=== PATIENT | male | born 1950 | race Caucasian/White ===

== ENCOUNTER 2018-02-28 12:57 | Inpatient (IN) | payer MEDICARE ==
[2018-02-28 14:44] LABS: Basophils % (A) 0 %; Eosinophils # (A) 0.2 k/uL (0-0.7); Eosinophils % (A) 1 %; HCT 27.4 % (39.0-53.0); Hypochromasia Slight; Lymphocytes # (A) 1.4 k/uL (1.0-4.8); Lymphocytes % (A) 7 %; MCHC 32.9 g/dL (31.0-37.0); MCV 88.3 fL (80.0-100.0); Mean Platelet Volume 6.2; Monocytes # (A) 0.9 k/uL (0-1.0); Monocytes % (A) 5 %; Neutrophils # (A) 16.7 k/uL (1.3-7.7); Neutrophils % (A) 86 %; Platelet Count 585 k/uL (150-450); RBC 3.11 m/uL (4.30-5.90); RDW 13.9 % (11.5-15.5); WBC 19.3 k/uL (3.8-10.6)
[2018-02-28 14:57] LABS: ALT 17 U/L (21-72); AST 16 U/L (17-59); Albumin 3.7 g/dL (3.5-5.0); Alkaline Phosphatase 101 U/L (38-126); Anion Gap 8 mmol/L; Blood Urea Nitrogen 17 mg/dL (9-20); Calcium 12.7 mg/dL (8.4-10.2); Carbon Dioxide 28 mmol/L (22-30); Chloride 101 mmol/L (98-107); Glucose 113 mg/dL (74-99); Potassium 3.3 mmol/L (3.5-5.1); Sodium 137 mmol/L (137-145); Total Bilirubin 0.3 mg/dL (0.2-1.3); Total Protein 7.1 g/dL (6.3-8.2)
[2018-02-28] MEDS ORDERED: SODIUM CHLORIDE 0.9% 1,000 ML IV STA (15:42)
[2018-02-28] MEDS ORDERED: AMPICILLIN-SULBACTAM 3 GM in SODIUM CHLORIDE 0.9% 100 ML IVPB STA (15:57)
--- NOTE | 2018-02-28 16:29 | CT ---
EXAMINATION TYPE: CT facial bones w con DATE OF EXAM: 02/28/2018 COMPARISON: HISTORY: left side facial swelling and pain CT DLP: 585.5 mGycm Automated exposure control for dose reduction was used. CONTRAST: CT scan of the facial bones is performed with IV Contrast, patient injected with 100 mL of Isovue 300 . TECHNIQUE: CT scan of the sinuses is performed without contrast, axial images are obtained, coronal r eformatted images are also reviewed. FINDINGS: Multilobulated soft tissue mass encases the left hemimandible with bony destruction noted. There are areas of fluid attenuation which may reflect a tumor necrosis or abscess formation. Mass is difficult to measure however is estimated at 10 9.2 x 5.7 x 8 cm. There appears to be skin ulceratio n mandibular distractions from the mentum through the angle of the mandible. Soft tissue also surroun ds the ramus. There is a deviation of the tongue from left to right. There is extensive adenopathy no anthony within the internal jugular chains bilaterally measuring 2.8 cm on the left and the largest lymph node on the right measures 1.8 cm. Multiple smaller lymph nodes are also identified. Soft tissue mas slike density is also noted within the left parapharyngeal region with the deviation of the airway fr om left to right. Airway remains patent. Vascular structures are patent. 50% stenosis bilateral internal carotid arteries. Bilateral maxillary cysts chronic sinusitis. Left bulbous phthisis. IMPRESSION: 1. Destructive soft tissue mass encases the left hemimandible with bone destruction. Soft tissue necr osis noted with underlying infection difficult to exclude. There is deviation of the tongue and mass effect upon the oropharynx from left to right. There is associated adenopathy.
[2018-02-28] MEDS ORDERED: LORazepam 2 MG/ML INJ IV STA ×2 (16:41→16:51)
--- NOTE | 2018-02-28 16:43 | ED ---
General Adult HPI - General Chief complaint: Skin/Abscess/Foreign Body Stated complaint: facial abscess Time Seen by Provider: 02/28/18 15:34 Source: patient, RN notes reviewed Mode of arrival: ambulatory Limitations: no limitations - History of Present Illness Initial comments: Patient 67-year-old male presents emergency room today with chief complaint of possible dental abscess. He has not that is had facial swelling on the left side that started approximately a month ago. Patient does admit that there is minimal pain. Does admit to some drainage that can days. Patient states that he's had some drainage past few days. Patient denies any other complaints or symptoms. Patient denies any recent fever, chills, shortness of breath, chest pain, back pain, abdominal pain, nausea or vomiting, numbness or tingling, headaches or visual changes, or any other complaints. - Related Data Home Medications Medication Instructions Recorded Confirmed No Known Home Medications 02/28/18 02/28/18 Allergies Allergy/AdvReac Type Severity Reaction Status Date / Time No Known Allergies Allergy Verified 02/28/18 16:06 Review of Systems ROS Statement: Those systems with pertinent positive or pertinent negative responses have been documented in the HPI. ROS Other: All systems not noted in ROS Statement are negative. Past Medical History Past Medical History: No Reported History History of Any Multi-Drug Resistant Organisms: None Reported Additional Past Surgical History / Comment(s): LEFT EYE REMOVED WHEN 6 YRS OLD Past Psychological History: No Psychological Hx Reported Smoking Status: Current every day smoker Past Alcohol Use History: Daily, Heavy Past Drug Use History: None Reported General Exam - General Exam Comments Initial Comments: General: The patient is awake and alert, in no distress, and does not appear acutely ill. Eye: Pupils are equal, round and reactive to light. Extra-ocular movements are intact. No nystagmus. There is normal conjunctiva bilaterally. No signs of icterus. Ears, nose, mouth and throat: There are moist mucous membranes. Black drainage to the lower gumline on the left. Neck: The neck is supple Cardiovascular: There is a regular rate and rhythm. No murmur, rub or gallop is appreciated. Respiratory: Lungs are clear to auscultation, respirations are non-labored, breath sounds are equal. No wheezes, stridor, rales, or rhonchi. Musculoskeletal: Normal ROM, no tenderness. Sensation intact. Strength 5/5. Pulses equal bilaterally 2+. Neurological: A&O x 3. CN II-XII intact, There are no obvious motor or sensory deficits. Coordination appears grossly intact. Speech is normal. Skin: Moderate soft tissue swelling to the left side of the jaw. There is a firm on palpation. No fluctuant area. There is scabbed over just to the left side of the midline. Psychiatric: Cooperative, appropriate mood & affect, normal judgment. Limitations: no limitations Course Vital Signs 02/28/18 13:40 Temperature 98.3 F Pulse Rate 95 Respiratory 16 Rate Blood Pressure 149/64 O2 Sat by Pulse 100 Oximetry Medical Decision Making - Medical Decision Making Patient's CT of the facial bones shows dysfunction soft tissue mass encasing the left hemimandible with bowel obstruction. Soft tissue necrosis noted with underlying infection difficult to exclude. There is deviation of tongue or mass effect upon the oropharynx left right. Associated Adenopathy. As read by radiology. Patient does have a 19,000 white count. Lactate 2.2. Given the posterior the emergency room. Patient's vital stable. No hypotension. Patient started on antibiotics of Unasyn and vancomycin here in emergency room. Patient will be admitted to the hospital tonsils oncology and oral surgery. - Lab Data Result diagrams: 02/28/18 14:27 02/28/18 14:27 Lab Results 02/28/18 02/28/18 02/28/18 Range/Units 14:27 14:27 15:56 WBC 19.3 H (3.8-10.6) k/uL RBC 3.11 L (4.30-5.90) m/uL Hgb 9.0 L (13.0-17.5) gm/dL Hct 27.4 L (39.0-53.0) % MCV 88.3 (80.0-100.0) fL MCH 29.0 (25.0-35.0) pg MCHC 32.9 (31.0-37.0) g/dL RDW 13.9 (11.5-15.5) % Plt Count 585 H (150-450) k/uL Neutrophils % 86 % Lymphocytes % 7 % Monocytes % 5 % Eosinophils % 1 % Basophils % 0 % Neutrophils # 16.7 H (1.3-7.7) k/uL Lymphocytes # 1.4 (1.0-4.8) k/uL Monocytes # 0.9 (0-1.0) k/uL Eosinophils # 0.2 (0-0.7) k/uL Basophils # 0.0 (0-0.2) k/uL Hypochromasia Slight Sodium 137 (137-145) mmol/L Potassium 3.3 L (3.5-5.1) mmol/L Chloride 101 (98-107) mmol/L Carbon Dioxide 28 (22-30) mmol/L Anion Gap 8 mmol/L BUN 17 (9-20) mg/dL Creatinine 0.73 (0.66-1.25) mg/dL Est GFR (CKD-EPI)AfAm >90 (>60 ml/min/1.73 sqM) Est GFR (CKD-EPI)NonAf >90 (>60 ml/min/1.73 sqM) Glucose 113 H (74-99) mg/dL Plasma Lactic Acid Mejia 2.2 H* (0.7-2.0) mmol/L Calcium 12.7 H (8.4-10.2) mg/dL Total Bilirubin 0.3 (0.2-1.3) mg/dL AST 16 L (17-59) U/L ALT 17 L (21-72) U/L Alkaline Phosphatase 101 (38-126) U/L Total Protein 7.1 (6.3-8.2) g/dL Albumin 3.7 (3.5-5.0) g/dL Disposition Clinical Impression: Mass of mandible, Bone destruction Narrative: Rule out abscess Disposition: ADMITTED IP TO THIS [facility] Condition: Stable Is patient prescribed a controlled substance at d/c from ED?: No Referrals: Gordy Cadet MD [Primary Care Provider] - 1-2 days Time of Disposition: 16:55
[2018-02-28] MEDS ORDERED: VANCOMYCIN IV PER PHARMACY 1 EACH MISC MISCELLANE PRN (16:48)
[2018-02-28] MEDS ORDERED: IBUPROFEN 600 MG TAB PO PRN (16:59)
[2018-02-28] MEDS ORDERED: ACETAMINOPHEN TAB 325 MG TAB PO PRN (16:59)
[2018-02-28] MEDS ORDERED: MORPHINE SULFATE 4 MG/ML SYRINGE IV PRN (16:59)
[2018-02-28] MEDS ORDERED: NALOXONE 0.4 MG/ML 1 ML VIAL IV PRN (16:59)
[2018-02-28] MEDS ORDERED: ONDANSETRON 4 MG/2 ML VIAL IVP PRN (16:59)
[2018-02-28] MEDS ORDERED: SODIUM CHLORIDE 0.9% 1,000 ML IV ONE (16:59)
[2018-02-28] MEDS ORDERED: NICOTINE 7MG/24HR PATCH TRANSDERM STA (17:39)
[2018-02-28] MEDS: AMPICILLIN-SULBACTAM 3 GM in SODIUM CHLORIDE 0.9% 100 ML IVPB SCH (19:08)
[2018-02-28] MEDS: VANCOMYCIN 1,250 MG in SODIUM CHLORIDE 0.9% 250 ML IVPB SCH (22:07)
[2018-03-01] MEDS: AMPICILLIN-SULBACTAM 3 GM in SODIUM CHLORIDE 0.9% 100 ML IVPB SCH ×5 (00:46→23:15)
[2018-03-01] MEDS ORDERED: Potassium Replacement Protocol 1 EACH MISC MISCELLANE PRN (01:09)
[2018-03-01] MEDS: POTASSIUM CHLORIDE 10 MEQ in WATER FOR INJECTION 1 100ML.BAG IVPB SCH ×4 (01:35→05:12)
[2018-03-01 01:47] VITALS: BMI 16.9
[2018-03-01] MEDS: LORazepam 2 MG/ML INJ IV PRN (03:09)
[2018-03-01] MEDS: VANCOMYCIN 1,250 MG in SODIUM CHLORIDE 0.9% 250 ML IVPB SCH ×2 (06:49→18:48)
--- NOTE | 2018-03-01 10:26 | P.GSCN ---
History of Present Illness Consult date: 03/01/18 Reason for Consult: Tissue necrosis History of present illness: This is a 67-year-old male came into the emergency room yesterday with complaints of facial swelling. The patient does feel that it's somewhat sore and the history from the chart is that the swelling was present approximately 1 month ago. 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 Removed one 6 years old. report slight tenderness left neck No difficulty swallowing or breathing Past Medical History Past Medical History: No Reported History Additional Past Medical History / Comment(s): Denies any medical history. History of Any Multi-Drug Resistant Organisms: None Reported Additional Past Surgical History / Comment(s): Left eye removed at age 6. Denies other surgical history. Past Anesthesia/Blood Transfusion Reactions: No Reported Reaction Past Psychological History: No Psychological Hx Reported Additional Psychological History / Comment(s): Pt. lives alone but brayan states she has been making him stay with her lately due to his health. ( Looking to get but patient's brayan's son has cancer and has been dealing with that). Somewhat a poor historian - mildly forgetful. Smoking Status: Current every day smoker Past Alcohol Use History: Daily, Heavy Additional Past Alcohol Use History / Comment(s): Pt. has history of heavy etoh use - reports drinking 1-2 beers most days of the week, but no more than 14 drinks/week. Pt. is a smoker - 1.5 PPD. Past Drug Use History: None Reported - Past Family History Father Family Medical History: Cancer Additional Family Medical History / Comment(s): Lung cancer - . Mother Family Medical History: No Reported History Additional Family Medical History / Comment(s): Mother is still living and doesn 't have many issues. Medications and Allergies Home Medications Medication Instructions Recorded Confirmed Type No Known Home Medications 02/28/18 02/28/18 History Allergies Allergy/AdvReac Type Severity Reaction Status Date / Time No Known Allergies Allergy Verified 02/28/18 16:06 Surgical - Exam Vital Signs Temp Pulse Resp BP Pulse Ox 98.3 F 95 16 149/64 100 02/28/18 13:40 02/28/18 13:40 02/28/18 13:40 02/28/18 13:40 02/28/18 13:40 Patient was asleep in the room easily arousable. Patient is alert and oriented 3 but responds slowly to questions. Large neck mass in the left submandibular area. Crusty with spontaneous drainage. Intraorally mucous membranes are moist opening is within normal limits a large necrotic area of the left jaw is noted with rolled erythematous border. Goes under the tongue extends out into the buccal mucosa. Appears to come anteriorly to the canine area and unable to assess the extent that it goes posteriorly. Black necrotic tissue is noted at the center of the ulcerative lesion. Results - Labs 02/28/18 14:27 02/28/18 14:27 Abnormal Lab Results - Last 24 Hours (Table) 02/28/18 02/28/18 02/28/18 Range/Units 14:27 14:27 15:56 WBC 19.3 H (3.8-10.6) k/uL RBC 3.11 L (4.30-5.90) m/uL Hgb 9.0 L (13.0-17.5) gm/dL Hct 27.4 L (39.0-53.0) % Plt Count 585 H (150-450) k/uL Neutrophils # 16.7 H (1.3-7.7) k/uL Potassium 3.3 L (3.5-5.1) mmol/L Glucose 113 H (74-99) mg/dL Plasma Lactic Acid Mejia 2.2 H* (0.7-2.0) mmol/L Calcium 12.7 H (8.4-10.2) mg/dL AST 16 L (17-59) U/L ALT 17 L (21-72) U/L Diabetes panel 02/28/18 Range/Units 14:27 Sodium 137 (137-145) mmol/L Potassium 3.3 L (3.5-5.1) mmol/L Chloride 101 (98-107) mmol/L Carbon Dioxide 28 (22-30) mmol/L BUN 17 (9-20) mg/dL Creatinine 0.73 (0.66-1.25) mg/dL Glucose 113 H (74-99) mg/dL Calcium 12.7 H (8.4-10.2) mg/dL AST 16 L (17-59) U/L ALT 17 L (21-72) U/L Alkaline Phosphatase 101 (38-126) U/L Total Protein 7.1 (6.3-8.2) g/dL Albumin 3.7 (3.5-5.0) g/dL Calcium panel 02/28/18 Range/Units 14:27 Calcium 12.7 H (8.4-10.2) mg/dL Albumin 3.7 (3.5-5.0) g/dL Pituitary panel 02/28/18 Range/Units 14:27 Sodium 137 (137-145) mmol/L Potassium 3.3 L (3.5-5.1) mmol/L Chloride 101 (98-107) mmol/L Carbon Dioxide 28 (22-30) mmol/L BUN 17 (9-20) mg/dL Creatinine 0.73 (0.66-1.25) mg/dL Glucose 113 H (74-99) mg/dL Calcium 12.7 H (8.4-10.2) mg/dL Adrenal panel 02/28/18 Range/Units 14:27 Sodium 137 (137-145) mmol/L Potassium 3.3 L (3.5-5.1) mmol/L Chloride 101 (98-107) mmol/L Carbon Dioxide 28 (22-30) mmol/L BUN 17 (9-20) mg/dL Creatinine 0.73 (0.66-1.25) mg/dL Glucose 113 H (74-99) mg/dL Calcium 12.7 H (8.4-10.2) mg/dL Total Bilirubin 0.3 (0.2-1.3) mg/dL AST 16 L (17-59) U/L ALT 17 L (21-72) U/L Alkaline Phosphatase 101 (38-126) U/L Total Protein 7.1 (6.3-8.2) g/dL Albumin 3.7 (3.5-5.0) g/dL Assessment and Plan Assessment: Stroke suspicion of malignancy due to the destruction of the jaw bone. Appears to have infection as well. Plan: Patient needs biopsy and cultures to confirm diagnosis and direct treatment. Spoke with anesthesia and plan to perform this afternoon. Patient has been nothing by mouth since midnight. Time with Patient: Less than 30
[2018-03-01 10:45] LABS: Basophils % (A) 0 %; Eosinophils # (A) 0.1 k/uL (0-0.7); Eosinophils % (A) 1 %; HCT 22.8 % (39.0-53.0); Hypochromasia Slight; Lymphocytes # (A) 1.6 k/uL (1.0-4.8); Lymphocytes % (A) 13 %; MCH 29.5 pg (25.0-35.0); MCHC 33.1 g/dL (31.0-37.0); MCV 89.3 fL (80.0-100.0); Mean Platelet Volume 6.2; Monocytes # (A) 0.7 k/uL (0-1.0); Monocytes % (A) 5 %; Neutrophils % (A) 80 %; Platelet Count 419 k/uL (150-450); RBC 2.55 m/uL (4.30-5.90); RDW 13.7 % (11.5-15.5); WBC 12.6 k/uL (3.8-10.6)
[2018-03-01 10:47] LABS: ALT 22 U/L (21-72); AST 14 U/L (17-59); Albumin 2.9 g/dL (3.5-5.0); Alkaline Phosphatase 83 U/L (38-126); Anion Gap 4 mmol/L; Blood Urea Nitrogen 12 mg/dL (9-20); Calcium 11.5 mg/dL (8.4-10.2); Carbon Dioxide 26 mmol/L (22-30); Chloride 107 mmol/L (98-107); Glucose 114 mg/dL (74-99); HGB 7.5 gm/dL (13.0-17.5); Potassium 3.5 mmol/L (3.5-5.1); Sodium 137 mmol/L (137-145); Total Bilirubin 0.2 mg/dL (0.2-1.3); Total Protein 5.7 g/dL (6.3-8.2)
[2018-03-01] MEDS ORDERED: IV FLUID CONTINUATION 1,000 ML IV ONE (13:29)
[2018-03-01] MEDS ORDERED: SODIUM CHLORIDE 0.9% 250 ML with PAMIDRONATE 90 MG IV ONE ×2 (13:30)
[2018-03-01 13:39] LABS: LDH 246 U/L (313-618); Uric Acid 5.2 mg/dL (3.5-8.5)
[2018-03-01 13:57] LABS: Reticulocyte % 4.3 % (0.5-2.0)
[2018-03-01] MEDS ORDERED: LIDOCAINE 1% INJ 10MG/ML (20 ML MDV) ONE (14:27)
[2018-03-01] MEDS ORDERED: fentaNYL (PF) 50 MCG/ML 2 ML AMP ONE (14:27)
[2018-03-01] MEDS ORDERED: PROPOFOL 10 MG/ML 20 ML VIAL IV ONE (14:27)
[2018-03-01] MEDS ORDERED: ONDANSETRON 4 MG/2 ML VIAL ONE (14:27)
[2018-03-01] MEDS ORDERED: SUCCINYLCHOLINE CHLORIDE 100 MG/5 ML SYR IV ONE (14:27)
[2018-03-01] MEDS ORDERED: MIDAZOLAM 2 MG/2 ML VIAL ONE (14:27)
[2018-03-01] MEDS ORDERED: DEXAMETHASONE SOD PHOS (MDV) 100 MG/10 ML VIAL ONE (14:27)
[2018-03-01] MEDS ORDERED: KETOROLAC 30 MG/ML 1 ML VIAL ONE (14:27)
[2018-03-01] MEDS ORDERED: LACTATED RINGERS 1,000 ML IV ONE (14:30)
[2018-03-01] MEDS ORDERED: BUPIVACAINE-EPI 0.5%-1:200,000 10 ML VIAL SQ ONE ×2 (14:41)
--- NOTE | 2018-03-01 16:18 | P.OP ---
Date of Procedure: 03/01/18 Preoperative Diagnosis: Left neck mass Intraoral necrotic ulcer with exposed mandible Gross decay of all teeth Postoperative Diagnosis: Same Procedure(s) Performed: Fine-needle aspiration of neck mass Culture and sensitivity of neck mass Biopsy of intraoral necrotic lesion soft tissue and hard tissue Culture and sensitivity of necrotic lesion Surgical extraction of teeth numbers 22 through 31 Implants: None Anesthesia: GLENYS Surgeon: Estuardo Stevenson Estimated Blood Loss (ml): 50 IV fluids (ml): 900 Urine output (ml): 0 Pathology: other (anterior Mandible biopsy bone and soft tissue: culture and biopsy neck mass) Condition: stable Disposition: PACU Indications for Procedure: Oral surgery was consulted on this patient was consulted regarding intraoral ulcerative lesion with a neck mass. Upon examining the patient a large ulcerative lesion with necrotic bone of the left mandible was noted. Also the neck mass in the neck associated with this left mandible was expanding. Patient came into the emergency room concerned about the ulcerative lesion in the neck mass. His pain was disproportionate to the size of the lesion and suspect neuropathy involved. The patient was seen this morning decision made to take the patient to the operating room to ascertain nature of the ulcerative lesion in the neck mass with biopsy cultures and extraction of indicated teeth. The patient understood the risks of the procedure including but not limited to bleeding pain infection swelling need for additional procedures. Patient consented to have the procedures done. Operative Findings: During the operation a 2 x 2 gauze was found in the necrotic ulcerative area in his mouth. It appeared to then place there by the patient and was removed. Description of Procedure: Patient was taken to the operating room intubated orally per the anesthesia record. He was then cleaned extraorally to remove crusted exudate from his mcmullen and then prepped and draped in the usual fashion for clean contaminated case. The patient's extraoral wound consisted of a necrotizing ulcer left of the midline approximately 2 cm x 2 cm had slight oozing of blood no pus noted. Also had a firm fluctuant 4 cm x 4 cm mass of the left submandibular area noted. Aspiration of approximately 20 mL of watery bloody discharge. This was submitted for pathologic examination as well as culture and sensitivity. Intraorally the necrotic ulcer of the left mandible extending from tooth #[address] to the anterior tonsillar pillar I extended into the buccal mucosa as well as the sublingual area. The ulcer was approaching the midline but did not appear to cross the midline yet. Of note a 2 x 2 black gauze was removed from the lesion. It been in place for some time. On the anterior area a incisional biopsy including part of the normal-appearing mucosa approximately 2 cm x 2 cm deep by half a centimeter in width. Closure of this biopsy was obtained. Due to the strong suspicion for malignancy, with possibility of future radiation in mind and the extremely poor repair of his remaining teeth, the decision was made to remove what remained of the necrotic roots of his lower teeth. Tooth numbers 22 through 31 were gently luxated and a full-thickness mucoperiosteal flap was laid to the buccal. In the posterior right mandible the all hand piece was used to remove some bone. The tooth #32 was completely impacted and well a benign-appearing cyst was noted around the crown of the decision was made not to remove this tooth at this time due its complete impaction and its distance from the suspected tumor site. Closure was achieved with 3-0 chromic suture and hemostasis was observed with pressure and gauze. Patient was then extubated and awakened and wears a postoperative care unit awaiting transfer back to his room.
[2018-03-01] MEDS ORDERED: NICOTINE POLACRILEX 2 MG GUM BUCCAL PRN (17:59)
--- NOTE | 2018-03-01 19:52 | P.CONS ---
History of Present Illness - Reason for Consult Consult date: 03/01/18 Mandibular Mass Requesting physician: Fab Seymour - Chief Complaint Mass on Mandible - History of Present Illness Mr. Avila is a 67-year-old male who originally presented to emergency with a complaint of what he felt was a dental abscess. He was apparently seen at an outpatient facility and by an outpatient physician , whom he does not recall where or who. He stated he was treated with antibiotics and told it was an infection, although when it did not get better and continued to grow over the past month he decided he should present to emergency for further evaluation. He states he is able to eat and drink, he has noted approx 10lb weight loss. He is a poor historian. He continues to smoke cigarettes daily. Review of Systems A 14 point review of systems assessed and completed and all negative except HPI. Past Medical History Past Medical History: No Reported History Additional Past Medical History / Comment(s): Denies any medical history. History of Any Multi-Drug Resistant Organisms: None Reported Additional Past Surgical History / Comment(s): Left eye removed at age 6. Denies other surgical history. Past Anesthesia/Blood Transfusion Reactions: No Reported Reaction Past Psychological History: No Psychological Hx Reported Additional Psychological History / Comment(s): Pt. lives alone but brayan states she has been making him stay with her lately due to his health. ( Looking to get but patient's brayan's son has cancer and has been dealing with that). Somewhat a poor historian - mildly forgetful. Smoking Status: Current every day smoker Past Alcohol Use History: Daily, Heavy Additional Past Alcohol Use History / Comment(s): Pt. has history of heavy etoh use - reports drinking 1-2 beers most days of the week, but no more than 14 drinks/week. Pt. is a smoker - 1.5 PPD. Past Drug Use History: None Reported - Past Family History Father Family Medical History: Cancer Additional Family Medical History / Comment(s): Lung cancer - . Mother Family Medical History: No Reported History Additional Family Medical History / Comment(s): Mother is still living and doesn 't have many issues. Medications and Allergies Home Medications Medication Instructions Recorded Confirmed Type No Known Home Medications 02/28/18 02/28/18 History Allergies Allergy/AdvReac Type Severity Reaction Status Date / Time No Known Allergies Allergy Verified 11/16/18 16:06 Physical Exam Vitals: Vital Signs Temp Pulse Resp BP BP Pulse Ox 03/01/18 17:45 52 L 115/68 03/01/18 17:30 69 120/70 03/01/18 17:15 98.3 F 56 L 16 176/86 99 03/01/18 16:45 75 16 160/76 98 03/01/18 16:30 72 16 159/72 98 03/01/18 16:15 74 16 160/72 98 03/01/18 16:00 73 16 162/79 98 03/01/18 15:51 97 F L 71 16 145/72 98 03/01/18 11:02 98.6 F 73 16 144/69 03/01/18 07:00 98.6 F 73 16 144/69 100 02/28/18 23:00 96.1 F L 99 20 161/71 99 Intake and Output 03/01/18 03/01/18 03/01/18 06:59 14:59 22:59 Intake Total 0 1800 0 Output Total 50 Balance 0 1750 0 Intake: IV 900 0 Intake, IV Titration 900 Amount Sodium Chloride 0.9% 1, 900 000 ml @ 100 mls/hr IV . Q10H ONE Rx#:[id number] Oral 0 Output: Estimated Blood Loss 50 Other: Voiding Method Toilet Urinal Urinal Incontinent Diaper Incontinent # Voids 3 Weight 55 kg 55 kg GEN: alert and oriented, poor historian, NAD HEAD/mouth- Massive large left submandibular mass, there is crusting, drainage, erythema surrounding with black necrotic inner area left Jaw. Mass extends into buccal mucosa. 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 Results CBC & Chem 7: 03/01/18 10:12 03/01/18 10:12 Labs: Abnormal Lab Results - Last 24 Hours (Table) 03/01/18 03/01/18 03/01/18 Range/Units 10:12 10:12 10:12 WBC 12.6 H (3.8-10.6) k/uL RBC 2.55 L (4.30-5.90) m/uL Hgb 7.5 L D (13.0-17.5) gm/dL Hct 22.8 L (39.0-53.0) % Neutrophils # 10.0 H (1.3-7.7) k/uL Retic Count 4.3 H (0.5-2.0) % Glucose 114 H (74-99) mg/dL Calcium 11.5 H (8.4-10.2) mg/dL AST 14 L (17-59) U/L Lactate Dehydrogenase 246 L (313-618) U/L Total Protein 5.7 L (6.3-8.2) g/dL Albumin 2.9 L (3.5-5.0) g/dL Microbiology - Last 24 Hours (Table) 02/28/18 14:27 Blood Culture - Preliminary Blood No Growth after 24 hours Assessment and Plan Plan: Assessment and Recommendations: 1. Massive Left Submandibular Deformity (mass) - Await Pathology for potential neoplastic etiology - Planning Surgical Intervention Culture, FNA, and possible tooth extractions - Will obtain CT scans Neck, Chest, Abdomen and Pelvis to assess for potential malignancy 2. Normocytic Anemia - Hgb 7.3 - Probable Multifactoral - Unclear Etiology: Possible Chronic Liver Disease from ETOH Abuse (Daily) versus other - No overt bleeding noted - Possible inflammation - WOrk-up ordered and in progress including: Retic, SPEP, Immunofixation, Hugo Lamda FLC, LDH, Iron studies, Ferritin, B12, FOlate - Daily 3. Hypercalcemia: - In the presence of ANemia will order further work-up - Aredia 90mg IV x1 per Dr. Gomes - IV Hydration to continue, re-assess and monitor closely - Ionized Calcium - Monitor Calcium and Albumin Daily 4. TObacco Abuse and ETOH - Cessation Encouraged Thank you for allowing us to participate in the care of this patient, we will follow along with you Physician Attestation: I have completed the full history and physical of this patient and agree with above dictation by Thais Hudson NP
--- NOTE | 2018-03-01 20:10 | HP ---
HISTORY AND PHYSICAL DATE OF ADMISSION: 02/28/2018. DATE OF SERVICE: 03/01/2018. PRESENTING COMPLAINT: Left jaw mass. HISTORY OF PRESENTING COMPLAINT: This is a 67-year-old patient of Dr. Cadet, who does not really follow up. The patient developed the left jaw lesion/mass that has been going for at least 4 months, progressively getting bigger, causing discomfort. Then it broke down more anteriorly, started draining. The patient was brought into the ER. Per Dr. Martines, patient was reluctant to come in, but finally proceeded to come in. The patient was started on IV Zosyn and vancomycin in the ER. I spoke to Anesthesia, Dr. Varela, this morning, that patient was cleared to go into surgery. Also spoke to Dr. Stevenson this morning prior to surgery. I discussed the care with the patient prior to going in for surgery. The patient denies any other cardiac history. Denies any fevers or chills. REVIEW OF SYSTEMS: CONSTITUTIONAL: None. HEENT: The patient has a damaged left eye from a childhood accident. Otherwise as above. CARDIOVASCULAR: None. GASTROINTESTINAL: None. GENITOURINARY: None. MUSCULOSKELETAL: None. DERMATOLOGICAL: As above. HEMATOLOGIC: None. LYMPHATICS: None. PSYCHIATRY: None. NEUROLOGIC: Absent left eye. PAST MEDICAL HISTORY: Damaged left eye from an accident. PAST SURGICAL HISTORY: As above. SOCIAL HISTORY: The patient lives with a fiancee. The patient is drinking 1 to 2 beers most of the week, less than 14 drinks a week. Smoking a pack and a half a day for many years. FAMILY HISTORY: Lung cancer. HOME MEDICATIONS: None. ALLERGIES: None. PHYSICAL EXAMINATION: VITAL SIGNS: Vital signs on presentation, temperature 98.3, pulse 95, respirations 16, blood pressure 149/64, pulse 100 percent room air. GENERAL APPEARANCE: Thin built. BMI 16.9. Lying in bed. Diffuse wasting of muscle, loss of subcutaneous fat tissue. EYES: Absent left eye. Right eye is normal. HEENT: External appearance of ears normal, nose normal. The patient has got a large mass on the left jaw inside the mouth. It looks to be very necrotic. There is a breakdown of the skin with drainage anteriorly with mild tenderness. Some of it is variable consistency, some of it is bony, some is firm. NECK: JVD unable to assess. Mass not palpable. Respiratory effort normal. LUNGS: Decreased breath sounds. CARDIOVASCULAR: 1st and 2nd sounds normal. No edema. ABDOMEN: Soft, nontender. Liver and spleen not palpable. LYMPHATIC: No lymph nodes palpable in the neck or axillae. PSYCHIATRY: Alert and oriented x3. Mood and affect normal. NEUROLOGICAL: Absent left eye. Facial asymmetry because of tumor mass. Otherwise power and sensation grossly intact. INVESTIGATIONS: White count 19.3, hemoglobin 9, platelets 585,000, potassium 3.3, BUN and creatinine normal. Repeat albumin is 2.9. Face CT shows destructive soft tissue mass encases the left hemimandible with bony destruction. Soft tissue necrosis is noted with underlying infection difficult to exclude. There is deviation of the tongue and mass effect upon the oropharynx with associated adenopathy. ASSESSMENT: 1. Locally aggressive what appears to be tumor or soft tissue including that of the mandible and viral with secondary infection. At this point, the tissue type of course is unknown. 2. Moderate protein-calorie malnutrition with low BMI, loss of muscle mass in subcutaneous fat. 3. Normocytic anemia, likely including underlying malignancy. 4. Reactive thrombocytosis. 5. Secondary infection of the tumor mass. PLAN: The patient is on broad-spectrum antibiotics including vancomycin and Unasyn. He will be given Lovenox for DVT prophylaxis. Getting IV fluids. The patient will be going in for surgery. Also oncology was consulted. We will start the patient on dietary supple supplements. Depending on the tissue mass, we will go from there. Care was discussed with the patient and Dr. Stevenson and Dr. Varela from Anesthesia. MMODL / IJN: [id number] /
[2018-03-01] MEDS: NICOTINE 21MG/24HR PATCH TRANSDERM SCH (20:46)
[2018-03-01 22:37] LABS: Protein, Total 5.2 g/dL (6.2-8.2)
[2018-03-01 22:51] LABS: Iron Saturation 8.21 (15.00-50.00)
[2018-03-01 23:02] LABS: Beta 2 Microglobulin 1.78 mg/L (0.61-2.37)
[2018-03-02] MEDS: AMPICILLIN-SULBACTAM 3 GM in SODIUM CHLORIDE 0.9% 100 ML IVPB SCH ×3 (05:59→17:06)
[2018-03-02] MEDS: VANCOMYCIN 1,250 MG in SODIUM CHLORIDE 0.9% 250 ML IVPB SCH ×2 (06:31→18:25)
[2018-03-02] MEDS: NICOTINE 21MG/24HR PATCH TRANSDERM SCH (07:28)
[2018-03-02] MEDS: IOPAMIDOL-300 CONTRAST 30 ML VIAL (ORAL USE) PO PRN ×2 (07:52→08:59)
[2018-03-02 08:24] LABS: Anion Gap 4 mmol/L; Blood Urea Nitrogen 12 mg/dL (9-20); Calcium 11.3 mg/dL (8.4-10.2); Carbon Dioxide 28 mmol/L (22-30); Chloride 107 mmol/L (98-107); Glucose 98 mg/dL (74-99); Potassium 3.4 mmol/L (3.5-5.1); Sodium 139 mmol/L (137-145)
[2018-03-02 09:08] LABS: Basophils % (A) 0 %; Eosinophils % (A) 0 %; HCT 24.7 % (39.0-53.0); HGB 7.8 gm/dL (13.0-17.5); Hypochromasia Moderate; Lymphocytes # (A) 2.1 k/uL (1.0-4.8); Lymphocytes % (A) 15 %; MCH 28.5 pg (25.0-35.0); MCHC 31.7 g/dL (31.0-37.0); MCV 90.2 fL (80.0-100.0); Mean Platelet Volume 6.5; Monocytes # (A) 0.7 k/uL (0-1.0); Monocytes % (A) 5 %; Neutrophils # (A) 11.6 k/uL (1.3-7.7); Neutrophils % (A) 79 %; Platelet Count 476 k/uL (150-450); RBC 2.74 m/uL (4.30-5.90); RDW 13.7 % (11.5-15.5); WBC 14.7 k/uL (3.8-10.6)
--- NOTE | 2018-03-02 09:57 | CT ---
EXAMINATION TYPE: CT ChestAbdPelvis w con DATE OF EXAM: 03/02/2018 COMPARISON: NONE HISTORY: CA stage madibular mass CT DLP: 764.8 mGycm Automated exposure control for dose reduction was used. TECHNIQUE: Helical acquisition through the abdomen and pelvis was obtained without oral contrast but following the intravenous administration of 50 mL of Isovue 300. The data was formatted in the axial , coronal and sagittal projections. FINDINGS: There are mild atelectatic changes present in the lung bases. The lungs are otherwise clear . There is no significant axillary, mediastinal or hilar adenopathy. The root of the aorta is dilated measuring 4 cm. The proximal arch is aneurysmal measuring 3.7 cm. Th e proximal descending thoracic aorta is aneurysmal measuring 3.1 cm. The remainder the visualized aor ta is normal in caliber. There is no pleural or pericardial fluid. The heart is not enlarged. Within the abdomen there are gallstones within the gallbladder. There is evidence of old granulomatou s disease of the spleen. The liver is unremarkable. Both adrenal glands are normal. Both kidneys demonstrate function and appear morphologically normal. The pancreas is unremarkable. There is mild/moderate atheromatous change involving the visualized arterial tree. There is no signif icant retrocrural, iliac or inguinal adenopathy. The bladder is unremarkable. There is no significant diverticular change and there is no radiographic evidence of diverticulitis. The appendix is not visualized with certainty. There is a moderate stool load within the colon. Small bowel loops are of normal caliber. There is no free fluid and no free air identified. There is degenerative disc disease, facet arthropathy and hypertrophic spondylosis within the spine. No definite bony destructive lesion is seen. IMPRESSION: 1. ASCENDING THORACIC AORTIC ANEURYSM WITH MAXIMAL TRANSVERSE DIAMETER OF 4 CM. 2. CHOLELITHIASIS. 3. 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 4. MODERATE STOOL LOAD. 5. DEGENERATIVE CHANGES WITHIN THE SPINE.
--- NOTE | 2018-03-02 10:10 | CT ---
EXAMINATION TYPE: CT soft tissue neck w con DATE OF EXAM: 03/02/2018 9:49 AM COMPARISON: None. HISTORY: CA stage mandibular mass CT DLP: 286.1 mGycm Automated exposure control for dose reduction was used. CONTRAST: CT scan of the neck is performed following with IV Contrast, patient injected with 50 mL of Isovue 30 0. Axial images are obtained, coronal and sagittal reformatted images are reviewed. FINDINGS: Visualized portions of the lungs are clear. There is a mild loss of normal cervical lordosis. Alignment remains normal. Atlantoaxial relationship s are normal. There is degenerative disc disease and hypertrophic spondylosis present at C4-5, C5-6 and C6-7. There is mild uncovertebral joint disease present at these levels. There is mild facet arthropathy present at C3-4 and C2-3 on the left. There is chronic mucoperiosteal thickening involving both of the maxillary sinuses. Visualized portio ns of the paranasal sinuses and mastoids are otherwise unremarkable. Visualized intracranial structures appear normal. There is a 5.1 x 3.9 x 4.2 cm mass in the region of the angle of the mandible on the left. This appea rs to have a relatively thick rind and a more lucent center. This extends into the submandibular reid a. This appears to arise from the parotid gland and also involves the deep portion of the gland. Ther e are adjacent 1.3 cm deep cervical nodes. There are also contralateral nodes in the submental region measuring 1.3 cm. There is asymmetry of the parapharyngeal soft tissues with effacement on the left. There is also effacement of the oropharyngeal soft tissues. There is destruction of the body of the mandible on the left. There is adjacent air. There is also so me destruction adjacent to the third mandible on the right and this may represent a periapical absces s. IMPRESSION: 1. LARGE MASS IN THE REGION OF THE LEFT PAROTID GLAND EXTENDING INTO THE SUBMANDIBULAR FOSSA. I CANNO T DISTINGUISH THE PAROTID GLAND FROM THIS LESION. THIS APPEARS TO HAVE A THICK RIND AND A LOW ATTENUA TING CENTER. AN ABSCESS IS A POSSIBILITY. THERE IS ADJACENT EFFACEMENT OF THE PARAPHARYNGEAL AND OROP HARYNGEAL SOFT TISSUES ON THE LEFT. 2. BILATERAL DEEP CERVICAL ADENOPATHY. 3. BONE DESTRUCTION OF THE BODY OF THE LEFT SIDE OF THE MANDIBLE. 4. PROBABLE APICAL ROOT ABSCESS INVOLVING THE THIRD MOLAR MOLAR ON THE RIGHT. 5. DEGENERATIVE CHANGES WITHIN THE SPINE. 6. CHRONIC SINUS MUCOSAL DISEASE.
--- NOTE | 2018-03-02 10:19 | P.PN ---
Objective - Vital Signs Vital signs: Vital Signs Temp 98.3 F 03/02/18 07:00 Pulse 72 03/02/18 07:00 Resp 16 03/02/18 07:00 BP 146/66 03/02/18 07:00 Pulse Ox 100 03/02/18 07:00 Intake & Output 03/01/18 03/02/18 03/02/18 18:59 06:59 18:59 Intake Total 1800 700 Output Total 50 Balance 1750 700 Weight 55 kg Intake: IV 900 Intake, IV Titration 900 Amount Sodium Chloride 0.9% 1, 900 000 ml @ 100 mls/hr IV . Q10H ONE Rx#:[id number] Oral 700 Output: Estimated Blood Loss 50 Other: Voiding Method Urinal Toilet Incontinent # Voids 2 - Exam GEN: alert and oriented, poor historian, NAD HEAD/mouth- Massive large left submandibular mass, there is crusting, drainage, erythema surrounding with black necrotic inner area left Jaw. Mass extends into buccal mucosa. 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 - Labs CBC & Chem 7: 03/02/18 07:40 03/02/18 07:40 Labs: Abnormal Lab Results - Last 24 Hours (Table) 03/01/18 03/01/18 03/01/18 Range/Units 10:12 10:12 10:12 WBC 12.6 H (3.8-10.6) k/uL RBC 2.55 L (4.30-5.90) m/uL Hgb 7.5 L D (13.0-17.5) gm/dL Hct 22.8 L (39.0-53.0) % Plt Count (150-450) k/uL Neutrophils # 10.0 H (1.3-7.7) k/uL Retic Count 4.3 H (0.5-2.0) % Potassium (3.5-5.1) mmol/L Glucose 114 H (74-99) mg/dL Calcium 11.5 H (8.4-10.2) mg/dL Ionized Calcium Alley (4.5-5.3) mg/dL Iron (65-175) ug/dL TIBC (228-460) ug/dL Iron Saturation (15.00-50.00) AST 14 L (17-59) U/L Lactate Dehydrogenase 246 L (313-618) U/L Total Protein 5.7 L (6.3-8.2) g/dL Total Protein (PEP) (6.2-8.2) g/dL Albumin 2.9 L (3.5-5.0) g/dL 03/01/18 03/02/18 03/02/18 Range/Units 10:12 07:40 07:40 WBC (3.8-10.6) k/uL RBC (4.30-5.90) m/uL Hgb (13.0-17.5) gm/dL Hct (39.0-53.0) % Plt Count (150-450) k/uL Neutrophils # (1.3-7.7) k/uL Retic Count (0.5-2.0) % Potassium 3.4 L (3.5-5.1) mmol/L Glucose (74-99) mg/dL Calcium 11.3 H (8.4-10.2) mg/dL Ionized Calcium Alley 6.5 H* (4.5-5.3) mg/dL Iron 16 L (65-175) ug/dL TIBC 195 L (228-460) ug/dL Iron Saturation 8.21 L (15.00-50.00) AST (17-59) U/L Lactate Dehydrogenase (313-618) U/L Total Protein (6.3-8.2) g/dL Total Protein (PEP) 5.2 L (6.2-8.2) g/dL Albumin 3.0 L (3.5-5.0) g/dL 03/02/18 Range/Units 07:40 WBC 14.7 H (3.8-10.6) k/uL RBC 2.74 L (4.30-5.90) m/uL Hgb 7.8 L (13.0-17.5) gm/dL Hct 24.7 L (39.0-53.0) % Plt Count 476 H (150-450) k/uL Neutrophils # 11.6 H (1.3-7.7) k/uL Retic Count (0.5-2.0) % Potassium (3.5-5.1) mmol/L Glucose (74-99) mg/dL Calcium (8.4-10.2) mg/dL Ionized Calcium Alley (4.5-5.3) mg/dL Iron (65-175) ug/dL TIBC (228-460) ug/dL Iron Saturation (15.00-50.00) AST (17-59) U/L Lactate Dehydrogenase (313-618) U/L Total Protein (6.3-8.2) g/dL Total Protein (PEP) (6.2-8.2) g/dL Albumin (3.5-5.0) g/dL Microbiology - Last 24 Hours (Table) 03/01/18 15:34 Gram Stain - Preliminary Mandible - Right Wound Culture - Preliminary 03/01/18 15:34 Gram Stain - Preliminary Neck Wound Culture - Preliminary 03/01/18 15:34 Anaerobic Culture - Preliminary Neck 03/01/18 15:34 Anaerobic Culture - Preliminary Mandible - Right 02/28/18 14:27 Blood Culture - Preliminary Blood No Growth after 24 hours Assessment and Plan Plan: Assessment and Recommendations: 1. Massive Left Submandibular Deformity (mass) - Await Pathology for potential neoplastic etiology - Planning Surgical Intervention Culture, FNA, and possible tooth extractions - Will obtain CT scans Neck, Chest, Abdomen and Pelvis to assess for potential malignancy 2. Normocytic Anemia - - Probable Multifactoral - Unclear Etiology: Possible Chronic Liver Disease from ETOH Abuse (Daily) versus other - Component Dilution - No overt bleeding noted - Possible inflammation - WOrk-up ordered and in progress including: Retic, SPEP, Immunofixation, [place] Lamda FLC, LDH, Iron studies, Ferritin, B12, FOlate 3. Hypercalcemia: - In the presence of ANemia will order further work-up - Aredia 90mg IV x1 per Dr. Gomes - on 03/01/18 - IV Hydration to continue, re-assess and monitor closely - Ionized Calcium elevated recheck in am - Monitor Calcium and Albumin Daily 4. TObacco Abuse and ETOH - Cessation Encouraged Thank you for allowing us to participate in the care of this patient, we will follow along with you Physician Attestation: I have completed the full history and physical of this patient and agree with above dictation by Thais Hudson NP
--- NOTE | 2018-03-02 13:13 | P.PN ---
Subjective Progress Note Date: 03/02/18 Principal diagnosis: Left mandibular ulcerative lesion with associated neck mass. Patient is one day postop incisional biopsy of ulcerative lesion of the left mandible as well as cultures and sensitivity of the left mandible and left neck mass as well as fine-needle aspiration of the left neck mass. Patient also had his remaining mandibular teeth extracted except for impacted mandibular molar # 32. Patient is tolerating soft diet without trouble and has no complaints. Objective - Vital Signs Vital signs: Vital Signs Temp 98.3 F 03/02/18 07:00 Pulse 72 03/02/18 07:00 Resp 16 03/02/18 07:00 BP 146/66 03/02/18 07:00 Pulse Ox 100 03/02/18 07:00 Intake & Output 03/01/18 03/02/18 03/02/18 18:59 06:59 18:59 Intake Total 1800 700 Output Total 50 Balance 1750 700 Weight 55 kg Intake: IV 900 Intake, IV Titration 900 Amount Sodium Chloride 0.9% 1, 900 000 ml @ 100 mls/hr IV . Q10H ONE Rx#:[id number] Oral 700 Output: Estimated Blood Loss 50 Other: Voiding Method Urinal Toilet Incontinent # Voids 2 - Exam Patient is awake in bed with girlfriend at the bedside. Alert and oriented 3. reported no tenderness intraorally on his face. Intraorally the wound appears clean with good healing of the incisional biopsy site and the extraction sites. His opening is within normal limits and swelling has begun to resolve. - Labs CBC & Chem 7: 03/02/18 07:40 03/02/18 07:40 Labs: Abnormal Lab Results - Last 24 Hours (Table) 03/01/18 03/01/18 03/01/18 Range/Units 10:12 10:12 10:12 WBC (3.8-10.6) k/uL RBC (4.30-5.90) m/uL Hgb (13.0-17.5) gm/dL Hct (39.0-53.0) % Plt Count (150-450) k/uL Neutrophils # (1.3-7.7) k/uL Retic Count 4.3 H (0.5-2.0) % Potassium (3.5-5.1) mmol/L Glucose 114 H (74-99) mg/dL Calcium 11.5 H (8.4-10.2) mg/dL Ionized Calcium Alley (4.5-5.3) mg/dL Iron 16 L (65-175) ug/dL TIBC 195 L (228-460) ug/dL Iron Saturation 8.21 L (15.00-50.00) AST 14 L (17-59) U/L Lactate Dehydrogenase 246 L (313-618) U/L Total Protein 5.7 L (6.3-8.2) g/dL Total Protein (PEP) 5.2 L (6.2-8.2) g/dL Albumin 2.9 L (3.5-5.0) g/dL 03/02/18 03/02/18 03/02/18 Range/Units 07:40 07:40 07:40 WBC 14.7 H (3.8-10.6) k/uL RBC 2.74 L (4.30-5.90) m/uL Hgb 7.8 L (13.0-17.5) gm/dL Hct 24.7 L (39.0-53.0) % Plt Count 476 H (150-450) k/uL Neutrophils # 11.6 H (1.3-7.7) k/uL Retic Count (0.5-2.0) % Potassium 3.4 L (3.5-5.1) mmol/L Glucose (74-99) mg/dL Calcium 11.3 H (8.4-10.2) mg/dL Ionized Calcium Alley 6.5 H* (4.5-5.3) mg/dL Iron (65-175) ug/dL TIBC (228-460) ug/dL Iron Saturation (15.00-50.00) AST (17-59) U/L Lactate Dehydrogenase (313-618) U/L Total Protein (6.3-8.2) g/dL Total Protein (PEP) (6.2-8.2) g/dL Albumin 3.0 L (3.5-5.0) g/dL Microbiology - Last 24 Hours (Table) 03/01/18 15:34 Gram Stain - Preliminary Mandible - Right Wound Culture - Preliminary 03/01/18 15:34 Gram Stain - Preliminary Neck Wound Culture - Preliminary 03/01/18 15:34 Anaerobic Culture - Preliminary Neck 03/01/18 15:34 Anaerobic Culture - Preliminary Mandible - Right 02/28/18 14:27 Blood Culture - Preliminary Blood No Growth after 24 hours Assessment and Plan Assessment: Left mandibular ulcerative lesion with associated neck mass. Plan: Continue current management and await pathology. Due to lesion size and destruct this strongly suspect malignancy and I feel it is appropriate to to move forward with planning to expedite eventual treatment and hopefully improve outcome. Time with Patient: Less than 30
[2018-03-02] MEDS ORDERED: VANCOMYCIN TROUGH DUE 1 EACH MISC MISCELLANE ONE (17:00)
[2018-03-02] MEDS: LACTATED RINGERS 1,000 ML IV SCH (22:04)
--- NOTE | 2018-03-02 22:44 | PN ---
PROGRESS NOTE DATE OF SERVICE: 03/02/2018. PRESENTING COMPLAINT: Left jaw mass. INTERVAL HISTORY: This patient presented with left jaw lesion with secondary infection, probably from growth necrosis status post biopsy and removal of some teeth by Dr. Stevenson. On IV antibiotics. Dr. Stevenson earlier called me today that the patient asked him to spell suicide. The patient does feel a bit low. More withdrawn today. REVIEW OF SYSTEMS: Attempted for constitutional, vascular, GI, pulmonary, derm, psych; relevant findings as above. CURRENT MEDICATIONS: Reviewed that include IV Unasyn and vancomycin. EXAMINATION: Afebrile, pulse 94, respiratory 18, blood pressure 143/72, pulse ox 97% on room air. GENERAL APPEARANCE: Lying in bed, tired appearing. EYES: Absent left eye. Right eye is normal. HEENT: External nose and ears normal. Large mass on the left jaw with anterior portion necrotic and draining. NECK: JVD unable to assess. Mass not palpable. Respiratory effort normal. LUNGS: Decreased breath sounds. CARDIOVASCULAR: 1st and 2nd sounds normal. No edema. ABDOMEN: Soft, nontender. Liver and spleen not palpable. PSYCHIATRY: More withdrawn appearing, not answering questions. INVESTIGATIONS: White count 14.7, hemoglobin 7.8, potassium 3.4. BUN and creatinine normal. Ionized calcium was 6.5. TSH 0.9. ASSESSMENT: 1. 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 2. Moderate protein-calorie malnutrition with low BMI, decreased oral intake. 3. Normocytic anemia, likely underlying malignancy. 4. Reactive thrombocytosis. 5. Secondary infection of the tumor mass. 6. Hypercalcemia, could be malignancy. 7. Iron deficiency anemia. PLAN: Continue the current IV antibiotics antibiotics. Will aggressively hydrate the patient in view of hypercalcemia. If this is a calcium malignancy, the patient will need some pamidronate. The patient is also rather depressed appearing. Will get a psychiatry opinion. Await results of the biopsy and go from there. Also Infectious Disease is being consulted. MMODL / IJN: [id number] /
[2018-03-03] MEDS: AMPICILLIN-SULBACTAM 3 GM in SODIUM CHLORIDE 0.9% 100 ML IVPB SCH ×5 (00:48→23:44)
[2018-03-03] MEDS: LORazepam 2 MG/ML INJ IV PRN (01:48)
[2018-03-03] MEDS: LACTATED RINGERS 1,000 ML IV SCH ×4 (06:00→23:44)
[2018-03-03] MEDS: VANCOMYCIN 1,250 MG in SODIUM CHLORIDE 0.9% 250 ML IVPB SCH ×2 (06:27→18:31)
[2018-03-03] MEDS: NICOTINE 21MG/24HR PATCH TRANSDERM SCH (08:41)
[2018-03-03 09:04] LABS: Basophils % (A) 0 %; Eosinophils # (A) 0.1 k/uL (0-0.7); Eosinophils % (A) 1 %; HCT 24.2 % (39.0-53.0); HGB 7.8 gm/dL (13.0-17.5); Hypochromasia Moderate; Lymphocytes # (A) 1.2 k/uL (1.0-4.8); Lymphocytes % (A) 12 %; MCHC 32.2 g/dL (31.0-37.0); Mean Platelet Volume 6.5; Monocytes # (A) 0.4 k/uL (0-1.0); Monocytes % (A) 4 %; Neutrophils # (A) 8.4 k/uL (1.3-7.7); Neutrophils % (A) 83 %; Platelet Count 462 k/uL (150-450); RBC 2.69 m/uL (4.30-5.90); WBC 10.1 k/uL (3.8-10.6)
[2018-03-03 09:18] LABS: ALT 21 U/L (21-72); AST 17 U/L (17-59); Albumin 2.9 g/dL (3.5-5.0); Alkaline Phosphatase 79 U/L (38-126); Anion Gap 5 mmol/L; Blood Urea Nitrogen 9 mg/dL (9-20); Calcium 10.3 mg/dL (8.4-10.2); Carbon Dioxide 28 mmol/L (22-30); Chloride 103 mmol/L (98-107); Glucose 152 mg/dL (74-99); Potassium 3.3 mmol/L (3.5-5.1); Sodium 136 mmol/L (137-145); Total Bilirubin 0.2 mg/dL (0.2-1.3); Total Protein 5.8 g/dL (6.3-8.2)
[2018-03-03] MEDS: POTASSIUM CHLORIDE ER 20 MEQ TAB.ER PO SCH ×2 (10:15→11:13)
[2018-03-03 12:36] LABS: Albumin 2.66 g/dL (3.80-4.90)
--- NOTE | 2018-03-03 13:01 | P.CN ---
Psychiatric Consult - . Consult date: 03/03/18 Consult:: 03/03/18 09:51 Depression?? 03/03/18 12:54 Assessment and Plan Assessment: Patient 67-year-old male presents emergency room today with chief complaint of possible dental abscess. He has not that is had facial swelling on the left side that started approximately a month ago. Patient does admit that there is minimal pain. Does admit to some drainage that can days. Patient states that he's had some drainage past few days. Patient denies any other complaints or symptoms. Patient denies any recent fever, chills, shortness of breath, chest pain, back pain, abdominal pain, nausea or vomiting, numbness or tingling, headaches or visual changes, or any other complaints. We are asked to see the patient due to depression. He was seen at bedside with his girlfriend was watching TV and interviewed at bedside. He is very pleasant individual who uses sarcasm as a defense. He is aware of the severity of illness that he is facing. He obviously has deformity and orbital involvement this history of his eye on his left eye being removed as a child. Past Medical History Past Medical History: No Reported History History of Any Multi-Drug Resistant Organisms: None Reported Additional Past Surgical History / Comment(s): LEFT EYE REMOVED WHEN 6 YRS OLD Past Psychological History: No Psychological Hx Reported Smoking Status: Current every day smoker Past Alcohol Use History: Daily, Heavy Past Drug Use History: None Reported Mental Status Examination - General Appearance: [ casual, appears older than stated age Speech/Language: [spontaneous expressive, soft] Attitude/Behavior: [cooperative Mood: [euthymic, anxious, elated, irritable] Affect: [flat, Orientation: [not time, person, place situation] Thought Content: [wnl Risk Factors: [He is not suicidal (ideations, plan), nor Homicidal (ideations, plan) Perception: [wnl Thought Processes: [goal-oriented Concentration/Attention Span: [wnl [Per observation and interview with the patient] Recent Memory: [wnl] 2 or 3 out of 3 in 3 minutes] Remote Memory: [wnl] [past events, as related history] Intelligence: [ average] [based on history, based on vocabulary, syntax, grammar , and content] Judgement: [good] [per patient's behavior/history of present illness] Insight: [good] [understanding severity of illness/history of present illness] Psychiatric impression: Adjustment disorder with mixed most things Psychiatric recommendations: No medications from psychiatric standpoint and needed at this time since he is not suicidal homicidal and just adjusting to the reality of is clinical severity. Thank you for the consult Scooter Adamson D.O. PhD (1) Depression Current Visit: Yes Status: Acute Code(s): F32.9 - MAJOR DEPRESSIVE DISORDER , SINGLE EPISODE, UNSPECIFIED SNOMED Code(s): 82898042 Time with Patient: Less than 30
--- NOTE | 2018-03-03 14:20 | NM ---
EXAMINATION TYPE: NM bone scan whole body DATE OF EXAM: 03/03/2018 COMPARISON: CT neck, chest, abdomen and pelvis March 02, 2018 HISTORY: Hypercalcemia Delayed whole-body scanning was performed following the injection of 22.0 mCi Tc 99m MDP. Images acq uired 3.75 hours post injection. FINDINGS: There is abnormal uptake involving the mandible which corresponds with the CT findings, some abnormal uptake also present within the maxilla could be due to periodontal disease, patient shows tooth deca y. Soft tissue uptake is normal. There is no abnormal increased or decreased radio from a suitable up take within the remainder of the skeleton to suggest metastatic disease. IMPRESSION: Abnormal uptake in the maxilla and mandible. Additional abnormal uptake is not evident.
[2018-03-03 14:32] LABS: Folate, Serum 11.7 ng/mL
--- NOTE | 2018-03-03 17:48 | P.PN ---
Subjective Progress Note Date: 03/03/18 Principal diagnosis: New facial mass Patient seen and examined in follow-up today. Objective - Vital Signs Vital signs: Vital Signs Temp 97.5 F L 03/03/18 15:00 Pulse 63 03/03/18 15:00 Resp 18 03/03/18 15:00 BP 150/74 03/03/18 15:00 Pulse Ox 99 03/03/18 15:00 Intake & Output 03/02/18 03/03/18 03/03/18 18:59 06:59 18:59 Intake Total 750 Balance 750 Weight 55 kg Intake: Oral 750 Other: Voiding Method Toilet Urinal # Voids 4 3 3 - Exam GEN: alert and oriented, poor historian, NAD HEAD/mouth- Massive large left submandibular mass, there is crusting, drainage, erythema surrounding with black necrotic inner area left Jaw. Mass extends into buccal mucosa. 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 - Labs CBC & Chem 7: 03/03/18 08:29 03/03/18 15:33 Labs: Abnormal Lab Results - Last 24 Hours (Table) 03/01/18 03/02/18 03/02/18 Range/Units 10:12 07:40 16:55 RBC (4.30-5.90) m/uL Hgb (13.0-17.5) gm/dL Hct (39.0-53.0) % Plt Count (150-450) k/uL Neutrophils # (1.3-7.7) k/uL ESR 48 H (0-15) mm/hr Haptoglobin 325.0 H (31.2-198.0) mg/dL Sodium (137-145) mmol/L Potassium (3.5-5.1) mmol/L Glucose (74-99) mg/dL Calcium (8.4-10.2) mg/dL Total Protein (6.3-8.2) g/dL Albumin (3.5-5.0) g/dL Albumin (PEP) 2.66 L (3.80-4.90) g/dL Kmths-5-Tnmoextvd 0.41 H (0.10-0.40) g/dL Beta Globulins 0.58 L (0.60-1.30) g/dL PTH Intact 5.0 L (14.0-72.0) pg/mL Free Tab LC, Quant 1.98 H (0.33-1.94) mg/dL 03/03/18 03/03/18 Range/Units 08:29 08:29 RBC 2.69 L (4.30-5.90) m/uL Hgb 7.8 L (13.0-17.5) gm/dL Hct 24.2 L (39.0-53.0) % Plt Count 462 H (150-450) k/uL Neutrophils # 8.4 H (1.3-7.7) k/uL ESR (0-15) mm/hr Haptoglobin (31.2-198.0) mg/dL Sodium 136 L (137-145) mmol/L Potassium 3.3 L (3.5-5.1) mmol/L Glucose 152 H (74-99) mg/dL Calcium 10.3 H (8.4-10.2) mg/dL Total Protein 5.8 L (6.3-8.2) g/dL Albumin 2.9 L (3.5-5.0) g/dL Albumin (PEP) (3.80-4.90) g/dL Onctn-9-Dkbcjqqpi (0.10-0.40) g/dL Beta Globulins (0.60-1.30) g/dL PTH Intact (14.0-72.0) pg/mL Free Tab LC, Quant (0.33-1.94) mg/dL Microbiology - Last 24 Hours (Table) 02/28/18 14:27 Blood Culture - Preliminary Blood No Growth after 72 hours 03/01/18 15:34 Gram Stain - Preliminary Mandible - Right Wound Culture - Preliminary 03/01/18 15:34 Gram Stain - Preliminary Neck Wound Culture - Preliminary Assessment and Plan Plan: Assessment and Recommendations: 1. Massive Left Submandibular Deformity (mass) - Await Pathology for potential neoplastic etiology - Status Pos Surgical intervention ENT - Path Pending - Reviewed and discussed CT scans today with patient, no overt findings 2. Normocytic Anemia - - Probable Multifactoral - Unclear Etiology: Possible Chronic Liver Disease from ETOH Abuse (Daily) versus other - Component Dilution - No overt bleeding noted - Possible inflammation - Bone Scan Ordered 3. Hypercalcemia: Improving - In the presence of ANemia will order further work-up - Aredia 90mg IV x1 per Dr. Gomes - on 03/01/18 - IV Hydration to continue, re-assess and monitor closely - Ionized Calcium elevated - Monitor Calcium and Albumin Daily 4. Tobacco Abuse and ETOH - Cessation Encouraged Thank you for allowing us to participate in the care of this patient, we will follow along with you Physician Attestation: I have completed the full history and physical of this patient and agree with above dictation by Thais Hudson NP
--- NOTE | 2018-03-03 18:05 | PN ---
PROGRESS NOTE DATE OF SERVICE: 03/03/2018 PRESENTING COMPLAINT: Left jaw mass, infected. INTERVAL HISTORY: This patient presented with a left jaw mass, status post biopsy with second necrosis infection, on IV antibiotics. The patient's fiancee was present at the bedside. Tolerating some diet. Feeling a bit low; diagnosed to have adjustment disorder per Psychiatry. Did have a bone scan done. Awaiting further input from Infectious Disease. REVIEW OF SYSTEMS: Done for constitutional, cardiovascular, GI, pulmonary; relevant findings as above. CURRENT MEDICATIONS: Reviewed. They include IV Unasyn and vancomycin. PHYSICAL EXAMINATION: Afebrile, pulse 63, respiration 18, blood pressure 150/74, pulse ox 99% on room air. GENERAL APPEARANCE: Lying in bed, awake. EYES: Absent left eye. Right eye is normal. HEENT: External appearance of nose and ears normal. Large mass on the left jaw with anterior portion necrotic and draining. NECK JVD unable to assess. Mass not palpable. RESPIRATORY: Effort normal. LUNGS: Decreased breath sounds. CARDIOVASCULAR: First and second sounds normal. No edema. ABDOMEN: Soft, non-tender. Liver and spleen not palpable. PSYCHIATRY: Somewhat withdrawn. INVESTIGATIONS: White count 10.1, hemoglobin 7.8, potassium 3.3. BUN and creatinine are normal. Albumin is 2.9. Bone scan shows abnormal uptake in the maxilla and the mandible. ASSESSMENT: 1. 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 2. Moderate protein-calorie malnutrition with low body mass index from decreased oral intake. 3. Normocytic anemia, possibly from underlying chronic infection and malignancy. 4. Reactive thrombocytosis. 5. Secondary infection of the tumor mass. 6. Hypercalcemia; could be from malignancy. 7. Iron deficiency anemia. 8. Adjustment disorder. PLAN: Continue with antibiotics. Await further input from Infectious Disease. Bone scan is noted. Biopsy results are pending. Antibiotics are to continue. Patient has been diagnosed with adjustment disorder per Psychiatry. Care was discussed with his fiancee and the patient. Continue current medication and treatment plan. Await biopsy results. Oncology is also on the case. MMODL / IJN: [id number] /
--- NOTE | 2018-03-03 22:22 | P.CONS ---
History of Present Illness - Reason for Consult Consult date: 03/03/18 - Chief Complaint Pain left jaw - History of Present Illness 03/03/2018 67-year-old male presents to Hospital with significant cajoling from his fiance and family due to significant changes into his left lower jaw. The patient's fianc produces a picture from apparently just a few weeks ago that shows just some minimal swelling to the left jaw. There is evidence of the ulceration that starts at the left lower jaw area, and then the rapid increasing swelling to the left side of the face. Because the patient was having difficulties with chewing and swallowing he finally sought care. It is noted he has been seen by oral surgery with Dr. Stevenson consequently taken to the operating room multiple tooth extractions occurred on the left mandibular area, there is evidence of a significant mass in this area which has been biopsied. Follow evaluation shows evidence of adequate hemostasis. The patient is able to ingest a few clear liquids, he has appropriate anxiety. Infectious diseases evaluation requested regarding antibiotic therapy given the concern for secondary infection at the site. Review of Systems HEENT: Headache is improved is having the deformity pain and discomfort to the left lower jaw difficulty swallowing is improved after his recent surgery is having no significant bleeding from the oral cavity Lungs: Chronic heavy tobacco use with some chronic shortness of breath minimal cough at this time no hemoptysis Cardiovascular: Denies significant shortness of breath, chest pain, chest wall pain, orthopnea, dyspnea on exertion, syncope Gastrointestinal:Denies nausea, vomiting, diarrhea, constipation, hematemesis, melena, hematochezia. No no significant change of bowel habit noticed. Musculoskeletal: denies significant myalgias or arthralgias. No new joint swelling. Denies new back pain. Skin: Lesions of the left jaw is noted in the HPI Neuro: Denies headache or visual change. Denies any new onset weakness or difficulty with ambulation. Denies falls or seizures. Psychiatric: Is having appropriate anxiety related to the situation Endocrine: Minimal fatigue but has lost weight he is unable to characterize the extent but appears to be significant Past Medical History Past Medical History: No Reported History (Patient does not have outpatient evaluations) Additional Past Medical History / Comment(s): Denies any medical history. History of Any Multi-Drug Resistant Organisms: None Reported Additional Past Surgical History / Comment(s): Left eye removed at age 6. Denies other surgical history. Past Anesthesia/Blood Transfusion Reactions: No Reported Reaction Past Psychological History: No Psychological Hx Reported Additional Psychological History / Comment(s): Pt. lives alone but brayan states she has been making him stay with her lately due to his health. ( Looking to get but patient's brayan's son has cancer and has been dealing with that). Somewhat a poor historian - mildly forgetful. He has difficulty completing complex thoughts Smoking Status: Current every day smoker Past Alcohol Use History: Daily, Heavy Additional Past Alcohol Use History / Comment(s): Pt. has history of heavy etoh use - reports drinking 1-2 beers most days of the week, but no more than 14 drinks/week. Pt. is a smoker - 1.5 PPD. Sometimes more is been smoking since his early teenage years. No experience. No extensive travel. His exposure to one dog, 4 cats and 2 birds, his fiance's caring for them while he is hospitalized Past Drug Use History: None Reported - Past Family History Father Family Medical History: Cancer Additional Family Medical History / Comment(s): Lung cancer - . Mother Family Medical History: No Reported History Additional Family Medical History / Comment(s): Mother is still living and doesn 't have many issues. Medications and Allergies Home Medications and Allergies Comment(s): Current Medications Acetaminophen (Tylenol Tab) 650 mg PO Q6HR PRN PRN Reason: Mild Pain or Fever > 100.5 Ampicillin Sodium/Sulbactam (Sodium 3 gm/ Sodium Chloride) 100 mls @ 200 mls/ hr IVPB Q6HR [facility] Last Admin: 03/03/18 17:07 Dose: 200 mls/hr Vancomycin HCl 1,250 mg/ (Sodium Chloride) 250 mls @ 125 mls/hr IVPB Q12H [facility] Last Admin: 03/03/18 18:31 Dose: 125 mls/hr Lactated Ringer's (Lactated Ringers) 1,000 mls @ 125 mls/hr IV .Q8H [facility] Last Admin: 03/03/18 20:20 Dose: Not Given Ibuprofen (Motrin) 600 mg PO Q6HR PRN PRN Reason: Mild Pain or Fever > 100.5 Lorazepam (Ativan) 1 mg IV Q6HR PRN PRN Reason: Anxiety Last Admin: 03/03/18 01:48 Dose: 1 mg Miscellaneous Information (Potassium Per Protocol) 1 each MISCELLANE DAILY PRN ; Protocol PRN Reason: Per Protocol Morphine Sulfate (Morphine Sulfate (Inj)) 4 mg IV Q4HR PRN PRN Reason: Severe Pain Naloxone HCl (Narcan) 0.2 mg IV Q2M PRN PRN Reason: Opioid Reversal Nicotine (Habitrol 21mg/24hr Patch) 1 patch TRANSDERM DAILY [facility] Last Admin: 03/03/18 08:41 Dose: 1 patch Nicotine Polacrilex (Nicorette Gum) 2 mg BUCCAL Q4HR PRN PRN Reason: Nicotine Cravings Ondansetron HCl (Zofran) 4 mg IVP Q8HR PRN PRN Reason: Nausea And Vomiting Home Medications Medication Instructions Recorded Confirmed Type No Known Home Medications 02/28/18 02/28/18 History Allergies Allergy/AdvReac Type Severity Reaction Status Date / Time No Known Allergies Allergy Verified 02/28/18 16:06 Physical Exam Vitals: Vital Signs Temp Pulse Resp BP BP Pulse Ox 03/03/18 15:00 97.5 F L 63 18 150/74 99 03/03/18 07:00 96.9 F L 90 18 148/70 99 03/02/18 23:00 97.5 F L 90 19 138/59 99 Intake and Output 03/03/18 03/03/18 03/03/18 06:59 14:59 22:59 Other: Voiding Method Toilet Urinal # Voids 3 3 Weight 55 kg 55 kg HEENT: Anicteric conjunctiva are pink and moist nasal mucosa grossly intact without significant lesions, left lower jaw reveals evidence of the marked abnormality with evidence of the tooth extraction, marked swelling to her left jaw externally with a hard mass is easily palpable through the preauricular area with evidence of an ulceration to the lateral aspect of the chin. There is no expressible purulence Neck: The neck is supple without significant lymphadenopathy or thyromegaly. Lungs: Good bilateral air entry without significant crackles or wheezing. There is no significant bronchial sounds. There is no egophony or dullness. Heart: Regular rate and rhythm with an audible S1-S2, no S3 no S4. There is no significant murmur click or rub, PMI was nondisplaced. Abdomen: Scaphoid, Positive bowel sounds soft and nontender without palpable masses or organomegaly. There was no guarding or rebound. Extremities: The upper and lower extremities evidence of some wasting that is occurred Neuro: Awake alert oriented to person place and time. There are no acute new gross focal sensory motor deficits. Results CBC & Chem 7: 03/03/18 08:29 03/03/18 15:33 Labs: Abnormal Lab Results - Last 24 Hours (Table) 03/01/18 03/02/18 03/03/18 Range/Units 10:12 07:40 08:29 RBC (4.30-5.90) m/uL Hgb (13.0-17.5) gm/dL Hct (39.0-53.0) % Plt Count (150-450) k/uL Neutrophils # (1.3-7.7) k/uL Haptoglobin 325.0 H (31.2-198.0) mg/dL Sodium 136 L (137-145) mmol/L Potassium 3.3 L (3.5-5.1) mmol/L Glucose 152 H (74-99) mg/dL Calcium 10.3 H (8.4-10.2) mg/dL Total Protein 5.8 L (6.3-8.2) g/dL Albumin 2.9 L (3.5-5.0) g/dL Albumin (PEP) 2.66 L (3.80-4.90) g/dL Rfzae-5-Iyohapvmi 0.41 H (0.10-0.40) g/dL Beta Globulins 0.58 L (0.60-1.30) g/dL PTH Intact 5.0 L (14.0-72.0) pg/mL Free Paige LC, Quant 1.98 H (0.33-1.94) mg/dL 03/03/18 Range/Units 08:29 RBC 2.69 L (4.30-5.90) m/uL Hgb 7.8 L (13.0-17.5) gm/dL Hct 24.2 L (39.0-53.0) % Plt Count 462 H (150-450) k/uL Neutrophils # 8.4 H (1.3-7.7) k/uL Haptoglobin (31.2-198.0) mg/dL Sodium (137-145) mmol/L Potassium (3.5-5.1) mmol/L Glucose (74-99) mg/dL Calcium (8.4-10.2) mg/dL Total Protein (6.3-8.2) g/dL Albumin (3.5-5.0) g/dL Albumin (PEP) (3.80-4.90) g/dL Kspbw-0-Rmjehizwp (0.10-0.40) g/dL Beta Globulins (0.60-1.30) g/dL PTH Intact (14.0-72.0) pg/mL Free Paige LC, Quant (0.33-1.94) mg/dL Microbiology - Last 24 Hours (Table) 03/01/18 15:34 Gram Stain - Final Neck Wound Culture - Final 03/01/18 15:34 Anaerobic Culture - Preliminary Neck 02/28/18 14:27 Blood Culture - Preliminary Blood No Growth after 72 hours 03/01/18 15:34 Gram Stain - Preliminary Mandible - Right Wound Culture - Preliminary Laboratory Results WBC 10.1 k/uL (3.8-10.6) 03/03/18 08:29 RBC 2.69 m/uL (4.30-5.90) L 03/03/18 08:29 Hgb 7.8 gm/dL (13.0-17.5) L 03/03/18 08:29 Hct 24.2 % (39.0-53.0) L 03/03/18 08:29 MCV 90.0 fL (80.0-100.0) 03/03/18 08:29 MCH 29.0 pg (25.0-35.0) 03/03/18 08:29 MCHC 32.2 g/dL (31.0-37.0) 03/03/18 08:29 RDW 14.0 % (11.5-15.5) 03/03/18 08:29 Plt Count 462 k/uL (150-450) H 03/03/18 08:29 Neutrophils % 83 % 03/03/18 08:29 Lymphocytes % 12 % 03/03/18 08:29 Monocytes % 4 % 03/03/18 08:29 Eosinophils % 1 % 03/03/18 08:29 Basophils % 0 % 03/03/18 08:29 Neutrophils # 8.4 k/uL (1.3-7.7) H 03/03/18 08:29 Lymphocytes # 1.2 k/uL (1.0-4.8) 03/03/18 08:29 Monocytes # 0.4 k/uL (0-1.0) 03/03/18 08:29 Eosinophils # 0.1 k/uL (0-0.7) 03/03/18 08:29 Basophils # 0.0 k/uL (0-0.2) 03/03/18 08:29 Hypochromasia Moderate 03/03/18 08:29 ESR 48 mm/hr (0-15) H 03/02/18 16:55 Retic Count 4.3 % (0.5-2.0) H 03/01/18 10:12 Haptoglobin 325.0 mg/dL (31.2-198.0) H 03/01/18 10:12 Sodium 136 mmol/L (137-145) L 03/03/18 08:29 Potassium 4.3 mmol/L (3.5-5.1) 03/03/18 15:33 Chloride 103 mmol/L (98-107) 03/03/18 08:29 Carbon Dioxide 28 mmol/L (22-30) 03/03/18 08:29 Anion Gap 5 mmol/L 03/03/18 08:29 BUN 9 mg/dL (9-20) 03/03/18 08:29 Creatinine 0.68 mg/dL (0.66-1.25) 03/03/18 08:29 Est GFR (CKD-EPI)AfAm >90 (>60 ml/min/1.73 sqM) 03/03/18 08:29 Est GFR (CKD-EPI)NonAf >90 (>60 ml/min/1.73 sqM) 03/03/18 08:29 Glucose 152 mg/dL (74-99) H 03/03/18 08:29 Lactic Ac Sepsis Rflx Y 02/28/18 16:34 Plasma Lactic Acid Mejia 1.0 mmol/L (0.7-2.0) 02/28/18 19:47 Uric Acid 5.2 mg/dL (3.5-8.5) 03/01/18 10:12 Calcium 10.3 mg/dL (8.4-10.2) H 03/03/18 08:29 Ionized Calcium Alley 6.5 mg/dL (4.5-5.3) H* 03/02/18 07:40 Iron 16 ug/dL (65-175) L 03/01/18 10:12 TIBC 195 ug/dL (228-460) L 03/01/18 10:12 Iron Saturation 8.21 (15.00-50.00) L 03/01/18 10:12 Ferritin 169.1 ng/mL (22.0-322.0) 03/01/18 10:12 Total Bilirubin 0.2 mg/dL (0.2-1.3) 03/03/18 08:29 AST 17 U/L (17-59) 03/03/18 08:29 ALT 21 U/L (21-72) 03/03/18 08:29 Alkaline Phosphatase 79 U/L (38-126) 03/03/18 08:29 Lactate Dehydrogenase 246 U/L (313-618) L 03/01/18 10:12 C-Reactive Protein 32.3 mg/L (<10.0) H 03/02/18 16:55 Total Protein 5.8 g/dL (6.3-8.2) L 03/03/18 08:29 Total Protein (PEP) 5.2 g/dL (6.2-8.2) L 03/01/18 10:12 Albumin 2.9 g/dL (3.5-5.0) L 03/03/18 08:29 Albumin (PEP) 2.66 g/dL (3.80-4.90) L 03/01/18 10:12 Nrgav-7-Ncbsrtdxd 0.41 g/dL (0.10-0.40) H 03/01/18 10:12 Frkbj-3-Gufzcbjkq 0.75 g/dL (0.60-1.00) 03/01/18 10:12 Beta Globulins 0.58 g/dL (0.60-1.30) L 03/01/18 10:12 Obmx-2-Qwlccdafsdrvz 1.78 mg/L (0.61-2.37) 03/01/18 10:12 Gamma Globulins 0.80 g/dL (0.70-1.50) 03/01/18 10:12 PEP Interpretation SEE NOTE 03/01/18 10:12 Vitamin B12 558.0 pg/mL (200.0-944.0) 03/01/18 10:12 Folate 11.7 ng/mL 03/01/18 10:12 TSH 0.952 mIU/L (0.465-4.680) 03/02/18 07:40 PTH Intact 5.0 pg/mL (14.0-72.0) L 03/02/18 07:40 Vancomycin Trough 14.2 ug/mL 03/02/18 16:55 IgG 848.0 mg/dL (700.0-1600.0) 03/01/18 10:12 IgA 233.0 mg/dL (60.0-350.0) 03/01/18 10:12 IgM 101.0 mg/dL (40.0-280.0) 03/01/18 10:12 Serum BECKY Interpret SEE NOTE 03/01/18 10:12 Free Paige LC, Quant 1.98 mg/dL (0.33-1.94) H 03/01/18 10:12 Microbiology 03/01/18 15:34 Neck Gram Stain - Final 03/01/18 15:34 Neck Wound Culture - Final 03/01/18 15:34 Neck Anaerobic Culture - Preliminary 02/28/18 14:27 Blood Blood Culture - Preliminary No Growth after 72 hours 03/01/18 15:34 Mandible - Right Gram Stain - Preliminary 03/01/18 15:34 Mandible - Right Wound Culture - Preliminary 03/01/18 15:34 Mandible - Right Anaerobic Culture - Preliminary CT scan - abdomen: report reviewed CT scan - chest: report reviewed (Evidence of a large left mandibular mass, with bony destruction of the mandible and significant lymphadenopathy. Computed tomography scan of the chest abdomen pelvis without evidence of metastatic disease) CT Scan - head: report reviewed Assessment and Plan (1) Mass of mandible Narrative/Plan: 67-year-old male with a long-standing history of tobacco use and also it's related to his history of alcohol use presents with increasing difficulty with swallowing with increasing mass and swelling to the left lower jaw. As noted he has had surgical intervention from oral surgery with evidence of a large mass, multiple teeth were extracted and biopsies of the mass have been performed. The antibiotic therapy currently with Unasyn is adequate given his lack of significant prior interventions. Pathology is awaited to determine what the next steps can be, there is potential that there is an infected tumor which may require some ongoing antibiotic therapy. We discussed smoking cessation. His fiance is present and relates that the major reasons he did not want to come to hospital was he did not want have to stop smoking and did not want to be hooked up to anything. Patient has already been evaluated by psychiatry and appears to have normal situational reaction. He however does make many poor choices. Current Visit: Yes Status: Acute Code(s): R22.0 - LOCALIZED SWELLING, MASS AND LUMP, HEAD SNOMED Code(s): 177963051 (2) Bone destruction Current Visit: Yes Status: Acute Code(s): M89.8X9 - OTHER SPECIFIED DISORDERS OF BONE, UNSPECIFIED SITE SNOMED Code(s): 87763781
[2018-03-04] MEDS: AMPICILLIN-SULBACTAM 3 GM in SODIUM CHLORIDE 0.9% 100 ML IVPB SCH ×4 (05:18→23:42)
[2018-03-04] MEDS: VANCOMYCIN 1,250 MG in SODIUM CHLORIDE 0.9% 250 ML IVPB SCH ×2 (06:22→17:59)
--- NOTE | 2018-03-04 08:07 | P.CONS ---
History of Present Illness - Reason for Consult Consult date: 03/03/18 new jaw mass Requesting physician: Norberto Sánchez - Chief Complaint left neck swelling - History of Present Illness The patient is a 67-year-old male with a history of tobacco and daily alcohol abuse. He presents with a large mass, likely originating from the oral cavity with adjacent adenopathy which is highly suspicious for malignancy. He is status post biopsy, with pathology pending at this time. The patient presented to the emergency room on February 28, 2018 secondary to left facial swelling as well as drainage through his skin. According to the patient, he had noticed progressive swelling in the left face for the past month. He did not report significant changes in his ability eat, however due to advanced dental disease the patient mostly eats softer foods. He notes that there is some soreness along the left face, but the pain has not been a significant problem. On admission, a CT scan of the face was obtained revealing a mass encasing the left hemimandible with bony destruction of the mandible. The mass appeared contiguous with submandibular and likely level II adenopathy measuring 9.2 x 5.7 x 8 cm in size with overlying skin ulceration. There was tongue deviation from left to right. There was bilateral small adenopathy in the necks with 2.8 cm area in the left neck and a 1.8 cm lymph node in the right neck. The patient was taken to the OR on March 01 and had biopsy performed of the submandibular mass, as well as the intraoral mass. The oral cavity mass was seen extending along the lower floor of mouth, reaching posteriorly to the tonsillar pillar and laterally involving the buccal mucosa. Extractions of all except for one of the lower teeth was performed due to an impacted molar. On March [address] scan of the chest, abdomen and pelvis did not demonstrate any clear evidence of distant metastatic disease. A CT scan of the neck largely redemonstrated the findings of the CT from the face. At this time, the patient notes that he is not in significant pain or discomfort. Along the lower left mandible, the patient does have drainage through his skin along the submental area. Review of Systems Constitutional: Denies chills, Denies fever Eyes: denies blurred vision Ears: deny: decreased hearing Ears, nose, mouth and throat: Reports mouth pain, Reports neck lump Cardiovascular: Denies chest pain Respiratory: Denies congestion, Denies cough Gastrointestinal: Denies abdominal pain, Denies BRBPR Musculoskeletal: Denies frequent falls Integumentary: Reports sores (left submental region) Neurological: Reports confusion (per nursing patient confused at times), Denies aphasia, Denies ataxia Psychiatric: Reports depression Past Medical History Past Medical History: No Reported History (Patient does not have outpatient evaluations) Additional Past Medical History / Comment(s): Denies any medical history. History of Any Multi-Drug Resistant Organisms: None Reported Additional Past Surgical History / Comment(s): Left eye removed at age 6. Denies other surgical history. Past Anesthesia/Blood Transfusion Reactions: No Reported Reaction Past Psychological History: No Psychological Hx Reported Additional Psychological History / Comment(s): Pt. lives alone but brayan states she has been making him stay with her lately due to his health. ( Looking to get but patient's brayan's son has cancer and has been dealing with that). Somewhat a poor historian - mildly forgetful. He has difficulty completing complex thoughts Smoking Status: Current every day smoker Past Alcohol Use History: Daily, Heavy Additional Past Alcohol Use History / Comment(s): Pt. has history of heavy etoh use - reports drinking 1-2 beers most days of the week, but no more than 14 drinks/week. Pt. is a smoker - 1.5 PPD. Sometimes more is been smoking since his early teenage years. No experience. No extensive travel. His exposure to one dog, 4 cats and 2 birds, his fiance's caring for them while he is hospitalized Past Drug Use History: None Reported - Past Family History Father Family Medical History: Cancer Additional Family Medical History / Comment(s): Lung cancer - . Mother Family Medical History: No Reported History Additional Family Medical History / Comment(s): Mother is still living and doesn 't have many issues. Medications and Allergies Home Medications Medication Instructions Recorded Confirmed Type No Known Home Medications 02/28/18 02/28/18 History Allergies Allergy/AdvReac Type Severity Reaction Status Date / Time No Known Allergies Allergy Verified 02/28/18 16:06 Physical Exam Vitals: Vital Signs Temp Pulse Pulse Resp BP Pulse Ox 03/04/18 06:05 99.0 F 91 17 120/69 98 03/03/18 23:00 99.3 F 97 16 152/62 100 03/03/18 15:00 97.5 F L 63 18 150/74 99 Intake and Output 03/03/18 03/04/18 03/04/18 22:59 06:59 14:59 Intake Total 100 100 Output Total 200 250 Balance -100 -150 Intake: Oral 100 100 Output: Urine 200 250 Other: Voiding Method Toilet Urinal # Voids 3 Weight 55 kg - Constitutional General appearance: average body habitus - EENT Eyes: EOMI (left eye enucleatied), PERRLA ENT: hearing grossly normal, other (Limited exam reveals necrotic mass along left FOM, extends posteriorly to tonsillar pillar) Ears: bilateral: normal - Neck Neck: lymphadenopathy (Impressive left submental and level II conglomerate adenopathy - level II measuring at least 4 cm. Submental region around 3-4 cm) - Respiratory Respiratory: bilateral: CTA - Cardiovascular Rhythm: regular - Gastrointestinal General gastrointestinal: no tenderness - Integumentary Integumentary: ulcer (drainage from left submandibular region directly to skin ) - Neurologic Neurologic: CNII-XII intact - Musculoskeletal Musculoskeletal: strength equal bilaterally - Psychiatric Psychiatric: A&O x's 3, appropriate affect Results CBC & Chem 7: 03/03/18 08:29 03/03/18 15:33 Labs: Abnormal Lab Results - Last 24 Hours (Table) 03/01/18 03/02/18 03/03/18 Range/Units 10:12 07:40 08:29 RBC (4.30-5.90) m/uL Hgb (13.0-17.5) gm/dL Hct (39.0-53.0) % Plt Count (150-450) k/uL Neutrophils # (1.3-7.7) k/uL Haptoglobin 325.0 H (31.2-198.0) mg/dL Sodium 136 L (137-145) mmol/L Potassium 3.3 L (3.5-5.1) mmol/L Glucose 152 H (74-99) mg/dL Calcium 10.3 H (8.4-10.2) mg/dL Total Protein 5.8 L (6.3-8.2) g/dL Albumin 2.9 L (3.5-5.0) g/dL Albumin (PEP) 2.66 L (3.80-4.90) g/dL Ovjdy-7-Uqhdghpvm 0.41 H (0.10-0.40) g/dL Beta Globulins 0.58 L (0.60-1.30) g/dL PTH Intact 5.0 L (14.0-72.0) pg/mL [place] LC, Quant 1.98 H (0.33-1.94) mg/dL 03/03/18 Range/Units 08:29 RBC 2.69 L (4.30-5.90) m/uL Hgb 7.8 L (13.0-17.5) gm/dL Hct 24.2 L (39.0-53.0) % Plt Count 462 H (150-450) k/uL Neutrophils # 8.4 H (1.3-7.7) k/uL Haptoglobin (31.2-198.0) mg/dL Sodium (137-145) mmol/L Potassium (3.5-5.1) mmol/L Glucose (74-99) mg/dL Calcium (8.4-10.2) mg/dL Total Protein (6.3-8.2) g/dL Albumin (3.5-5.0) g/dL Albumin (PEP) (3.80-4.90) g/dL Dstdh-2-Hhljhrkfy (0.10-0.40) g/dL Beta Globulins (0.60-1.30) g/dL PTH Intact (14.0-72.0) pg/mL [place] LC, Quant (0.33-1.94) mg/dL Microbiology - Last 24 Hours (Table) 03/01/18 15:34 Gram Stain - Final Neck Wound Culture - Final 03/01/18 15:34 Anaerobic Culture - Preliminary Neck 02/28/18 14:27 Blood Culture - Preliminary Blood No Growth after [address] scan - abdomen: report reviewed, image reviewed CT scan - chest: report reviewed, image reviewed CT Scan - head: report reviewed, image reviewed Assessment and Plan Plan: The patient is a 67-year-old male with a history of tobacco and daily alcohol abuse. He presents with a large mass, likely originating from the oral cavity with adjacent adenopathy which is highly suspicious for malignancy. He is status post biopsy, with pathology pending at this time. 1. 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 Patient has significant alcohol, tobacco abuse and does not follow with doctors. Disagree with CT report stating lesion appears to arise from parotid. Oral cavity seems more likely for the primary site. There appears to be significant submental and level II adenopathy with necrosis. There is direct extension through the skin of this tumor, destruction of the mandible and involvement of the operater space. He appears to be at minimum locally advanced (unresectable at this time ) disease (T4b). We will await final pathology prior to recommendations; however, chemotherapy and radiotherapy will likely play a role in management of this tumor. Outpatient PET-CT will be needed as well to definitively rule out distant disease. Time with Patient: Greater than 30
[2018-03-04] MEDS: NICOTINE 21MG/24HR PATCH TRANSDERM SCH (08:27)
--- NOTE | 2018-03-04 10:34 | P.PN ---
Subjective Progress Note Date: 03/04/18 Principal diagnosis: New facial mass Patient seen and examined in follow-up today. Bone scan completed and reviewed, no other suspicious bone lesions were identified on bone Scan Objective - Vital Signs Vital signs: Vital Signs Temp 99.0 F 03/04/18 06:05 Pulse 91 03/04/18 06:05 Resp 17 03/04/18 06:05 BP 120/69 03/04/18 06:05 Pulse Ox 98 03/04/18 06:05 Intake & Output 03/03/18 03/04/18 03/04/18 18:59 06:59 18:59 Intake Total 200 Output Total 450 Balance -250 Weight 55 kg 55 kg Intake: Oral 200 Output: Urine 450 Other: Voiding Method Toilet Urinal # Voids 3 - Exam GEN: alert and oriented, poor historian, NAD HEAD/mouth- Massive large left submandibular mass, there is crusting, drainage, erythema surrounding with black necrotic inner area left Jaw. Mass extends into buccal mucosa. 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 - Labs CBC & Chem 7: 03/03/18 08:29 03/03/18 15:33 Labs: Abnormal Lab Results - Last 24 Hours (Table) 03/01/18 03/02/18 Range/Units 10:12 07:40 Albumin (PEP) 2.66 L (3.80-4.90) g/dL Bjvam-8-Yommqvlex 0.41 H (0.10-0.40) g/dL Beta Globulins 0.58 L (0.60-1.30) g/dL PTH Intact 5.0 L (14.0-72.0) pg/mL Microbiology - Last 24 Hours (Table) 03/01/18 15:34 Gram Stain - Final Neck Wound Culture - Final 03/01/18 15:34 Anaerobic Culture - Preliminary Neck 02/28/18 14:27 Blood Culture - Preliminary Blood No Growth after 72 hours Assessment and Plan Plan: Assessment and Recommendations: 1. Massive Left Submandibular Deformity (mass) - Await Pathology for potential neoplastic etiology - Still pending 03/04/18@ 1030 - Status Pos Surgical intervention ENT - Path Pending - Reviewed and discussed CT scans today with patient, no overt findings - Bone Scan Completed and Reviewed and no other (mandible and facial bones of primary deformity) identified for suspicious uptake, reviewed with patient. 2. Normocytic Anemia - - Probable Multifactoral - Unclear Etiology: Possible Chronic Liver Disease from ETOH Abuse (Daily) versus other - Component Dilution - No overt bleeding noted - Possible inflammation - continue you monitor CBC Daily, Ordered and await today - 03/04/18 3. Hypercalcemia: Improving - In the presence of ANemia will order further work-up - Aredia 90mg IV x1 per Dr. Gomes - on 03/01/18 - IV Hydration to continue, re-assess and monitor closely - Ionized Calcium elevated - Will recheck CMP, Mg, Ionized Caclium today. 4. Tobacco Abuse and ETOH - Cessation Encouraged Thank you for allowing us to participate in the care of this patient, we will follow along with you Thais Hudson NP
[2018-03-04 11:00] LABS: Albumin 2.7 g/dL (3.5-5.0); Anion Gap 6 mmol/L; Blood Urea Nitrogen 12 mg/dL (9-20); Calcium 10.1 mg/dL (8.4-10.2); Carbon Dioxide 26 mmol/L (22-30); Chloride 106 mmol/L (98-107); Glucose 129 mg/dL (74-99); Potassium 3.3 mmol/L (3.5-5.1); Sodium 138 mmol/L (137-145)
[2018-03-04] MEDS: LACTATED RINGERS 1,000 ML IV SCH ×2 (11:17→20:37)
[2018-03-04 12:07] LABS: Basophils % (A) 0 %; Eosinophils # (A) 0.1 k/uL (0-0.7); Eosinophils % (A) 1 %; HCT 23.2 % (39.0-53.0); HGB 7.6 gm/dL (13.0-17.5); Hypochromasia Moderate; Lymphocytes # (A) 1.5 k/uL (1.0-4.8); Lymphocytes % (A) 14 %; MCH 29.4 pg (25.0-35.0); MCHC 32.8 g/dL (31.0-37.0); MCV 89.8 fL (80.0-100.0); Mean Platelet Volume 6.3; Monocytes # (A) 0.6 k/uL (0-1.0); Monocytes % (A) 6 %; Neutrophils # (A) 8.5 k/uL (1.3-7.7); Neutrophils % (A) 78 %; Platelet Count 426 k/uL (150-450); RBC 2.58 m/uL (4.30-5.90); WBC 10.9 k/uL (3.8-10.6)
[2018-03-04] MEDS: POTASSIUM CHLORIDE ER 20 MEQ TAB.ER PO SCH ×2 (12:09→13:13)
--- NOTE | 2018-03-04 13:15 | P.PN ---
Subjective Progress Note Date: 03/04/18 Principal diagnosis: Left mandibular ulcerative lesion with associated neck mass. Postop day 3 incisional biopsy and extraction of lower teeth tolerating soft diet well reports no pain. Objective - Vital Signs Vital signs: Vital Signs Temp 99.0 F 03/04/18 06:05 Pulse 91 03/04/18 06:05 Resp 17 03/04/18 06:05 BP 120/69 03/04/18 06:05 Pulse Ox 98 03/04/18 06:05 Intake & Output 03/03/18 03/04/18 03/04/18 18:59 06:59 18:59 Intake Total 200 Output Total 450 Balance -250 Weight 55 kg 55 kg Intake: Oral 200 Output: Urine 450 Other: Voiding Method Toilet Urinal # Voids 3 2 - Exam Patient awakened chair with dietary and room serving him soft diet. Girlfriend at the bedside. Alert and oriented 3. Wound at the 7 mental area on the left jaw is weeping serosanguineous discharge. Opening within normal limits. No soft tissue swelling over recent extraction sites. Ulcerative mass is clean. Neck swelling is unchanged. - Labs CBC & Chem 7: 03/04/18 11:34 03/04/18 09:58 Labs: Abnormal Lab Results - Last 24 Hours (Table) 03/04/18 03/04/18 03/04/18 Range/Units 09:58 11:34 11:34 WBC 10.9 H (3.8-10.6) k/uL RBC 2.58 L (4.30-5.90) m/uL Hgb 7.6 L (13.0-17.5) gm/dL Hct 23.2 L (39.0-53.0) % Neutrophils # 8.5 H (1.3-7.7) k/uL Potassium 3.3 L (3.5-5.1) mmol/L Glucose 129 H (74-99) mg/dL Ionized Calcium [place]ley 6.0 H* (4.5-5.3) mg/dL Albumin 2.7 L (3.5-5.0) g/dL Microbiology - Last 24 Hours (Table) 03/01/18 15:34 Gram Stain - Final Neck Wound Culture - Final 03/01/18 15:34 Anaerobic Culture - Preliminary Neck 02/28/18 14:27 Blood Culture - Preliminary Blood No Growth after 72 hours Assessment and Plan Assessment: Left mandibular ulcerative lesion with associated neck mass unchanged. Wound care appears adequate. Highly suspicious for malignancy. Plan: Continue to await definitive pathology. continue oral care. If patient's discharge recommend follow-up in 1 week. Time with Patient: Less than 30
[2018-03-04 14:28] LABS: ALT 31 U/L (21-72); AST 19 U/L (17-59); Albumin 2.8 g/dL (3.5-5.0); Alkaline Phosphatase 78 U/L (38-126); Anion Gap 5 mmol/L; Blood Urea Nitrogen 12 mg/dL (9-20); Calcium 10.1 mg/dL (8.4-10.2); Carbon Dioxide 28 mmol/L (22-30); Chloride 104 mmol/L (98-107); Glucose 111 mg/dL (74-99); Magnesium 1.7 mg/dL (1.6-2.3); Potassium 3.9 mmol/L (3.5-5.1); Sodium 137 mmol/L (137-145); Total Bilirubin 0.1 mg/dL (0.2-1.3); Total Protein 5.5 g/dL (6.3-8.2)
[2018-03-04] MEDS ORDERED: LACTATED RINGERS 1,000 ML IV SCH (21:30)
[2018-03-04 23:10] VITALS: PULSE 92
--- NOTE | 2018-03-04 23:18 | PN ---
PROGRESS NOTE DATE OF SERVICE: 03/04/2018 PRESENTING COMPLAINT: Left jaw mass infected. INTERVAL HISTORY: This patient presented with left jaw mass status post biopsy with secondary necrosis infection on IV antibiotics. I saw this patient earlier today. Patient also had some teeth extracted. Later this evening, Dr. Martinez told me that preliminary report showing some squamous cell carcinoma. The patient otherwise has been tolerating a diet. REVIEW OF SYSTEMS: Done for constitutional, cardiovascular, GI, pulmonary, HEENT relevant findings as above. CURRENT MEDICATIONS: Reviewed that include IV Unasyn and vancomycin. PHYSICAL EXAMINATION: VITAL SIGNS: Temperature 99, pulse 91, Respiratory rate 17, blood pressure 120/69, pulse ox 98% on room air. GENERAL APPEARANCE: Sitting up in a chair, awake. EYES: Absent left eye. Right eye is normal. HEENT large mass on the left jaw with anterior portion necrotic and draining, some tenderness. NECK: JVD unable to assess. Mass not palpable. RESPIRATORY: Effort normal. LUNGS: Decreased breath sounds. CARDIOVASCULAR: 1st and 2nd sounds normal. No edema. ABDOMEN: Soft, nontender. Liver and spleen not palpable. PSYCHIATRY: AO x3. Mood and affect normal. INVESTIGATIONS: Labs are noted. ASSESSMENT: 1. Soft tissue mandible tumor secondary infection on the left side, status post biopsy prelim report suggestive of squamous cell carcinoma. 2. Moderate protein-calorie malnutrition with low body mass index from decreased oral intake. 3. Normocytic anemia from underlying chronic infection and malignancy. 4. Reactive thrombocytosis. 5. Secondary infection of the tumor mass. 6. Hypercalcemia from malignancy. 7. Iron deficiency anemia. 8. Adjustment disorder. PLAN: I had a lengthy talk with the patient and his fiancee. Questions were answered. Later in the evening also spoke with Dr. Martinez. The plan is to discharge the patient on Augmentin. The patient probably will get a PET scan this coming Saturday and radiation treatment. All this will be finally coordinated. Total time spent today was about 40 minutes with over 20-25 minutes of discussion. MMODL / IJN: [id number] /
--- NOTE | 2018-03-04 23:39 | P.PN ---
Subjective Progress Note Date: 03/04/18 67-year-old male presents to Hospital with significant cajoling from his fiance and family due to significant changes into his left lower jaw. The patient's fianc produces a picture from apparently just a few weeks ago that shows just some minimal swelling to the left jaw. There is evidence of the ulceration that starts at the left lower jaw area, and then the rapid increasing swelling to the left side of the face. Because the patient was having difficulties with chewing and swallowing he finally sought care. It is noted he has been seen by oral surgery with Dr. Stevenson consequently taken to the operating room multiple tooth extractions occurred on the left mandibular area, there is evidence of a significant mass in this area which has been biopsied. Follow evaluation shows evidence of adequate hemostasis. The patient is able to ingest a few clear liquids, he has appropriate anxiety. Infectious diseases evaluation requested regarding antibiotic therapy given the concern for secondary infection at the site. 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 PET scan is been requested. Objective - Vital Signs Vital signs: Vital Signs Temp 98.0 F 03/04/18 23:00 Pulse 92 03/04/18 23:00 Resp 17 03/04/18 23:00 BP 157/79 03/04/18 23:00 Pulse Ox 98 03/04/18 23:00 Intake & Output 03/04/18 03/04/18 03/05/18 06:59 18:59 06:59 Intake Total 200 900 Output Total 450 2000 Balance -250 900 -2000 Weight 55 kg 55 kg Intake: Oral 200 900 Output: Urine 450 2000 Other: Voiding Method Toilet Toilet Toilet Urinal Urinal Urinal # Voids 2 1 - Exam HEENT: Anicteric conjunctiva are pink and moist nasal mucosa grossly intact without significant lesions, left lower jaw reveals evidence of the marked abnormality with evidence of the tooth extraction, marked swelling to her left jaw externally with a hard mass is easily palpable through the preauricular area with evidence of an ulceration to the lateral aspect of the chin. There is no expressible purulence Neck: The neck is supple without significant lymphadenopathy or thyromegaly. Lungs: Good bilateral air entry without significant crackles or wheezing. There is no significant bronchial sounds. There is no egophony or dullness. Heart: Regular rate and rhythm with an audible S1-S2, no S3 no S4. There is no significant murmur click or rub, PMI was nondisplaced. Abdomen: Scaphoid, Positive bowel sounds soft and nontender without palpable masses or organomegaly. There was no guarding or rebound. Extremities: The upper and lower extremities evidence of some wasting that is occurred Neuro: Awake alert oriented to person place and time. There are no acute new gross focal sensory motor deficits. - Labs CBC & Chem 7: 03/04/18 11:34 03/04/18 15:46 Labs: Abnormal Lab Results - Last 24 Hours (Table) 03/04/18 03/04/18 03/04/18 Range/Units 09:58 11:34 11:34 WBC 10.9 H (3.8-10.6) k/uL RBC 2.58 L (4.30-5.90) m/uL Hgb 7.6 L (13.0-17.5) gm/dL Hct 23.2 L (39.0-53.0) % Neutrophils # 8.5 H (1.3-7.7) k/uL Potassium 3.3 L (3.5-5.1) mmol/L Glucose 129 H 111 H (74-99) mg/dL Ionized Calcium Alley 6.0 H* (4.5-5.3) mg/dL Total Bilirubin 0.1 L (0.2-1.3) mg/dL Total Protein 5.5 L (6.3-8.2) g/dL Albumin 2.7 L 2.8 L (3.5-5.0) g/dL Microbiology - Last 24 Hours (Table) 03/01/18 15:34 Anaerobic Culture - Final Mandible - Right Anaerobic Gm Negative Bacilli Anaerobic Gm Negative Bacilli#3 03/01/18 15:34 Gram Stain - Final Mandible - Right Wound Culture - Final Beta Hemolytic Strep Group G 02/28/18 14:27 Blood Culture - Preliminary Blood No Growth after 96 hours 03/01/18 15:34 Gram Stain - Final Neck Wound Culture - Final Laboratory Results WBC 10.9 k/uL (3.8-10.6) H 03/04/18 11:34 RBC 2.58 m/uL (4.30-5.90) L 03/04/18 11:34 Hgb 7.6 gm/dL (13.0-17.5) L 03/04/18 11:34 Hct 23.2 % (39.0-53.0) L 03/04/18 11:34 MCV 89.8 fL (80.0-100.0) 03/04/18 11:34 MCH 29.4 pg (25.0-35.0) 03/04/18 11:34 MCHC 32.8 g/dL (31.0-37.0) 03/04/18 11:34 RDW 14.0 % (11.5-15.5) 03/04/18 11:34 Plt Count 426 k/uL (150-450) 03/04/18 11:34 Neutrophils % 78 % 03/04/18 11:34 Lymphocytes % 14 % 03/04/18 11:34 Monocytes % 6 % 03/04/18 11:34 Eosinophils % 1 % 03/04/18 11:34 Basophils % 0 % 03/04/18 11:34 Neutrophils # 8.5 k/uL (1.3-7.7) H 03/04/18 11:34 Lymphocytes # 1.5 k/uL (1.0-4.8) 03/04/18 11:34 Monocytes # 0.6 k/uL (0-1.0) 03/04/18 11:34 Eosinophils # 0.1 k/uL (0-0.7) 03/04/18 11:34 Basophils # 0.0 k/uL (0-0.2) 03/04/18 11:34 Hypochromasia Moderate 03/04/18 11:34 ESR 48 mm/hr (0-15) H 03/02/18 16:55 Retic Count 4.3 % (0.5-2.0) H 03/01/18 10:12 Haptoglobin 325.0 mg/dL (31.2-198.0) H 03/01/18 10:12 Sodium 137 mmol/L (137-145) 03/04/18 11:34 Potassium 3.6 mmol/L (3.5-5.1) 03/04/18 15:46 Chloride 104 mmol/L (98-107) 03/04/18 11:34 Carbon Dioxide 28 mmol/L (22-30) 03/04/18 11:34 Anion Gap 5 mmol/L 03/04/18 11:34 BUN 12 mg/dL (9-20) 03/04/18 11:34 Creatinine 0.66 mg/dL (0.66-1.25) 03/04/18 11:34 Est GFR (CKD-EPI)AfAm >90 (>60 ml/min/1.73 sqM) 03/04/18 11:34 Est GFR (CKD-EPI)NonAf >90 (>60 ml/min/1.73 sqM) 03/04/18 11:34 Glucose 111 mg/dL (74-99) H 03/04/18 11:34 Lactic Ac Sepsis Rflx Y 02/28/18 16:34 Plasma Lactic Acid Mejia 1.0 mmol/L (0.7-2.0) 02/28/18 19:47 Uric Acid 5.2 mg/dL (3.5-8.5) 03/01/18 10:12 Calcium 10.1 mg/dL (8.4-10.2) 03/04/18 11:34 Ionized Calcium Alley 6.0 mg/dL (4.5-5.3) H* 03/04/18 11:34 Magnesium 1.7 mg/dL (1.6-2.3) 03/04/18 11:34 Iron 16 ug/dL (65-175) L 03/01/18 10:12 TIBC 195 ug/dL (228-460) L 03/01/18 10:12 Iron Saturation 8.21 (15.00-50.00) L 03/01/18 10:12 Ferritin 169.1 ng/mL (22.0-322.0) 03/01/18 10:12 Total Bilirubin 0.1 mg/dL (0.2-1.3) L 03/04/18 11:34 AST 19 U/L (17-59) 03/04/18 11:34 ALT 31 U/L (21-72) 03/04/18 11:34 Alkaline Phosphatase 78 U/L (38-126) 03/04/18 11:34 Lactate Dehydrogenase 246 U/L (313-618) L 03/01/18 10:12 C-Reactive Protein 32.3 mg/L (<10.0) H 03/02/18 16:55 Total Protein 5.5 g/dL (6.3-8.2) L 03/04/18 11:34 Total Protein (PEP) 5.2 g/dL (6.2-8.2) L 03/01/18 10:12 Albumin 2.8 g/dL (3.5-5.0) L 03/04/18 11:34 Albumin (PEP) 2.66 g/dL (3.80-4.90) L 03/01/18 10:12 Csvrt-8-Slmiruuyn 0.41 g/dL (0.10-0.40) H 03/01/18 10:12 Ewmsv-3-Bdjfnjnbv 0.75 g/dL (0.60-1.00) 03/01/18 10:12 Beta Globulins 0.58 g/dL (0.60-1.30) L 03/01/18 10:12 Kpgd-9-Uqmzrqzamauni 1.78 mg/L (0.61-2.37) 03/01/18 10:12 Gamma Globulins 0.80 g/dL (0.70-1.50) 03/01/18 10:12 PEP Interpretation SEE NOTE 03/01/18 10:12 Vitamin B12 558.0 pg/mL (200.0-944.0) 03/01/18 10:12 Vit D 1,25-Dihydroxy 44 pg/mL (20 - 79) 03/02/18 07:40 Folate 11.7 ng/mL 03/01/18 10:12 TSH 0.952 mIU/L (0.465-4.680) 03/02/18 07:40 PTH Intact 5.0 pg/mL (14.0-72.0) L 03/02/18 07:40 Vancomycin Trough 14.2 ug/mL 03/02/18 16:55 IgG 848.0 mg/dL (700.0-1600.0) 03/01/18 10:12 IgA 233.0 mg/dL (60.0-350.0) 03/01/18 10:12 IgM 101.0 mg/dL (40.0-280.0) 03/01/18 10:12 Serum BECKY Interpret SEE NOTE 03/01/18 10:12 Free Abiquiu LC, Quant 1.98 mg/dL (0.33-1.94) H 03/01/18 10:12 Microbiology 03/01/18 15:34 Mandible - Right Anaerobic Culture - Final Anaerobic Gm Negative Bacilli Anaerobic Gm Negative Bacilli#3 03/01/18 15:34 Mandible - Right Gram Stain - Final 03/01/18 15:34 Mandible - Right Wound Culture - Final Beta Hemolytic Strep Group G 02/28/18 14:27 Blood Blood Culture - Preliminary No Growth after 96 hours 03/01/18 15:34 Neck Gram Stain - Final 03/01/18 15:34 Neck Wound Culture - Final 03/01/18 15:34 Neck Anaerobic Culture - Preliminary Assessment and Plan (1) Mass of mandible Narrative/Plan: 67-year-old male with a long-standing history of tobacco use and also it's related to his history of alcohol use presents with increasing difficulty with swallowing with increasing mass and swelling to the left lower jaw. As noted he has had surgical intervention from oral surgery with evidence of a large mass, multiple teeth were extracted and biopsies of the mass have been performed. The antibiotic therapy currently with Unasyn is adequate given his lack of significant prior interventions. Pathology is awaited to determine what the next steps can be, there is potential that there is an infected tumor which may require some ongoing antibiotic therapy. We discussed smoking cessation. His fiance is present and relates that the major reasons he did not want to come to hospital was he did not want have to stop smoking and did not want to be hooked up to anything. Patient has already been evaluated by psychiatry and appears to have normal situational reaction. He however does make many poor choices. 03/04/2018 there some pulmonary data at the masses squamous carcinoma and plans are for chemotherapy and radiation after PET scan has been achieved. The patient will likely be ready for discharge home with oral antibiotic therapy has been sent to his pharmacy in the form of Augmentin. There some secondary infection of the necrotic material. Current Visit: Yes Status: Acute Code(s): R22.0 - LOCALIZED SWELLING, MASS AND LUMP, HEAD SNOMED Code(s): 654777672 (2) Bone destruction Current Visit: Yes Status: Acute Code(s): M89.8X9 - OTHER SPECIFIED DISORDERS OF BONE, UNSPECIFIED SITE SNOMED Code(s): 93061631
[2018-03-05] MEDS ORDERED: VANCOMYCIN TROUGH DUE 1 EACH MISC MISCELLANE ONE (05:00)
[2018-03-05 05:30] LABS: Basophils % (A) 0 %; Eosinophils # (A) 0.2 k/uL (0-0.7); Eosinophils % (A) 2 %; HCT 22.8 % (39.0-53.0); HGB 7.4 gm/dL (13.0-17.5); Hypochromasia Slight; Lymphocytes # (A) 1.6 k/uL (1.0-4.8); Lymphocytes % (A) 14 %; MCH 28.7 pg (25.0-35.0); MCHC 32.3 g/dL (31.0-37.0); Mean Platelet Volume 7.8; Monocytes # (A) 0.6 k/uL (0-1.0); Monocytes % (A) 5 %; Neutrophils # (A) 8.7 k/uL (1.3-7.7); Neutrophils % (A) 77 %; Platelet Count 354 k/uL (150-450); RBC 2.56 m/uL (4.30-5.90); RDW 14.3 % (11.5-15.5); WBC 11.2 k/uL (3.8-10.6)
[2018-03-05 05:42] LABS: ALT 31 U/L (21-72); AST 17 U/L (17-59); Albumin 2.7 g/dL (3.5-5.0); Alkaline Phosphatase 77 U/L (38-126); Anion Gap 6 mmol/L; Blood Urea Nitrogen 13 mg/dL (9-20); Calcium 9.7 mg/dL (8.4-10.2); Carbon Dioxide 23 mmol/L (22-30); Chloride 107 mmol/L (98-107); Glucose 105 mg/dL (74-99); Potassium 3.6 mmol/L (3.5-5.1); Sodium 136 mmol/L (137-145); Total Bilirubin 0.1 mg/dL (0.2-1.3); Total Protein 5.5 g/dL (6.3-8.2)
[2018-03-05] MEDS: AMPICILLIN-SULBACTAM 3 GM in SODIUM CHLORIDE 0.9% 100 ML IVPB SCH ×2 (06:06→11:15)
[2018-03-05 06:16] VITALS: BP 126/72; RESP 16; TEMP 98.7
[2018-03-05] MEDS: VANCOMYCIN 1,250 MG in SODIUM CHLORIDE 0.9% 250 ML IVPB SCH (06:41)
[2018-03-05] MEDS: NICOTINE 21MG/24HR PATCH TRANSDERM SCH (07:42)
[2018-03-05] MEDS ORDERED: AMOXIC-POT CLAV 875-125MG 1 EACH TAB PO SCH (21:00)
--- NOTE | 2018-03-05 23:17 | DS ---
DISCHARGE SUMMARY DATE OF ADMISSION: February 28, 2018, DATE OF DISCHARGE: March 05, 2018. FINAL DIAGNOSES: 1. 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 2. Moderate protein-calorie malnutrition with low body mass index from decreased oral intake. 3. Normocytic anemia, probably from underlying chronic infection. 4. Reactive thrombocytosis. 5. Secondary infection of the tumor mass. 6. Hypercalcemia of malignancy. 7. Iron deficiency anemia. 8. Adjustment disorder. CONSULTATIONS: Dr. Martinez of Infectious Disease, Dr. Hermilo Stevenson from Maxillofacial Surgery, Dr. Brooks from Oncology, Dr. Ameya De Guzman from Radiation Oncology. HOSPITAL COURSE: This patient has had a growing mass on the left jaw and neglected the same. It started draining. He presented here. Did undergo a bone scan. Also taken to the OR by Dr. Hermilo Stevenson. A biopsy was done and several teeth on the left side lower jaw were removed. Also received IV antibiotics. The patient's wound culture did grow some anaerobic gram-negative bacilli and beta-hemolytic Strep. Care was discussed at length with the patient and his fiancee. The patient is being arranged for an outpatient PET scan and radiation treatment from that. Currently preliminary report on the tumor mass is showing it to be squamous cell type. Differential diagnosis has not been made. I talked to Dr. Dr. Martinez. The patient will be discharged on Augmentin. PHYSICAL EXAMINATION: On examination, afebrile, pulse 92, respirations 16, blood pressure 126/72, pulse ox 100 percent on room air. Left jaw mass anterior part is necrotic and draining. White count 11.2, hemoglobin 7.4, potassium 3.6, albumin 2.7. DISCHARGE MEDICATIONS: 1. Augmentin 875 1 tab every 12 hours 20 tablets. 2. Tylenol 650 mg every 6 hours p.r.n. 3. Naproxen 5 mg every 12. 4. Nicotine 21 mg patch. FOLLOWUP: 1. Follow up with Dr. Carlos eD Guzman on March 11, 2018. 2. Follow up with Dr. Martinez in [address] Hermilo sweet in [address] Cadet in [address] Brooks in a week. DIET: Soft food diet. MMODL / IJN: [id number] /
[2018-03-07 07:26] LABS: Methylmalonic Acid 0.11 umol/L (<0.40)
== END 2018-03-05 14:47 | disposition home or self-care (01) | DRG 543 ==
LOC: EC 12:57 → 4MS4W 17:35
PROVIDERS: ADMIT Hospitalist; ATTEND Hospitalist
PROC: 0NBV0ZX Excision of Left Mandible, Open Approach, Diagnostic (ICD-10-PCS; 2018-03-01)
PROC: 0CTX0Z1 Resection of Lower Tooth, Multiple, Open Approach (ICD-10-PCS; 2018-03-01)
PROC: 0JB53ZX Excision of Left Neck Subcutaneous Tissue and Fascia, Percutaneous Approach, Diagnostic (ICD-10-PCS; 2018-03-01)
PROC: 0J913ZX Drainage of Face Subcutaneous Tissue and Fascia, Percutaneous Approach, Diagnostic (ICD-10-PCS; principal; 2018-03-01 14:30)
DX: C41.1 Malignant neoplasm of mandible (principal); E44.0 Moderate protein-calorie malnutrition; Z68.1 Body mass index [BMI] 19.9 or less, adult; L02.01 Cutaneous abscess of face; E83.52 Hypercalcemia; D50.9 Iron deficiency anemia, unspecified; M89.78 Major osseous defect, other site; M89.8X8 Other specified disorders of bone, other site; R79.89 Other specified abnormal findings of blood chemistry; F43.22 Adjustment disorder with anxiety; F17.210 Nicotine dependence, cigarettes, uncomplicated; F10.10 Alcohol abuse, uncomplicated; Z71.41 Alcohol abuse counseling and surveillance of alcoholic; Z71.6 Tobacco abuse counseling; Z90.01 Acquired absence of eye; Z80.1 Family history of malignant neoplasm of trachea, bronchus and lung
CPT/HCPCS: 36415; 70487; 70491; 71260; 74177; 78306; 80048; 80053; 80202; 82040; 82232; 82330; 82607; 82652; 82728; 82746; 82784; 83010; 83540; 83550; 83605; 83615; 83735; 83883; 83921; 83970; 84132; 84165; 84443; 84550; 85025; 85045; 85652; 86140; 86334; 87040; 87070; 87075; 87205; 88173; 88305; 88307; 88311; 88312; 88342; 96361; 96365; 96375; 99284

== ENCOUNTER → 2018-03-08 | Outpatient (CLI) | payer MEDICARE ==
--- NOTE | 2018-03-08 18:39 | PE ---
EXAMINATION TYPE: PET CT fusion skull to thigh DATE OF EXAM: 03/08/2018 COMPARISON: CT neck March 02, 2018. CT chest abdomen pelvis same date. 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 TECHNIQUE: Following the intravenous administration of 9.714 mCi of F-18 FDG, whole body images are performed from the skull base to the midthigh. Images are reviewed on the computer in the coronal, a xial, and sagittal planes. Reconstructed rotating images are created on independent workstation and reviewed on the computer. A noncontrast CT is performed in conjunction with the PET scan. Dedicated PET/CT imaging of the neck is performed. SCAN: Initial Scan FINDINGS: HEAD AND NECK: There is large left submandibular mass central hypodensity could reflect cystic lin e or necrosis measuring approximately 4.6 x 4.2 cm axial image 55 that shows rim hypermetabolic uptak e. This has significant inferior anterior medial extension. Length of tumor is roughly 7 cm extending past level of hyoid bone to level of false focal cords. There is additional confluent hypermetabolic solid mass anterior to this superficial and deep to the horizontal ramus of left mandible with some bony destruction redemonstrated near axial image 52. Area of involvement extends to the right of midline. There is posterior cervical adenopathy axial image 56 measuring 1.1 x 1.0 cm with max SUV 11.31. There is abnormal 1.5 x 1.4 cm right submandibular lymph node anterolateral to carotid arterial bulb with abnormal hypermetabolic uptake, max SUV is 18.67 at this level. Airway is deviated to right of midline. CHEST, MEDIASTINUM, AND HILAR REGION: No suspicious hypermetabolic uptake is present. No supraclavicu lar involvement is noted. ABDOMEN AND PELVIS: No suspicious hypermetabolic uptake is identified. OSSEOUS STRUCTURES: No suspicious hypermetabolic uptake is seen, noted destructive involvement in the mandible is redemonstrated. OTHER CT: Left globe prosthesis is redemonstrated. There is mild to moderate lobulated mucosal thickening in left maxillary sinus redemonstrated. Moderate to severe calcified plaque bilateral carotid bulbs is again seen. Small degree of bilateral gynecomastia is noted. There are calcified left hilar lymph nodes and calcified left lower lobe nodules or granulomas. Calci fications throughout the spleen are present. 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 Dependent small calcified gallstones are seen in gallbladder. Facet arthropathy in the lower lumbar spine. There is multilevel spurring in the thoracolumbar spine. IMPRESSION: Extensive destructive tumor centered in the left neck with inferior extension to level of vocal cords, there is posterior left cervical adenopathy and right-sided neck adenopathy noted. No m etastatic disease into the thorax abdomen or pelvis however is appreciated.
== END ==
LOC: RADPETMAIN 15:26
PROVIDERS: ATTEND Radiology Radiation Oncology
DX: C04.1 Malignant neoplasm of lateral floor of mouth (principal); R59.0 Localized enlarged lymph nodes
CPT/HCPCS: 78815; A9552

== ENCOUNTER 2018-04-03 14:56 | Inpatient (IN) | payer MEDICARE ==
[2018-04-03] MEDS ORDERED: SODIUM CHLORIDE 0.9% 500 ML 500 ML IV STA (15:47)
[2018-04-03] MEDS ORDERED: SODIUM CHLORIDE 0.9% 1,000 ML IV STA ×2 (15:47)
[2018-04-03] MEDS ORDERED: ONDANSETRON 4 MG/2 ML VIAL IVP STA (15:47)
--- NOTE | 2018-04-03 15:49 | ED ---
Weakness HPI - General Chief complaint: Nausea/Vomiting/Diarrhea Stated complaint: Dizziness, not wanting to eat Time Seen by Provider: 04/03/18 15:47 Source: patient, RN notes reviewed, old records reviewed Mode of arrival: ambulatory Limitations: physical limitation - History of Present Illness Initial comments: This is a 67-year-old male brought in for evaluation of weakness. She is not eating or drinking. Patient has recent diagnosis of esophageal or oral cancer. states patient was most of his teeth pulled today he has significant infection is on antibiotics. Patient himself denies any significant complaint. Patient denies any fevers family denies any fevers. Patient himself denies any complaints. or girlfriend states the patient always denies complaints she is very stubborn does not like to be evaluated does not like to be in hospitals. - Related Data Home Medications Medication Instructions Recorded Confirmed No Known Home Medications 04/03/18 04/03/18 Allergies Allergy/AdvReac Type Severity Reaction Status Date / Time No Known Allergies Allergy Verified 04/03/18 16:30 Review of Systems ROS Statement: Those systems with pertinent positive or pertinent negative responses have been documented in the HPI. ROS Other: All systems not noted in ROS Statement are negative. Past Medical History Past Medical History: No Reported History Additional Past Medical History / Comment(s): CANCER OF THE FACE History of Any Multi-Drug Resistant Organisms: None Reported Additional Past Surgical History / Comment(s): Left eye removed at age 6. Denies other surgical history. Past Anesthesia/Blood Transfusion Reactions: No Reported Reaction Past Psychological History: No Psychological Hx Reported Smoking Status: Current every day smoker Past Alcohol Use History: Daily, Heavy Past Drug Use History: None Reported - Past Family History Father Family Medical History: Cancer Additional Family Medical History / Comment(s): Lung cancer - . Mother Family Medical History: No Reported History Additional Family Medical History / Comment(s): Mother is still living and doesn 't have many issues. General Exam Limitations: physical limitation General appearance: alert, in no apparent distress Head exam: Present: atraumatic, normocephalic, normal inspection Eye exam: Present: normal appearance, PERRL, EOMI. Absent: scleral icterus, conjunctival injection, periorbital swelling ENT exam: Present: other (Significant Oral lesions and left jaw lesions with drainage) Neck exam: Present: normal inspection. Absent: tenderness, meningismus, lymphadenopathy Respiratory exam: Present: normal lung sounds bilaterally. Absent: respiratory distress, wheezes, rales, rhonchi, stridor Cardiovascular Exam: Present: regular rate, normal rhythm, normal heart sounds. Absent: systolic murmur, diastolic murmur, rubs, gallop, clicks GI/Abdominal exam: Present: soft, normal bowel sounds. Absent: distended, tenderness, guarding, rebound, rigid Extremities exam: Present: normal inspection, full ROM, normal capillary refill. Absent: tenderness, pedal edema, joint swelling, calf tenderness Back exam: Present: normal inspection Neurological exam: Present: alert, oriented X3, CN II-XII intact Psychiatric exam: Present: normal affect, normal mood Skin exam: Present: warm, dry, intact, normal color. Absent: rash Course Vital Signs 04/03/18 15:14 Temperature 98.8 F Pulse Rate 99 Respiratory 18 Rate Blood Pressure 119/72 O2 Sat by Pulse 100 Oximetry - Reevaluation(s) Reevaluation #1: 04/03/18 16:48 Clinical record is reviewed Reevaluation #2: 04/03/18 16:49 Patient remains without complaint EKG Findings - EKG Comments: EKG Findings:: EKG shows sinus rhythm rate of 65, LA 210, QRS 100, QTC 405 Medical Decision Making - Medical Decision Making 59 male the ER with persistent nausea vomiting decreased appetite and oral intake. Drainage from oral ulcers, patient will be admitted for hydration and IV antibiotics. - Lab Data Result diagrams: 04/03/18 15:57 04/03/18 15:57 Lab Results 04/03/18 04/03/18 04/03/18 Range/Units 15:57 15:57 15:57 WBC 14.7 H (3.8-10.6) k/uL RBC 3.20 L (4.30-5.90) m/uL Hgb 8.3 L (13.0-17.5) gm/dL Hct 26.3 L (39.0-53.0) % MCV 82.1 (80.0-100.0) fL MCH 26.0 (25.0-35.0) pg MCHC 31.6 (31.0-37.0) g/dL RDW 14.7 (11.5-15.5) % Plt Count 471 H (150-450) k/uL Neutrophils % 80 % Lymphocytes % 13 % Monocytes % 5 % Eosinophils % 1 % Basophils % 0 % Neutrophils # 11.7 H (1.3-7.7) k/uL Lymphocytes # 1.9 (1.0-4.8) k/uL Monocytes # 0.7 (0-1.0) k/uL Eosinophils # 0.1 (0-0.7) k/uL Basophils # 0.0 (0-0.2) k/uL Sodium 137 (137-145) mmol/L Potassium 2.9 L (3.5-5.1) mmol/L Chloride 97 L (98-107) mmol/L Carbon Dioxide 33 H (22-30) mmol/L Anion Gap 7 mmol/L BUN 19 (9-20) mg/dL Creatinine 0.88 (0.66-1.25) mg/dL Est GFR (CKD-EPI)AfAm >90 (>60 ml/min/1.73 sqM) Est GFR (CKD-EPI)NonAf 89 (>60 ml/min/1.73 sqM) Glucose 110 H (74-99) mg/dL Plasma Lactic Acid Mejia 1.4 (0.7-2.0) mmol/L Calcium 12.7 H (8.4-10.2) mg/dL Phosphorus 3.0 (2.5-4.5) mg/dL Magnesium 2.1 (1.6-2.3) mg/dL Total Bilirubin 0.2 (0.2-1.3) mg/dL AST 21 (17-59) U/L ALT 25 (21-72) U/L Alkaline Phosphatase 101 (38-126) U/L Total Protein 6.7 (6.3-8.2) g/dL Albumin 3.5 (3.5-5.0) g/dL Disposition Clinical Impression: Mass of mandible, Bone destruction, Gastroenteritis, Dehydration Disposition: ADMITTED IP TO THIS HOSP Condition: Fair Is patient prescribed a controlled substance at d/c from ED?: No Referrals: Tolu Heredia MD [Primary Care Provider] - 1-2 days
[2018-04-03 16:30] LABS: Basophils % (A) 0 %; Eosinophils # (A) 0.1 k/uL (0-0.7); Eosinophils % (A) 1 %; HCT 26.3 % (39.0-53.0); HGB 8.3 gm/dL (13.0-17.5); Lymphocytes # (A) 1.9 k/uL (1.0-4.8); Lymphocytes % (A) 13 %; MCHC 31.6 g/dL (31.0-37.0); MCV 82.1 fL (80.0-100.0); Mean Platelet Volume 6.6; Monocytes # (A) 0.7 k/uL (0-1.0); Monocytes % (A) 5 %; Neutrophils # (A) 11.7 k/uL (1.3-7.7); Neutrophils % (A) 80 %; Platelet Count 471 k/uL (150-450); RDW 14.7 % (11.5-15.5); WBC 14.7 k/uL (3.8-10.6)
[2018-04-03 16:44] LABS: ALT 25 U/L (21-72); AST 21 U/L (17-59); Albumin 3.5 g/dL (3.5-5.0); Alkaline Phosphatase 101 U/L (38-126); Anion Gap 7 mmol/L; Blood Urea Nitrogen 19 mg/dL (9-20); Calcium 12.7 mg/dL (8.4-10.2); Carbon Dioxide 33 mmol/L (22-30); Chloride 97 mmol/L (98-107); Glucose 110 mg/dL (74-99); Magnesium 2.1 mg/dL (1.6-2.3); Potassium 2.9 mmol/L (3.5-5.1); Sodium 137 mmol/L (137-145); Total Bilirubin 0.2 mg/dL (0.2-1.3); Total Protein 6.7 g/dL (6.3-8.2)
[2018-04-03 16:50] LABS: Creatine Kinase <20 U/L (55-170)
[2018-04-03] MEDS ORDERED: VANCOMYCIN IV PER PHARMACY 1 EACH MISC MISCELLANE PRN (16:50)
[2018-04-03] MEDS ORDERED: AMPICILLIN-SULBACTAM 3 GM in SODIUM CHLORIDE 0.9% 100 ML IVPB STA (16:53)
[2018-04-03 16:56] LABS: INR 0.9 (<1.2)
[2018-04-03 17:04] LABS: Creatine Kinase MB <0.2 ng/mL (0.0-2.4); Troponin I 0.034 ng/mL (0.000-0.034)
[2018-04-03 17:08] LABS: Partial Thromboplastin Time 21.8 sec (22.0-30.0)
--- NOTE | 2018-04-03 17:12 | XR ---
EXAMINATION TYPE: XR abdomen acute w cxr DATE OF EXAM: 04/03/2018 COMPARISON: NONE HISTORY: Dizziness and loss of appetite TECHNIQUE: Chest x-ray with supine and upright abdomen. FINDINGS: Heart and mediastinum are normal. Lungs are clear. Diaphragm is normal. There is a 7 mm calcification over the right upper quadrant that apparently is calcified gallstone.. Fecal pattern is normal. Ther e is no sign of intestinal obstruction or pneumoperitoneum. There is no evidence of abdominal mass. IMPRESSION: Nonacute abdomen. No active cardiopulmonary disease.
[2018-04-03] MEDS ORDERED: VANCOMYCIN 1,500 MG in SODIUM CHLORIDE 0.9% 250 ML IVPB ONE (17:30)
[2018-04-03] MEDS ORDERED: POTASSIUM CHLORIDE 20 MEQ in WATER FOR INJECTION 1 100ML.BAG IVPB SCH ×2 (18:00→22:00)
[2018-04-03 18:17] LABS: Amorphous Sediment,Urine Rare /hpf; Appearance,Urine Cloudy (Clear); Bilirubin,Urine Negative (Negative); Blood,Urine Negative (Negative); Color,Urine Light Yellow; Glucose,Urine (UA) Negative (Negative); Hyaline Casts,Urine 26 /lpf (0-2); Ketones,Urine Negative (Negative); Leukocyte Esterase,Urine Negative (Negative); Mucus,Urine Rare /hpf; Nitrite,Urine Negative (Negative); Protein,Urine Negative (Negative); RBC,Urine 1 /hpf (0-5); Specific Gravity,Urine 1.009 (1.001-1.035); Squamous Epithelial Cell,Urine <1 /hpf (0-4); Urobilinogen,Urine <2.0 mg/dL (<2.0); WBC,Urine 8 /hpf (0-5)
[2018-04-04] MEDS: AMPICILLIN-SULBACTAM 3 GM in SODIUM CHLORIDE 0.9% 100 ML IVPB SCH ×4 (00:47→16:36)
[2018-04-04] MEDS: VANCOMYCIN 1,250 MG in SODIUM CHLORIDE 0.9% 250 ML IVPB SCH (06:05)
--- NOTE | 2018-04-04 08:17 | P.GSCN ---
History of Present Illness Consult date: 04/04/18 Reason for Consult: Removal of remaining teeth in anticipation of radiation therapy Requesting physician: Tolu Heredia History of present illness: Is a patient known to my service 67-year-old male presented to the emergency room with weakness. Patient was scheduled yesterday to have remaining teeth removed as an outpatient, in anticipation of radiation and chemo in order to debulk his large oral cancer. He had been seen by [facility] diagnostic physician in an effort to clarify his plan. He is been seen by radiation Department and chemotherapy oncology department. My understanding was the plan is to do some chemo and radiation and reevaluate the extent of the tumor with a possible surgical resection in the future. At last conversation with the patient was he was not interested in surgery at this time. Review of Systems - Constitutional Reports lethargy - EENT EENT Comment(s): Patient reports minimal pain despite the large weeping wound on his face. He is having trouble eating due to the inability to keep the liquids in the mouth through the wound Past Medical History Past Medical History: Cancer Additional Past Medical History / Comment(s): Cancer: PV of the jaw, History of Any Multi-Drug Resistant Organisms: None Reported Additional Past Surgical History / Comment(s): Left eye removed at age 6, left sided jaw biopsy, Past Anesthesia/Blood Transfusion Reactions: No Reported Reaction Past Psychological History: No Psychological Hx Reported Additional Psychological History / Comment(s): Pt. lives alone but brayan states she has been making him stay with her lately due to his health. ( Looking to get but patient's brayan's son has cancer and has been dealing with that). Somewhat a poor historian - mildly forgetful. He has difficulty completing complex thoughts. Smoking Status: Current every day smoker Additional Past Alcohol Use History / Comment(s): Pt. has history of heavy etoh use - reports drinking occassionally now. Pt. is a smoker - 1.5 PPD. Sometimes more is been smoking since his early teenage years. No experience. No extensive travel. His exposure to one dog, 4 cats and 2 birds, his fiance's caring for them while he is hospitalized Past Drug Use History: None Reported - Past Family History Father Family Medical History: Cancer Additional Family Medical History / Comment(s): Lung cancer - . Mother Family Medical History: No Reported History Additional Family Medical History / Comment(s): Mother is still living and doesn 't have many issues. Medications and Allergies Home Medications Medication Instructions Recorded Confirmed Type Acetaminophen Tab [Tylenol Tab] 500 mg PO BID PRN 04/03/18 04/03/18 History Amoxic-Pot Clav 875-125Mg 04/03/18 History [Augmentin 875-125] Allergies Allergy/AdvReac Type Severity Reaction Status Date / Time No Known Allergies Allergy Verified 04/03/18 16:30 Surgical - Exam Vital Signs Temp Pulse Resp BP Pulse Ox 98.8 F 99 18 119/72 100 04/03/18 15:14 04/03/18 15:14 04/03/18 15:14 04/03/18 15:14 04/03/18 15:14 - General moderate pain - Eyes Left eye missing - ENT Patient has a weeping wound approximately 1 cm x 3 cm left face associated swelling is slightly larger than 2-3 weeks ago. Intraorally his remaining teeth are in gross disrepair with nonrestorable decay to the gumline of all his remaining teeth. Intraorally the tumor has eaten into the mandible and extend still from the retromolar peritonsillar area anteriorly crosses the midline to the anterior mandible. Floor the mouth is involved and there is exposed bone. Of note the patient is missing his left eye from a previous injury. Results - Labs 04/03/18 15:57 04/03/18 15:57 Abnormal Lab Results - Last 24 Hours (Table) 04/03/18 04/03/18 04/03/18 Range/Units 15:57 15:57 15:57 WBC 14.7 H (3.8-10.6) k/uL RBC 3.20 L (4.30-5.90) m/uL Hgb 8.3 L (13.0-17.5) gm/dL Hct 26.3 L (39.0-53.0) % Plt Count 471 H (150-450) k/uL Neutrophils # 11.7 H (1.3-7.7) k/uL APTT (22.0-30.0) sec Potassium 2.9 L (3.5-5.1) mmol/L Chloride 97 L (98-107) mmol/L Carbon Dioxide 33 H (22-30) mmol/L Glucose 110 H (74-99) mg/dL Calcium 12.7 H (8.4-10.2) mg/dL Total Creatine Kinase <20 L (55-170) U/L Urine WBC (0-5) /hpf Amorphous Sediment (None) /hpf Hyaline Casts (0-2) /lpf Urine Mucus (None) /hpf 04/03/18 04/03/18 Range/Units 15:57 18:04 WBC (3.8-10.6) k/uL RBC (4.30-5.90) m/uL Hgb (13.0-17.5) gm/dL Hct (39.0-53.0) % Plt Count (150-450) k/uL Neutrophils # (1.3-7.7) k/uL APTT 21.8 L (22.0-30.0) sec Potassium (3.5-5.1) mmol/L Chloride (98-107) mmol/L Carbon Dioxide (22-30) mmol/L Glucose (74-99) mg/dL Calcium (8.4-10.2) mg/dL Total Creatine Kinase (55-170) U/L Urine WBC 8 H (0-5) /hpf Amorphous Sediment Rare H (None) /hpf Hyaline Casts 26 H (0-2) /lpf Urine Mucus Rare H (None) /hpf Microbiology - Last 24 Hours (Table) 04/03/18 18:04 Urine Culture - Preliminary Urine,Voided Diabetes panel 04/03/18 Range/Units 15:57 Sodium 137 (137-145) mmol/L Potassium 2.9 L (3.5-5.1) mmol/L Chloride 97 L (98-107) mmol/L Carbon Dioxide 33 H (22-30) mmol/L BUN 19 (9-20) mg/dL Creatinine 0.88 (0.66-1.25) mg/dL Glucose 110 H (74-99) mg/dL Calcium 12.7 H (8.4-10.2) mg/dL AST 21 (17-59) U/L ALT 25 (21-72) U/L Alkaline Phosphatase 101 (38-126) U/L Total Protein 6.7 (6.3-8.2) g/dL Albumin 3.5 (3.5-5.0) g/dL Calcium panel 04/03/18 Range/Units 15:57 Calcium 12.7 H (8.4-10.2) mg/dL Phosphorus 3.0 (2.5-4.5) mg/dL Albumin 3.5 (3.5-5.0) g/dL Pituitary panel 04/03/18 Range/Units 15:57 Sodium 137 (137-145) mmol/L Potassium 2.9 L (3.5-5.1) mmol/L Chloride 97 L (98-107) mmol/L Carbon Dioxide 33 H (22-30) mmol/L BUN 19 (9-20) mg/dL Creatinine 0.88 (0.66-1.25) mg/dL Glucose 110 H (74-99) mg/dL Calcium 12.7 H (8.4-10.2) mg/dL Adrenal panel 04/03/18 Range/Units 15:57 Sodium 137 (137-145) mmol/L Potassium 2.9 L (3.5-5.1) mmol/L Chloride 97 L (98-107) mmol/L Carbon Dioxide 33 H (22-30) mmol/L BUN 19 (9-20) mg/dL Creatinine 0.88 (0.66-1.25) mg/dL Glucose 110 H (74-99) mg/dL Calcium 12.7 H (8.4-10.2) mg/dL Total Bilirubin 0.2 (0.2-1.3) mg/dL AST 21 (17-59) U/L ALT 25 (21-72) U/L Alkaline Phosphatase 101 (38-126) U/L Total Protein 6.7 (6.3-8.2) g/dL Albumin 3.5 (3.5-5.0) g/dL Assessment and Plan Assessment: 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 With the likelihood of radiation and chemo the remaining teeth should be removed prior to any radiation therapy due to his lack of compliance as an outpatient will make an effort to remove the teeth while he is in the hospital Time with Patient: Less than 30
[2018-04-04] MEDS ORDERED: ENOXAPARIN 40 MG/0.4 ML SYRINGE SQ SCH (09:00)
[2018-04-04] MEDS ORDERED: Potassium Replacement Protocol 1 EACH MISC MISCELLANE PRN (09:58)
--- NOTE | 2018-04-04 10:30 | P.CONS ---
History of Present Illness - Reason for Consult Consult date: 04/04/18 Malnutrition dysphagia Requesting physician: Merlin Metz - Chief Complaint Weakness - History of Present Illness 67-year-old gentleman with a history of large oral cancer admitted with weakness unable to maintain nutrition. Patient is scheduled today for multiple teeth extractions. Patient not able to chew or maintain his nutrition secondary to his oral cancer. White count 14.7. Hemoglobin 8.3. INR 0.9. He weighs 63 kg. BMI 19. Denies hematemesis hematochezia or melena. PET scan last month extensive destructive tumor in the left neck with inferior extension to level of vocal cords posterior left cervical adenopathy and right- sided neck adenopathy. No metastatic disease into the thorax abdomen or pelvis appreciated. Review of Systems Constitutional: Denies fever, chills, sweats, weight gain, or loss. HEENT: Negative for migraines, blurred vision or loss, earaches, drainage, tinnitus, oral mucosal lesions, dysphagia, or odynophagia. Cardiac: Negative for chest pain, arrhythmias, or palpitation. Respiratory: Negative for shortness of breath, hemoptysis, cough, or sputum production. Gastrointestinal: See HPI for pertinent findings. Genitourinary: Negative for hematuria, urgency, frequency, polyuria, dysuria, or penile discharge. Musculoskeletal: Negative for muscle aches, swelling, arthritis, and arthralgias. Neurologic: Negative for stroke or TIA. Endocrine: Negative for thyroid problems. Skin: Negative for rash or itching. Psychiatric: Negative history for depression and anxiety Past Medical History Past Medical History: Cancer Additional Past Medical History / Comment(s): Cancer: PV of the jaw, History of Any Multi-Drug Resistant Organisms: None Reported Additional Past Surgical History / Comment(s): Left eye removed at age 6, left sided jaw biopsy, Past Anesthesia/Blood Transfusion Reactions: No Reported Reaction Past Psychological History: No Psychological Hx Reported Additional Psychological History / Comment(s): Pt. lives alone but brayan states she has been making him stay with her lately due to his health. ( Looking to get but patient's brayan's son has cancer and has been dealing with that). Somewhat a poor historian - mildly forgetful. He has difficulty completing complex thoughts. Smoking Status: Current every day smoker Additional Past Alcohol Use History / Comment(s): Pt. has history of heavy etoh use - reports drinking occassionally now. Pt. is a smoker - 1.5 PPD. Sometimes more is been smoking since his early teenage years. No experience. No extensive travel. His exposure to one dog, 4 cats and 2 birds, his fiance's caring for them while he is hospitalized Past Drug Use History: None Reported - Past Family History Father Family Medical History: Cancer Additional Family Medical History / Comment(s): Lung cancer - . Mother Family Medical History: No Reported History Additional Family Medical History / Comment(s): Mother is still living and doesn 't have many issues. Medications and Allergies Home Medications Medication Instructions Recorded Confirmed Type Acetaminophen Tab [Tylenol Tab] 500 mg PO BID PRN 04/03/18 04/03/18 History Amoxic-Pot Clav 875-125Mg 04/03/18 History [Augmentin 875-125] Allergies Allergy/AdvReac Type Severity Reaction Status Date / Time No Known Allergies Allergy Verified 04/03/18 16:30 Physical Exam Vitals: Vital Signs Temp Pulse Pulse Resp BP BP Pulse Ox 04/04/18 04:46 98.8 F 89 16 183/78 98 04/03/18 21:00 97.8 F 69 18 144/69 100 04/03/18 18:36 98.3 F 71 16 165/72 100 04/03/18 18:33 98.3 F 70 16 170/97 100 04/03/18 18:00 98.9 F 66 16 167/77 96 04/03/18 17:30 69 16 123/73 96 04/03/18 17:00 154/71 04/03/18 16:30 64 18 144/73 99 04/03/18 16:15 99 04/03/18 15:14 98.8 F 99 18 119/72 100 Intake and Output 04/03/18 04/04/18 04/04/18 22:59 06:59 14:59 Intake Total 970 1390 Balance 970 1390 Intake: Intake, IV Titration 850 1150 Amount Ampicillin-Sulbactam 3 gm 100 In Sodium Chloride 0.9% 100 ml @ 200 mls/hr IVPB Q6HR [facility] Rx#:[id number] Potassium Chloride 20 meq 200 In Water For Injection 1 100ml.bag @ 50 mls/hr IVPB Q2HR [facility] Rx#: [id number] Sodium Chloride 0.9% 1, 400 800 000 ml @ 100 mls/hr IV . Q10H [facility] Rx#:[id number] Vancomycin 1,250 mg In 250 250 Sodium Chloride 0.9% 250 ml @ 125 mls/hr IVPB Q12H [facility] Rx#:[id number] Oral 120 240 Other: Voiding Method Toilet Urinal # Voids 1 1 Weight 64.41 kg 63 kg General appearance: The patient is alert, oriented, in no acute distress. Speech is slightly garbled but understandable secondary to large oral tumor HET: Head is normocephalic and atraumatic. Pupils are equal and reactive. Oropharynx could not be evaluated patient's head is wrapped incur lax however large swelling to the left cheek jaw. Neck: Supple without lymphadenopathy. Trachea midline. Heart: S1 S2. Regular rate and rhythm. Lungs: No crackles or wheezes are heard. Abdomen: Soft, nontender, nondistended with bowel sounds. No peritoneal signs. No palpable organomegaly or masses. Extremities: Normal skin color and turgor. No cyanosis, rash, ulceration, clubbing, or edema. Radial and pedal pulses are 2/4 bilaterally. Neurological: No focal deficits. Strength and sensation are grossly intact. Results CBC & Chem 7: 04/03/18 15:57 04/04/18 07:47 Labs: Abnormal Lab Results - Last 24 Hours (Table) 04/03/18 04/03/18 04/03/18 Range/Units 15:57 15:57 15:57 WBC 14.7 H (3.8-10.6) k/uL RBC 3.20 L (4.30-5.90) m/uL Hgb 8.3 L (13.0-17.5) gm/dL Hct 26.3 L (39.0-53.0) % Plt Count 471 H (150-450) k/uL Neutrophils # 11.7 H (1.3-7.7) k/uL APTT (22.0-30.0) sec Potassium 2.9 L (3.5-5.1) mmol/L Chloride 97 L (98-107) mmol/L Carbon Dioxide 33 H (22-30) mmol/L Glucose 110 H (74-99) mg/dL Calcium 12.7 H (8.4-10.2) mg/dL Total Creatine Kinase <20 L (55-170) U/L Urine WBC (0-5) /hpf Amorphous Sediment (None) /hpf Hyaline Casts (0-2) /lpf Urine Mucus (None) /hpf 04/03/18 04/03/18 04/04/18 Range/Units 15:57 18:04 07:47 WBC (3.8-10.6) k/uL RBC (4.30-5.90) m/uL Hgb (13.0-17.5) gm/dL Hct (39.0-53.0) % Plt Count (150-450) k/uL Neutrophils # (1.3-7.7) k/uL APTT 21.8 L (22.0-30.0) sec Potassium 2.9 L (3.5-5.1) mmol/L Chloride (98-107) mmol/L Carbon Dioxide (22-30) mmol/L Glucose (74-99) mg/dL Calcium (8.4-10.2) mg/dL Total Creatine Kinase (55-170) U/L Urine WBC 8 H (0-5) /hpf Amorphous Sediment Rare H (None) /hpf Hyaline Casts 26 H (0-2) /lpf Urine Mucus Rare H (None) /hpf Microbiology - Last 24 Hours (Table) 04/03/18 18:04 Urine Culture - Preliminary Urine,Voided Comments: PET scan results reviewed by Dr. Reilly Assessment and Plan (1) Dysphagia Narrative/Plan: 67-year-old gentleman with oral cancer unable to meet his nutritional needs dysphagia. Current Visit: Yes Status: Acute Code(s): R13.10 - DYSPHAGIA, UNSPECIFIED SNOMED Code(s): 89187278 (2) Oral cancer Current Visit: Yes Status: Acute Code(s): C06.9 - MALIGNANT NEOPLASM OF MOUTH, UNSPECIFIED SNOMED Code(s): 840609610 Plan: 1. Patient is scheduled oral surgery today for teeth extractions. PEG tube insertion Friday April 06, 2018; [address] Burgess. If endoscopic placement of PEG tube could not be achieved secondary to his tumor burden/oral anatomy patient will require open placement of feeding tube by surgical team. Will obtain a prealbumin. Dietary consultation. We'll follow with you. Thank you for this kind referral and the opportunity to participate in the care of your patient. This consultation was discussed with Dr. Reilly. The impression and plan of care have been directed as dictated.
[2018-04-04] MEDS: POTASSIUM CHLORIDE 10 MEQ in WATER FOR INJECTION 1 100ML.BAG IVPB SCH ×5 (10:36→22:12)
[2018-04-04] MEDS ORDERED: IV FLUID CONTINUATION 800 ML IV ONE (12:55)
[2018-04-04] MEDS ORDERED: ONDANSETRON 4 MG/2 ML VIAL IVP ONE (13:18)
[2018-04-04] MEDS ORDERED: DEXAMETHASONE SOD PHOSPHATE 10 MG/ML 1 ML VIAL IV ONE (13:19)
[2018-04-04] MEDS ORDERED: ROCURONIUM BROMIDE 10 MG/ML 10 ML VIAL IV ONE (14:04)
[2018-04-04] MEDS ORDERED: NEOSTIGMINE 1 MG/ML 10 ML VIAL ONE (14:04)
[2018-04-04] MEDS ORDERED: GLYCOPYRROLATE 0.2 MG/ML 2 ML VIAL ONE (14:04)
[2018-04-04] MEDS ORDERED: KETAMINE 10 MG/ML 20 ML VIAL ONE (14:04)
[2018-04-04] MEDS ORDERED: MIDAZOLAM 2 MG/2 ML VIAL ONE (14:04)
[2018-04-04] MEDS ORDERED: PHENYLEPHRINE-0.9% NACL SYG 1 MG/10 ML SYRINGE ONE (14:04)
[2018-04-04] MEDS ORDERED: PROPOFOL 10 MG/ML 20 ML VIAL IV ONE (14:04)
[2018-04-04] MEDS ORDERED: LIDOCAINE 2%-EPI 1:100,000 20 ML VIAL SQ ONE ×2 (14:29)
[2018-04-04] MEDS ORDERED: BUPIVACAINE (PF) 0.25% 30 ML VIAL SQ ONE ×2 (14:29)
[2018-04-04] MEDS ORDERED: LACTATED RINGERS 1,000 ML IV ONE (14:48)
--- NOTE | 2018-04-04 16:49 | P.OP ---
Date of Procedure: 04/04/18 Preoperative Diagnosis: Squamous cell carcinoma the left mandible Gross decay of all remaining teeth Postoperative Diagnosis: Same Procedure(s) Performed: Surgical removal of all upper teeth including tooth numbers 2 ,3,4,5,-6,7,9,-10, 11, 12,13, 14,15, Full bony impacted tooth #1 and 32 removed as well Implants: None Anesthesia: GLENYS Surgeon: Estuardo Stevenson Estimated Blood Loss (ml): 10 IV fluids (ml): 500 Urine output (ml): 0 Pathology: none sent Condition: stable Disposition: floor Indications for Procedure: Patient is known to my service had been trying to get these teeth out for about a month and an effort to prepare him for radiation therapy. Patient and girlfriend were going to look for other options for tooth removal and had an appointment yesterday to have the teeth removed in my office and didn't show up. I was consulted later patient was in the hospital with increased drainage from the fascial wound. It was evident on exam that the drainage was saliva from the mouth due to the tumor eroding from the mouth through the skin of the face. Due to the likelihood of radiation being the patient's only choice at this point decision to remove the teeth expediently. Consent reviewed with the patient including but not limited to bleeding pain infection and swelling. Root tips remaining exposed bone at a later point current exposed bone and oral incompetence due to his tumor. Also had a leia discussion with the patient regarding no treatment for palliative treatment. The patient is not interested and surgical therapy for the tumor but does want to try radiation and chemo and an effort to make his tumor better. Operative Findings: Confirms oral facial fistula Description of Procedure: Patient was taken to the operating room glide scope was used to visualize the vocal cords due to concern of the tumor impinging on the vocal cords patient was sedated and not completely obtunded prior to the glide scope. Once the vocal cords were visualized and no tumor growth seen the patient was intubated with a propofol induction. On then towels were placed over his wound and patient's mouth was propped open and tooth #32 was addressed after 4 mL of quarter percent bupivacaine and 5 mL of lidocaine were administered. Full- thickness mucoperiosteal flap over tooth #32 exposing the buccal plate removal buccal plate tooth sectioned and removed associated perifollicular cyst was then removed as well. The upper jaw was then addressed and the tooth #1 was addressed with a full-thickness mucoperiosteal flap. The teeth numbers 1 and 2 and 3 were then removed with some bone removal. 32 1 2 and 3 were then closed with 3-0 chromic suture. Tooth numbers 4567 were then addressed with a small mucoperiosteal flaps teeth sectioned when appropriate and bone removal on the buccal. Teeth numbers 9 #10 #11 #12 13 #14 #15 also removed surgically. Wounds were closed with 3-0 chromic suture. Gauze hemostasis was achieved. Throat pack was then removed posterior pharynx suctioned and visualized no debris noted. Patient was then awakened extubated taken to the recovery room where he awaited transfer back to his room on the floor.
[2018-04-04] MEDS: IBUPROFEN 600 MG TAB PO SCH ×2 (17:20→22:07)
--- NOTE | 2018-04-04 18:05 | P.PN ---
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 He has extensive local disease with invasion of the [place], destruction of the left hemimandible and skin erosion. Since we last saw the patient in our clinic on 03/11, we had decided the patient would have 1 cycle of induction chemotherapy followed by concurrent chemoradiation. We arranged for him to have his remaining teeth pulled ( dentition was very poor) as well as PEG-tube placement with GI. He was scheduled to start chemotherapy 2 weeks ago and have his radiotherapy planning this past week. They have since cancelled or no-showed to all 4 set-up appointments. He has thus not started chemotherapy, has not had PEG-tube placement and not had his radiotherapy planning session. The patient and his significant other supposedly sought a second opinion from [facility], however upon questioning cannot remember the doctors name. The patient now presents with increased drainage from his left facial wounds. It is clear upon visualization that he is having salivary leakage through an opening tract in the skin. Dr. Stevenson is seeing the patient for tooth removal. Objective - Vital Signs Vital signs: Vital Signs Temp 98.2 F 04/04/18 17:00 Pulse 65 04/04/18 17:00 Resp 17 04/04/18 17:00 BP 165/77 04/04/18 17:00 Pulse Ox 98 04/04/18 17:00 Intake & Output 04/03/18 04/04/18 04/04/18 18:59 06:59 18:59 Intake Total 2360 925 Output Total 5 Balance 2360 920 Weight 64.41 kg 63 kg 63 kg Intake: IV 925 Intake, IV Titration 2000 Amount Ampicillin-Sulbactam 3 gm 100 In Sodium Chloride 0.9% 100 ml @ 200 mls/hr IVPB Q6HR [facility] Rx#:[id number] Potassium Chloride 20 meq 200 In Water For Injection 1 100ml.bag @ 50 mls/hr IVPB Q2HR [facility] Rx#: [id number] Sodium Chloride 0.9% 1, 1200 000 ml @ 100 mls/hr IV . Q10H [facility] Rx#:[id number] Vancomycin 1,250 mg In 500 Sodium Chloride 0.9% 250 ml @ 125 mls/hr IVPB Q12H [facility] Rx#:[id number] Oral 360 0 Output: Estimated Blood Loss 5 Other: Voiding Method Toilet Urinal # Voids 1 2 - Constitutional General appearance: Present: mild distress - EENT Eyes: Present: EOMI ENT: Present: other (significant drainage from open sores along the left hemimandible) Ears: bilateral: normal - Neck Neck: Present: lymphadenopathy (Significant bulky submandiblar and level II/III adenopathy on the left) - Integumentary Integumentary: Absent: calor - Neurologic Neurologic: Present: CNII-XII intact - Musculoskeletal Musculoskeletal: Present: generalized weakness - Psychiatric Psychiatric: Present: appropriate affect - Labs CBC & Chem 7: 04/03/18 15:57 04/04/18 07:47 Labs: Abnormal Lab Results - Last 24 Hours (Table) 04/03/18 04/04/18 Range/Units 18:04 07:47 Potassium 2.9 L (3.5-5.1) mmol/L Urine WBC 8 H (0-5) /hpf Amorphous Sediment Rare H (None) /hpf Hyaline Casts 26 H (0-2) /lpf Urine Mucus Rare H (None) /hpf Microbiology - Last 24 Hours (Table) 04/03/18 18:04 Urine Culture - Preliminary Urine,Voided Assessment and Plan Plan: The patient is a 67 year old male with a history of recently diagnosed stage IVB (cT4b, cN3b, 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 He has extensive local disease with invasion of the [place], destruction of the left hemimandible and skin erosion. 1. Progression of disease: Since the patient has not started therapy over the past month, he has had progression the wound along the lateral mandible and is now leaking saliva through his skin. This area is likely infected again. The patient has been reviewed with ENT oncology and he was not felt to be an up- front surgical candidate. He missed appointment with Dr. Brooks to start chemotherapy and missed appointment with radiotherapy for planning. He is having tooth removal today and PEG placement saturday. We will perform radiotherapy planning this coming week. He will need chemotherapy concurrently with the radiation. Despite a lack of distant metastatic disease, the patient's disease may be trending toward palliative therapy. 2. The patient and his significant other have been completely non-complaint with our treatment recommendations. They have missed several appointments and now inexplicably express frustration that his treatment hasn't started yet. I believe there should be an adult protective services case opened in this instance. The patient does not appear competent to care for himself and I do not believe his "fiance" is either. His disease should never have been allowed to get to this point, let alone another month of delay which was entirely self inflicted. Time with Patient: Less than 30
--- NOTE | 2018-04-04 19:14 | P.CONS ---
History of Present Illness - Reason for Consult Consult date: 04/04/18 Head and Neck Cancer Requesting physician: Estuardo Mays - Chief Complaint Failure to thrive, decreased PO intake, - History of Present Illness Mr Avila is a pleasant white male, initially seen in consult at [facility] on . The patient had not had regular follow-up for a fairly prolonged period of time before his presentation. According to his significant other, he had noted a toothache and some swelling of the left side of his jaw in the or . He was seen by a dentist in 01/30 and was initially felt to have possible dental abscess. He was started on antibiotics. However this mass continued to grow fairly quickly. In addition he developed additional nodules in the left anterior chin area was subsequently ulcerated. He therefore came into the emergency room for further evaluation. He was found to have a large left sided lower oral cavity mass involving the left mandible extending into the parietal region and lower down into the neck. On exam he also had enlarged lymph nodes just posterior to this mass in the cervical chain with another lymph node palpable in the right submandibular area. The patient was seen by oral surgery are noted to have a mass in the left floor of the mouth, invading the mandible as well as the buccal mucosa with involvement of several teeth as well as necrotic , likely infected changes. The CT of the chest abdomen and pelvis on 03/02/18 showed no evidence of metastatic disease. Bone scan showed uptake only in the left mandible and maxilla. CT of the soft tissue of the neck showed a large mass in the region of the left parotid gland extending into the submandibular fossa which was not distinguishable from the parotid gland. This had a PICC line with low attenuating center with effacement of the parapharyngeal and oropharyngeal soft tissues on the left. Bilateral deep cervical adenopathy, bone destruction of the left mandible, and apical rule out abscess involving the third more on the right were also noted. The patient underwent debridement, extraction of infected teeth, and biopsy of the mass by oral surgery on 03/01/18. He also had FNA of the left neck mass. The anterior mandible bone biopsy was positive for moderately differentiated squamous carcinoma, well FNA of the neck mass showed severely atypical squamous cells suspicious for malignancy. He was set up to begin one cycle of chemotherapy to debulk the tumor while awaiting for teeth to be pulled, he follow-up for chemo education class with significant other, although he did not show up for his scheduled treatment or his post treatment follow-up in office. He now presents to emergency department with girlfriend for evaluation of decreased PO intake, fluids and inability to eat, increasing odorous mass, and increased weakness. ALl complaints verbalized from patients significant other as he has and remains with flat affect and not interactive in conversation. He apparently was to have the rest of his teeth removed yesterday, although was not clear why this did not happen. Review of Systems A 14 point review of systems assessed and completed and all negative except HPI Past Medical History Past Medical History: Cancer Additional Past Medical History / Comment(s): Cancer: PV of the jaw, History of Any Multi-Drug Resistant Organisms: None Reported Additional Past Surgical History / Comment(s): Left eye removed at age 6, left sided jaw biopsy, Past Anesthesia/Blood Transfusion Reactions: No Reported Reaction Past Psychological History: No Psychological Hx Reported Additional Psychological History / Comment(s): Pt. lives alone but brayan states she has been making him stay with her lately due to his health. ( Looking to get but patient's brayan's son has cancer and has been dealing with that). Somewhat a poor historian - mildly forgetful. He has difficulty completing complex thoughts. Smoking Status: Current every day smoker Additional Past Alcohol Use History / Comment(s): Pt. has history of heavy etoh use - reports drinking occassionally now. Pt. is a smoker - 1.5 PPD. Sometimes more is been smoking since his early teenage years. No experience. No extensive travel. His exposure to one dog, 4 cats and 2 birds, his fiance's caring for them while he is hospitalized Past Drug Use History: None Reported - Past Family History Father Family Medical History: Cancer Additional Family Medical History / Comment(s): Lung cancer - . Mother Family Medical History: No Reported History Additional Family Medical History / Comment(s): Mother is still living and doesn 't have many issues. Medications and Allergies Home Medications Medication Instructions Recorded Confirmed Type Acetaminophen Tab [Tylenol Tab] 500 mg PO BID PRN 04/03/18 04/03/18 History Amoxic-Pot Clav 875-125Mg 04/03/18 History [Augmentin 875-125] Allergies Allergy/AdvReac Type Severity Reaction Status Date / Time No Known Allergies Allergy Verified 04/04/18 13:01 Physical Exam Vitals: Vital Signs Temp Pulse Pulse Resp BP BP Pulse Ox 04/04/18 17:00 98.2 F 65 17 165/77 98 04/04/18 16:45 98.3 F 66 17 165/75 99 04/04/18 15:50 63 16 160/70 98 04/04/18 15:35 60 16 135/62 100 04/04/18 15:30 98 F 70 17 171/81 99 04/04/18 15:23 97 F L 76 14 138/65 97 04/04/18 13:00 97.9 F 60 17 177/74 100 04/04/18 12:34 97.1 F L 59 L 16 136/59 98 04/04/18 04:46 98.8 F 89 16 183/78 98 04/03/18 21:00 97.8 F 69 18 144/69 100 Intake and Output 04/04/18 04/04/18 04/04/18 06:59 14:59 22:59 Intake Total 1390 900 25 Output Total 5 Balance 1390 895 25 Intake: IV 900 25 Intake, IV Titration 1150 Amount Ampicillin-Sulbactam 3 gm 100 In Sodium Chloride 0.9% 100 ml @ 200 mls/hr IVPB Q6HR OREN Rx#:[id number] Sodium Chloride 0.9% 1, 800 000 ml @ 100 mls/hr IV . Q10H STA Rx#:[id number] Vancomycin 1,250 mg In 250 Sodium Chloride 0.9% 250 ml @ 125 mls/hr IVPB Q12H OREN Rx#:[id number] Oral 240 0 Output: Estimated Blood Loss 5 Other: Voiding Method Toilet Urinal # Voids 1 2 Weight 63 kg 63 kg EN: alert and oriented, poor historian, NAD HEAD/mouth- Massive large left submandibular mass, there is crusting, drainage, erythema surrounding with black necrotic inner area left Jaw. Mass extends into buccal mucosa. Ulceration area centralized. 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 Results CBC & Chem 7: 04/03/18 15:57 04/04/18 07:47 Labs: Abnormal Lab Results - Last 24 Hours (Table) 04/04/18 04/04/18 Range/Units 07:47 07:47 Potassium 2.9 L (3.5-5.1) mmol/L Prealbumin 15.0 L (18.0-42.0) mg/dL Microbiology - Last 24 Hours (Table) 04/03/18 18:04 Urine Culture - Preliminary Urine,Voided Abdominal x-ray: report reviewed Assessment and Plan Plan: Assessment and Recommendations: 1. Squamous cell carcinoma of head and neck, moderately differentiated: - Plan was for one cycle of chemotherapy while awaiting rest of teeth extractions, although patient failed to show up for treatment and no showed for post treatment follow-up - Plan now will be procveed with concurrent chemo and radiation after extractions, which will be performed today by surgery 2. Failure to thrive, Decreased PO intake, and increasing weakness: - COmplaints per significant other, as patient does not actively interact during interviews, flat affect - GI following to assist with po intake - DIeticien as well 3. Normocytic Anemia: Malignancy and nutritional deficiency - Continue to monitor CBC daily and transfuse under 7 - Potential iron deficiency component, no acute bleeding noted 4. Leukocytsis: Reactive to Persistent malignancy related infection - IV antibiotics and ID following 5. Recent Hypercalcemia: Recheck CMP today 6. Hypokalemia, check magnesium - Potassium 2.9 after supplementation - Supps per medicine - If Potassium remains significantly decreased consider monitor of cardiac rhythm. Plan: - Radiaiton onc to assess for initiation of treatment - Will begin chemotherapy after discharge - Proceed with teeth extractions per recommendations - Rec Psych consultation for underlying depression, lack of empathy related to new diagnosis (?) - Monitoring and Supps of electrolytes per medicine.
[2018-04-04 20:01] LABS: Basophils % (A) 0 %; Eosinophils # (A) 0.1 k/uL (0-0.7); Eosinophils % (A) 0 %; HCT 26.6 % (39.0-53.0); HGB 8.1 gm/dL (13.0-17.5); Hypochromasia Slight; Lymphocytes # (A) 0.8 k/uL (1.0-4.8); Lymphocytes % (A) 5 %; MCH 25.4 pg (25.0-35.0); MCHC 30.5 g/dL (31.0-37.0); MCV 83.1 fL (80.0-100.0); Mean Platelet Volume 6.4; Monocytes # (A) 0.2 k/uL (0-1.0); Monocytes % (A) 1 %; Neutrophils # (A) 15.7 k/uL (1.3-7.7); Neutrophils % (A) 94 %; Platelet Count 441 k/uL (150-450); RDW 14.2 % (11.5-15.5); WBC 16.8 k/uL (3.8-10.6)
[2018-04-04 20:21] LABS: ALT 23 U/L (21-72); AST 22 U/L (17-59); Albumin 3.1 g/dL (3.5-5.0); Alkaline Phosphatase 90 U/L (38-126); Anion Gap 8 mmol/L; Blood Urea Nitrogen 15 mg/dL (9-20); Calcium 10.9 mg/dL (8.4-10.2); Carbon Dioxide 27 mmol/L (22-30); Chloride 105 mmol/L (98-107); Glucose 121 mg/dL (74-99); Magnesium 1.7 mg/dL (1.6-2.3); Potassium 3.6 mmol/L (3.5-5.1); Sodium 140 mmol/L (137-145); Total Bilirubin 0.2 mg/dL (0.2-1.3); Total Protein 6.1 g/dL (6.3-8.2)
[2018-04-04] MEDS: Acetaminophen-Codeine 300-30mg TAB PO PRN (22:03)
[2018-04-05] MEDS: VANCOMYCIN 1,250 MG in SODIUM CHLORIDE 0.9% 250 ML IVPB SCH ×3 (00:08→19:13)
[2018-04-05] MEDS: AMPICILLIN-SULBACTAM 3 GM in SODIUM CHLORIDE 0.9% 100 ML IVPB SCH ×5 (02:31→23:09)
[2018-04-05] MEDS: Acetaminophen-Codeine 300-30mg TAB PO PRN (02:42)
[2018-04-05] MEDS: POTASSIUM CHLORIDE 10 MEQ in WATER FOR INJECTION 1 100ML.BAG IVPB SCH ×2 (03:33→03:35)
[2018-04-05] MEDS ORDERED: VANCOMYCIN TROUGH DUE 1 EACH MISC MISCELLANE ONE (05:00)
[2018-04-05 05:44] LABS: Basophils % (A) 0 %; Eosinophils # (A) 0.1 k/uL (0-0.7); Eosinophils % (A) 1 %; HCT 24.8 % (39.0-53.0); HGB 7.6 gm/dL (13.0-17.5); Hypochromasia Moderate; Lymphocytes # (A) 1.1 k/uL (1.0-4.8); Lymphocytes % (A) 8 %; MCH 25.9 pg (25.0-35.0); MCHC 30.6 g/dL (31.0-37.0); MCV 84.7 fL (80.0-100.0); Mean Platelet Volume 6.5; Monocytes # (A) 0.6 k/uL (0-1.0); Monocytes % (A) 4 %; Neutrophils # (A) 11.6 k/uL (1.3-7.7); Neutrophils % (A) 86 %; Platelet Count 359 k/uL (150-450); RBC 2.93 m/uL (4.30-5.90); RDW 14.6 % (11.5-15.5); WBC 13.5 k/uL (3.8-10.6)
[2018-04-05 05:51] LABS: ALT 26 U/L (21-72); AST 19 U/L (17-59); Albumin 2.8 g/dL (3.5-5.0); Alkaline Phosphatase 73 U/L (38-126); Anion Gap 5 mmol/L; Blood Urea Nitrogen 18 mg/dL (9-20); Calcium 10.4 mg/dL (8.4-10.2); Carbon Dioxide 27 mmol/L (22-30); Chloride 106 mmol/L (98-107); Glucose 111 mg/dL (74-99); Magnesium 1.7 mg/dL (1.6-2.3); Potassium 3.4 mmol/L (3.5-5.1); Sodium 138 mmol/L (137-145); Total Bilirubin 0.2 mg/dL (0.2-1.3); Total Protein 5.6 g/dL (6.3-8.2)
[2018-04-05] MEDS: IBUPROFEN 600 MG TAB PO SCH ×4 (08:14→23:07)
[2018-04-05] MEDS: ENOXAPARIN 40 MG/0.4 ML SYRINGE SQ SCH (08:15)
--- NOTE | 2018-04-05 11:05 | PN ---
PROGRESS NOTE DATE OF SERVICE: 04/05/2018 The patient is a 67-year-old white male recently diagnosed with head and neck carcinoma about a month ago with extensive local disease. He was admitted to the hospital yesterday with increasing drainage from his facial wound and he underwent tooth extraction yesterday. We were consulted for a PEG tube placement, which is scheduled for tomorrow morning. He denies any new complaints today. After the tooth extraction, has been complaining of some pain in his gum area. No bleeding. PHYSICAL EXAMINATION: He appears comfortable. No apparent distress. VITAL SIGNS: Stable. Blood pressure is 132/86, pulse rate 84 per minute. Afebrile. HEENT examination unremarkable. Conjunctivae pink. Sclerae anicteric. Oral cavity no lesions. Neck: There is an open wound in the left side of the mandible presently bandaged. CHEST: Clear to auscultation. HEART: Regular rate and rhythm. ABDOMEN: Soft. Bowel sounds are positive. No organomegaly. Extremities: No pedal edema. Skin no rashes. NEUROLOGIC: Alert and oriented x3. No focal deficits. LABORATORY DATA: Labs done today: WBC 7.5, hemoglobin 7.6, platelets are normal. Basic metabolic panel is within normal limits. IMPRESSION: 1. Newly diagnosed head and neck carcinoma, stage IV, supposed to start radiation chemotherapy in the next week. 2. Oropharyngeal dysphagia. 3. Status post tooth extraction yesterday. RECOMMENDATION: We will proceed with a PEG tube placement tomorrow. Discussed with the patient, risks and benefits and complications and he is agreeable to it. Thank you for this consultation. MMODL / IJN: [id number] /
[2018-04-05] MEDS ORDERED: ACETAMINOPHEN TAB 500 MG TAB PO PRN (12:05)
--- NOTE | 2018-04-05 13:11 | HP ---
HISTORY AND PHYSICAL CHIEF COMPLAINT: CA of the left side of the mandible. HISTORY OF PRESENT ILLNESS: This gentleman was apparently admitted to another physician and then transferred to my service without my being aware or notified. He apparently has a long-standing history of malignancy of the mouth and on the left jaw and is brought in for dental extractions. REVIEW OF SYSTEMS: This not easily obtainable, and apparently has no other problems or issues. He does smoke and drink. PAST MEDICAL HISTORY: Past medical history demonstrates that he has no allergies. He probably has not been on any medication, but the record indicates that he may have been on Augmentin and Tylenol. LABORATORY DATA: Laboratory studies reveal white count 14,700, hemoglobin 8.3. Potassium is low 2.9 and this will be corrected. PHYSICAL EXAM: Blood pressure 153/67, the pulse 52, respiration of 20 and temperature 98. In general, he appeared to be disheveled and in poor health. Head, ears, eyes, nose, mouth and throat were difficult to examine because the dressing was in place, but he had tumor growing out of the left side of his jaw. The chest was clear and cardiac exam is normal. Abdomen is soft and extremities are normal. IMPRESSION: 1. Carcinoma of the mouth with erosion through the left side of the jaw. 2. History of alcoholism. 3. Chronic obstructive pulmonary disease. 4. Anemia. PLAN: Proceed with extractions and follow with regard to discharge planning. MMODL / IJN: [id number] /
--- NOTE | 2018-04-05 17:56 | P.PN ---
Subjective Progress Note Date: 04/05/18 Principal diagnosis: Squamous cell carcinoma left mandible Status post extraction of all remaining teeth Patient had all of his remaining teeth extracted on Saturday in preparation for radiation treatment. Surgery went well and patient's been tolerating fluids orally and has minimal pain. No postoperative bleeding noted Objective - Vital Signs Vital signs: Vital Signs Temp 97.4 F L 04/05/18 13:00 Pulse 61 04/05/18 16:00 Resp 22 04/05/18 16:00 BP 139/64 04/05/18 13:00 Pulse Ox 100 04/05/18 13:00 Intake & Output 04/04/18 04/05/18 04/05/18 18:59 06:59 18:59 Intake Total 925 590 Output Total 5 100 50 Balance 920 490 -50 Weight 63 kg 63 kg Intake: IV 925 Oral 0 590 Output: Urine 100 50 Estimated Blood Loss 5 Other: Voiding Method Toilet Urinal # Voids 2 2 2 - Exam Patient can open his mouth without difficulty no active bleeding at any of the surgical sites. Minimal swelling intraorally. Patient's airway appears patent and easily able to tolerate liquids without difficulty. He does have a Maldonado bandage dressing over his extraoral fistula wound which is not saturated. - Constitutional General appearance: Present: no acute distress, thin - EENT Eyes: Present: EOMI - Psychiatric Psychiatric: Present: A&O x's 3 - Labs CBC & Chem 7: 04/05/18 05:30 04/05/18 05:30 Labs: Abnormal Lab Results - Last 24 Hours (Table) 04/04/18 04/04/18 04/04/18 Range/Units 07:47 19:41 19:41 WBC 16.8 H (3.8-10.6) k/uL RBC 3.20 L (4.30-5.90) m/uL Hgb 8.1 L (13.0-17.5) gm/dL Hct 26.6 L (39.0-53.0) % MCHC 30.5 L (31.0-37.0) g/dL Neutrophils # 15.7 H (1.3-7.7) k/uL Lymphocytes # 0.8 L (1.0-4.8) k/uL Potassium (3.5-5.1) mmol/L Glucose 121 H (74-99) mg/dL Calcium 10.9 H (8.4-10.2) mg/dL Total Protein 6.1 L (6.3-8.2) g/dL Albumin 3.1 L (3.5-5.0) g/dL Prealbumin 15.0 L (18.0-42.0) mg/dL 04/05/18 04/05/18 Range/Units 05:30 05:30 WBC 13.5 H (3.8-10.6) k/uL RBC 2.93 L (4.30-5.90) m/uL Hgb 7.6 L (13.0-17.5) gm/dL Hct 24.8 L (39.0-53.0) % MCHC 30.6 L (31.0-37.0) g/dL Neutrophils # 11.6 H (1.3-7.7) k/uL Lymphocytes # (1.0-4.8) k/uL Potassium 3.4 L (3.5-5.1) mmol/L Glucose 111 H (74-99) mg/dL Calcium 10.4 H (8.4-10.2) mg/dL Total Protein 5.6 L (6.3-8.2) g/dL Albumin 2.8 L (3.5-5.0) g/dL Prealbumin (18.0-42.0) mg/dL Microbiology - Last 24 Hours (Table) 04/03/18 18:04 Urine Culture - Final Urine,Voided Assessment and Plan Assessment: Tolerating his extractions very well. Patient's pain is well-controlled. Plan: Continue soft diet as tolerated. Continue current pain management. Continue dressing changes every 8 hours. Due to the fact that his tooth extractions are healing very well and his cancer surgery is well beyond my scope oral surgery will be signing off. Thank you for allowing us to participate in this gentleman's care and if any further oral surgery concerns should arise please reconsult. Time with Patient: Less than 30
--- NOTE | 2018-04-05 18:30 | PN ---
PROGRESS NOTE CHIEF COMPLAINT: Status post extractions and CA of the jaw. HISTORY OF PRESENT ILLNESS: This gentleman is apparently fairly stable. He is not having any significant pain. PHYSICAL EXAM: Head, ears, eyes, nose, mouth, and throat are unchanged for the absence of the left eye and the tumor losing some blood from the lesion on the left jaw. Chest is clear. Cardiac exam is normal. IMPRESSION: Cancer of the jaw. PLAN: Continue supportive care. MMODL / IJN: [id number] /
[2018-04-06] MEDS: AMPICILLIN-SULBACTAM 3 GM in SODIUM CHLORIDE 0.9% 100 ML IVPB SCH ×3 (06:06→19:20)
[2018-04-06] MEDS: VANCOMYCIN 1,250 MG in SODIUM CHLORIDE 0.9% 250 ML IVPB SCH ×2 (06:06→20:38)
[2018-04-06] MEDS ORDERED: SUCCINYLCHOLINE CHLORIDE VIAL 200 MG/10 ML VIAL IV ONE (09:10)
[2018-04-06] MEDS ORDERED: MIDAZOLAM 2 MG/2 ML VIAL ONE (09:10)
[2018-04-06] MEDS ORDERED: LIDOCAINE 1% INJ 10MG/ML (20 ML MDV) ONE (09:10)
[2018-04-06] MEDS ORDERED: KETAMINE 10 MG/ML 20 ML VIAL ONE (09:10)
[2018-04-06] MEDS ORDERED: PROPOFOL 10 MG/ML 20 ML VIAL IV ONE (09:10)
[2018-04-06] MEDS ORDERED: IV FLUID CONTINUATION 1,000 ML IV ONE (09:11)
--- NOTE | 2018-04-06 09:32 | P.PCN ---
Date of Procedure: 04/06/18 Procedure(s) Performed: Brief history: Patient is a 67-year-old pleasant white male, scheduled for an EGD with PEG tube placement today. He was admitted to the hospital with dysphagia. He was diagnosed with head and neck CA 3 weeks ago and is scheduled to undergo chemo and radiation therapy next week. Because of the dysphagia he scheduled for an upper endoscopy with a PEG tube placement today Procedure performed: EGD with PEG tube placement Preoperative diagnosis: Recently diagnosed head and neck CA/dysphagia IV sedation by anesthesia Procedure: After informed consent was obtained with the patient as well as the family the patient was brought into the endoscopy unit. IV conscious sedation was administered by anesthesia under continuous monitoring. The Olympus GF 160 video endoscope was inserted into the mouth and esophagus intubated without any difficulty and was gradually advanced to the stomach and duodenum. The bulb and second part of the duodenum was visualized which appeared normal. The scope at this time was withdrawn to the stomach adequately insufflated with air. Adequate transillumination was achieved onto the anterior abdominal wall. At the site of adequate transillumination and maximal finger indentation, on the anterior abdominal wall, this area was sterilely prepped and draped. One percent Xylocaine was infiltrated into the skin and a small incision was made. Trocar and cannula was passed through the incision into the stomach cavity. The trocar was removed. Guidewire was passed through the cannula into the stomach cavity which was held by the snare that was passed through the scope. The guidewire along with the scope was gently withdrawn from the stomach esophagus out of the mouth. A 20-[place] [employer] PEG tube was passed over the guidewire and was gently advanced into the mouth and esophagus and stomach. With gentle traction the guidewire along with the PEG tube was pulled from the anterior abdominal wall until the internal bumper appeared to be in secure position. Repeat EGD was performed and the esophagus intubated without any difficulty and was advanced into the stomach. The internal bumper appeared to be in secure position. The visualized portions of the antrum body cardia and fundus of the stomach appeared normal. The esophagus was carefully examined as the scope was gradually being withdrawn which appeared normal. At this time external bumper was placed on the PEG tube closer to the anterior abdominal wall at 3 cm abhi. The patient tolerated the procedure well. Impression: Successful 20-[place] [employer] PEG tube placement as described above. Recommendations: Findings of this examination were discussed with the patient's family. The patient will be started on tube feeds tomorrow. Post-PEG tube orders were written.
--- NOTE | 2018-04-06 12:57 | PN ---
PROGRESS NOTE CHIEF COMPLAINT: CA of the jaw. HISTORY OF PRESENT ILLNESS: This gentleman is fairly stable. He has a slightly low potassium at 3.4. His hemoglobin is 7.6 and going down. PHYSICAL EXAM: Chest is clear. Cardiac exam is normal. IMPRESSION: 1. Carcinoma of the jaw. 2. Anemia. 3. Hypokalemia. PLAN: 1. Correct hypokalemia. 2. Await any recommendations from Oncology. MMODL / IJN: [id number] /
[2018-04-06] MEDS: IBUPROFEN 600 MG TAB PO SCH ×4 (13:35→20:42)
[2018-04-06] MEDS: ENOXAPARIN 40 MG/0.4 ML SYRINGE SQ SCH (13:36)
[2018-04-07] MEDS: AMPICILLIN-SULBACTAM 3 GM in SODIUM CHLORIDE 0.9% 100 ML IVPB SCH ×5 (00:07→23:54)
[2018-04-07] MEDS: VANCOMYCIN 1,250 MG in SODIUM CHLORIDE 0.9% 250 ML IVPB SCH ×2 (06:00→18:05)
[2018-04-07 08:16] LABS: Anion Gap 5 mmol/L; Blood Urea Nitrogen 9 mg/dL (9-20); Calcium 10.2 mg/dL (8.4-10.2); Carbon Dioxide 28 mmol/L (22-30); Chloride 105 mmol/L (98-107); Glucose 98 mg/dL (74-99); Potassium 2.8 mmol/L (3.5-5.1); Sodium 138 mmol/L (137-145)
[2018-04-07] MEDS: IBUPROFEN 600 MG TAB PO SCH ×4 (08:24→21:33)
[2018-04-07] MEDS: ENOXAPARIN 40 MG/0.4 ML SYRINGE SQ SCH (08:25)
--- NOTE | 2018-04-07 10:07 | PN ---
PROGRESS NOTE DATE OF SERVICE: 04/07/2018 Patient is a 67-year-old white male with newly diagnosed head and neck cancer, was admitted to the hospital with poor oral intake. He underwent an EGD with a PEG tube placement yesterday and this morning denies any symptoms. He denies any abdominal pain. PHYSICAL EXAMINATION: On physical examination, appears comfortable, in no apparent distress. Vital signs are stable. Blood pressure is 140/65, pulse rate 95, temperature 98.4. HEENT examination large open wound in the left jaw area. CHEST: Clear to auscultation. HEART: Regular rate and rhythm. ABDOMEN: Soft. PEG site appears intact. Abdomen is nondistended, nontender. EXTREMITIES: No pedal edema. SKIN: No rashes. NEURO: Alert and oriented x3. No focal deficits. IMPRESSION: 1. Head and neck cancer, stage IV, diagnosed 2 weeks ago. The patient to undergo chemo and radiation therapy early next week. #. 2. Oropharyngeal dysphagia, status post EGD with PEG tube placement yesterday. RECOMMENDATIONS: We will start tube feeds today. We will sign off at this time. Please call us if needed. Thank you for this consultation. MMODL / IJN: [id number] /
--- NOTE | 2018-04-07 18:10 | PN ---
PROGRESS NOTE CHIEF COMPLAINT: CA of jaw HISTORY OF PRESENT ILLNESS: This gentleman is stable and he is just being started on tube feeding formula. He will be kept in the hospital until he is adjusted on this. PHYSICAL EXAM: Chest is clear. Cardiac exam is normal. There is no bleeding from the jaw at the present time. IMPRESSION: Carcinoma of the jaw. PLAN: Tube feeding formula has been started and will follow up with him over the next several days as it is increased. MMODL / IJN: [id number] /
[2018-04-07] MEDS: POTASSIUM CHLORIDE ER 20 MEQ TAB.ER PO SCH ×2 (18:12→20:09)
[2018-04-08] MEDS ORDERED: VANCOMYCIN TROUGH DUE 1 EACH MISC MISCELLANE ONE (05:00)
[2018-04-08 05:50] LABS: Anion Gap 5 mmol/L; Blood Urea Nitrogen 14 mg/dL (9-20); Calcium 10.5 mg/dL (8.4-10.2); Carbon Dioxide 25 mmol/L (22-30); Chloride 106 mmol/L (98-107); Glucose 133 mg/dL (74-99); Potassium 3.6 mmol/L (3.5-5.1); Sodium 136 mmol/L (137-145)
[2018-04-08] MEDS: AMPICILLIN-SULBACTAM 3 GM in SODIUM CHLORIDE 0.9% 100 ML IVPB SCH ×4 (06:02→23:18)
[2018-04-08] MEDS: VANCOMYCIN 1,250 MG in SODIUM CHLORIDE 0.9% 250 ML IVPB SCH ×2 (06:33→18:31)
[2018-04-08] MEDS: ENOXAPARIN 40 MG/0.4 ML SYRINGE SQ SCH (11:31)
[2018-04-08] MEDS: IBUPROFEN 600 MG TAB PO SCH ×4 (11:31→23:18)
[2018-04-09] MEDS: AMPICILLIN-SULBACTAM 3 GM in SODIUM CHLORIDE 0.9% 100 ML IVPB SCH ×3 (05:37→18:17)
[2018-04-09 05:46] VITALS: TEMP 97.9
[2018-04-09] MEDS: VANCOMYCIN 1,250 MG in SODIUM CHLORIDE 0.9% 250 ML IVPB SCH ×2 (06:15→18:18)
[2018-04-09 07:28] LABS: Anion Gap 6 mmol/L; Blood Urea Nitrogen 13 mg/dL (9-20); Calcium 10.5 mg/dL (8.4-10.2); Carbon Dioxide 26 mmol/L (22-30); Chloride 107 mmol/L (98-107); Glucose 101 mg/dL (74-99); Potassium 3.3 mmol/L (3.5-5.1); Sodium 139 mmol/L (137-145)
[2018-04-09] MEDS ORDERED: Potassium Replacement Protocol 1 EACH MISC MISCELLANE PRN (07:31)
[2018-04-09] MEDS: IBUPROFEN 600 MG TAB PO SCH ×3 (08:03→18:29)
[2018-04-09] MEDS: POTASSIUM CHLORIDE ER 20 MEQ TAB.ER PO SCH ×2 (08:03→10:33)
[2018-04-09] MEDS: ENOXAPARIN 40 MG/0.4 ML SYRINGE SQ SCH (08:03)
[2018-04-09 11:28] LABS: Basophils % (A) 0 %; Eosinophils # (A) 0.3 k/uL (0-0.7); Eosinophils % (A) 2 %; HCT 26.9 % (39.0-53.0); HGB 8.6 gm/dL (13.0-17.5); Lymphocytes # (A) 1.3 k/uL (1.0-4.8); Lymphocytes % (A) 11 %; MCH 26.5 pg (25.0-35.0); MCHC 32.1 g/dL (31.0-37.0); MCV 82.6 fL (80.0-100.0); Mean Platelet Volume 8.1; Monocytes % (A) 8 %; Neutrophils # (A) 9.2 k/uL (1.3-7.7); Neutrophils % (A) 77 %; Platelet Count 341 k/uL (150-450); RBC 3.26 m/uL (4.30-5.90); RDW 14.7 % (11.5-15.5); WBC 11.9 k/uL (3.8-10.6)
[2018-04-09 12:38] VITALS: BP 161/68; PULSE 69; RESP 18
[2018-04-09 13:33] VITALS: BMI 20.6
--- NOTE | 2018-04-09 15:30 | DS ---
DISCHARGE SUMMARY DATE OF SERVICE: 04/09/2018 CHIEF COMPLAINT: Carcinoma of the jaw. HISTORY OF PRESENT ILLNESS AND PHYSICAL EXAM: Details of this man's history and physical can be found in the initial workup. LABORATORY STUDIES: While he was in a hospital he had laboratory studies, details of which can be found in the laboratory section of his chart. COURSE IN HOSPITAL: After admission he was placed on bedrest, started on intravenous fluids and taken to the operating room for removal of several teeth. He was seen in consultation by Hematology/Oncology as well and they are making arrangements for further treatment. He is doing well enough that it was felt he could be discharged on 04/09 and he will go home on his usual activity and diet and will be set up with home care. Will see him in the office in about a week. FINAL DIAGNOSES: 1. Carcinoma on the left side of the jaw. 2. Chronic obstructive pulmonary disease. 3. Malnutrition. 4. Dehydration. OPERATIONS: Dental extractions. CONSULTATIONS: Oral Surgery and Oncology. MMODL / IJN: [id number] /
--- NOTE | 2018-04-09 17:52 | PN ---
PROGRESS NOTE DATE OF SERVICE: 04/08/2018 CHIEF COMPLAINT: Carcinoma of the jaw. HISTORY OF PRESENT ILLNESS: This gentleman is stable and could be discharged any time. It is not clear where he will be going after his hospitalization. Physical examination is unchanged. IMPRESSION: Carcinoma of the jaw. PLAN: Discharge planning is in place. MMODL / GOLDENN: [id number] /
--- NOTE | 2018-04-09 17:58 | P.PN ---
Subjective Progress Note Date: 04/09/18 Principal diagnosis: squamous cell carcinoma of the head/neck Pt seen today in f/u. He had PEG placed and is tolerating feeding, no nausea, vomiting, coughing, indigestion, diarrhea, pain is managed. Objective - Vital Signs Vital signs: Vital Signs Temp 97.9 F 04/09/18 12:37 Pulse 69 04/09/18 12:37 Resp 18 04/09/18 12:37 BP 161/68 04/09/18 12:37 Pulse Ox 100 04/09/18 12:37 Intake & Output 04/08/18 04/09/18 04/09/18 18:59 06:59 18:59 Intake Total 126 378 Output Total 700 Balance -574 378 Weight 67 kg 67 kg Intake: Tube Feeding 126 378 Output: Urine 700 Other: Voiding Method Urinal Urinal Urinal # Voids 1 - Constitutional General appearance: Present: average body habitus, cooperative, no acute distress - EENT EENT Comment(s): left facial dressing is in place, 3-4 cm mass left submandibular angle, 2-3 <1 cm adenopathy in the anterior cervical chain on the right. Eyes: Present: anicteric sclerae - Neck Neck: Present: lymphadenopathy (see ENT) - Respiratory Respiratory: bilateral: diminished, rales (few scattered anteriorly) - Cardiovascular Heart sounds: normal: S1, S2 - Gastrointestinal Gastrointestinal Comment(s): PEG dressing has no drainage noted, no pain with palpation around the insertion General gastrointestinal: Present: normal bowel sounds, soft - Musculoskeletal Musculoskeletal: Present: generalized weakness - Psychiatric Psychiatric Comment(s): A&O to self palce and time, unsure if pt clearly understands his diagnosis and the treatment. - Labs CBC & Chem 7: 04/09/18 09:53 04/09/18 06:56 Labs: Abnormal Lab Results - Last 24 Hours (Table) 04/09/18 04/09/18 Range/Units 06:56 09:53 WBC 11.9 H (3.8-10.6) k/uL RBC 3.26 L (4.30-5.90) m/uL Hgb 8.6 L (13.0-17.5) gm/dL Hct 26.9 L (39.0-53.0) % Neutrophils # 9.2 H (1.3-7.7) k/uL Potassium 3.3 L (3.5-5.1) mmol/L Creatinine 0.62 L (0.66-1.25) mg/dL Glucose 101 H (74-99) mg/dL Calcium 10.5 H (8.4-10.2) mg/dL Assessment and Plan (1) Squamous cell carcinoma of head and neck Narrative/Plan: I had spoken to Rad/Onc in the AM and there were plans to start radiation while inpatient. Cisplatin is to be given concurrently for chemo-sensitization of tumor to radiation. If radiation is going to start pt should have chemo. Will try to coordinate with Rad/Onc and give orders for chemo if appropriate in the inpatient setting. Current Visit: Yes Status: Acute Priority: High Code(s): C76.0 - MALIGNANT NEOPLASM OF HEAD, FACE AND NECK SNOMED Code(s): 302629890 (2) Hypercalcemia Narrative/Plan: Recurrent, mild. Hopefully with PEG pt can stay hydrated that will keep the Ca+ + level down. Pt cannot receive bisphosphonate therapy for a minimum of 6 weeks post dental extraction. Pt did received pamidronate 03/01. Current Visit: Yes Status: Acute Priority: Medium Code(s): E83.52 - HYPERCALCEMIA SNOMED Code(s): 15218454 Plan: Pt teeth extracted by Dr. Stevenson PEG placed by Dr. Burgess
--- NOTE | 2018-04-11 09:38 | CDI ---
Documentation Clarification Form Date: 04/11/18 From: Vanesa Law Regla Alexis, Dental Assisting Instructor Hours-8:30 am & 5 pm Rolo Admit Date: 04/03/2018 4:50:00 PM Patient Name: Nikhil Avila Visit Number: [id number] Discharge Date: 04/09/2018 7:25:00 PM ATTENTION: The Clinical Documentation Specialists (CDI) and [facility] Coding Staff appreciate your assistance in clarifying documentation. Please respond to the clarification below the line at the bottom and electronically sign. The CDI & [facility] Coding staff will review the response and follow-up if needed. Please note: Queries are made part of the Legal Health Record. If you have any questions, please contact the author of this message via ITS. Dr. Emile Reilly, Malnutrition has been documented in 04/04 consult and discharge summary. History/Risk Factors: Carcinoma floor of mouth into mandible. Albumin: 3.5, 3.1, 2.8 Pre albumin: 15.0 Total Protein: 6.7/6.1/5.6 Current BMI: 19.3 Treatment: PEG placement with tube feedings Dietary Consult: yes In your professional opinion, can you please clarify if these findings signify one of the following conditions? Mild Protein-Calorie Malnutrition Moderate Protein-Calorie Malnutrition Severe Protein-Calorie Malnutrition Malnutrition, unspecified Other condition, please specify Unable to determine Moderate protein calorie malnutrition Moderate protein calorie malnutrition MTDD
== END 2018-04-09 19:25 | disposition home health service (06) | DRG 147 ==
LOC: EC 14:56 → 3NMEDONC 16:50
PROVIDERS: ADMIT Family Medicine; ATTEND Family Medicine
PROC: 0CTX0Z1 Resection of Lower Tooth, Multiple, Open Approach (ICD-10-PCS; 2018-04-04)
PROC: 0CT Mouth and Throat, Resection (ICD-10-PCS; principal; 2018-04-04 15:00)
PROC: 0DH63UZ Insertion of Feeding Device into Stomach, Percutaneous Approach (ICD-10-PCS; 2018-04-06)
PROC: 3E0G76Z Introduction of Nutritional Substance into Upper GI, Via Natural or Artificial Opening (ICD-10-PCS; 2018-04-06)
DX: C04.9 Malignant neoplasm of floor of mouth, unspecified (principal); Z68.1 Body mass index [BMI] 19.9 or less, adult; E44.0 Moderate protein-calorie malnutrition; C79.51 Secondary malignant neoplasm of bone; K12.2 Cellulitis and abscess of mouth; R13.12 Dysphagia, oropharyngeal phase; E83.52 Hypercalcemia; K12.1 Other forms of stomatitis; E86.0 Dehydration; J44.9 Chronic obstructive pulmonary disease, unspecified; E87.6 Hypokalemia; R62.7 Adult failure to thrive; D53.9 Nutritional anemia, unspecified; K01.1 Impacted teeth; K02.9 Dental caries, unspecified; D63.0 Anemia in neoplastic disease; F10.21 Alcohol dependence, in remission; F17.210 Nicotine dependence, cigarettes, uncomplicated; Z71.6 Tobacco abuse counseling; Z90.01 Acquired absence of eye; Z80.1 Family history of malignant neoplasm of trachea, bronchus and lung
CPT/HCPCS: 36415; 43246; 74022; 80048; 80053; 80202; 81001; 82550; 82553; 83605; 83735; 84100; 84132; 84134; 84484; 85025; 85610; 85730; 87086; 93005; 94760; 96361; 96365; 96367; 96375; 99285

== ENCOUNTER → 2018-05-31 | Outpatient (CLI) | payer MEDICARE ==
--- NOTE | 2018-06-02 19:45 | PE ---
EXAMINATION TYPE: PET CT fusion skull to thigh DATE OF EXAM: 05/31/2018 CLINICAL HISTORY: 67-year-old male restaging head and neck cancer involving the left jaw. Chemotherap y completed 2 weeks ago and radiation therapy completed 3 weeks ago to the left jaw. TECHNIQUE: Following the intravenous administration of 12.92 mCi of F-18 FDG, initial coned-down im ages of the head and neck followed by whole body images are performed from the skull base to the midt high. Images are reviewed on the computer in the coronal, axial, and sagittal planes. Reconstructed rotating images are created on independent workstation and reviewed on the computer. A localizatio n and attenuation correction CT is performed in conjunction with the PET scan. Glucose level: 102 mg/dL CTDI: 2.21 / 66.6 mGy DLP: 2.81 / 250.39 mGy-cm COMPARISON: 03/08/2018. FINDINGS: PET: Redemonstrated extensive destructive soft tissue lesion along the left angle of the mandible and subm andibular space extending to involve and destroy the left mandibular body. Max SUV 7.8. There seems t o be pathologic fracture at the distal left mandibular body, new as compared to prior exam. The previous extensive necrotic left submandibular mass appears to have ulcerated and partially evacu ated and decompressed in the interval. There remains extensive abnormal thickened soft tissue through out the left submandibular space extending into the submental space and left vocational nursing instructor space. Neopla stic involvement extends down to the level of the hyoid bone. Some of the uptake in the submental space has improved with new focal 2.3 cm area of necrosis now see n, max SUV 5.7. Irregular ulcerated left submandibular space mass now shows maximal SUV 7.5. Involvement of the left vocational nursing instructor space shows max SUV 7.0. Abnormal hypermetabolism now extends slightly more superiorly with more involvement of the left ptery goid musculature and left masseter muscle both of which are now abnormally thickened up to the level of the condylar neck. Max SUV 6.7 in these regions. Left upper cervical lymph node is centrally necrotic measuring 2.3 cm versus 1.8 cm, previously (max SUV 5.6 versus 18, previously). Right upper cervical lymph node measures 1.8 cm versus 2.1 cm, max SUV 6.4 versus 18.7, previously New mild uptake within a small 1.0 x 2.5 cm right supraclavicular lymph node, axial image 64, max SUV 2.7. Extensive new areas of thick-walled cavitary change within the right upper lobe measuring up to at le ast 9.7 cm with irregularly thickened peripheral areas of hypermetabolism, maximum SUV 4.7. More consolidative change performed right midlung measures up to 9.7 x 5.1 cm, max SUV 5.4. Right tracheobronchial angle lymph nodes measure up to 1.4 cm, max SUV 5.1. Left suprahilar mass poorly differentiated from adjacent hilar structures and some underlying left hi lar lymph nodes, max SUV 5.7. New focal uptake within the left lateral aspect of the T3 vertebral body, max SUV 3.9. Additional new osseous metastatic disease involving the T9, T10, and T11 vertebral bodies, new from p rior exam. Max SUV 3.7. Focal uptake associated with the PEG tube likely reactive change. Average liver SUV 1.4. Variable moderate to intense colonic uptake likely physiologic. Hypermetabolism along the anterolateral aspects which appears superficial to the skin surface of the hips likely contamination on the sheets. ATTENUATION CORRECTION CT: Left globe prosthesis. Moderate mucosal thickening floor of the left maxillary sinus and mild to mode rate floor right maxillary sinus. Mild bilateral gynecomastia. Heart normal size with trace anterior pericardial fluid. Coronary vessel calcifications are present. 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 Conventional origins of branch anatomy. 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 Calcified left hilar lymph node s incidentally noted compatible with prior granulomatous disease. New right tracheobronchial angle ly mphadenopathy as mentioned above. Adrenal glands appear clear. Small gallstone. Punctate 2 mm nonobstructive right renal calculus. Mild diffuse anasarca-type change. Calcified granulomas in the spleen. No dilated small bowel, free fluid, or free air. No mesenteric or retroperitoneal lymphadenopathy see n. Mild to moderate other scattered calcifications infrarenal abdominal aorta. Bladder urine distended. Moderate pelvic free fluid is new. No pelvic lymphadenopathy seen. Bones: Degenerative changes lower lumbar spine. Endplate spondylosis which largely occult osseous dis ease of the thoracic spine mentioned above. No leia osseous destructive process seen. IMPRESSION: 1. Extensive destructive soft tissue tumor along the left mandible extending into the left submandibu lar, submental, and left vocational nursing instructor space. The overall bulk of the tumor may appear somewhat decrease d as there has been interval ulceration and evacuation of much of the associated necrotic material bu t intense hypermetabolism remains, max SUV 7.8. 2. Note new necrotic area in the submental space where there appears to have been some degree of juan tment response. Also, improvement in the degree of FDG uptake in the upper cervical lymph nodes. Fischer cait, there is greater extent of tumor now extending into the left pterygoid and masseter musculature. Findings suggest partial treatment response and probable subsequent disease progression. 3. New osseous metastatic disease involving T3, T9, T10, and T11 vertebral bodies largely occult by C T. 4. Extensive new mixed cavitary neoplasm and consolidative mass throughout the right upper lobe, max SUV 5.4. 5. New left suprahilar pulmonary metastases with additional hypermetabolic left hilar and right media stinal metastatic lymphadenopathy, max SUV 5.7.
== END | disposition home or self-care (01) ==
LOC: RADPETMAIN 13:36
PROVIDERS: ATTEND Internal Medicine Hematology & Oncology
DX: C79.51 Secondary malignant neoplasm of bone (principal); C06.89 Malignant neoplasm of overlapping sites of other parts of mouth; C77.1 Secondary and unspecified malignant neoplasm of intrathoracic lymph nodes; C78.02 Secondary malignant neoplasm of left lung
CPT/HCPCS: 78815; A9552

== ENCOUNTER 2018-06-07 12:27 | Inpatient (IN) | payer MEDICARE ==
[2018-06-07] MEDS ORDERED: SODIUM CHLORIDE 0.9% 500 ML 500 ML IV STA ×2 (13:14→16:25)
[2018-06-07 13:46] LABS: Anisocytosis Slight; Basophils % (A) 0 %; Eosinophils # (A) 0.1 k/uL (0-0.7); Eosinophils % (A) 0 %; HCT 24.3 % (39.0-53.0); Hypochromasia Slight; Lymphocytes # (A) 0.6 k/uL (1.0-4.8); Lymphocytes % (A) 4 %; MCH 25.8 pg (25.0-35.0); MCHC 32.6 g/dL (31.0-37.0); MCV 79.3 fL (80.0-100.0); Mean Platelet Volume 5.9; Microcytosis Slight; Monocytes # (A) 0.5 k/uL (0-1.0); Monocytes % (A) 3 %; Neutrophils % (A) 91 %; RBC 3.07 m/uL (4.30-5.90); RDW 19.6 % (11.5-15.5); WBC 14.2 k/uL (3.8-10.6)
[2018-06-07 13:52] LABS: HGB 7.9 gm/dL (13.0-17.5); Platelet Count 596 k/uL (150-450)
[2018-06-07] MEDS ORDERED: MORPHINE SULFATE 4 MG/ML SYRINGE IVP STA (13:52)
--- NOTE | 2018-06-07 13:52 | ED ---
General Adult HPI - General Chief complaint: Abdominal Pain Stated complaint: Abd Pain Time Seen by Provider: 06/07/18 12:39 Source: patient, RN notes reviewed Mode of arrival: wheelchair Limitations: no limitations - History of Present Illness Initial comments: 67-year-old male with a past medical history of jaw cancer presents to the emergency department for a chief complaint of abdominal pain. Patient is a poor historian however his family member states he has not accepted feeding through his PEG tube in about 24 hours. She states he did receive hydration last night. He was complaining of abdominal pain at that time. Patient states he does have some lower left abdominal pain. Patient last received chemo weeks ago but as it is not working he is having tumor markers done at the [facility]. No vomiting. No fevers. Patient has no other complaints at this time including shortness of breath, chest pain, nausea or vomiting, headache, or visual changes. - Related Data Home Medications Medication Instructions Recorded Confirmed Aspirin EC [Ecotrin] 325 mg PO DAILY PRN 06/07/18 06/07/18 Allergies Allergy/AdvReac Type Severity Reaction Status Date / Time No Known Allergies Allergy Verified 06/07/18 17:36 Review of Systems ROS Statement: Those systems with pertinent positive or pertinent negative responses have been documented in the HPI. ROS Other: All systems not noted in ROS Statement are negative. Past Medical History Past Medical History: Cancer Additional Past Medical History / Comment(s): Cancer: PV of the jaw, History of Any Multi-Drug Resistant Organisms: None Reported Additional Past Surgical History / Comment(s): Left eye removed at age 6, left sided jaw biopsy, Past Anesthesia/Blood Transfusion Reactions: No Reported Reaction Past Psychological History: No Psychological Hx Reported Smoking Status: Current every day smoker Past Alcohol Use History: None Reported Past Drug Use History: None Reported - Past Family History Father Family Medical History: Cancer Additional Family Medical History / Comment(s): Lung cancer - . Mother Family Medical History: No Reported History Additional Family Medical History / Comment(s): Mother is still living and doesn 't have many issues. General Exam Limitations: no limitations General appearance: alert, in no apparent distress Head exam: Present: atraumatic, normocephalic, normal inspection Eye exam: Present: normal appearance, PERRL, EOMI. Absent: scleral icterus, conjunctival injection, periorbital swelling ENT exam: Present: normal exam, mucous membranes moist Neck exam: Present: normal inspection, full ROM. Absent: tenderness, meningismus, lymphadenopathy Respiratory exam: Present: normal lung sounds bilaterally. Absent: respiratory distress, wheezes, rales, rhonchi, stridor Cardiovascular Exam: Present: regular rate, normal rhythm, normal heart sounds. Absent: systolic murmur, diastolic murmur, rubs, gallop, clicks GI/Abdominal exam: Present: soft, tenderness (minimal LLQ tenderness, no rebound or guarding), normal bowel sounds. Absent: distended, guarding, rebound , rigid Course Vital Signs 06/07/18 06/07/18 06/07/18 12:32 15:24 16:00 Temperature 98.6 F Pulse Rate 114 H 97 67 Pulse Rate [ Pulse Oximetery ] Respiratory 18 16 18 Rate Blood Pressure 109/60 151/76 160/65 Blood Pressure [Left Arm] O2 Sat by Pulse 95 99 97 Oximetry 06/07/18 06/07/18 06/07/18 16:30 17:00 17:30 Temperature Pulse Rate 68 69 72 Pulse Rate [ Pulse Oximetery ] Respiratory 18 18 18 Rate Blood Pressure 148/82 139/79 146/72 Blood Pressure [Left Arm] O2 Sat by Pulse 99 97 98 Oximetry 06/07/18 06/07/18 06/07/18 18:00 18:30 19:00 Temperature Pulse Rate 68 75 89 Pulse Rate [ Pulse Oximetery ] Respiratory 18 18 18 Rate Blood Pressure 149/70 162/67 136/70 Blood Pressure [Left Arm] O2 Sat by Pulse 97 97 98 Oximetry 06/07/18 06/07/18 22:00 23:00 Temperature 98.3 F Pulse Rate 79 Pulse Rate [ 102 H Pulse Oximetery ] Respiratory 16 16 Rate Blood Pressure 131/91 Blood Pressure 119/65 [Left Arm] O2 Sat by Pulse 100 98 Oximetry EKG Findings - EKG Comments: EKG Findings:: Normal sinus rhythm, ventricular rate 100, CT interval 196, QTC 485 Medical Decision Making - Medical Decision Making 67-year-old male with a past medical history of oral cancer presents to the emergency department for a chief complaint of abdominal pain and refusing food. Patient is a poor historian. His family states he has not accepted feeding through his PEG tube in over 24 hours. She states he did receive hydration last night. She states he has become somewhat argumentative and usually becomes this way when he was dehydrated. He is also complaining of left lower quadrant abdominal pain. Should lab work does seem to show dehydration. He does have a platelet count of 596. Patient's hemoglobin 7.9 which is near patient's baseline. White count 14.2 which may be reactive in nature. Potassium minimally low at 3.3. Given 40 [place] through PEG. Urine negative for infection. Abdomen and pelvis CT shows only a small amount of free fluid in the low pelvis. This estimate tube appears appropriately positioned. Discussed this case in depth with patient and significant other. She has concerns about taking patient home if he has been refusing feedings. Case discussed with Dr. Briscoe. Dr. Herrera will admit patient. - Lab Data Result diagrams: 06/08/18 13:58 06/08/18 13:58 Lab Results 06/07/18 06/07/18 06/07/18 Range/Units 13:35 13:35 14:47 WBC 14.2 H (3.8-10.6) k/uL RBC 3.07 L (4.30-5.90) m/uL Hgb 7.9 L (13.0-17.5) gm/dL Hct 24.3 L (39.0-53.0) % MCV 79.3 L (80.0-100.0) fL MCH 25.8 (25.0-35.0) pg MCHC 32.6 (31.0-37.0) g/dL RDW 19.6 H (11.5-15.5) % Plt Count 596 H D (150-450) k/uL Neutrophils % 91 % Lymphocytes % 4 % Monocytes % 3 % Eosinophils % 0 % Basophils % 0 % Neutrophils # 13.0 H (1.3-7.7) k/uL Lymphocytes # 0.6 L (1.0-4.8) k/uL Monocytes # 0.5 (0-1.0) k/uL Eosinophils # 0.1 (0-0.7) k/uL Basophils # 0.0 (0-0.2) k/uL Hypochromasia Slight Anisocytosis Slight Microcytosis Slight Sodium 134 L (137-145) mmol/L Potassium 3.3 L (3.5-5.1) mmol/L Chloride 96 L (98-107) mmol/L Carbon Dioxide 30 (22-30) mmol/L Anion Gap 8 mmol/L BUN 15 (9-20) mg/dL Creatinine 0.60 L (0.66-1.25) mg/dL Est GFR (CKD-EPI)AfAm >90 (>60 ml/min/1.73 sqM) Est GFR (CKD-EPI)NonAf >90 (>60 ml/min/1.73 sqM) Glucose 105 H (74-99) mg/dL Calcium 10.7 H (8.4-10.2) mg/dL Total Bilirubin 0.5 (0.2-1.3) mg/dL AST 28 (17-59) U/L ALT 37 (21-72) U/L Alkaline Phosphatase 215 H (38-126) U/L Total Protein 6.3 (6.3-8.2) g/dL Albumin 2.8 L (3.5-5.0) g/dL Amylase <30 L (30-110) U/L Lipase 14 L (23-300) U/L Urine Color Light Yellow Urine Appearance Cloudy (Clear) Urine pH 8.0 (5.0-8.0) Ur Specific [place] 1.006 (1.001-1.035) Urine Protein Negative (Negative) Urine Glucose (UA) Negative (Negative) Urine Ketones Negative (Negative) Urine Blood Negative (Negative) Urine Nitrite Negative (Negative) Urine Bilirubin Negative (Negative) Urine Urobilinogen <2.0 (<2.0) mg/dL Ur Leukocyte Esterase Negative (Negative) Urine WBC 1 (0-5) /hpf Urine Mucus Rare H (None) /hpf Disposition Clinical Impression: Dehydration, Hypokalemia, Oral cancer, Abdominal pain Disposition: ADMITTED IP TO THIS HOSP Condition: Fair Is patient prescribed a controlled substance at d/c from ED?: No Time of Disposition: 20:32
[2018-06-07 13:56] LABS: ALT 37 U/L (21-72); AST 28 U/L (17-59); Albumin 2.8 g/dL (3.5-5.0); Alkaline Phosphatase 215 U/L (38-126); Amylase <30 U/L (30-110); Anion Gap 8 mmol/L; Blood Urea Nitrogen 15 mg/dL (9-20); Calcium 10.7 mg/dL (8.4-10.2); Carbon Dioxide 30 mmol/L (22-30); Chloride 96 mmol/L (98-107); Glucose 105 mg/dL (74-99); Lipase 14 U/L (23-300); Potassium 3.3 mmol/L (3.5-5.1); Sodium 134 mmol/L (137-145); Total Bilirubin 0.5 mg/dL (0.2-1.3); Total Protein 6.3 g/dL (6.3-8.2)
[2018-06-07 15:09] LABS: Appearance,Urine Cloudy (Clear); Bilirubin,Urine Negative (Negative); Blood,Urine Negative (Negative); Color,Urine Light Yellow; Glucose,Urine (UA) Negative (Negative); Ketones,Urine Negative (Negative); Leukocyte Esterase,Urine Negative (Negative); Mucus,Urine Rare /hpf; Nitrite,Urine Negative (Negative); Protein,Urine Negative (Negative); Specific Gravity,Urine 1.006 (1.001-1.035); Urobilinogen,Urine <2.0 mg/dL (<2.0); WBC,Urine 1 /hpf (0-5)
--- NOTE | 2018-06-07 15:29 | CT ---
EXAMINATION TYPE: CT abdomen pelvis w con DATE OF EXAM: 06/07/2018 COMPARISON: Pet/CT 05/31/2018 HISTORY: generalized abdominal pain CT DLP: 620.2 mGycm Automated exposure control for dose reduction was used. TECHNIQUE: Helical acquisition of images was performed from the lung bases through the pelvis. CONTRAST: Performed without Oral Contrast and with IV Contrast, patient injected with 100 mL of Isovue 300. [place] ited images were obtained. FINDINGS: LUNG BASES: No significant abnormality is appreciated. LIVER/GB: No significant abnormality is appreciated. Cholelithiasis is again is again evident. PANCREAS: No significant abnormality is seen. SPLEEN: No significant abnormality is seen. ADRENALS: No significant abnormality is seen. KIDNEYS: No significant abnormality is seen. The kidneys excrete contrast symmetrically. FREE AIR: No free air is visualized. RETROPERITONEAL ADENOPATHY: None visualized REPRODUCTIVE ORGANS: No significant abnormality is seen URINARY BLADDER: No significant abnormality is seen. PELVIC ADENOPATHY: None visualized. OSSEOUS STRUCTURES: No significant abnormality is seen. BOWEL: No significant abnormality is seen. Appendix is normal. OTHER: A gastrostomy tube is seen and is appropriately positioned. Small amount of free fluid is seen within the low pelvis. IMPRESSION: 1. Small amount of free fluid within the low pelvis. Etiology is unclear. 2. Cholelithiasis. 3. Appropriately positioned gastrostomy tube.
[2018-06-07] MEDS ORDERED: NALOXONE 0.4 MG/ML 1 ML VIAL IV PRN (20:36)
[2018-06-07] MEDS ORDERED: ONDANSETRON 4 MG/2 ML VIAL IVP PRN (20:36)
[2018-06-07] MEDS ORDERED: MORPHINE SULFATE 4 MG/ML SYRINGE IV PRN (20:36)
[2018-06-07] MEDS ORDERED: POTASSIUM BICARBONATE/CIT AC 20 MEQ TABLET.EFF PO ONE (20:41)
[2018-06-07] MEDS: SODIUM CHLORIDE 0.9% 1,000 ML IV SCH (23:47)
[2018-06-08] MEDS: SODIUM CHLORIDE 0.9% 1,000 ML IV SCH ×2 (08:47→18:50)
--- NOTE | 2018-06-08 11:34 | P.CONS ---
History of Present Illness - Reason for Consult Consult date: 06/08/18 head and neck cancer Requesting physician: Casimiro Briscoe - Chief Complaint Dehydration - History of Present Illness Mr Avila is a pleasant white male, initially seen in consult at [facility] on . The patient had not had regular follow-up for a fairly prolonged period of time before his presentation. According to his significant other, he had noted a toothache and some swelling of the left side of his jaw in the or . He was seen by a dentist in 01/30 and was initially felt to have possible dental abscess. He was started on antibiotics. However this mass continued to grow fairly quickly. In addition he developed additional nodules in the left anterior chin area was subsequently ulcerated. He therefore came into the emergency room for further evaluation. He was found to have a large left sided lower oral cavity mass involving the left mandible extending into the parietal region and lower down into the neck. On exam he also had enlarged lymph nodes just posterior to this mass in the cervical chain with another lymph node palpable in the right submandibular area. The patient was seen by oral surgery are noted to have a mass in the left floor of the mouth, invading the mandible as well as the buccal mucosa with involvement of several teeth as well as necrotic , likely infected changes. The CT of the chest abdomen and pelvis on 03/02/18 showed no evidence of metastatic disease. Bone scan showed uptake only in the left mandible and maxilla. CT of the soft tissue of the neck showed a large mass in the region of the left parotid gland extending into the submandibular fossa which was not distinguishable from the parotid gland. This had a PICC line with low attenuating center with effacement of the parapharyngeal and oropharyngeal soft tissues on the left. Bilateral deep cervical adenopathy, bone destruction of the left mandible, and apical rule out abscess involving the third more on the right were also noted. The patient underwent debridement, extraction of infected teeth, and biopsy of the mass by oral surgery on 03/01/18. He also had FNA of the left neck mass. The anterior mandible bone biopsy was positive for moderately differentiated squamous carcinoma, well FNA of the neck mass showed severely atypical squamous cells suspicious for malignancy. He was originally set up to begin one cycle of chemotherapy to debulk the tumor while awaiting for teeth to be pulled, he follow-up for chemo education class with significant other, although he did not show up for his scheduled treatment or his post treatment follow-up in office. His adherence to recommendations and understanding by his girlfriend and himself is questionable, continued remediation and importance of adherence discussed numerous times with both. He was last seen in office on 06/04/18. He had a PET scan which now unfortunately revealed metastatic disease new in lungs, with a new pulmonary cavitary lesion as well as nodules, and metastatic osseous mets through T3,T9, T10,T11 and pathological fracture from extensive tumor destruction in the mandible. He progressed on crow based chemotherapy and refused further radiation therapy. Because of the progression on treatment new therapy was discussed with diana, immune therapy. Next gene testing was ordered and he was refered to [facility] for additional options/opinion related to eligibilty for clinical trial. His last chemotherapy was 05/12/18. He also chose to stop radiation at this time. He now presents to emergency with concerns of worsening dehydration. He has apparently been refusing feedings via peg the past 48 hours Review of Systems A 14 point review completed best of my capabilities as he writes, nods and family assists. All neg except HPI Past Medical History Past Medical History: Cancer Additional Past Medical History / Comment(s): Cancer: PV of the jaw, History of Any Multi-Drug Resistant Organisms: None Reported Additional Past Surgical History / Comment(s): Left eye removed at age 6, left sided jaw biopsy, Past Anesthesia/Blood Transfusion Reactions: No Reported Reaction Past Psychological History: No Psychological Hx Reported Additional Psychological History / Comment(s): Pt. lives alone but brayan states she has been making him stay with her lately due to his health. ( Looking to get but patient's brayan's son has cancer and has been dealing with that). Somewhat a poor historian - mildly forgetful. He has difficulty completing complex thoughts. Smoking Status: Current every day smoker Past Alcohol Use History: None Reported Additional Past Alcohol Use History / Comment(s): Pt. has history of heavy etoh use - reports drinking occassionally now. Pt. is a smoker - 1.5 PPD. Sometimes more is been smoking since his early teenage years. No experience. No extensive travel. His exposure to one dog, 4 cats and 2 birds, his fiance's caring for them while he is hospitalized Past Drug Use History: None Reported - Past Family History Father Family Medical History: Cancer Additional Family Medical History / Comment(s): Lung cancer - . Mother Family Medical History: No Reported History Additional Family Medical History / Comment(s): Mother is still living and doesn 't have many issues. Medications and Allergies Home Medications Medication Instructions Recorded Confirmed Type Aspirin EC [Ecotrin] 325 mg PO DAILY PRN 06/07/18 06/07/18 History Allergies Allergy/AdvReac Type Severity Reaction Status Date / Time No Known Allergies Allergy Verified 06/07/18 17:36 Physical Exam Vitals: Vital Signs Temp Pulse Pulse Resp BP BP Pulse Ox 06/08/18 04:52 98.4 F 102 H 16 158/60 98 06/07/18 23:00 98.3 F 102 H 16 119/65 98 06/07/18 22:00 79 16 131/91 100 06/07/18 19:00 89 18 136/70 98 06/07/18 18:30 75 18 162/67 97 06/07/18 18:00 68 18 149/70 97 06/07/18 17:30 72 18 146/72 98 06/07/18 17:00 69 18 139/79 97 06/07/18 16:30 68 18 148/82 99 06/07/18 16:00 67 18 160/65 97 06/07/18 15:24 97 16 151/76 99 06/07/18 12:32 98.6 F 114 H 18 109/60 95 Intake and Output 06/07/18 06/08/18 06/08/18 22:59 06:59 14:59 Output Total 200 Balance -200 Output: Urine 200 Other: Voiding Method Urinal Urinal # Voids 2 GEN: Alert, respond, Odorous mass Head: Many O/P secretions, lesions and poor dentition Neck: Evidence of radiation recentcy and skin discoloration Lungs Expiratory wheezes right crackles, no increased effort Heart Tachy, reg Abdomen, Feeding tube present, some drainage around insertion Ext: No edema.. Results CBC & Chem 7: 06/08/18 13:58 06/08/18 13:58 Labs: Abnormal Lab Results - Last 24 Hours (Table) 06/07/18 06/07/18 06/07/18 Range/Units 13:35 13:35 14:47 WBC 14.2 H (3.8-10.6) k/uL RBC 3.07 L (4.30-5.90) m/uL Hgb 7.9 L (13.0-17.5) gm/dL Hct 24.3 L (39.0-53.0) % MCV 79.3 L (80.0-100.0) fL RDW 19.6 H (11.5-15.5) % Plt Count 596 H D (150-450) k/uL Neutrophils # 13.0 H (1.3-7.7) k/uL Lymphocytes # 0.6 L (1.0-4.8) k/uL Sodium 134 L (137-145) mmol/L Potassium 3.3 L (3.5-5.1) mmol/L Chloride 96 L (98-107) mmol/L Creatinine 0.60 L (0.66-1.25) mg/dL Glucose 105 H (74-99) mg/dL Calcium 10.7 H (8.4-10.2) mg/dL Alkaline Phosphatase 215 H (38-126) U/L Albumin 2.8 L (3.5-5.0) g/dL Amylase <30 L (30-110) U/L Lipase 14 L (23-300) U/L Urine Mucus Rare H (None) /hpf CT scan - abdomen: report reviewed CT scan - pelvis: report reviewed (Recent PET) Assessment and Plan Plan: Assessment and Plan Plan: Assessment and Recommendations: 1. Squamous cell carcinoma of head and neck, moderately differentiated: New extensive metastatic Osseous and Pulmonary Disease on PET from 05/31/18 - Status POst [place] based chemotherapy regimen with concurrent radiation, last chemo on 05/13/18. Patient only completed partial recommendations of radiation as he refused further treatment - Recent PET scan on 05/31/18 revealed new metastatic disease, the treatment intent has now changed to palliative, not curable and Dr. Brooks did discuss in detail with him and girlfriend at last follow-up. - Plan to begin immune therapy as outpatient, obtain Next Gene Sequencing, and undergo evaluation at [facility] for opinion and options for clinical trials. 2. Failure to thrive, Decreased PO intake, and increasing weakness: - Difficulty with adherence - DIeticien as well 3. Normocytic Anemia: Malignancy and nutritional deficiency - Continue to monitor CBC daily and transfuse under 7 - Potential iron deficiency component, no acute bleeding noted 4. 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 - Afebrile, although rec chowdhury cultures and monitoring 5. Hypercalcemia: 10.7 - His calcium has been trending elevated through diagnosis, thought to be related to persistent dehydration and now new osseous mets with pathological mandible fracture. - Because of the pathology involved in mandible a biphosphonate therapy would be contraindicated. - IV Hydration and fluids - Nephrology consult recommended - Add Calcitonin - Continue to monitor 6. Hypokalemia, check magnesium - Potassium 3.3 secondary to nutritional deficits - Supps per medicine 7. Moderate protein calorie malnutrition: - He has a peg tube although is not adherent to feedings at home in which he needs to adequately support his nutritional goals. - CT abdomen and Pelvis failed to identify any acute etiology and confirmed placement adequate of feeding tube. - Dietitian Consultation and re-mediation Plan: - Continue supportive care - Chowdhury cultures recommended - IV Hydration and monitoring electrolytes, rec nephrology to assist with hypercalcemia - Plan to begin immune therapy as outpatient - Concern for understanding and adherence to recommendations, continued remediation - Rec Psych consultation for underlying depression, stopped initial curative treatment - Monitoring and Supps of electrolytes per medicine. - Patient has difficulty with adherence and ?if he is wanting to further pursue treatment as the past two to three days has been refusing food or hydration through peg which has subsequently led to hospitalization. Psych consultation to assist in patients goals of disease and treatment as he does not consistently express his wants with his actions and/or what family expresses. Overall prognosis is gaurded Physician Attest: I have discussed the above history and physical and developed the complete impression and plan, agree with dictation, dictated as a scribe.
--- NOTE | 2018-06-08 13:27 | P.HPIM ---
History of Present Illness H&P Date: 06/08/18 Chief Complaint: Abdominal pain This is a 67-year-old male well-known to Dr. Heredia, patient has a history of squamous cell carcinoma to the jaw. Presents to the emergency room to last evening with initial complaint of abdominal pain. She does not complain of abdominal abdominal pain right now, in fact it was brought to my attention that the patient refused tube feeds for the last 2 or 3 days at home and the patient' s family became panicked and brought him to the emergency room. Patient is a poor historian, appears somewhat despondant, and slow to respond to any questions. Received chemo last week but it's not clear whether he underwent any therapies this week, apparently having a workup done at [facility]. Currently no vomiting no nausea no other complaints at this time no shortness of breath no chest pain nor headaches Review of Systems Constitutional: Reports as per HPI (Left face and jaw, edematous and disproportionate to the rest of his head) Cardiovascular: Reports as per HPI Respiratory: Reports as per HPI Gastrointestinal: Reports as per HPI (G-tube in place, patient undergoing tube feeds at home apparently this is a fast growing tumor) Musculoskeletal: Reports as per HPI Integumentary: Reports as per HPI Neurological: Reports as per HPI Past Medical History Past Medical History: Cancer Additional Past Medical History / Comment(s): Cancer: PV of the jaw, History of Any Multi-Drug Resistant Organisms: None Reported Additional Past Surgical History / Comment(s): Left eye removed at age 6, left sided jaw biopsy, Past Anesthesia/Blood Transfusion Reactions: No Reported Reaction Past Psychological History: No Psychological Hx Reported Additional Psychological History / Comment(s): Pt. lives alone but brayan states she has been making him stay with her lately due to his health. ( Looking to get but patient's brayan's son has cancer and has been dealing with that). Somewhat a poor historian - mildly forgetful. He has difficulty completing complex thoughts. Smoking Status: Current every day smoker Past Alcohol Use History: None Reported Additional Past Alcohol Use History / Comment(s): Pt. has history of heavy etoh use - reports drinking occassionally now. Pt. is a smoker - 1.5 PPD. Sometimes more is been smoking since his early teenage years. No experience. No extensive travel. His exposure to one dog, 4 cats and 2 birds, his fiance's caring for them while he is hospitalized Past Drug Use History: None Reported - Past Family History Father Family Medical History: Cancer Additional Family Medical History / Comment(s): Lung cancer - . Mother Family Medical History: No Reported History Additional Family Medical History / Comment(s): Mother is still living and doesn 't have many issues. Medications and Allergies Home Medications Medication Instructions Recorded Confirmed Type Aspirin EC [Ecotrin] 325 mg PO DAILY PRN 06/07/18 06/07/18 History Allergies Allergy/AdvReac Type Severity Reaction Status Date / Time No Known Allergies Allergy Verified 06/07/18 17:36 Physical Exam Osteopathic Statement: *. No significant issues noted on an osteopathic structural exam other than those noted in the History and Physical/Consult. Vitals: Vital Signs Temp Pulse Pulse Resp BP BP Pulse Ox 06/08/18 12:10 98.8 F 109 H 18 150/71 95 06/08/18 04:52 98.4 F 102 H 16 158/60 98 06/07/18 23:00 98.3 F 102 H 16 119/65 98 06/07/18 22:00 79 16 131/91 100 06/07/18 19:00 89 18 136/70 98 06/07/18 18:30 75 18 162/67 97 06/07/18 18:00 68 18 149/70 97 06/07/18 17:30 72 18 146/72 98 06/07/18 17:00 69 18 139/79 97 06/07/18 16:30 68 18 148/82 99 06/07/18 16:00 67 18 160/65 97 06/07/18 15:24 97 16 151/76 99 Intake and Output 06/07/18 06/08/18 06/08/18 22:59 06:59 14:59 Intake Total 700 Output Total 200 Balance 500 Intake: Intake, IV Titration 700 Amount Sodium Chloride 0.9% 1, 700 000 ml @ 100 mls/hr IV . Q10H [facility] Rx#:[id number] Output: Urine 200 Other: Voiding Method Urinal Urinal # Voids 2 3 General: [Patient awake, alert and oriented times 3. Patient in no acute distress.] HEENT: [PERRL. EOMI. left side of face disproportionate lips cheek jaw all disproportionate patient states that he is able to swallow and apparently he is able to swallow water however he has not been taking oral nutrition Neck: [No adenopathy.] Cardiac: [Heart regular in rate and rhythm. No S3. No S4. No clicks, rubs. No murmur.] Lungs: [Clear to auscultation bilaterally.] Abdomen: [No mass. No organomegaly. Bowel sounds presnt and normoactive in all 4 quadrants.] G-tube in place Extremes: [No edema no cyanosis no claudication normal pulses] : [] Musculoskeletal: [No joint erythema, edema or tenderness.] Skin: [No rash.] Neurologic: [No lateralizing deficits. CN II - XII grossly intact.] Lymphatic: [No adenopathy.] Results CBC & Chem 7: 06/07/18 13:35 06/07/18 13:35 Labs: Abnormal Lab Results - Last 24 Hours (Table) 06/07/18 06/07/18 06/07/18 Range/Units 13:35 13:35 14:47 WBC 14.2 H (3.8-10.6) k/uL RBC 3.07 L (4.30-5.90) m/uL Hgb 7.9 L (13.0-17.5) gm/dL Hct 24.3 L (39.0-53.0) % MCV 79.3 L (80.0-100.0) fL RDW 19.6 H (11.5-15.5) % Plt Count 596 H D (150-450) k/uL Neutrophils # 13.0 H (1.3-7.7) k/uL Lymphocytes # 0.6 L (1.0-4.8) k/uL Sodium 134 L (137-145) mmol/L Potassium 3.3 L (3.5-5.1) mmol/L Chloride 96 L (98-107) mmol/L Creatinine 0.60 L (0.66-1.25) mg/dL Glucose 105 H (74-99) mg/dL Calcium 10.7 H (8.4-10.2) mg/dL Alkaline Phosphatase 215 H (38-126) U/L Albumin 2.8 L (3.5-5.0) g/dL Amylase <30 L (30-110) U/L Lipase 14 L (23-300) U/L Urine Mucus Rare H (None) /hpf Thrombosis Risk Factor Assmnt - DVT/VTE Prophylaxis DVT/VTE Prophylaxis: Pharmacologic Prophylaxis ordered - Choose All That Apply Any of the Below Risk Factors Present?: Yes Each Factor Represents 1 point: Age 41-60 years Each Risk Factor Represents 2 Points: Malignancy Thrombosis Risk Factor Assessment Total Risk Factor Score: 3 Thrombosis Risk Factor Assessment Level: Moderate Risk Assessment and Plan (1) Mass of mandible Current Visit: No Status: Acute Code(s): R22.0 - LOCALIZED SWELLING, MASS AND LUMP, HEAD SNOMED Code(s): 231151538 (2) Bone destruction Current Visit: No Status: Acute Code(s): M89.8X9 - OTHER SPECIFIED DISORDERS OF BONE, UNSPECIFIED SITE SNOMED Code(s): 49926130 (3) Depression Current Visit: No Status: Acute Code(s): F32.9 - MAJOR DEPRESSIVE DISORDER, SINGLE EPISODE, UNSPECIFIED SNOMED Code(s): 88020013 (4) Dysphagia Current Visit: No Status: Acute Code(s): R13.10 - DYSPHAGIA, UNSPECIFIED SNOMED Code(s): 48584199 (5) Oral cancer Current Visit: Yes Status: Acute Code(s): C06.9 - MALIGNANT NEOPLASM OF MOUTH, UNSPECIFIED SNOMED Code(s): 966115212 (6) Squamous cell carcinoma of head and neck Current Visit: No Status: Acute Priority: High Code(s): C76.0 - MALIGNANT NEOPLASM OF HEAD, FACE AND NECK SNOMED Code(s): 899019004 Plan: Consult dietitian to resume tube feeds Consults hematology/oncology for recommendations for treatment Appropriate PE prophylaxis ordered Consult psychiatry regarding depression Will continue to follow closely and reevaluate labs in the morning Time with Patient: Greater than 30
[2018-06-08] MEDS ORDERED: ASPIRIN 325 MG TAB PO PRN (13:35)
[2018-06-08 15:15] LABS: Prothrombin Time 11.1 sec (9.0-12.0)
[2018-06-08 15:30] LABS: Anisocytosis Slight; Basophils % (A) 0 %; Eosinophils % (A) 0 %; HCT 23.7 % (39.0-53.0); HGB 7.1 gm/dL (13.0-17.5); Hypochromasia Slight; Lymphocytes # (A) 0.5 k/uL (1.0-4.8); Lymphocytes % (A) 4 %; MCV 83.5 fL (80.0-100.0); Mean Platelet Volume 6.5; Monocytes # (A) 0.6 k/uL (0-1.0); Monocytes % (A) 5 %; Neutrophils # (A) 12.9 k/uL (1.3-7.7); Neutrophils % (A) 91 %; Platelet Count 571 k/uL (150-450); RBC 2.84 m/uL (4.30-5.90); RDW 19.4 % (11.5-15.5); WBC 14.2 k/uL (3.8-10.6)
[2018-06-08 15:36] LABS: ALT 33 U/L (21-72); AST 22 U/L (17-59); Albumin 2.6 g/dL (3.5-5.0); Alkaline Phosphatase 178 U/L (38-126); Anion Gap 9 mmol/L; Blood Urea Nitrogen 12 mg/dL (9-20); Calcium 10.5 mg/dL (8.4-10.2); Carbon Dioxide 27 mmol/L (22-30); Chloride 100 mmol/L (98-107); Glucose 84 mg/dL (74-99); Magnesium 1.6 mg/dL (1.6-2.3); Phosphorus 2.3 mg/dL (2.5-4.5); Potassium 3.4 mmol/L (3.5-5.1); Sodium 136 mmol/L (137-145); Total Bilirubin 0.5 mg/dL (0.2-1.3); Total Protein 5.8 g/dL (6.3-8.2)
[2018-06-09] MEDS: SODIUM CHLORIDE 0.9% 1,000 ML IV SCH ×3 (01:58→22:42)
[2018-06-09] MEDS: CALCITONIN INJ 200 UNIT/ML (MDV) VIAL SQ SCH ×2 (08:43→22:03)
[2018-06-09 09:46] LABS: Anisocytosis Slight; Basophils % (A) 0 %; Eosinophils % (A) 0 %; HCT 22.3 % (39.0-53.0); Hypochromasia Slight; Lymphocytes # (A) 0.6 k/uL (1.0-4.8); Lymphocytes % (A) 5 %; MCH 25.4 pg (25.0-35.0); MCHC 31.3 g/dL (31.0-37.0); MCV 81.2 fL (80.0-100.0); Mean Platelet Volume 7.5; Microcytosis Slight; Monocytes # (A) 0.6 k/uL (0-1.0); Monocytes % (A) 5 %; Neutrophils # (A) 9.9 k/uL (1.3-7.7); Neutrophils % (A) 88 %; Platelet Count 503 k/uL (150-450); RBC 2.74 m/uL (4.30-5.90); RDW 19.5 % (11.5-15.5); WBC 11.2 k/uL (3.8-10.6)
[2018-06-09 09:54] LABS: ALT 30 U/L (21-72); AST 22 U/L (17-59); Albumin 2.4 g/dL (3.5-5.0); Alkaline Phosphatase 164 U/L (38-126); Anion Gap 4 mmol/L; Blood Urea Nitrogen 11 mg/dL (9-20); Calcium 10.2 mg/dL (8.4-10.2); Carbon Dioxide 30 mmol/L (22-30); Chloride 101 mmol/L (98-107); Glucose 126 mg/dL (74-99); Phosphorus 1.9 mg/dL (2.5-4.5); Sodium 135 mmol/L (137-145); Total Bilirubin 0.3 mg/dL (0.2-1.3); Total Protein 5.5 g/dL (6.3-8.2)
[2018-06-09 10:10] LABS: Potassium 2.6 mmol/L (3.5-5.1)
[2018-06-09] MEDS ORDERED: Potassium Replacement Protocol 1 EACH MISC MISCELLANE PRN ×2 (10:16→21:47)
[2018-06-09 10:18] LABS: Magnesium 1.5 mg/dL (1.6-2.3)
[2018-06-09] MEDS: POTASSIUM CHLORIDE ER 20 MEQ TAB.ER PO SCH ×3 (11:34→17:49)
--- NOTE | 2018-06-09 12:49 | P.PN ---
Saturnino Tejeda is a 67 y/o white male new to my practice. He was seen one time 04/18/2018. He was readmitted with dehyrdation, electrolyute abnormalities and has a large jaw mass that is squamous cell carcinoma and he being treated at [facility]. Admitted December after he began having toothaches. He went to the dental clinic and was sent to ER, This appointment was January 31. He was seen in urgent care mid-February at his family's insistence and then went to emergency room, where he was admitted for 6 days and he was admitted again April 03 to the . he was admitted to [facility] both times. He currently does have a feeding tube. He quit smoking but has restart to 1 pack per day Objective - Vital Signs Vital signs: Vital Signs Temp 99.1 F 06/09/18 12:06 Pulse 108 H 06/09/18 12:06 Resp 18 06/09/18 12:06 BP 139/62 06/09/18 12:06 Pulse Ox 90 L 06/09/18 12:06 Intake & Output 06/08/18 06/09/18 06/09/18 18:59 06:59 18:59 Intake Total 700 1975 80 Output Total 200 Balance 500 1975 80 Weight 61.5 kg 61.5 kg Intake: Intake, IV Titration 700 1100 Amount Sodium Chloride 0.9% 1, 700 1100 000 ml @ 100 mls/hr IV . Q10H [facility] Rx#:[id number] Tube Feeding 695 80 Other 180 Output: Urine 200 Other: Voiding Method Urinal Urinal Urinal Diaper # Voids 3 3 - Constitutional General appearance: Present: average body habitus - Neck Neck: Present: other (large mass to left neck and jaw) - Respiratory Respiratory: bilateral: CTA - Cardiovascular Rhythm: regular Heart sounds: normal: S1, S2 Abnormal Heart Sounds: Absent: systolic murmur - Gastrointestinal General gastrointestinal: Present: normal bowel sounds (peg tube in place) - Labs CBC & Chem 7: 06/09/18 08:30 06/09/18 08:30 Labs: Abnormal Lab Results - Last 24 Hours (Table) 06/08/18 06/08/18 06/09/18 Range/Units 13:58 13:58 08:30 WBC 14.2 H 11.2 H (3.8-10.6) k/uL RBC 2.84 L 2.74 L (4.30-5.90) m/uL Hgb 7.1 L 7.0 L (13.0-17.5) gm/dL Hct 23.7 L 22.3 L (39.0-53.0) % MCHC 30.0 L (31.0-37.0) g/dL RDW 19.4 H 19.5 H (11.5-15.5) % Plt Count 571 H 503 H (150-450) k/uL Neutrophils # 12.9 H 9.9 H (1.3-7.7) k/uL Lymphocytes # 0.5 L 0.6 L (1.0-4.8) k/uL Sodium 136 L (137-145) mmol/L Potassium 3.4 L (3.5-5.1) mmol/L Creatinine 0.54 L (0.66-1.25) mg/dL Glucose (74-99) mg/dL Calcium 10.5 H (8.4-10.2) mg/dL Phosphorus 2.3 L (2.5-4.5) mg/dL Magnesium (1.6-2.3) mg/dL Alkaline Phosphatase 178 H (38-126) U/L Total Protein 5.8 L (6.3-8.2) g/dL Albumin 2.6 L (3.5-5.0) g/dL 06/09/18 Range/Units 08:30 WBC (3.8-10.6) k/uL RBC (4.30-5.90) m/uL Hgb (13.0-17.5) gm/dL Hct (39.0-53.0) % MCHC (31.0-37.0) g/dL RDW (11.5-15.5) % Plt Count (150-450) k/uL Neutrophils # (1.3-7.7) k/uL Lymphocytes # (1.0-4.8) k/uL Sodium 135 L (137-145) mmol/L Potassium 2.6 L* (3.5-5.1) mmol/L Creatinine 0.52 L (0.66-1.25) mg/dL Glucose 126 H (74-99) mg/dL Calcium (8.4-10.2) mg/dL Phosphorus 1.9 L (2.5-4.5) mg/dL Magnesium 1.5 L (1.6-2.3) mg/dL Alkaline Phosphatase 164 H (38-126) U/L Total Protein 5.5 L (6.3-8.2) g/dL Albumin 2.4 L (3.5-5.0) g/dL Microbiology - Last 24 Hours (Table) 06/07/18 13:35 Blood Culture - Preliminary Blood No Growth after 24 hours Assessment and Plan (1) Anemia Current Visit: Yes Status: Acute Code(s): D64.9 - ANEMIA, UNSPECIFIED SNOMED Code(s): 641377274 (2) Abdominal pain Current Visit: Yes Status: Acute Code(s): R10.9 - UNSPECIFIED ABDOMINAL PAIN SNOMED Code(s): 79170183 (3) Dehydration Current Visit: Yes Status: Acute Code(s): E86.0 - DEHYDRATION SNOMED Code( s): 46025266 (4) Hypokalemia Current Visit: Yes Status: Acute Code(s): E87.6 - HYPOKALEMIA SNOMED Code( s): 14590791 (5) Squamous cell carcinoma of head and neck Current Visit: No Status: Acute Priority: High Code(s): C76.0 - MALIGNANT NEOPLASM OF HEAD, FACE AND NECK SNOMED Code(s): 251754969 Plan: replace pottasium and other electrolytes as needed continue 2 tacho HN at 20 ml/hr; 30 ml water every 4 hours He may need 1 U PRBCs based on HB monitor malnutition repeat labs in am reevaluate in 24 hrs
--- NOTE | 2018-06-09 12:55 | P.CN ---
Psychiatric Consult - . Consult date: 06/09/18 Consult:: 06/08/18 14:19 Depression poor oral intake Assessment and Plan Assessment: 67-year-old male with a past medical history of jaw cancer presents to the emergency department for a chief complaint of abdominal pain. Patient is a poor historian however his family member states he has not accepted feeding through his PEG tube in about 24 hours. She states he did receive hydration last night. He was complaining of abdominal pain at that time. Patient states he does have some lower left abdominal pain. Patient last received chemo weeks ago but as it is not working he is having tumor markers done at the [facility]. No vomiting. No fevers. Patient has no other complaints at this time including shortness of breath, chest pain, nausea or vomiting, headache, or visual changes. - Related Data Home Medications Medication Instructions Recorded Confirmed Aspirin EC [Ecotrin] 325 mg PO DAILY PRN 06/07/18 06/07/18 Allergies Allergy/AdvReac Type Severity Reaction Status Date / Time No Known Allergies Allergy Verified 06/07/18 17:36 Past Medical History: Cancer Additional Past Medical History / Comment(s): Cancer: PV of the jaw, History of Any Multi-Drug Resistant Organisms: None Reported Additional Past Surgical History / Comment(s): Left eye removed at age 6, left sided jaw biopsy, Past Anesthesia/Blood Transfusion Reactions: No Reported Reaction Past Psychological History: No Psychological Hx Reported Smoking Status: Current every day smoker Past Alcohol Use History: None Reported Past Drug Use History: None Reported - Past Family History Father Family Medical History: Cancer Additional Family Medical History / Comment(s): Lung cancer - . Mother Family Medical History: No Reported History Additional Family Medical History / Comment(s): Mother is still living and doesn 't have many issues. Mental Status Examination - This is a 67-year-old male lying on his left side where his face is swollen making it very difficult for him to communicate. His general appearance looks casual although within the stated age. Speech and language is sparse slow low and often mute at times. Attitude and behavior is guarded and indifferent. Mood is depressed and anxious. Affect is flat constricted restricted. Orientation person place situation not time. Thought content within normal limits risk factors he is not suicidal homicidal. Perceptions he denies any hallucinations auditory visual tactile. Thought processes is concrete. Concentration definitely is impaired. Recent memory and remote appear to be within normal. Intelligence is average based on history and content. Judgment fair per patient's behavior and history of present illness. Insight is fair understanding severity of illness pertinent present illness. Psychiatric impression: Major depressive disorder Psychiatric recommendations: Zoloft 25 mg by mouth daily at bedtime and he does not meet the criteria for our psychiatric unit. Thank you for the consult Scooter Adamson D.O. PhD (1) Major depressive disorder Current Visit: Yes Status: Acute Priority: Medium Code(s): F32.9 - MAJOR DEPRESSIVE DISORDER, SINGLE EPISODE, UNSPECIFIED SNOMED Code(s): 309112346 Time with Patient: Less than 30
--- NOTE | 2018-06-09 15:17 | XR ---
EXAMINATION TYPE: XR chest 2V DATE OF EXAM: 06/09/2018 COMPARISON: 04/03/2018 TECHNIQUE: PA and lateral views submitted. HISTORY: Abnormal lung sounds FINDINGS: There is mixed attenuation involving the right upper lobe suggestive of cavitary neoplasm or pneumoni a. Mediport catheter seen. Nodule overlying the left midlung may represent nipple shadow. Arthropathy of the shoulders. Linear change left lung base suggestive of scar or atelectasis. Additional nodule overlying the right midlung also may represent nipple shadow. Hypertrophic changes of the spine. Athe rosclerotic change aorta. There is a mild compression deformity of the midthoracic spine which could be pathologic but is indeterminate. There is a deformity of the left lateral rib cage which may been the basis of previous trauma. Expansile lesion not excluded. IMPRESSION: 1. Large area of consolidation with lucency suggestive of cavitary neoplasm or pneumonia. 2. Nodules overlying the mid lungs most likely in the basis of nipple shadow. 3. Mild compression fracture mid to lower thoracic spine potentially could be pathologic correlate cl inically. Additionally there appears to be an expansile lesion of the left lateral mid rib cage. Carol elate for history of bony metastases.
--- NOTE | 2018-06-09 21:50 | P.PN ---
Subjective Progress Note Date: 06/09/18 Principal diagnosis: failure to thrive, Head/neck malignancy causing dysphagia In f/u pt had his head covered with his gown when entering the room, he responded politely, denies pain, BEATRICE, vomiting, or diarrhea, he stated that he consumes up to 5 cans of PEG feed daily when asked. Objective - Vital Signs Vital signs: Vital Signs Temp 99.1 F 06/09/18 12:06 Pulse 108 H 06/09/18 12:06 Resp 18 06/09/18 12:06 BP 139/62 06/09/18 12:06 Pulse Ox 90 L 06/09/18 12:06 Intake & Output 06/08/18 06/09/18 06/09/18 18:59 06:59 18:59 Intake Total 700 1974 170 Output Total 200 Balance 500 1974 170 Weight 61.5 kg 61.5 kg Intake: Intake, IV Titration 700 1100 Amount Sodium Chloride 0.9% 1, 700 1100 000 ml @ 100 mls/hr IV . Q10H [facility] Rx#:[id number] Tube Feeding 695 170 Other 180 Output: Urine 200 Other: Voiding Method Urinal Urinal Urinal Diaper # Voids 3 3 - Constitutional Constitutional Comment(s): frail General appearance: Present: cooperative, no acute distress, thin - EENT EENT Comment(s): large mass left face/mandible, anterior cervical chain adenopathy or confluence with mass Eyes: Present: anicteric sclerae, poor dentition ENT: Present: hearing grossly normal - Respiratory Respiratory: bilateral: diminished - Cardiovascular Heart sounds: normal: S1, S2 - Peripheral edema leg Peripheral Edema: bilateral: None - Gastrointestinal General gastrointestinal: Present: normal bowel sounds, soft. Absent: absent bowel sounds, decreased bowel sounds, distended, hepatomegaly, hyperactive bowel sounds, organomegaly, rigid, scaphoid, splenomegaly, tenderness, umbilical hernia, ventral hernia - Musculoskeletal Musculoskeletal: Present: strength equal bilaterally - Psychiatric Psychiatric: Present: A&O x's 3, appropriate affect - Labs CBC & Chem 7: 06/09/18 08:30 06/09/18 18:58 Labs: Abnormal Lab Results - Last 24 Hours (Table) 06/09/18 06/09/18 Range/Units 08:30 08:30 WBC 11.2 H (3.8-10.6) k/uL RBC 2.74 L (4.30-5.90) m/uL Hgb 7.0 L (13.0-17.5) gm/dL Hct 22.3 L (39.0-53.0) % RDW 19.5 H (11.5-15.5) % Plt Count 503 H (150-450) k/uL Neutrophils # 9.9 H (1.3-7.7) k/uL Lymphocytes # 0.6 L (1.0-4.8) k/uL Sodium 135 L (137-145) mmol/L Potassium 2.6 L* (3.5-5.1) mmol/L Creatinine 0.52 L (0.66-1.25) mg/dL Glucose 126 H (74-99) mg/dL Phosphorus 1.9 L (2.5-4.5) mg/dL Magnesium 1.5 L (1.6-2.3) mg/dL Alkaline Phosphatase 164 H (38-126) U/L Total Protein 5.5 L (6.3-8.2) g/dL Albumin 2.4 L (3.5-5.0) g/dL Microbiology - Last 24 Hours (Table) 06/07/18 13:35 Blood Culture - Preliminary Blood No Growth after 24 hours Assessment and Plan (1) Dehydration Narrative/Plan: IVF being given, PEG feedings being administered. 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 Currently pending approval and administration of immunotherapy. Current Visit: Yes Status: Acute Priority: High Code(s): C76.0 - MALIGNANT NEOPLASM OF HEAD, FACE AND NECK SNOMED Code(s): 360837588 Plan: Attests: I have performed H&P and developed impression and plan of care of patient, discussed with dictator. I agree with dictated note, documented as a scribe.
[2018-06-09] MEDS: POTASSIUM BICARBONATE/CIT AC 20 MEQ TABLET.EFF NG-TUBE SCH (22:41)
[2018-06-09] MEDS: SERTRALINE 25 MG TAB PO SCH (22:42)
[2018-06-10] MEDS: POTASSIUM BICARBONATE/CIT AC 20 MEQ TABLET.EFF NG-TUBE SCH ×2 (00:01→01:09)
[2018-06-10 03:20] LABS: Anisocytosis Slight; Basophils % (A) 0 %; Eosinophils # (A) 0.1 k/uL (0-0.7); Eosinophils % (A) 1 %; Hypochromasia Slight; Lymphocytes # (A) 0.7 k/uL (1.0-4.8); Lymphocytes % (A) 6 %; MCH 26.3 pg (25.0-35.0); MCHC 32.8 g/dL (31.0-37.0); MCV 80.3 fL (80.0-100.0); Mean Platelet Volume 5.8; Microcytosis Slight; Monocytes # (A) 0.5 k/uL (0-1.0); Monocytes % (A) 5 %; Neutrophils # (A) 10.6 k/uL (1.3-7.7); Neutrophils % (A) 88 %; Platelet Count 587 k/uL (150-450); RBC 2.48 m/uL (4.30-5.90); RDW 19.5 % (11.5-15.5); WBC 12.1 k/uL (3.8-10.6)
[2018-06-10 03:39] LABS: ALT 33 U/L (21-72); AST 20 U/L (17-59); Albumin 2.3 g/dL (3.5-5.0); Alkaline Phosphatase 154 U/L (38-126); Anion Gap 4 mmol/L; Blood Urea Nitrogen 12 mg/dL (9-20); Calcium 9.3 mg/dL (8.4-10.2); Carbon Dioxide 30 mmol/L (22-30); Chloride 102 mmol/L (98-107); Glucose 119 mg/dL (74-99); HCT 19.9 % (39.0-53.0); HGB 6.5 gm/dL (13.0-17.5); Magnesium 1.5 mg/dL (1.6-2.3); Sodium 136 mmol/L (137-145); Total Bilirubin 0.3 mg/dL (0.2-1.3); Total Protein 5.4 g/dL (6.3-8.2)
[2018-06-10 03:41] LABS: Potassium 2.7 mmol/L (3.5-5.1)
[2018-06-10] MEDS ORDERED: Potassium Replacement Protocol 1 EACH MISC MISCELLANE PRN (04:30)
[2018-06-10] MEDS: POTASSIUM CHLORIDE 10 MEQ in WATER FOR INJECTION 1 100ML.BAG IVPB SCH ×6 (05:01→13:23)
[2018-06-10] MEDS: SODIUM CHLORIDE 0.9% 1,000 ML IV SCH ×2 (09:20→20:25)
[2018-06-10] MEDS: CALCITONIN INJ 200 UNIT/ML (MDV) VIAL SQ SCH ×2 (09:31→20:50)
--- NOTE | 2018-06-10 13:28 | P.PN ---
Saturnino Tejeda is a 67 y/o white male new to my practice. He was seen one time 04/18/2018. He was readmitted with dehyrdation, electrolyute abnormalities and has a large jaw mass that is squamous cell carcinoma and he being treated at [facility]. Admitted December after he began having toothaches. He went to the dental clinic and was sent to ER, This appointment was January 31. He was seen in urgent care mid-February at his family's insistence and then went to emergency room, where he was admitted for 6 days and he was admitted again April 03 to the . he was [facility] to [facility] times. He currently does have a feeding tube. He quit smoking but has restart to 1 pack per day 06/10/2018: His chest x-ray showed the bone and lung metastases previously and CT. I discussed with him at length his noncompliance and what Paula wishes were. He could not give me an answer whether he would like to proceed with any aggressive treatment or changes status and be placed in hospice or comfort care. He remains quite malnourished. Denies any pain today. He denies chest pressures or shortness of breath. He continues to have tube feeds. Objective - Vital Signs Vital signs: Vital Signs Temp 98.9 F 06/10/18 13:17 Pulse 86 06/10/18 13:17 Resp 16 06/10/18 07:51 BP 162/77 06/10/18 13:17 Pulse Ox 96 06/10/18 13:04 Intake & Output 06/09/18 06/10/18 06/10/18 18:59 06:59 18:59 Intake Total 260 504 198 Output Total 200 Balance 260 304 198 Weight 61.5 kg 64 kg Intake: Tube Feeding 260 504 198 Blood Product 0 Rc As-1 Unit 0 [id number] Output: Urine 200 Other: Voiding Method Urinal Urinal Urinal Diaper Diaper Diaper # Voids 3 3 - Exam General: The patient is awake and alert, in no distress, He was napping but easily arousable. He has obvious trouble speaking to the large mass on his jaw. Oropharynx: There is a very large left mandibular and neck mass. This is consistent with his carcinoma. Neck: As above Cardiovascular: S1S2 is normal, There is a regular rate and rhythm. No murmur, rub or gallop is appreciated. Respiratory: Lungs are clear to auscultation bilaterally, respirations are non -labored, breath sounds are equal. Gastrointestinal: Soft, non-distended, non-tender abdomen without masses or organomegaly noted. There is no rebound or guarding present. Bowel sounds are unremarkable. PEG tube is clean dry and intact Musculoskeletal: Normal ROM, no tenderness, There is no pedal edema. There is no calf tenderness or swelling. No cords were appreciated. Neurological: CN II-XII intact, there are no obvious motor or sensory deficits. Coordination appears grossly intact. Speech is Difficult due to the large mandibular mass. Skin: Skin is warm and dry and no rashes or lesions are noted. - Labs CBC & Chem 7: 06/10/18 03:08 06/10/18 03:08 Labs: Abnormal Lab Results - Last 24 Hours (Table) 06/09/18 06/09/18 06/10/18 Range/Units 08:30 18:58 03:08 WBC (3.8-10.6) k/uL RBC (4.30-5.90) m/uL Hgb (13.0-17.5) gm/dL Hct (39.0-53.0) % RDW (11.5-15.5) % Plt Count (150-450) k/uL Neutrophils # (1.3-7.7) k/uL Lymphocytes # (1.0-4.8) k/uL Sodium 136 L (137-145) mmol/L Potassium 2.9 L 2.7 L* (3.5-5.1) mmol/L Creatinine 0.51 L (0.66-1.25) mg/dL Glucose 119 H (74-99) mg/dL Magnesium 1.5 L (1.6-2.3) mg/dL Alkaline Phosphatase 154 H (38-126) U/L Total Protein 5.4 L (6.3-8.2) g/dL Albumin 2.3 L (3.5-5.0) g/dL Prealbumin <5.0 L (18.0-42.0) mg/dL Crossmatch 06/10/18 06/10/18 06/10/18 Range/Units 03:08 03:08 05:23 WBC 12.1 H (3.8-10.6) k/uL RBC 2.48 L (4.30-5.90) m/uL Hgb 6.5 L* (13.0-17.5) gm/dL Hct 19.9 L* (39.0-53.0) % RDW 19.5 H (11.5-15.5) % Plt Count 587 H (150-450) k/uL Neutrophils # 10.6 H (1.3-7.7) k/uL Lymphocytes # 0.7 L (1.0-4.8) k/uL Sodium (137-145) mmol/L Potassium 2.7 L* (3.5-5.1) mmol/L Creatinine (0.66-1.25) mg/dL Glucose (74-99) mg/dL Magnesium (1.6-2.3) mg/dL Alkaline Phosphatase (38-126) U/L Total Protein (6.3-8.2) g/dL Albumin (3.5-5.0) g/dL Prealbumin (18.0-42.0) mg/dL Crossmatch See Detail Microbiology - Last 24 Hours (Table) 06/07/18 13:35 Blood Culture - Preliminary Blood No Growth after 48 hours Assessment and Plan (1) Dehydration Current Visit: Yes Status: Acute Priority: High Code(s): E86.0 - DEHYDRATION SNOMED Code(s): 06382717 (2) Squamous cell carcinoma of head and neck Current Visit: Yes Status: Acute Priority: High Code(s): C76.0 - MALIGNANT NEOPLASM OF HEAD, FACE AND NECK SNOMED Code(s): 356869885 (3) Anemia Current Visit: Yes Status: Acute Code(s): D64.9 - ANEMIA, UNSPECIFIED SNOMED Code(s): 817472243 (4) Abdominal pain Current Visit: Yes Status: Acute Code(s): R10.9 - UNSPECIFIED ABDOMINAL PAIN SNOMED Code(s): 48591601 (5) Hypokalemia Current Visit: Yes Status: Acute Priority: Medium Code(s): E87.6 - HYPOKALEMIA SNOMED Code(s): 77099126 (6) Lung metastases Current Visit: Yes Status: Acute Code(s): C78.00 - SECONDARY MALIGNANT NEOPLASM OF UNSPECIFIED LUNG SNOMED Code(s): 86269980 (7) Bone metastases Current Visit: Yes Status: Acute Code(s): C79.51 - SECONDARY MALIGNANT NEOPLASM OF BONE SNOMED Code(s): 03062386 (8) Severe malnutrition Current Visit: Yes Status: Acute Code(s): E43 - UNSPECIFIED SEVERE PROTEIN- CALORIE MALNUTRITION SNOMED Code(s): 52048062 (9) Major depressive disorder Current Visit: Yes Status: Acute Priority: Medium Code(s): F32.9 - MAJOR DEPRESSIVE DISORDER, SINGLE EPISODE, UNSPECIFIED SNOMED Code(s): 809105109 Plan: replace pottasium and other electrolytes as needed continue 2 tacho HN at 20 ml/hr; 30 ml water every 4 hours I ordered a transfusion 1 unit packed red blood cells last night. Repeating movements pending. monitor malnutition repeat labs in am reevaluate in 24 hrs I discussed with him at length aggressive treatment versus hospice/comfort care. He is unable to give me an answer to this time. We'll request social work consult. If he wishes aggressive treatment, a transfer to [facility] may be warranted at this time. I'll try to discuss this case with hematology oncology soon
--- NOTE | 2018-06-10 14:35 | P.PN ---
Subjective Progress Note Date: 06/10/18 Principal diagnosis: failure to thrive, Head/neck malignancy causing dysphagia In f/u pt, he denies uncontrolled pain, BEATRICE, vomiting, or diarrhea, he is tolerating tube feeding, no abd pain or distension. Objective - Vital Signs Vital signs: Vital Signs Temp 99.4 F 06/10/18 13:44 Pulse 86 06/10/18 13:44 Resp 16 06/10/18 07:51 BP 139/63 06/10/18 13:44 Pulse Ox 95 06/10/18 13:44 Intake & Output 06/09/18 06/10/18 06/10/18 18:59 06:59 18:59 Intake Total 260 504 336 Output Total 200 Balance 260 304 336 Weight 61.5 kg 64 kg Intake: Tube Feeding 260 504 336 Blood Product 0 Rc As-1 Unit 0 [id number] Output: Urine 200 Other: Voiding Method Urinal Urinal Urinal Diaper Diaper Diaper # Voids 3 3 - Constitutional General appearance: Present: cooperative, no acute distress, thin - EENT Eyes: Present: anicteric sclerae ENT: Present: hearing grossly normal - Neck Details: large,confluent, hard mass on the left side of face, fungating on the inferior aspect of the jaw line, foul odor - Respiratory Respiratory: bilateral: CTA - Cardiovascular Heart sounds: normal: S1, S2 - Peripheral edema leg Peripheral Edema: bilateral: None - Gastrointestinal General gastrointestinal: Present: normal bowel sounds, scaphoid, soft. Absent : absent bowel sounds, decreased bowel sounds, distended, hepatomegaly, hyperactive bowel sounds, organomegaly, rigid, splenomegaly, tenderness, umbilical hernia, ventral hernia - Integumentary Integumentary: Present: normal - Neurologic Neurologic: Present: focal deficits - Musculoskeletal Musculoskeletal: Present: generalized weakness, strength equal bilaterally - Psychiatric Psychiatric: Present: A&O x's 3, appropriate affect, intact judgment & insight - Labs CBC & Chem 7: 06/10/18 03:08 06/10/18 03:08 Labs: Abnormal Lab Results - Last 24 Hours (Table) 06/09/18 06/09/18 06/10/18 Range/Units 08:30 18:58 03:08 WBC (3.8-10.6) k/uL RBC (4.30-5.90) m/uL Hgb (13.0-17.5) gm/dL Hct (39.0-53.0) % RDW (11.5-15.5) % Plt Count (150-450) k/uL Neutrophils # (1.3-7.7) k/uL Lymphocytes # (1.0-4.8) k/uL Sodium 136 L (137-145) mmol/L Potassium 2.9 L 2.7 L* (3.5-5.1) mmol/L Creatinine 0.51 L (0.66-1.25) mg/dL Glucose 119 H (74-99) mg/dL Magnesium 1.5 L (1.6-2.3) mg/dL Alkaline Phosphatase 154 H (38-126) U/L Total Protein 5.4 L (6.3-8.2) g/dL Albumin 2.3 L (3.5-5.0) g/dL Prealbumin <5.0 L (18.0-42.0) mg/dL Crossmatch 06/10/18 06/10/18 06/10/18 Range/Units 03:08 03:08 05:23 WBC 12.1 H (3.8-10.6) k/uL RBC 2.48 L (4.30-5.90) m/uL Hgb 6.5 L* (13.0-17.5) gm/dL Hct 19.9 L* (39.0-53.0) % RDW 19.5 H (11.5-15.5) % Plt Count 587 H (150-450) k/uL Neutrophils # 10.6 H (1.3-7.7) k/uL Lymphocytes # 0.7 L (1.0-4.8) k/uL Sodium (137-145) mmol/L Potassium 2.7 L* (3.5-5.1) mmol/L Creatinine (0.66-1.25) mg/dL Glucose (74-99) mg/dL Magnesium (1.6-2.3) mg/dL Alkaline Phosphatase (38-126) U/L Total Protein (6.3-8.2) g/dL Albumin (3.5-5.0) g/dL Prealbumin (18.0-42.0) mg/dL Crossmatch See Detail Microbiology - Last 24 Hours (Table) 06/07/18 13:35 Blood Culture - Preliminary Blood No Growth after 48 hours Assessment and Plan (1) Dehydration Narrative/Plan: IVF, PEG feeding being tolerated. 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 Intent of treatment is now palliative. Current Visit: Yes Status: Acute Priority: High Code(s): C76.0 - MALIGNANT NEOPLASM OF HEAD, FACE AND NECK SNOMED Code(s): 002781817 (5) Anemia Narrative/Plan: A unit of blood was already ordered this morning for hemoglobin of 6.5. Patient did have iron studies back in March that were all low. Iron studies post transfusion can alter the results so, we will wait and recheck in the outpatient setting. Current Visit: Yes Status: Acute Priority: High Code(s): D64.9 - ANEMIA, UNSPECIFIED SNOMED Code(s): 145573889
[2018-06-10] MEDS: SERTRALINE 25 MG TAB PO SCH (20:53)
[2018-06-11] MEDS: SODIUM CHLORIDE 0.9% 1,000 ML IV SCH ×3 (04:32→22:21)
[2018-06-11 09:09] LABS: Anisocytosis Slight; Basophils % (A) 0 %; Eosinophils # (A) 0.1 k/uL (0-0.7); Eosinophils % (A) 0 %; HCT 24.5 % (39.0-53.0); HGB 7.9 gm/dL (13.0-17.5); Hypochromasia Slight; Lymphocytes # (A) 0.8 k/uL (1.0-4.8); Lymphocytes % (A) 6 %; MCHC 32.1 g/dL (31.0-37.0); Microcytosis Slight; Monocytes # (A) 0.6 k/uL (0-1.0); Monocytes % (A) 5 %; Neutrophils # (A) 10.5 k/uL (1.3-7.7); Neutrophils % (A) 87 %; Platelet Count 549 k/uL (150-450); Poikilocytosis Slight; RBC 3.02 m/uL (4.30-5.90); RDW 18.5 % (11.5-15.5); WBC 12.1 k/uL (3.8-10.6)
[2018-06-11] MEDS: CALCITONIN INJ 200 UNIT/ML (MDV) VIAL SQ SCH (09:37)
[2018-06-11 09:52] LABS: ALT 35 U/L (21-72); AST 26 U/L (17-59); Albumin 2.4 g/dL (3.5-5.0); Alkaline Phosphatase 146 U/L (38-126); Anion Gap 4 mmol/L; Blood Urea Nitrogen 12 mg/dL (9-20); Calcium 9.6 mg/dL (8.4-10.2); Carbon Dioxide 29 mmol/L (22-30); Chloride 106 mmol/L (98-107); Glucose 116 mg/dL (74-99); Potassium 3.6 mmol/L (3.5-5.1); Sodium 139 mmol/L (137-145); Total Bilirubin 0.3 mg/dL (0.2-1.3); Total Protein 5.5 g/dL (6.3-8.2)
--- NOTE | 2018-06-11 12:47 | P.PN ---
Saturnino Tejeda is a 67 y/o white male new to my practice. He was seen one time 04/18/2018. 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 Admitted December after he began having toothaches. He went to the dental clinic and was sent to ER, This appointment was January 31. He was seen in urgent care mid-February at his family's insistence and then went to emergency room, where he was admitted for 6 days and he was admitted again April 03 to the . he was admitted to [facility] both times. He currently does have a feeding tube. He quit smoking but has restart to 1 pack per day 06/10/2018: His chest x-ray showed the bone and lung metastases previously and CT. I discussed with him at length his noncompliance and what Paula wishes were. He could not give me an answer whether he would like to proceed with any aggressive treatment or changes status and be placed in hospice or comfort care. He remains quite malnourished. Denies any pain today. He denies chest pressures or shortness of breath. He continues to have tube feeds. 06/11/2018: Patient remains in bed. Physical therapy will be seeing him for rehabilitation evaluation. His girlfriend indicates been having some constipation previously this. She describes that he had been doing his tube feeds at home in the morning on the afternoon and evening. She is unsure how much free water to give him and we discussed the reason for his hospitalization was primarily dehydration. He himself denies any significant pain at this time. He continues to have drooling and inability to hold oral secretions to the significant mass in his left mandible and neck. I asked nursing to contact hematology oncology regarding a possible transfer to [facility] versus palliative or hospice care versus immunotherapy here. They are planning outpatient immunotherapy here. They're waiting a prior authorization. Objective - Vital Signs Vital signs: Vital Signs Temp 98.7 F 06/11/18 12:40 Pulse 103 H 06/11/18 12:40 Resp 18 06/11/18 12:40 BP 150/80 06/11/18 12:40 Pulse Ox 92 L 06/11/18 12:40 Intake & Output 06/10/18 06/11/18 06/11/18 18:59 06:59 18:59 Intake Total 814 720 42 Balance 814 720 42 Intake: Tube Feeding 504 720 42 Blood Product 310 Rc As-1 Unit 310 [id number] Other: Voiding Method Urinal Urinal Urinal Diaper Diaper Diaper # Voids 3 - Exam General: The patient is awake and alert, in no distress, He was napping but easily arousable. He has obvious trouble speaking to the large mass on his jaw. Oropharynx: There is a very large left mandibular and neck mass. This is consistent with his carcinoma. Neck: As above Cardiovascular: S1S2 is normal, There is a regular rate and rhythm. No murmur, rub or gallop is appreciated. Respiratory: Lungs are clear to auscultation bilaterally, respirations are non -labored, breath sounds are equal. Gastrointestinal: Soft, non-distended, non-tender abdomen without masses or organomegaly noted. There is no rebound or guarding present. Bowel sounds are unremarkable. PEG tube is clean dry and intact Musculoskeletal: Normal ROM, no tenderness, There is no pedal edema. There is no calf tenderness or swelling. No cords were appreciated. Neurological: CN II-XII intact, there are no obvious motor or sensory deficits. Coordination appears grossly intact. Speech is Difficult due to the large mandibular mass. Skin: Skin is warm and dry and no rashes or lesions are noted. - Labs CBC & Chem 7: 06/11/18 08:11 06/11/18 08:11 Labs: Abnormal Lab Results - Last 24 Hours (Table) 06/10/18 06/11/18 06/11/18 Range/Units 05:23 08:11 08:11 WBC 12.1 H (3.8-10.6) k/uL RBC 3.02 L (4.30-5.90) m/uL Hgb 7.9 L (13.0-17.5) gm/dL Hct 24.5 L (39.0-53.0) % RDW 18.5 H (11.5-15.5) % Plt Count 549 H (150-450) k/uL Neutrophils # 10.5 H (1.3-7.7) k/uL Lymphocytes # 0.8 L (1.0-4.8) k/uL Creatinine 0.53 L (0.66-1.25) mg/dL Glucose 116 H (74-99) mg/dL Alkaline Phosphatase 146 H (38-126) U/L Total Protein 5.5 L (6.3-8.2) g/dL Albumin 2.4 L (3.5-5.0) g/dL Crossmatch See Detail Microbiology - Last 24 Hours (Table) 06/07/18 13:35 Blood Culture - Preliminary Blood No Growth after 72 hours Assessment and Plan (1) Dehydration Current Visit: Yes Status: Acute Priority: High Code(s): E86.0 - DEHYDRATION SNOMED Code(s): 59484521 (2) Squamous cell carcinoma of head and neck Current Visit: Yes Status: Acute Priority: High Code(s): C76.0 - MALIGNANT NEOPLASM OF HEAD, FACE AND NECK SNOMED Code(s): 389429876 (3) Anemia Current Visit: Yes Status: Acute Priority: High Code(s): D64.9 - ANEMIA, UNSPECIFIED SNOMED Code(s): 775476705 (4) Abdominal pain Current Visit: Yes Status: Acute Code(s): R10.9 - UNSPECIFIED ABDOMINAL PAIN SNOMED Code(s): 46554461 (5) Hypokalemia Current Visit: Yes Status: Acute Priority: Medium Code(s): E87.6 - HYPOKALEMIA SNOMED Code(s): 69872501 (6) Lung metastases Current Visit: Yes Status: Acute Code(s): C78.00 - SECONDARY MALIGNANT NEOPLASM OF UNSPECIFIED LUNG SNOMED Code(s): 22813177 (7) Bone metastases Current Visit: Yes Status: Acute Code(s): C79.51 - SECONDARY MALIGNANT NEOPLASM OF BONE SNOMED Code(s): 11110540 (8) Severe malnutrition Current Visit: Yes Status: Acute Code(s): E43 - UNSPECIFIED SEVERE PROTEIN- CALORIE MALNUTRITION SNOMED Code(s): 46999219 (9) Major depressive disorder Current Visit: Yes Status: Acute Priority: Medium Code(s): F32.9 - MAJOR DEPRESSIVE DISORDER, SINGLE EPISODE, UNSPECIFIED SNOMED Code(s): 738084109 Plan: continue 2 tacho HN at 20 ml/hr; 30 ml water every 4 hours monitor malnutition repeat labs in am reevaluate in 24 hrs expect ECF or home soon without any other palliative care or outpatient immunotherapy for palliative care center.
[2018-06-11] MEDS ORDERED: NA PHOS,M-B/NA PHOS,DI-BA 133 ML ENEMA RECTAL ONE (15:27)
--- NOTE | 2018-06-11 17:53 | P.PN ---
Subjective Progress Note Date: 06/11/18 Principal diagnosis: failure to thrive, Head/neck malignancy causing dysphagia In f/u pt has no complaints, tolerating feeding, no pain, diarrhea, he is very cooperative and agreeable to PEG feeding and hydrating via PEG tube Objective - Vital Signs Vital signs: Vital Signs Temp 98.7 F 06/11/18 12:40 Pulse 103 H 06/11/18 12:40 Resp 18 06/11/18 12:40 BP 150/80 06/11/18 12:40 Pulse Ox 92 L 06/11/18 12:40 Intake & Output 06/10/18 06/11/18 06/11/18 18:59 06:59 18:59 Intake Total 814 720 42 Output Total 200 Balance 814 720 -158 Intake: Tube Feeding 504 720 42 Blood Product 310 Rc As-1 Unit 310 [id number] Output: Urine 200 Other: Voiding Method Urinal Urinal Urinal Diaper Diaper Diaper # Voids 3 1 # Bowel Movements 1 - Constitutional General appearance: Present: no acute distress, thin - Respiratory Respiratory: bilateral: CTA - Cardiovascular Heart sounds: normal: S1, S2 - Gastrointestinal Gastrointestinal Comment(s): LUQ PEG insertion is free of drainage or redness General gastrointestinal: Present: normal bowel sounds, soft. Absent: absent bowel sounds, decreased bowel sounds, distended, hepatomegaly, hyperactive bowel sounds, organomegaly, rigid, scaphoid, splenomegaly, tenderness, umbilical hernia, ventral hernia - Integumentary Integumentary Comment(s): better color today - Musculoskeletal Musculoskeletal: Present: generalized weakness - Psychiatric Psychiatric: Present: A&O x's 3, appropriate affect - Labs CBC & Chem 7: 06/11/18 08:11 06/11/18 08:11 Labs: Abnormal Lab Results - Last 24 Hours (Table) 06/11/18 06/11/18 Range/Units 08:11 08:11 WBC 12.1 H (3.8-10.6) k/uL RBC 3.02 L (4.30-5.90) m/uL Hgb 7.9 L (13.0-17.5) gm/dL Hct 24.5 L (39.0-53.0) % RDW 18.5 H (11.5-15.5) % Plt Count 549 H (150-450) k/uL Neutrophils # 10.5 H (1.3-7.7) k/uL Lymphocytes # 0.8 L (1.0-4.8) k/uL Creatinine 0.53 L (0.66-1.25) mg/dL Glucose 116 H (74-99) mg/dL Alkaline Phosphatase 146 H (38-126) U/L Total Protein 5.5 L (6.3-8.2) g/dL Albumin 2.4 L (3.5-5.0) g/dL Microbiology - Last 24 Hours (Table) 06/07/18 13:35 Blood Culture - Preliminary Blood No Growth after 96 hours Assessment and Plan (1) Dehydration Current Visit: Yes Status: Acute Priority: High Code(s): E86.0 - DEHYDRATION SNOMED Code(s): 35223943 (2) Hypokalemia Current Visit: Yes Status: Acute Priority: Medium Code(s): E87.6 - HYPOKALEMIA SNOMED Code(s): 75126409 (3) Hypercalcemia Current Visit: Yes Status: Acute Priority: Medium Code(s): E83.52 - HYPERCALCEMIA SNOMED Code(s): 35414110 (4) Squamous cell carcinoma of head and neck Narrative/Plan: Pending insurance approval of immunotherapy. Intent of treatment is now palliative. Current Visit: Yes Status: Acute Priority: High Code(s): C76.0 - MALIGNANT NEOPLASM OF HEAD, FACE AND NECK SNOMED Code(s): 483530324 (5) Anemia Current Visit: Yes Status: Acute Priority: High Code(s): D64.9 - ANEMIA, UNSPECIFIED SNOMED Code(s): 998747513 Plan: It is unclear what pt will do once he is home. He is not physically able to care for himself at this time. 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 Case was discussed with RN, Case Mgmt and Soc Worker. Pt will be evaluated by PT , he may need rehab. No treatment will be planned until pt is discharged for rehab if it is needed.
[2018-06-11] MEDS: SERTRALINE 25 MG TAB PO SCH (22:18)
[2018-06-12 07:21] LABS: ALT 36 U/L (21-72); AST 30 U/L (17-59); Albumin 2.5 g/dL (3.5-5.0); Alkaline Phosphatase 148 U/L (38-126); Anion Gap 6 mmol/L; Blood Urea Nitrogen 13 mg/dL (9-20); Calcium 9.7 mg/dL (8.4-10.2); Carbon Dioxide 28 mmol/L (22-30); Chloride 106 mmol/L (98-107); Glucose 113 mg/dL (74-99); Potassium 3.2 mmol/L (3.5-5.1); Sodium 140 mmol/L (137-145); Total Bilirubin 0.3 mg/dL (0.2-1.3); Total Protein 5.7 g/dL (6.3-8.2)
[2018-06-12] MEDS ORDERED: Potassium Replacement Protocol 1 EACH MISC MISCELLANE PRN (11:12)
[2018-06-12 12:17] VITALS: BP 178/79; PULSE 113; RESP 18; TEMP 97.6
[2018-06-12] MEDS: POTASSIUM CHLORIDE 10 MEQ in WATER FOR INJECTION 1 100ML.BAG IVPB SCH ×2 (12:44→16:15)
[2018-06-12] MEDS: SODIUM CHLORIDE 0.9% 1,000 ML IV SCH (12:44)
--- NOTE | 2018-06-12 13:20 | P.PN ---
Saturnino Tejeda is a 67 y/o white male new to my practice. He was seen one time 04/18/2018. 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. Admitted December after he began having toothaches. He went to the dental clinic and was sent to ER, This appointment was January 31. He was seen in urgent care mid-February at his family's insistence and then went to emergency room, where he was admitted for 6 days and he was admitted again April 03 to the . he was admitted to [facility] both times. He currently does have a feeding tube. He quit smoking but has restart to 1 pack per day 06/10/2018: His chest x-ray showed the bone and lung metastases previously and CT. I discussed with him at length his noncompliance and what Paula wishes were. He could not give me an answer whether he would like to proceed with any aggressive treatment or changes status and be placed in hospice or comfort care. He remains quite malnourished. Denies any pain today. He denies chest pressures or shortness of breath. He continues to have tube feeds. 06/11/2018: Patient remains in bed. Physical therapy will be seeing him for rehabilitation evaluation. His girlfriend indicates been having some constipation previously this. She describes that he had been doing his tube feeds at home in the morning on the afternoon and evening. She is unsure how much free water to give him and we discussed the reason for his hospitalization was primarily dehydration. He himself denies any significant pain at this time. He continues to have drooling and inability to hold oral secretions to the significant mass in his left mandible and neck. I asked nursing to contact hematology oncology regarding a possible transfer to [facility] versus palliative or hospice care versus immunotherapy here. They are planning outpatient immunotherapy here. They're waiting a prior authorization. 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 He is debilitated enough that he most likely needs ECF. We'll investigate that. He has no other complaints at this time. He does have some mild hyponatremia at this time, but otherwise electrolytes improved. He denies any chest pains, pressure, or shortness of breath. Objective - Vital Signs Vital signs: Vital Signs Temp 97.6 F 06/12/18 11:41 Pulse 113 H 06/12/18 11:41 Resp 18 06/12/18 11:41 BP 178/79 06/12/18 11:41 Pulse Ox 96 06/12/18 11:41 Intake & Output 06/11/18 06/12/18 06/12/18 18:59 06:59 18:59 Intake Total 42 42 84 Output Total 200 Balance -158 42 84 Weight 65 kg 65 kg Intake: Tube Feeding 42 42 84 Output: Urine 200 Other: Voiding Method Urinal Urinal Urinal Diaper Diaper Diaper # Voids 1 # Bowel Movements 1 - Exam General: The patient is awake and alert, in no distress, He was napping but easily arousable. He has obvious trouble speaking to the large mass on his jaw. Oropharynx: There is a very large left mandibular and neck mass. This is consistent with his carcinoma. Neck: As above Cardiovascular: S1S2 is normal, There is a regular rate and rhythm. No murmur, rub or gallop is appreciated. Respiratory: Lungs are clear to auscultation bilaterally, respirations are non -labored, breath sounds are equal. Gastrointestinal: Soft, non-distended, non-tender abdomen without masses or organomegaly noted. There is no rebound or guarding present. Bowel sounds are unremarkable. PEG tube is clean dry and intact Musculoskeletal: Normal ROM, no tenderness, There is no pedal edema. There is no calf tenderness or swelling. No cords were appreciated. Neurological: CN II-XII intact, there are no obvious motor or sensory deficits. Coordination appears grossly intact. Speech is Difficult due to the large mandibular mass. Skin: Skin is warm and dry and no rashes or lesions are noted. - Labs CBC & Chem 7: 06/11/18 08:11 06/12/18 06:24 Labs: Abnormal Lab Results - Last 24 Hours (Table) 06/12/18 Range/Units 06:24 Potassium 3.2 L (3.5-5.1) mmol/L Creatinine 0.51 L (0.66-1.25) mg/dL Glucose 113 H (74-99) mg/dL Alkaline Phosphatase 148 H (38-126) U/L Total Protein 5.7 L (6.3-8.2) g/dL Albumin 2.5 L (3.5-5.0) g/dL Microbiology - Last 24 Hours (Table) 06/07/18 13:35 Blood Culture - Preliminary Blood No Growth after 96 hours Assessment and Plan (1) Dehydration Current Visit: Yes Status: Acute Priority: High Code(s): E86.0 - DEHYDRATION SNOMED Code(s): 03828155 (2) Squamous cell carcinoma of head and neck Current Visit: Yes Status: Acute Priority: High Code(s): C76.0 - MALIGNANT NEOPLASM OF HEAD, FACE AND NECK SNOMED Code(s): 275037496 (3) Anemia Current Visit: Yes Status: Acute Priority: High Code(s): D64.9 - ANEMIA, UNSPECIFIED SNOMED Code(s): 682478289 (4) Abdominal pain Current Visit: Yes Status: Acute Code(s): R10.9 - UNSPECIFIED ABDOMINAL PAIN SNOMED Code(s): 71566370 (5) Hypokalemia Current Visit: Yes Status: Acute Priority: Medium Code(s): E87.6 - HYPOKALEMIA SNOMED Code(s): 51549089 (6) Lung metastases Current Visit: Yes Status: Acute Code(s): C78.00 - SECONDARY MALIGNANT NEOPLASM OF UNSPECIFIED LUNG SNOMED Code(s): 85585584 (7) Bone metastases Current Visit: Yes Status: Acute Code(s): C79.51 - SECONDARY MALIGNANT NEOPLASM OF BONE SNOMED Code(s): 66907354 (8) Severe malnutrition Current Visit: Yes Status: Acute Code(s): E43 - UNSPECIFIED SEVERE PROTEIN- CALORIE MALNUTRITION SNOMED Code(s): 94232003 (9) Major depressive disorder Current Visit: Yes Status: Acute Priority: Medium Code(s): F32.9 - MAJOR DEPRESSIVE DISORDER, SINGLE EPISODE, UNSPECIFIED SNOMED Code(s): 851349053 Plan: Per her social media coordinator notes he is refusing hospice care at this time continue 2 tacho HN at 20 ml/hr; 30 ml water every 4 hours monitor malnutition repeat labs in am reevaluate in 24 hrs Plan for ECF with outpatient immunotherapy treatment.
--- NOTE | 2018-06-12 15:00 | P.DS ---
Providers Date of admission: 06/09/18 11:45 Expected date of discharge: 06/12/18 Attending physician: Gus Herrera Consults: 06/07/18 21:24 Consult Physician Routine Consulting Provider: Alonso Brooks Consult Reason/Comments: Metastatic oral cancer Do you want consulting provider notified?: Yes, Notify in am 06/08/18 13:29 Consult Physician Routine Consulting Provider: Scooter Adamson Consult Reason/Comments: Depression, anorexia Do you want consulting provider notified?: Yes Primary care physician: Tolu Heredia - Discharge Diagnosis(es) (1) Dehydration Current Visit: Yes Status: Acute Priority: High (2) Squamous cell carcinoma of head and neck Current Visit: Yes Status: Acute Priority: High (3) Anemia Current Visit: Yes Status: Acute Priority: High (4) Abdominal pain Current Visit: Yes Status: Acute (5) Hypokalemia Current Visit: Yes Status: Acute Priority: Medium (6) Lung metastases Current Visit: Yes Status: Acute (7) Bone metastases Current Visit: Yes Status: Acute (8) Severe malnutrition Current Visit: Yes Status: Acute (9) Major depressive disorder Current Visit: Yes Status: Acute Priority: Medium Hospital Course: Nikhil is a 67 y/o white male new to my practice. He was seen one time 04/18/2018. 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. Admitted December after he began having toothaches. He went to the dental clinic and was sent to ER, This appointment was January 31. He was seen in urgent care mid-February at his family's insistence and then went to emergency room, where he was admitted for 6 days and he was admitted again April 03 to the . he was admitted to [facility] both times. He currently does have a feeding tube. He quit smoking but has restart to 1 pack per day 06/10/2018: His chest x-ray showed the bone and lung metastases previously and CT. I discussed with him at length his noncompliance and what Paula wishes were. He could not give me an answer whether he would like to proceed with any aggressive treatment or changes status and be placed in hospice or comfort care. He remains quite malnourished. Denies any pain today. He denies chest pressures or shortness of breath. He continues to have tube feeds. 06/11/2018: Patient remains in bed. Physical therapy will be seeing him for rehabilitation evaluation. His girlfriend indicates been having some constipation previously this. She describes that he had been doing his tube feeds at home in the morning on the afternoon and evening. She is unsure how much free water to give him and we discussed the reason for his hospitalization was primarily dehydration. He himself denies any significant pain at this time. He continues to have drooling and inability to hold oral secretions to the significant mass in his left mandible and neck. I asked nursing to contact hematology oncology regarding a possible transfer to [facility] versus palliative or hospice care versus immunotherapy here. They are planning outpatient immunotherapy here. They're waiting a prior authorization. 06/12/2018: bindery worker notes were reviewed. He is debilitated enough that he most likely needs ECF. We'll investigate that. He has no other complaints at this time. He does have some mild hyponatremia at this time, but otherwise electrolytes improved. He denies any chest pains, pressure, or shortness of breath. addendum: Nikhil does not qualify for ECF. He has efused hospice several times now. His potassium remains low. He will be dischardge on tube feeds and supplemen nba potassium at this time. He will f/u soon (1-2 days) He will go home under the care of his girlfriend. Patient Condition at Discharge: Poor Plan - Discharge Summary New Discharge Prescriptions: New Potassium Chloride [Klor-Con 20 Packets] 20 meq PO BID #60 packet Sertraline [Zoloft] 25 mg PO DAILY #5 tab Sertraline HCl [Zoloft] 50 mg PO DAILY #30 tablet Continue Aspirin EC [Ecotrin] 325 mg PO DAILY PRN PRN Reason: Pain Discharge Medication List Aspirin EC [Ecotrin] 325 mg PO DAILY PRN 06/07/18 [History] Potassium Chloride [Klor-Con 20 Packets] 20 meq PO BID #60 packet 06/12/18 [Rx] Sertraline HCl [Zoloft] 50 mg PO DAILY #30 tablet 06/12/18 [Rx] Sertraline [Zoloft] 25 mg PO DAILY #5 tab 06/12/18 [Rx] Follow up Appointment(s)/Referral(s): Tolu Heredia MD [Primary Care Provider] - 1-2 days Patient Instructions/Handouts: Hypokalemia (DC), Depression (DC), Anemia (DC) Activity/Diet/Wound Care/Special Instructions: Tube feeding regimen as follows. 4 240 ml cans 2 Homero HN /day. Flush with 90 ml free water before and after each feeding. Flush with an additional 120ml free water in the morning and at night to meet estimated fluid needs. Discharge Disposition: HOME WITH HOME HEALTH SERVICES
== END 2018-06-12 18:00 | disposition home health service (06) | DRG 640 ==
LOC: EC 12:27 → INTOOBSV 21:48 → 3NMEDONC 21:48 → OBSVTOIN 06-09 11:45 → 3NMEDONC 06-10 15:43
PROVIDERS: ADMIT Family Medicine; ATTEND Family Medicine
PROC: 30233N1 Transfusion of Nonautologous Red Blood Cells into Peripheral Vein, Percutaneous Approach (ICD-10-PCS; principal; 2018-06-10)
DX: E86.0 Dehydration (principal); E43 Unspecified severe protein-calorie malnutrition; C78.00 Secondary malignant neoplasm of unspecified lung; C79.51 Secondary malignant neoplasm of bone; M84.58XA Pathological fracture in neoplastic disease, other specified site, initial encounter for fracture; C06.9 Malignant neoplasm of mouth, unspecified; E83.52 Hypercalcemia; E87.1 Hypo-osmolality and hyponatremia; E87.6 Hypokalemia; F32.9 Major depressive disorder, single episode, unspecified; R13.10 Dysphagia, unspecified; R62.7 Adult failure to thrive; R59.0 Localized enlarged lymph nodes; F17.210 Nicotine dependence, cigarettes, uncomplicated; D63.0 Anemia in neoplastic disease; D53.9 Nutritional anemia, unspecified; D72.829 Elevated white blood cell count, unspecified; Z79.82 Long term (current) use of aspirin; Z90.01 Acquired absence of eye; Z91.19 Patient's noncompliance with other medical treatment and regimen; Z80.1 Family history of malignant neoplasm of trachea, bronchus and lung
CPT/HCPCS: 36415; 71046; 74177; 80053; 81001; 82150; 83690; 83735; 84100; 84132; 84134; 85025; 85610; 86850; 86900; 86901; 86920; 87040; 93005; 96361; 96374; 99285

== ENCOUNTER 2018-06-23 12:45 | Inpatient (IN) | payer MEDICARE ==
[2018-06-23] MEDS ORDERED: SODIUM CHLORIDE 0.9% 1,000 ML IV ONE ×2 (13:11)
--- NOTE | 2018-06-23 13:20 | ED ---
Altered Mental Status HPI - General Chief Complaint: Altered Mental Status Stated Complaint: Altered mental status Time Seen by Provider: 06/23/18 12:45 Source: family, EMS, RN notes reviewed, old records reviewed Mode of arrival: EMS Limitations: altered mental status, physical limitation - History of Present Illness Initial Comments: This is a 67-year-old male history of oral cancer in the left hand side who was brought in because of decreased level of consciousness today. Patient himself is a poor historian and his family was not really present upon his arrival. No reports of any trauma no reports of fevers chills or sweats. Patient is fed via a PEG tube. He has recently been here for dehydration. He has had chemo and radiation therapy in the past. This time no other information available. Patient is moaning upon arrival he does answer simple questions. MD Complaint: altered mental status - Related Data Home Medications Medication Instructions Recorded Confirmed Amoxicillin 875 mg PO BID 06/23/18 06/23/18 Potassium Chloride [Klor-Con 20 20 meq PO DAILY 06/23/18 06/23/18 Packets] Previous Rx's Medication Instructions Recorded Sertraline HCl [Zoloft] 50 mg PO DAILY #30 tablet 06/12/18 Allergies Allergy/AdvReac Type Severity Reaction Status Date / Time No Known Allergies Allergy Verified 06/23/18 14:35 Review of Systems ROS Statement: Those systems with pertinent positive or pertinent negative responses have been documented in the HPI. ROS Other: All systems not noted in ROS Statement are negative. Past Medical History Past Medical History: Cancer Additional Past Medical History / Comment(s): Cancer: PV of the jaw, History of Any Multi-Drug Resistant Organisms: None Reported Additional Past Surgical History / Comment(s): Left eye removed at age 6, left sided jaw biopsy, Past Anesthesia/Blood Transfusion Reactions: No Reported Reaction Past Psychological History: No Psychological Hx Reported Smoking Status: Current every day smoker Past Alcohol Use History: None Reported Past Drug Use History: None Reported - Past Family History Father Family Medical History: Cancer Additional Family Medical History / Comment(s): Lung cancer - . Mother Family Medical History: No Reported History Additional Family Medical History / Comment(s): Mother is still living and doesn't have many issues. General Exam - General Exam Comments Initial Comments: Well-developed sec appearing male who is awake does seem to be alert with minimal answers questions. Limitations: altered mental status, physical limitation General appearance: lethargic Head exam: Present: atraumatic, normocephalic, normal inspection ENT exam: Present: mucous membranes dry, other (Mass noted to the left mandibular region. There is evidence of some drainage and open wound at this site.) Neck exam: Present: full ROM, other. Absent: normal inspection Respiratory exam: Present: decreased breath sounds GI/Abdominal exam: Present: soft, other (PEG tube in place no drainage seen. Mild excoriation seen at the ) Course Vital Signs 06/23/18 06/23/18 06/23/18 12:53 16:00 17:00 Temperature 97.5 F L Pulse Rate 84 79 79 Respiratory 18 18 19 Rate Blood Pressure 133/64 129/59 125/60 O2 Sat by Pulse 87 L 91 L Oximetry - Reevaluation(s) Reevaluation #1: 06/23/18 17:37 I did reevaluate patient is more responsive after IV hydration. I did discuss the findings with the patient's . Patient does have evidence of a left lower lobe infiltrate elevated white blood cell counts lactic acid is within normal limits however. I did discuss the case with Dr. Sosa the patient be admitted for IV fluids and IV hydration. Medical Decision Making - Medical Decision Making I did discuss the findings with the patient and his additionally I did discuss case Dr. Sosa. Patient will be admitted IV fluids IV antibiotics and continued monitoring. - Lab Data Result diagrams: 06/23/18 13:07 06/23/18 13:07 Lab Results 06/23/18 06/23/18 06/23/18 Range/Units 13:07 13:07 13:07 WBC 17.4 H (3.8-10.6) k/uL RBC 2.87 L (4.30-5.90) m/uL Hgb 7.3 L (13.0-17.5) gm/dL Hct 22.8 L (39.0-53.0) % MCV 79.6 L (80.0-100.0) fL MCH 25.5 (25.0-35.0) pg MCHC 32.0 (31.0-37.0) g/dL RDW 19.0 H (11.5-15.5) % Plt Count 424 (150-450) k/uL Neutrophils % (Manual) 85 % Band Neutrophils % 10 % Lymphocytes % (Manual) 3 % Monocytes % (Manual) 2 % Neutrophils # (Manual) 16.50 H (1.3-7.7) k/uL Lymphocytes # (Manual) 0.52 L (1.0-4.8) k/uL Monocytes # (Manual) 0.35 (0-1.0) k/uL Nucleated RBCs 0 (0-0) /100 WBC Toxic Granulation Present Polychromasia Present Hypochromasia Slight Anisocytosis Slight Microcytosis Slight PT (9.0-12.0) sec INR (<1.2) APTT (22.0-30.0) sec Sodium 134 L (137-145) mmol/L Potassium 3.4 L (3.5-5.1) mmol/L Chloride 96 L (98-107) mmol/L Carbon Dioxide 34 H (22-30) mmol/L Anion Gap 4 mmol/L BUN 27 H (9-20) mg/dL Creatinine 0.71 (0.66-1.25) mg/dL Est GFR (CKD-EPI)AfAm >90 (>60 ml/min/1.73 sqM) Est GFR (CKD-EPI)NonAf >90 (>60 ml/min/1.73 sqM) Glucose 105 H (74-99) mg/dL Plasma Lactic Acid Mejia 1.4 (0.7-2.0) mmol/L Calcium 11.2 H (8.4-10.2) mg/dL Total Bilirubin 0.4 (0.2-1.3) mg/dL AST 47 (17-59) U/L ALT 62 (21-72) U/L Alkaline Phosphatase 222 H (38-126) U/L Ammonia <9 (<30) umol/L Creatine Kinase 25 L (55-170) U/L Troponin I (0.000-0.034) ng/mL Total Protein 5.1 L (6.3-8.2) g/dL Albumin 2.1 L (3.5-5.0) g/dL Influenza Type A RNA (Not Detectd) Influenza Type B (PCR) (Not Detectd) 06/23/18 06/23/18 06/23/18 Range/Units 13:07 13:07 14:10 WBC (3.8-10.6) k/uL RBC (4.30-5.90) m/uL Hgb (13.0-17.5) gm/dL Hct (39.0-53.0) % MCV (80.0-100.0) fL MCH (25.0-35.0) pg MCHC (31.0-37.0) g/dL RDW (11.5-15.5) % Plt Count (150-450) k/uL Neutrophils % (Manual) % Band Neutrophils % % Lymphocytes % (Manual) % Monocytes % (Manual) % Neutrophils # (Manual) (1.3-7.7) k/uL Lymphocytes # (Manual) (1.0-4.8) k/uL Monocytes # (Manual) (0-1.0) k/uL Nucleated RBCs (0-0) /100 WBC Toxic Granulation Polychromasia Hypochromasia Anisocytosis Microcytosis PT 12.0 (9.0-12.0) sec INR 1.1 (<1.2) APTT 25.0 (22.0-30.0) sec Sodium (137-145) mmol/L Potassium (3.5-5.1) mmol/L Chloride (98-107) mmol/L Carbon Dioxide (22-30) mmol/L Anion Gap mmol/L BUN (9-20) mg/dL Creatinine (0.66-1.25) mg/dL Est GFR (CKD-EPI)AfAm (>60 ml/min/1.73 sqM) Est GFR (CKD-EPI)NonAf (>60 ml/min/1.73 sqM) Glucose (74-99) mg/dL Plasma Lactic Acid Mejia (0.7-2.0) mmol/L Calcium (8.4-10.2) mg/dL Total Bilirubin (0.2-1.3) mg/dL AST (17-59) U/L ALT (21-72) U/L Alkaline Phosphatase (38-126) U/L Ammonia (<30) umol/L Creatine Kinase (55-170) U/L Troponin I 0.033 (0.000-0.034) ng/mL Total Protein (6.3-8.2) g/dL Albumin (3.5-5.0) g/dL Influenza Type A RNA Not Detected (Not Detectd) Influenza Type B (PCR) Not Detected (Not Detectd) - EKG Data -: EKG Interpreted by Me EKG shows normal: sinus rhythm (Sinus rhythm rate 80 OK interval 190 QRS duration 94 QT since QTC 396/456 poor R-wave progression no acute ST-T wave changes are seen.) - Radiology Data Radiology results: report reviewed (I did review the imaging and report evidence of the left lower lobe infiltrate also the mass in the right upper lobe.), image reviewed Disposition Clinical Impression: Delirium due to general medical condition, Lower lobe pneumonia, Dehydration, Metastatic cancer, Failure to thrive Disposition: ADMITTED IP TO THIS HOSP Condition: Serious Referrals: Tolu Heredia MD [Primary Care Provider] - 1-2 days
[2018-06-23 13:24] LABS: Anisocytosis Slight; HCT 22.8 % (39.0-53.0); HGB 7.3 gm/dL (13.0-17.5); Hypochromasia Slight; MCH 25.5 pg (25.0-35.0); MCV 79.6 fL (80.0-100.0); Mean Platelet Volume 7.1; Microcytosis Slight; Platelet Count 424 k/uL (150-450); RBC 2.87 m/uL (4.30-5.90); WBC 17.4 k/uL (3.8-10.6)
[2018-06-23 13:35] LABS: Ammonia <9 umol/L (<30); Lactic Acid, Venous 1.4 mmol/L (0.7-2.0)
[2018-06-23 13:36] LABS: ALT 62 U/L (21-72); AST 47 U/L (17-59); Albumin 2.1 g/dL (3.5-5.0); Alkaline Phosphatase 222 U/L (38-126); Anion Gap 4 mmol/L; Blood Urea Nitrogen 27 mg/dL (9-20); Calcium 11.2 mg/dL (8.4-10.2); Carbon Dioxide 34 mmol/L (22-30); Chloride 96 mmol/L (98-107); Creatine Kinase 25 U/L (55-170); Glucose 105 mg/dL (74-99); Potassium 3.4 mmol/L (3.5-5.1); Sodium 134 mmol/L (137-145); Total Bilirubin 0.4 mg/dL (0.2-1.3); Total Protein 5.1 g/dL (6.3-8.2)
[2018-06-23 13:50] LABS: INR 1.1 (<1.2)
[2018-06-23 13:53] LABS: Band Neutrophils % 10 %; Lymphocytes # (M) 0.52 k/uL (1.0-4.8); Monocytes # (M) 0.35 k/uL (0-1.0); Neutrophils % (M) 85 %; Nucleated Red Blood Cells 0 /100 WBC (0-0); Total Cells Counted 100
[2018-06-23 13:55] LABS: Polychromasia Present; Toxic Granulation Present
--- NOTE | 2018-06-23 14:22 | XR ---
EXAMINATION TYPE: XR chest 1V portable DATE OF EXAM: 06/23/2018 COMPARISON: Chest x-ray June 09, 2018. CT March 02, 2018. PET CT May 31, 2018. HISTORY: History of jaw cancer with altered mental status and weakness. TECHNIQUE: Single frontal view of the chest is obtained. FINDINGS: There is stable right internal jugular Mediport catheter seen. There is persistent irregul ar thick-walled right upper lobe cavitary lesion. Left hilar adenopathy is less well-seen on radiogra phs versus recent PET/CT. There is new left basilar atelectasis and/or infiltrate and probable small left pleural effusion. No mediastinal shift is seen. The cardiac silhouette size is within normal ayala its. The osseous structures are intact. IMPRESSION: Persistent thick-walled cavitary right upper lobe mass not significantly changed from pr ior. New left basilar acute infiltrate and/or atelectasis and probable small left pleural effusion.
[2018-06-23] MEDS ORDERED: PIPERACILLIN-TAZOBACTAM 3.375 GM in SODIUM CHLORIDE 0.9% 100 ML IVPB STA (16:54)
[2018-06-23] MEDS ORDERED: PNEUMONIA PROTOCOL UTILIZED 1 EACH MISC PO PRN (17:54)
[2018-06-23] MEDS ORDERED: LEVOFLOXACIN 750MG-D5W PMX 750 MG in DEXTROSE/WATER 1 150ML.BAG IVPB STA (17:54)
[2018-06-23] MEDS: SODIUM CHLORIDE 0.9% 1,000 ML IV SCH (18:46)
[2018-06-23] MEDS ORDERED: QUEtiapine 25 MG TAB PO STA (23:33)
[2018-06-24] MEDS: PIPERACILLIN-TAZOBACTAM 3.375 GM in SODIUM CHLORIDE 0.9% 100 ML IVPB SCH ×3 (01:12→15:04)
[2018-06-24] MEDS: SODIUM CHLORIDE 0.9% 1,000 ML IV SCH ×2 (05:21→14:56)
[2018-06-24] MEDS: POTASSIUM CHLORIDE ER 20 MEQ TAB.ER PO SCH (08:10)
[2018-06-24] MEDS: SERTRALINE 50 MG TAB PO SCH (08:10)
--- NOTE | 2018-06-24 08:14 | XR ---
EXAMINATION TYPE: XR chest 2V DATE OF EXAM: 06/24/2018 COMPARISON: Prior chest x-ray 06/23/2018 HISTORY: Pneumonia TECHNIQUE: Frontal and lateral views of the chest are obtained. FINDINGS: Diffuse nodularity within the lungs is again noted. Port-A-Cath is stable. No evident pneu mothorax or sizable effusion. Heart size is stable. Interstitium is increased. Cavitary lesion again noted right upper lobe. IMPRESSION: Metastatic disease. Correlate for possible pneumonia.
[2018-06-24 09:57] LABS: Amorphous Sediment,Urine Rare /hpf; Appearance,Urine Cloudy (Clear); Bacteria,Urine Rare /hpf; Bilirubin,Urine Negative (Negative); Blood,Urine Negative (Negative); Color,Urine Yellow; Glucose,Urine (UA) Negative (Negative); Hyaline Casts,Urine 1 /lpf (0-2); Ketones,Urine Negative (Negative); Leukocyte Esterase,Urine Negative (Negative); Mucus,Urine Rare /hpf; Nitrite,Urine Negative (Negative); Protein,Urine Trace (Negative); Specific Gravity,Urine 1.012 (1.001-1.035); Squamous Epithelial Cell,Urine 11 /hpf (0-4); Urobilinogen,Urine <2.0 mg/dL (<2.0); WBC,Urine 3 /hpf (0-5)
[2018-06-24 10:12] LABS: Amphetamine Screen,Urine Not Detected (NotDetected); Barbiturate Screen,Urine Not Detected (NotDetected); Benzodiazepines Screen,Urine Not Detected (NotDetected); Cocaine Screen,Urine Not Detected (NotDetected); Methadone Screen, Urine Not Detected (NotDetected); Opiate Screen,Urine Not Detected (NotDetected); Oxycodone Screen, Urine Not Detected (NotDetected); Phencyclidine Screen,Urine Not Detected (NotDetected); Tricyclic Antidepressant,Urine Not Detected (NotDetected); Urn Cannabinoid Scrn Not Detected (NotDetected)
[2018-06-24] MEDS ORDERED: LEVOFLOXACIN 750MG-D5W PMX 750 MG in DEXTROSE/WATER 1 150ML.BAG IVPB SCH (18:00)
[2018-06-24] MEDS ORDERED: LEVOFLOXACIN 750 MG TAB PO SCH (18:00)
--- NOTE | 2018-06-24 18:37 | P.HPIM ---
History of Present Illness H&P Date: 06/24/18 Chief Complaint: Metastatic cancer head/ neck This is a 67-year-old male patient of Dr. Heredia, with a oral metastatic cancer aggressive that was brought to the emergency room room and subsequently admitted with a decreased level of consciousness. 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 No reports of trauma no fever no chills sweats. Patient is fed via PEG tube. Has recently been admitted with profound dehydration. Patient has basically failed chemotherapy and radiation therapy. Apparently he is going to undergo an immune biologic as a last effort Review of Systems Constitutional: Reports as per HPI Ears, nose, mouth and throat: Reports ant. neck pain, Reports dysphagia, Reports neck lump, Reports swelling in mouth Cardiovascular: Reports as per HPI Respiratory: Reports as per HPI Gastrointestinal: Reports as per HPI, Reports indigestion (G-tube placed) Genitourinary: Reports as per HPI Musculoskeletal: Reports as per HPI Integumentary: Reports as per HPI Neurological: Reports as per HPI Past Medical History Past Medical History: Cancer Additional Past Medical History / Comment(s): Cancer: PV of the jaw, History of Any Multi-Drug Resistant Organisms: None Reported Additional Past Surgical History / Comment(s): Left eye removed at age 6, left sided jaw biopsy, Past Anesthesia/Blood Transfusion Reactions: No Reported Reaction Past Psychological History: No Psychological Hx Reported Additional Psychological History / Comment(s): Pt. lives alone but brayan states she has been making him stay with her lately due to his health. (Looking to get but patient's brayan's son has cancer and has been dealing with that). Somewhat a poor historian - mildly forgetful. He has difficulty complet ing complex thoughts. Smoking Status: Current every day smoker Past Alcohol Use History: None Reported Additional Past Alcohol Use History / Comment(s): Pt. has history of heavy etoh use - reports drinking occassionally now. Pt. is a smoker - 1.5 PPD. Sometimes more is been smoking since his early teenage years. No experience. No extensive travel. His exposure to one dog, 4 cats and 2 birds, his fiance's ca ring for them while he is hospitalized Past Drug Use History: None Reported - Past Family History Father Family Medical History: Cancer Additional Family Medical History / Comment(s): Lung cancer - . Mother Family Medical History: No Reported History Additional Family Medical History / Comment(s): Mother is still living and does n't have many issues. Medications and Allergies Home Medications Medication Instructions Recorded Confirmed Type Sertraline HCl [Zoloft] 50 mg PO DAILY #30 tablet 06/12/18 06/23/18 Rx RX: Amoxicillin 875 mg PO BID 06/23/18 06/23/18 History RX: Potassium Chloride [Klor-Con 20 meq PO DAILY 06/23/18 06/23/18 History 20 Packets] Allergies Allergy/AdvReac Type Severity Reaction Status Date / Time No Known Allergies Allergy Verified 06/23/18 14:35 Physical Exam Osteopathic Statement: *. No significant issues noted on an osteopathic structural exam other than those noted in the History and Physical/Consult. Vitals: Vital Signs Temp Pulse Pulse Resp BP BP Pulse Ox 06/24/18 15:16 86 L 06/24/18 15:00 98.4 F 120 H 22 111/54 94 L 06/24/18 08:15 112 H 28 H 113/63 91 L 06/24/18 03:29 18 06/24/18 00:05 97.1 F L 88 18 116/61 93 L 06/24/18 00:00 88 06/23/18 20:00 73 18 95 06/23/18 19:59 97.3 F L 92 121/62 06/23/18 19:33 18 06/23/18 19:30 18 06/23/18 18:30 97.8 F 94 19 138/68 99 Intake and Output 06/24/18 06/24/18 06/24/18 06:59 14:59 22:59 Other: Voiding Method Diaper Diaper # Voids 2 Weight 60.6 kg General: [Patient awake, alert and oriented times 3. Patient in no acute distress.] Patient has right sided open wound that is new with necrotic tissue and known progressive carcinoma of face and neck HEENT: [PERRL. EOMI. No pharyngeal erythema or exudate.] Neck: [No adenopathy.] Cardiac: [Heart regular in rate and rhythm. No S3. No S4. No clicks, rubs. No murmur.] Lungs: [Clear to auscultation bilaterally.] Abdomen: [No mass. No organomegaly. Bowel sounds presnt and normoactive in all 4 quadrants.] G-tube intact used for feeding Extremes: [No edema no cyanosis no claudication normal pulses] : [] Musculoskeletal: [No joint erythema, edema or tenderness.] Skin: [No rash.] Neurologic: [No lateralizing deficits. CN II - XII grossly intact.] Lymphatic: [No adenopathy.] Results CBC & Chem 7: 06/23/18 13:07 06/23/18 13:07 Labs: Abnormal Lab Results - Last 24 Hours (Table) 06/24/18 Range/Units 09:30 Urine Protein Trace H (Negative) Ur Squamous Epith Cells 11 H (0-4) /hpf Amorphous Sediment Rare H (None) /hpf Urine Bacteria Rare H (None) /hpf Urine Mucus Rare H (None) /hpf Microbiology - Last 24 Hours (Table) 06/23/18 13:07 Blood Culture - Preliminary Blood No Growth after 24 hours Thrombosis Risk Factor Assmnt - Choose All That Apply Any of the Below Risk Factors Present?: No Each Risk Factor Represents 2 Points: Age 61-74 years, Central venous access, Patient confined to bed, Malignancy Thrombosis Risk Factor Assessment Total Risk Factor Score: 8 Thrombosis Risk Factor Assessment Level: High Risk Assessment and Plan (1) Mass of mandible Current Visit: No Status: Acute Code(s): R22.0 - LOCALIZED SWELLING, MASS AND LUMP, HEAD SNOMED Code(s): 592490803 (2) Bone destruction Current Visit: No Status: Acute Code(s): M89.8X9 - OTHER SPECIFIED DISORDERS OF BONE, UNSPECIFIED SITE SNOMED Code(s): 43402627 (3) Oral cancer Current Visit: No Status: Acute Code(s): C06.9 - MALIGNANT NEOPLASM OF M OUTH, UNSPECIFIED SNOMED Code(s): 469989469 (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 Desiree heme/onc Time with Patient: Greater than 30
[2018-06-25] MEDS ORDERED: IPRATROPIUM-ALBUTEROL 3 ML NEB INHALATION STA (00:26)
[2018-06-25] MEDS ORDERED: FUROSEMIDE 10 MG/ML 4 ML VIAL IV STA (00:30)
[2018-06-25] MEDS: PIPERACILLIN-TAZOBACTAM 3.375 GM in SODIUM CHLORIDE 0.9% 100 ML IVPB SCH ×3 (00:47→17:00)
[2018-06-25 02:00] LABS: ABG Base Excess 7.3 mmol/L; ABG HCO3 33 mmol/L (21-25); ABG Oxygen Saturation 88.6 % (94-97); ABG PCO2 55 mmHg (35-45); ABG PH 7.38 (7.35-7.45); ABG PO2 60 mmHg (83-108); ABG TCO2 34 mmol/L (19-24)
--- NOTE | 2018-06-25 02:24 | XR ---
EXAM: XR Chest, 1 View CLINICAL HISTORY: ITS.REASON XR Reason: low pulse ox TECHNIQUE: Frontal view of the chest. COMPARISON: Chest radiograph on 06/24/2018 FINDINGS: Hardware: Stable right-sided PICC line which terminates in the region of the SVC. Lungs/pleura: Increased right greater than left pleural effusions with increased consolidation at the lung bases which may represent atelectasis versus pneumonia. Similar patchy opacities in the right upper and midlung with concern for right upper lobe bulla versus cavitation. Heart/mediastinum: Stable. Soft tissues: Unremarkable. Bones: No acute fracture. Degenerative changes of the acromioclavicular joints and spine. Upper abdomen: Normal. IMPRESSION: Increased right greater than left pleural effusions with increased consolidation at the lung bases which may represent atelectasis versus pneumonia. Similar patchy opacities in the right upper and midlung with concern for right upper lobe bulla versus cavitation.
[2018-06-25 02:28] LABS: Glucose,Whole Blood 139 mg/dL (75-99)
[2018-06-25] MEDS ORDERED: SODIUM CHLORIDE 0.9% 2,000 ML IV ONE (03:04)
[2018-06-25] MEDS ORDERED: NALOXONE 0.4 MG/ML 1 ML VIAL IV PRN (03:04)
--- NOTE | 2018-06-25 03:24 | XR ---
EXAM: XR Chest, 1 View CLINICAL HISTORY: ITS.REASON XR Reason: intubation TECHNIQUE: Frontal view of the chest. COMPARISON: Chest radiograph on 06/25/2018 at 156 hours FINDINGS: Hardware: Interval placement of an endotracheal tube which terminates in the region of the mid thoracic trachea. Stable right-sided Port-A- Cath. Lungs/pleura: Decreased right basilar opacity/consolidation. Similar left basilar opacity with persistent small left pleural effusion. Stable patchy opacities in the right upper and midlung with bulla versus cavitation. Heart/mediastinum: Normal. No cardiomegaly. Soft tissues: Unremarkable. Bones: No acute fracture. Degenerative changes of the acromioclavicular joints and spine. Upper abdomen: Normal. IMPRESSION: 1. Interval placement of an endotracheal tube which terminates in the region of the mid thoracic trachea. 2. Decreased right basilar opacity/consolidation. Similar left basilar opacity with persistent small left pleural effusion. Stable patchy opacities in the right upper and midlung with bulla versus cavitation.
[2018-06-25] MEDS: PROPOFOL 1,000 MG in EMPTY BAG 1 BAG IV SCH ×2 (03:27→17:00)
[2018-06-25] MEDS: SODIUM CHLORIDE 0.9% 1,000 ML IV SCH ×3 (03:29→17:01)
[2018-06-25 04:14] LABS: ABG Base Excess 5.3 mmol/L; ABG HCO3 30 mmol/L (21-25); ABG Oxygen Saturation 99.5 % (94-97); ABG PCO2 52 mmHg (35-45); ABG PH 7.38 (7.35-7.45); ABG PO2 170 mmHg (83-108); ABG TCO2 32 mmol/L (19-24)
[2018-06-25 05:40] LABS: Anion Gap 3 mmol/L; Blood Urea Nitrogen 16 mg/dL (9-20); Calcium 6.8 mg/dL (8.4-10.2); Carbon Dioxide 20 mmol/L (22-30); Chloride 119 mmol/L (98-107); Glucose 74 mg/dL (74-99); Magnesium 1.2 mg/dL (1.6-2.3); Phosphorus 2.4 mg/dL (2.5-4.5); Sodium 142 mmol/L (137-145)
[2018-06-25 05:44] LABS: Potassium 2.2 mmol/L (3.5-5.1)
[2018-06-25] MEDS ORDERED: Potassium Replacement Protocol 1 EACH MISC MISCELLANE PRN ×2 (05:54→19:58)
[2018-06-25] MEDS ORDERED: Magnesium Replacement Protocol 1 EACH MISC MISCELLANE PRN (05:55)
[2018-06-25] MEDS ORDERED: POTASSIUM PHOSPHATE 10 MMOL in SODIUM CHLORIDE 0.9% 250 ML IV ONE (05:56)
[2018-06-25] MEDS ORDERED: Phosphorus Replacement Protoco 1 EACH MISC MISCELLANE PRN (05:56)
[2018-06-25] MEDS ORDERED: SODIUM CHLORIDE 0.9% 1,000 ML IV ONE ×3 (06:27→19:07)
[2018-06-25 06:42] LABS: Anisocytosis Slight; Hypochromasia Marked; MCH 25.8 pg (25.0-35.0); MCHC 30.2 g/dL (31.0-37.0); Mean Platelet Volume 7.4; Platelet Count 256 k/uL (150-450); RBC 2.29 m/uL (4.30-5.90); RDW 18.9 % (11.5-15.5); WBC 11.4 k/uL (3.8-10.6)
[2018-06-25 07:14] LABS: HCT 19.5 % (39.0-53.0); HGB 5.9 gm/dL (13.0-17.5)
[2018-06-25 07:15] LABS: MCV 85.2 fL (80.0-100.0)
[2018-06-25] MEDS: IPRATROPIUM-ALBUTEROL 3 ML NEB INHALATION SCH ×5 (07:42→23:39)
[2018-06-25 08:23] LABS: Band Neutrophils % 19 %; Lymphocytes # (M) 0.46 k/uL (1.0-4.8); Monocytes # (M) 0.46 k/uL (0-1.0); Neutrophils % (M) 74 %; Nucleated Red Blood Cells 0 /100 WBC (0-0); Total Cells Counted 200
[2018-06-25 08:24] LABS: Dohle Bodies Present; Toxic Granulation Present
[2018-06-25] MEDS: POTASSIUM CHLORIDE ER 20 MEQ TAB.ER PO SCH (08:37)
[2018-06-25] MEDS: SERTRALINE 50 MG TAB PO SCH (08:37)
[2018-06-25] MEDS: MAGNESIUM SULFATE-D5W PMX 1 GM in DEXTROSE/WATER 1 100ML.BAG IVPB SCH ×3 (08:39→11:14)
[2018-06-25] MEDS: CHLORHEXIDINE GLUCONATE 15 ML CUP MUCOUS MEM SCH ×2 (08:39→20:11)
[2018-06-25] MEDS: PANTOPRAZOLE 40 MG/10 ML VIAL IV SCH (08:39)
[2018-06-25] MEDS: POTASSIUM CHLORIDE 10 MEQ in WATER FOR INJECTION 1 100ML.BAG IVPB SCH ×6 (08:40→14:52)
[2018-06-25] MEDS ORDERED: ETOMIDATE 2 MG/ML 10 ML VIAL ONE (10:25)
[2018-06-25] MEDS ORDERED: SUCCINYLCHOLINE CHLORIDE VIAL 200 MG/10 ML VIAL IV ONE (10:25)
--- NOTE | 2018-06-25 10:25 | P.CNPUL ---
History of Present Illness Consult date: 06/25/18 Requesting physician: Gus Herrera Jr Reason for consult: dyspnea, hypoxemia, lung mass, abnormal CXR/CT Chief complaint: Acute hypoxemic respiratory failure, altered mental status History of present illness: This is a 67-year-old white male patient of Dr. 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 Sánchez, Most recent PET scan on 06/04/2018 showed new metastatic disease in the lungs, with a new pulmonary cavitary lesion as well as nodules, metastatic osseous metastases in the thoracic spine through T3, T9, T10 and T11, pathological fracture from extensive tumor destruction in the mandible. Patient has received radiation treatments, he refused further radiation treatments, he was considering immunotherapy with Opdivo. He has a PEG tube in place, for feedings. He resides with his fiance, he continues to smoke, he does have a history of heavy EtOH use, drinking only occasionally now. Patient came into [facility] on 06/23/2018 for decreased level of consciousness. Patient is a poor historian, his family denied any recent history of fever, chills or sweats. He was recently treated for dehydration. Chest x-ray on admission showed persistent thick-walled cavitary right upper lobe mass unchanged from previous exams. Showed a new left basilar acute infiltrate and/or atelectasis, and probable small left pleural effusion. EKG showed normal sinus rhythm with evidence of a septal infarct, undetermined age. Follow-up chest x-ray on 06/24/2018 showed metastatic disease, diffuse nodularity within the lungs, increased interstitium, Nader a lesion in the right upper lobe. Was initially admitted to the stepdown floor, but apparently last night rapid response team was called, for deteriorating mental status and level of consciousness, and hypoxemic respiratory failure, patient was placed on the 100% nonrebreather, she was moved to the intensive care unit, blood gas showed a pO2 of 60, pCO2 55, and pH of 7.38, this was done on the 100% FiO2, patient was placed on the interval, however that did not seem to help, and patient subsequently was intubated and placed on a mechanical ventilator. This morning he seen in the intensive care unit, intubated, sedated, current vent settings are assist-control mode with a rate of 20, tidal volume of 450, FiO2 of 60% and PEEP of 5, this morning's blood gases showed pO2 of 170, pCO2 of 52, and pH of 7.38, this was done on 100% FiO2 and subsequently FiO2 was dropped down to 60%. Initial blood work showed leukocytosis, with white blood cell count of 17.4, hemoglobin is 7.3, sodium is 134, potassium is 3.4, chloride is 96, CO2 is 34, B1 is 27, creatinine 0.71, plasma lactic acid is 1.4, ammonia level was less than 9, alkaline phosphatase w as 222, AST was 47, ALT 62, troponin was negative at 0.033, urine. Urine drug screen was negative, influenza was not detected, urinalysis was negative for glucose, nitrates, showed rare bacteria, urine white blood cell count was only 3. No significant evidence of infection. His blood work today has been reviewed, showed white blood cell count of 11.4, hemoglobin is 5.9, no obvious source of bleeding. Current diabetes appointment normal saline at a rate of 150 ML per hour, Diprivan is at 15 mics per kilo per minute, patient has left abdominal PEG tube with signs of ulceration around the insertion site, we'll hold the PEG tube feedings right now, we're told that there has been leaking around the tube feedings around the insertion site. No fever, patient is hypotensive, we'll continue with IV fluids, and patient will receive a unit of packed red blood cells this morning. Review of Systems All systems: negative Constitutional: Reports lethargy, Reports weakness, Denies chills, Denies fever Eyes: denies blurred vision, denies pain Ears, nose, mouth and throat: Denies headache, Denies sore throat Cardiovascular: Denies chest pain, Denies shortness of breath Respiratory: Denies cough Gastrointestinal: Reports constipation, Denies abdominal pain, Denies diarrhea, Denies nausea, Denies vomiting Musculoskeletal: Denies myalgias Integumentary: Denies pruritus, Denies rash Neurological: Denies numbness, Denies weakness Psychiatric: Denies anxiety, Denies depression Endocrine: Denies fatigue, Denies weight change Past Medical History Past Medical History: Cancer Additional Past Medical History / Comment(s): Cancer: PV of the jaw, History of Any Multi-Drug Resistant Organisms: None Reported Additional Past Surgical History / Comment(s): Left eye removed at age 6, left sided jaw biopsy, Past Anesthesia/Blood Transfusion Reactions: No Reported Reaction Past Psychological History: No Psychological Hx Reported Additional Psychological History / Comment(s): Pt. lives alone but brayan states she has been making him stay with her lately due to his health. (Looking to get but patient's brayan's son has cancer and has been dealing with that). Somewhat a poor historian - mildly forgetful. He has difficulty completing complex thoughts. Smoking Status: Current every day smoker Past Alcohol Use History: None Reported Additional Past Alcohol Use History / Comment(s): Pt. has history of heavy etoh use - reports drinking occassionally now. Pt. is a smoker - 1.5 PPD. Sometimes more is been smoking since his early teenage years. No experience. No extensive travel. His exposure to one dog, 4 cats and 2 birds, his fiance's caring for them while he is hospitalized Past Drug Use History: None Reported - Past Family History Father Family Medical History: Cancer Additional Family Medical History / Comment(s): Lung cancer - . Mother Family Medical History: No Reported History Additional Family Medical History / Comment(s): Mother is still living and doesn't have many issues. Medications and Allergies Home Medications Medication Instructions Recorded Confirmed Type Sertraline HCl [Zoloft] 50 mg PO DAILY #30 tablet 06/12/18 06/23/18 Rx Amoxicillin 875 mg PO BID 06/23/18 06/23/18 History Potassium Chloride [Klor-Con 20 20 meq PO DAILY 06/23/18 06/23/18 History Packets] Allergies Allergy/AdvReac Type Severity Reaction Status Date / Time No Known Allergies Allergy Verified 06/23/18 14:35 Physical Exam Vitals: Vital Signs Temp Pulse Pulse Resp BP BP Pulse Ox 06/25/18 09:00 79 29 H 82/50 93 L 06/25/18 08:30 76 26 H 79/50 95 06/25/18 08:00 98.9 F 74 25 H 79/49 96 06/25/18 07:57 75 06/25/18 07:43 73 06/25/18 07:30 77 25 H 85/53 96 06/25/18 07:00 73 24 90/51 97 06/25/18 06:30 74 24 82/50 98 06/25/18 06:00 77 26 H 82/50 96 06/25/18 05:30 74 27 H 95/52 92 L 06/25/18 05:00 76 28 H 101/72 92 L 06/25/18 04:30 89 11 L 102/56 96 06/25/18 04:00 91 21 112/65 97 06/25/18 03:30 87 20 91/56 96 06/25/18 03:01 98.7 F 93 13 88/54 94 L 06/25/18 02:53 113 H 46 H 89/67 75 L 06/25/18 02:30 80 L 06/25/18 02:00 81 L 06/25/18 00:48 92 L 06/25/18 00:25 98.8 F 117 H 32 H 117/55 92 L 06/24/18 20:08 93 L 06/24/18 20:00 22 06/24/18 15:16 86 L 06/24/18 15:00 98.4 F 120 H 22 111/54 94 L Intake and Output 06/24/18 06/25/18 06/25/18 22:59 06:59 14:59 Intake Total 3607.757 3250 Output Total 475 160 Balance 3132.757 3090 Intake: IV 3250 Magnesium Sulfate-D5w Pmx 100 1 gm In Dextrose/Water 1 100ml.bag @ 100 mls/hr IVPB Q1H [facility] Rx#: [id number] Sodium Chloride 0.9% 1, 150 000 ml @ 150 mls/hr IV . Q6H40M [facility] Rx#:[id number] Sodium Chloride 0.9% 2, 3000 000 ml @ 999 mls/hr IV . Q2H1M [facility] Rx#:[id number] Intake, IV Titration 3607.757 Amount Piperacillin-Tazobactam 3 25 .375 gm In Sodium Chloride 0.9% 100 ml @ 25 mls/hr IVPB Q8HR [facility] Rx# :[id number] Potassium Phosphate 10 125 mmol In Sodium Chloride 0 .9% 250 ml @ 125 mls/hr IV ONCE [facility] Rx#:[id number] Propofol 1,000 mg In 7.757 Empty Bag 1 bag @ Titrate IV .Q0M [facility] Rx#: [id number] Sodium Chloride 0.9% 1, 450 000 ml @ 150 mls/hr IV . Q6H40M [facility] Rx#:[id number] Sodium Chloride 0.9% 2, 3000 000 ml @ 999 mls/hr IV . Q2H1M [facility] Rx#:[id number] Output: Urine 475 160 Other: Voiding Method Diaper Indwelling Catheter # Voids 1 GENERAL EXAM: 67-year-old cachectic white male, chronically ill-looking, intubated on mechanical ventilator, comfortable in no apparent distress. HEAD: Normocephalic/atraumatic. EYES: Normal reaction of pupils, equal size. Conjunctiva pink, sclera white. NOSE: Clear with pink turbinates. THROAT: No erythema or exudates. NECK: No masses, no JVD, no thyroid enlargement, no adenopathy. CHEST: No chest wall deformity. Symmetrical expansion. LUNGS: Equal air entry with no crackles, wheeze, rhonchi or dullness. CVS: Regular rate and rhythm, normal S1 and S2, no gallops, no murmurs, no rubs ABDOMEN: Soft, nontender. No hepatosplenomegaly, normal bowel sounds, no guarding or rigidity. Patient has a left abdominal PEG tube in place, with ulceration around the insertion site, and leaking of the tube feedings. EXTREMITIES: No clubbing, no edema, no cyanosis, 2+ pulses and upper and lower extremities. MUSCULOSKELETAL: Muscle strength and tone weak, patient has signs of wasting and cachexia SPINE: No scoliosis or deformity SKIN: No rashes CENTRAL NERVOUS SYSTEM: Sedated No focal deficits, tone is normal in all 4 extremities. Results - Laboratory Findings CBC and BMP: 06/25/18 06:25 06/25/18 04:18 ABG ABG pH 7.38 (7.35-7.45) 06/25/18 04:12 ABG pCO2 52 mmHg (35-45) H 06/25/18 04:12 ABG pO2 170 mmHg (83-108) H 06/25/18 04:12 ABG O2 Saturation 99.5 % (94-97) H 06/25/18 04:12 PT/INR, D-dimer PT 12.0 sec (9.0-12.0) 06/23/18 13:07 INR 1.1 (<1.2) 06/23/18 13:07 Abnormal lab findings: Abnormal Labs 06/23/18 06/23/18 06/24/18 13:07 13:07 09:30 WBC 17.4 H RBC 2.87 L Hgb 7.3 L Hct 22.8 L MCV 79.6 L MCHC RDW 19.0 H Neutrophils # (Manual) 16.50 H Lymphocytes # (Manual) 0.52 L ABG pCO2 ABG pO2 ABG HCO3 ABG Total CO2 ABG O2 Saturation Sodium 134 L Potassium 3.4 L Chloride 96 L Carbon Dioxide 34 H BUN 27 H Creatinine Glucose 105 H POC Glucose (mg/dL) Calcium 11.2 H Phosphorus Magnesium Alkaline Phosphatase 222 H Creatine Kinase 25 L Total Protein 5.1 L Albumin 2.1 L Urine Protein Trace H Ur Squamous Epith Cells 11 H Amorphous Sediment Rare H Urine Bacteria Rare H Urine Mucus Rare H 06/25/18 06/25/18 06/25/18 01:54 02:26 04:12 WBC RBC Hgb Hct MCV MCHC RDW Neutrophils # (Manual) Lymphocytes # (Manual) ABG pCO2 55 H 52 H ABG pO2 60 L 170 H ABG HCO3 33 H 30 H ABG Total CO2 34 H 32 H ABG O2 Saturation 88.6 L 99.5 H Sodium Potassium Chloride Carbon Dioxide BUN Creatinine Glucose POC Glucose (mg/dL) 139 H Calcium Phosphorus Magnesium Alkaline Phosphatase Creatine Kinase Total Protein Albumin Urine Protein Ur Squamous Epith Cells Amorphous Sediment Urine Bacteria Urine Mucus 06/25/18 06/25/18 04:18 06:25 WBC 11.4 H RBC 2.29 L Hgb 5.9 L* Hct 19.5 L* MCV MCHC 30.2 L RDW 18.9 H Neutrophils # (Manual) 10.60 H Lymphocytes # (Manual) 0.46 L ABG pCO2 ABG pO2 ABG HCO3 ABG Total CO2 ABG O2 Saturation Sodium Potassium 2.2 L* Chloride 119 H Carbon Dioxide 20 L BUN Creatinine 0.64 L Glucose POC Glucose (mg/dL) Calcium 6.8 L Phosphorus 2.4 L Magnesium 1.2 L Alkaline Phosphatase Creatine Kinase Total Protein Albumin Urine Protein Ur Squamous Epith Cells Amorphous Sediment Urine Bacteria Urine Mucus - Diagnostic Findings Chest x-ray: report reviewed Additional studies: EKG reviewed Assessment and Plan Plan: Assessment: #1. Acute hypoxemic respiratory failure secondary to altered mental status, and there is a possibility of right basilar pneumonia, related to aspiration. Chest x-ray to do a large right upper lobe cavitary lesion, and diffuse nodular infiltrates bilaterally, more so in the right lung, could be related to pneumonia, or lymphangitic infiltrates. #2. Acute on chronic anemia, with no clear evidence of bleeding, could be related to hemodilution, but in view of patient's retention will transfused with 1 unit of packed red blood cells #3. Metastatic squamous cell carcinoma of the head and neck, and most recent PET scan showed a new right upper lobe cavitary lesion, involvement of the thoracic spine, left mandible, maxilla. She is status post chemotherapy and radiation, and most recently considering immunotherapy, follows with Dr. Sánchez #4. PEG tube in place, nutritional support, and it has evidence of ulceration around the insertion site and we can of tube feedings #5. Protein calorie malnutrition #6. Current smoker, #7. History of EtOH use Plan: We'll continue with current antibiotic coverage, Levaquin and Zosyn, we'll send blood cultures, sputum culture and urine culture. She will receive a unit of blood, continue with IV hydration with 0.9 normal saline at a rate of 150, will hold tube feedings for now, will consult GI service in regards to the leaking of tube feedings around the PEG tube site, and DVT prophylaxis, overall prognosis is poor, we did speak to the patient's mother and patient's fiance, who does not seem to clearly understand patient's diagnosis, and poor prognosis. They insist on full code right now. Continue with supportive medical treatment. I performed a history & physical examination of the patient and discussed their management with my nurse practitioner, Aida Montgomery. I reviewed the nurse eder holbrook's note and agree with the documented findings and plan of care. Lung sounds are positive for coarse lung sounds The findings and the impression was discussed with the patient. I attest to the documentation by the nurse practitioner. Time with Patient: Greater than 30
--- NOTE | 2018-06-25 11:57 | P.CONS ---
History of Present Illness - Reason for Consult Consult date: 06/25/18 PEG tube leakage Requesting physician: Casimiro Diamond - Chief Complaint Change in mental status - History of Present Illness 67-year-old gentleman with a history of squamous cell carcinoma head and neck moderately differentiated with extensive metastatic osseous pulmonary disease, protein calorie malnutrition with PEG tube prealbumin 2 weeks ago less than 5, normocytic anemia, admitted with mental status changes acute respiratory failure possible pneumonia possible aspiration. Patient intubated history obtained from nursing and medical records. PEG tube inserted 04/06/2018 for protein calorie malnutrition and inability to meet oral need secondary to head and neck carcinoma. Nursing noticed drainage and excoriation around PEG tube site consult requested for evaluation. No bleeding around site intermittent drainage of clear serous sometimes thicker white yellowish drainage. Receiving tube feeds and medications through PEG tube. Presently white count 11.4. Serum albumin 2.1. BMI 20. Hemoglobin 5.9. No active bleeding such as hematemesis hematochezia or melena. No fevers. Chest x-ray endotracheal tube in place. Decreased right basilar opacity co nsolidation. Similar left basilar opacity with persistent small pleural effusion. Review of Systems Obtained from medical records Constitutional: Denies fever, chills, sweats, weight gain, or loss. Admitted with mental status changes. HEENT: Positive for head and neck carcinoma with metastatic disease. Dysphagia secondary to carcinoma. Cardiac: Negative for chest pain, arrhythmias, or palpitation. Respiratory: Negative for shortness of breath, hemoptysis, cough, or sputum production. Gastrointestinal: See HPI for pertinent findings. Genitourinary: Negative for hematuria, urgency, frequency, polyuria, dysuria, or penile discharge. Musculoskeletal: Negative for muscle aches, swelling, arthritis, and arthralgias. Neurologic: Negative for stroke or TIA. Endocrine: Negative for thyroid problems. Skin: Negative for rash or itching. Psychiatric: Negative history for depression and anxiety ROS unobtainable: due to endotracheal tube Past Medical History Past Medical History: Cancer Additional Past Medical History / Comment(s): Cancer: PV of the jaw, History of Any Multi-Drug Resistant Organisms: None Reported Additional Past Surgical History / Comment(s): Left eye removed at age 6, left sided jaw biopsy, Past Anesthesia/Blood Transfusion Reactions: No Reported Reaction Past Psychological History: No Psychological Hx Reported Additional Psychological History / Comment(s): Pt. lives alone but fiancee stat es she has been making him stay with her lately due to his health. (Looking to get but patient's brayan's son has cancer and has been dealing with that). Somewhat a poor historian - mildly forgetful. He has difficulty completing complex thoughts. Smoking Status: Current every day smoker Past Alcohol Use History: None Reported Additional Past Alcohol Use History / Comment(s): Pt. has history of heavy etoh use - reports drinking occassionally now. Pt. is a smoker - 1.5 PPD. Sometimes more is been smoking since his early teenage years. No experience. No extensive travel. His exposure to one dog, 4 cats and 2 birds, his fiance's caring for them while he is hospitalized Past Drug Use History: None Reported - Past Family History Father Family Medical History: Cancer Additional Family Medical History / Comment(s): Lung cancer - . Mother Family Medical History: No Reported History Additional Family Medical History / Comment(s): Mother is still living and doesn't have many issues. Medications and Allergies Home Medications Medication Instructions Recorded Confirmed Type Sertraline HCl [Zoloft] 50 mg PO DAILY #30 tablet 06/12/18 06/23/18 Rx Amoxicillin 875 mg PO BID 06/23/18 06/23/18 History Potassium Chloride [Klor-Con 20 20 meq PO DAILY 06/23/18 06/23/18 History Packets] Allergies Allergy/AdvReac Type Severity Reaction Status Date / Time No Known Allergies Allergy Verified 06/23/18 14:35 Physical Exam Vitals: Vital Signs Temp Pulse Pulse Resp BP BP Pulse Ox 06/25/18 11:37 76 06/25/18 11:18 84 06/25/18 11:00 73 27 H 78/45 97 06/25/18 10:30 85 15 80/43 97 06/25/18 10:00 79 27 H 82/49 95 06/25/18 09:30 74 27 H 86/54 93 L 06/25/18 09:00 79 29 H 82/50 93 L 06/25/18 08:30 76 26 H 79/50 95 06/25/18 08:00 98.9 F 74 25 H 79/49 96 06/25/18 07:57 75 06/25/18 07:43 73 06/25/18 07:30 77 25 H 85/53 96 06/25/18 07:00 73 24 90/51 97 06/25/18 06:30 74 24 82/50 98 06/25/18 06:00 77 26 H 82/50 96 06/25/18 05:30 74 27 H 95/52 92 L 06/25/18 05:00 76 28 H 101/72 92 L 06/25/18 04:30 89 11 L 102/56 96 06/25/18 04:00 91 21 112/65 97 06/25/18 03:30 87 20 91/56 96 06/25/18 03:01 98.7 F 93 13 88/54 94 L 06/25/18 02:53 113 H 46 H 89/67 75 L 06/25/18 02:30 80 L 06/25/18 02:00 81 L 06/25/18 00:48 92 L 06/25/18 00:25 98.8 F 117 H 32 H 117/55 92 L 06/24/18 20:08 93 L 06/24/18 20:00 22 06/24/18 15:16 86 L 06/24/18 15:00 98.4 F 120 H 22 111/54 94 L Intake and Output 06/24/18 06/25/18 06/25/18 22:59 06:59 14:59 Intake Total 3607.757 3830.088 Output Total 475 255 Balance 3132.757 3575.088 Intake: IV 3800 Magnesium Sulfate-D5w Pmx 200 1 gm In Dextrose/Water 1 100ml.bag @ 100 mls/hr IVPB Q1H [facility] Rx#: [id number] Potassium Chloride 10 meq 200 In Water For Injection 1 100ml.bag @ 100 mls/hr IVPB Q1HR [facility] Rx#: [id number] Potassium Phosphate 10 250 mmol In Sodium Chloride 0 .9% 250 ml @ 125 mls/hr IV ONCE [facility] Rx#:[id number] Sodium Chloride 0.9% 1, 150 000 ml @ 150 mls/hr IV . Q6H40M [facility] Rx#:[id number] Sodium Chloride 0.9% 2, 3000 000 ml @ 999 mls/hr IV . Q2H1M [facility] Rx#:[id number] Intake, IV Titration 3607.757 30.088 Amount Piperacillin-Tazobactam 3 25 .375 gm In Sodium Chloride 0.9% 100 ml @ 25 mls/hr IVPB Q8HR [facility] Rx# :[id number] Potassium Phosphate 10 125 mmol In Sodium Chloride 0 .9% 250 ml @ 125 mls/hr IV ONCE [facility] Rx#:[id number] Propofol 1,000 mg In 7.757 30.088 Empty Bag 1 bag @ Titrate IV .Q0M [facility] Rx#: [id number] Sodium Chloride 0.9% 1, 450 000 ml @ 150 mls/hr IV . Q6H40M [facility] Rx#:[id number] Sodium Chloride 0.9% 2, 3000 000 ml @ 999 mls/hr IV . Q2H1M [facility] Rx#:[id number] Output: Urine 475 255 Other: Voiding Method Diaper Indwelling Catheter Indwelling Catheter # Voids 1 Weight 60.6 kg General appearance: The patient is intubated sedated. HET: Head is normocephalic and atraumatic. Pupils are equal and reactive. Obvious external head neck cancer with open wound to left-sided face. Neck: Supple without lymphadenopathy. Trachea midline. Heart: S1 S2. Regular rate and rhythm. Lungs: No crackles or wheezes are heard. Abdomen: Soft, PEG tube intact but loose with serous clear drainage emanating around site no bleeding or hematoma, excoriation around PEG site secondary to drainage, nondistended with bowel sounds. No peritoneal signs. No palpable organomegaly or masses. Extremities: Normal skin color and turgor. No cyanosis, rash, ulceration, clubbing, or edema. Radial and pedal pulses are 2/4 bilaterally. Neurological: Unable to assess intubated sedated. Results CBC & Chem 7: 06/25/18 06:25 06/25/18 04:18 Labs: Abnormal Lab Results - Last 24 Hours (Table) 06/25/18 06/25/18 06/25/18 Range/Units 01:54 02:26 04:12 WBC (3.8-10.6) k/uL RBC (4.30-5.90) m/uL Hgb (13.0-17.5) gm/dL Hct (39.0-53.0) % MCHC (31.0-37.0) g/dL RDW (11.5-15.5) % Neutrophils # (Manual) (1.3-7.7) k/uL Lymphocytes # (Manual) (1.0-4.8) k/uL ABG pCO2 55 H 52 H (35-45) mmHg ABG pO2 60 L 170 H (83-108) mmHg ABG HCO3 33 H 30 H (21-25) mmol/L ABG Total CO2 34 H 32 H (19-24) mmol/L ABG O2 Saturation 88.6 L 99.5 H (94-97) % Potassium (3.5-5.1) mmol/L Chloride (98-107) mmol/L Carbon Dioxide (22-30) mmol/L Creatinine (0.66-1.25) mg/dL POC Glucose (mg/dL) 139 H (75-99) mg/dL Calcium (8.4-10.2) mg/dL Phosphorus (2.5-4.5) mg/dL Magnesium (1.6-2.3) mg/dL 06/25/18 06/25/18 Range/Units 04:18 06:25 WBC 11.4 H (3.8-10.6) k/uL RBC 2.29 L (4.30-5.90) m/uL Hgb 5.9 L* (13.0-17.5) gm/dL Hct 19.5 L* (39.0-53.0) % MCHC 30.2 L (31.0-37.0) g/dL RDW 18.9 H (11.5-15.5) % Neutrophils # (Manual) 10.60 H (1.3-7.7) k/uL Lymphocytes # (Manual) 0.46 L (1.0-4.8) k/uL ABG pCO2 (35-45) mmHg ABG pO2 (83-108) mmHg ABG HCO3 (21-25) mmol/L ABG Total CO2 (19-24) mmol/L ABG O2 Saturation (94-97) % Potassium 2.2 L* (3.5-5.1) mmol/L Chloride 119 H (98-107) mmol/L Carbon Dioxide 20 L (22-30) mmol/L Creatinine 0.64 L (0.66-1.25) mg/dL POC Glucose (mg/dL) (75-99) mg/dL Calcium 6.8 L (8.4-10.2) mg/dL Phosphorus 2.4 L (2.5-4.5) mg/dL Magnesium 1.2 L (1.6-2.3) mg/dL Microbiology - Last 24 Hours (Table) 06/25/18 03:05 Sputum Culture - Preliminary Sputum 06/23/18 13:07 Blood Culture - Preliminary Blood No Growth after 24 hours Chest x-ray: report reviewed (Dr. Avelar) Assessment and Plan Assessment: Impression: 1. PEG tube drainage secondary to malposition; bumper on PEG tube was adjusted drainage has temporarily ceased. 2. Acute mental status changes with acute respiratory failure possible pneumonia possible aspiration. 3. Metastatic adenocarcinoma pulmonary osseous metastasis. 4. Severe protein calorie malnutrition prealbumin 06/09/18 less than 5. 5. Chronic anemia no active GI bleeding. Plan: 1. PEG tube bumper was loose and adjusted. Site was monitored for 10 minutes with no obvious drainage. PEG tube was flushed without leakage. Continue with tube feeds as previously advised. Continue to use for medications as needed. We'll follow with you. Thank you for this kind referral and the opportunity to participate in the care of your patient. This consultation was discussed with Dr. Avelar. The impression and plan of care have been directed as dictated.
[2018-06-25 12:08] LABS: Glucose,Whole Blood 135 mg/dL (75-99)
--- NOTE | 2018-06-25 14:10 | CDI ---
Documentation Clarification Form Date: 06/25/2018 1:34:51 PM From: Shelley Syed RN CCDS Admit Date: 06/23/2018 5:54:00 PM Patient Name: Nikhil Avila Visit Number: [id number] Discharge Date: ATTENTION: The Clinical Documentation Specialists (CDI) and [facility] Coding Staff appreciate your assistance in clarifying documentation. Please respond to the clarification below the line at the bottom and electronically sign. The CDI & [facility] Coding staff will review the response and follow-up if needed. Please note: Queries are made part of the Legal Health Record. If you have any questions, please contact the author of this message via ITS. Dr. Gus Herrera Decreased Level of Consciousness was documented in the H & P History/Risk Factors: 67 y/o male presents to the ED via EMS for Altered Mental Status Clinical Indicators: Medical history Metastatic Oral Cancer with Peg Tube, Labs: Wbc 17.4, Hgb 7.3, Neutrophils 16.50; Na 134, K 3.4, chl 96, Carbon dioxide 34, bun 27, calcium 11.2, alk phos 222, cr kinase 25, trop 0.033, total protein 5.1 Albumin 2.1 ; CXR : Persistent thick-walled cavitary right upper lobe mass not significantly changed from prior.New left basilar acute infiltrate and/or atelectasis and probable small left pleural effusion. Consults GI, Oncology, Pulmonology, ICU MGT; Treatment: Albuterol; Levaquin IVPB; Zosyn Ivpb, Intubated in ICU In your professional opinion, please clarify the etiology of the Decreased Level of Consciousness, if known. * Metabolic Encephalopathy specify cause if known * Other condition (please specify) * Unable to determine (Last Revision: July 2017) MTDD
--- NOTE | 2018-06-25 14:25 | P.PN ---
Subjective Progress Note Date: 06/25/18 Principal diagnosis: Squamous cell carcinoma head/ neck 67-year-old male patient known to Dr. Heredia presented with mental status changes and decreased level of consciousness with an open necrotic lesion to the neck and metastatic disease to the lung. This patient is currently being fed via PEG tube has been admitted with dehydration, mental status change and decreased level of consciousness. Patient has failed chemotherapy field radiation therapy and was noted that at [facility] he was offered an opportunity to trial on medium biologic as a last effort. It was discussed with his loved ones that his prognosis is grave and that intubating placing patient on a vent in the not something that would be appropriate however this was insisted upon and patient is currently on ventilator Objective - Vital Signs Vital signs: Vital Signs Temp 98.5 F 06/25/18 13:56 Pulse 67 06/25/18 14:00 Resp 26 H 06/25/18 14:00 BP 84/52 06/25/18 14:00 Pulse Ox 95 06/25/18 14:00 Intake & Output 06/24/18 06/25/18 06/25/18 18:59 06:59 18:59 Intake Total 3607.757 5480.088 Output Total 475 450 Balance 3132.757 5030.088 Weight 60.6 kg 60.6 kg Intake: IV 5450 Magnesium Sulfate-D5w Pmx 300 1 gm In Dextrose/Water 1 100ml.bag @ 100 mls/hr IVPB Q1H [facility] Rx#: [id number] Piperacillin-Tazobactam 3 100 .375 gm In Sodium Chloride 0.9% 100 ml @ 25 mls/hr IVPB Q8HR [facility] Rx# :[id number] Potassium Chloride 10 meq 500 In Water For Injection 1 100ml.bag @ 100 mls/hr IVPB Q1HR [facility] Rx#: [id number] Potassium Phosphate 10 250 mmol In Sodium Chloride 0 .9% 250 ml @ 125 mls/hr IV ONCE ONE Rx#:[id number] Sodium Chloride 0.9% 1, 300 000 ml @ 150 mls/hr IV . Q6H40M [facility] Rx#:[id number] Sodium Chloride 0.9% 1, 1000 000 ml @ 999 mls/hr IV . Q1H1M [facility] Rx#:[id number] Sodium Chloride 0.9% 2, 3000 000 ml @ 999 mls/hr IV . Q2H1M [facility] Rx#:[id number] Intake, IV Titration 3607.757 30.088 Amount Piperacillin-Tazobactam 3 25 .375 gm In Sodium Chloride 0.9% 100 ml @ 25 mls/hr IVPB Q8HR [facility] Rx# :[id number] Potassium Phosphate 10 125 mmol In Sodium Chloride 0 .9% 250 ml @ 125 mls/hr IV ONCE ONE Rx#:[id number] Propofol 1,000 mg In 7.757 30.088 Empty Bag 1 bag @ Titrate IV .Q0M [facility] Rx#: [id number] Sodium Chloride 0.9% 1, 450 000 ml @ 150 mls/hr IV . Q6H40M [facility] Rx#:[id number] Sodium Chloride 0.9% 2, 3000 000 ml @ 999 mls/hr IV . Q2H1M [facility] Rx#:[id number] Blood Product 0 Rc As-1 Unit 0 [id number] Output: Urine 475 450 Other: Voiding Method Diaper Indwelling Catheter Indwelling Catheter # Voids 1 - Exam General: Patient does not respond respond to verbal stimuli, is semi-comatose, has a large necrotic lesion to the left side of his face and neck known metastatic disease to the lung HEENT: [PERRL. EOMI. No pharyngeal erythema or exudate.] Neck: [No adenopathy.] Cardiac: [Heart regular in rate and rhythm. No S3. No S4. No clicks, rubs. No murmur.] Lungs: [Clear to auscultation bilaterally.] Abdomen: [No mass. No organomegaly. Bowel sounds presnt and normoactive in all 4 quadrants.] PEG tube intact Extremes: [No edema no cyanosis no claudication normal pulses] : [] Musculoskeletal: [No joint erythema, edema or tenderness.] Skin: [No rash.] Neurologic: [No lateralizing deficits. CN II - XII grossly intact.] Lymphatic: [No adenopathy.] - Labs CBC & Chem 7: 06/25/18 06:25 06/25/18 04:18 Labs: Abnormal Lab Results - Last 24 Hours (Table) 06/25/18 06/25/18 06/25/18 Range/Units 01:54 02:26 04:12 WBC (3.8-10.6) k/uL RBC (4.30-5.90) m/uL Hgb (13.0-17.5) gm/dL Hct (39.0-53.0) % MCHC (31.0-37.0) g/dL RDW (11.5-15.5) % Neutrophils # (Manual) (1.3-7.7) k/uL Lymphocytes # (Manual) (1.0-4.8) k/uL ABG pCO2 55 H 52 H (35-45) mmHg ABG pO2 60 L 170 H (83-108) mmHg ABG HCO3 33 H 30 H (21-25) mmol/L ABG Total CO2 34 H 32 H (19-24) mmol/L ABG O2 Saturation 88.6 L 99.5 H (94-97) % Potassium (3.5-5.1) mmol/L Chloride (98-107) mmol/L Carbon Dioxide (22-30) mmol/L Creatinine (0.66-1.25) mg/dL POC Glucose (mg/dL) 139 H (75-99) mg/dL Calcium (8.4-10.2) mg/dL Phosphorus (2.5-4.5) mg/dL Magnesium (1.6-2.3) mg/dL Crossmatch 06/25/18 06/25/18 06/25/18 Range/Units 04:18 06:25 10:32 WBC 11.4 H (3.8-10.6) k/uL RBC 2.29 L (4.30-5.90) m/uL Hgb 5.9 L* (13.0-17.5) gm/dL Hct 19.5 L* (39.0-53.0) % MCHC 30.2 L (31.0-37.0) g/dL RDW 18.9 H (11.5-15.5) % Neutrophils # (Manual) 10.60 H (1.3-7.7) k/uL Lymphocytes # (Manual) 0.46 L (1.0-4.8) k/uL ABG pCO2 (35-45) mmHg ABG pO2 (83-108) mmHg ABG HCO3 (21-25) mmol/L ABG Total CO2 (19-24) mmol/L ABG O2 Saturation (94-97) % Potassium 2.2 L* (3.5-5.1) mmol/L Chloride 119 H (98-107) mmol/L Carbon Dioxide 20 L (22-30) mmol/L Creatinine 0.64 L (0.66-1.25) mg/dL POC Glucose (mg/dL) (75-99) mg/dL Calcium 6.8 L (8.4-10.2) mg/dL Phosphorus 2.4 L (2.5-4.5) mg/dL Magnesium 1.2 L (1.6-2.3) mg/dL Crossmatch See Detail 06/25/18 Range/Units 11:57 WBC (3.8-10.6) k/uL RBC (4.30-5.90) m/uL Hgb (13.0-17.5) gm/dL Hct (39.0-53.0) % MCHC (31.0-37.0) g/dL RDW (11.5-15.5) % Neutrophils # (Manual) (1.3-7.7) k/uL Lymphocytes # (Manual) (1.0-4.8) k/uL ABG pCO2 (35-45) mmHg ABG pO2 (83-108) mmHg ABG HCO3 (21-25) mmol/L ABG Total CO2 (19-24) mmol/L ABG O2 Saturation (94-97) % Potassium (3.5-5.1) mmol/L Chloride (98-107) mmol/L Carbon Dioxide (22-30) mmol/L Creatinine (0.66-1.25) mg/dL POC Glucose (mg/dL) 135 H (75-99) mg/dL Calcium (8.4-10.2) mg/dL Phosphorus (2.5-4.5) mg/dL Magnesium (1.6-2.3) mg/dL Crossmatch Microbiology - Last 24 Hours (Table) 06/25/18 03:05 Gram Stain - Preliminary Sputum Sputum Culture - Preliminary 06/23/18 13:07 Blood Culture - Preliminary Blood No Growth after 24 hours Assessment and Plan (1) Mass of mandible Current Visit: No Status: Acute Code(s): R22.0 - LOCALIZED SWELLING, MASS AND LUMP, HEAD SNOMED Code(s): 902961228 (2) Bone destruction Current Visit: No Status: Acute Code(s): M89.8X9 - OTHER SPECIFIED DISORDERS OF BONE, UNSPECIFIED SITE SNOMED Code(s): 54794449 (3) Oral cancer Current Visit: No Status: Acute Code(s): C06.9 - MALIGNANT NEOPLASM OF MOUTH, UNSPECIFIED SNOMED Code(s): 094577859 (4) Squamous cell carcinoma of head and neck Current Visit: No Status: Acute Priority: High Code(s): C76.0 - MALIGNANT NEOPLASM OF HEAD, FACE AND NECK SNOMED Code(s): 883266759 Plan: Discussed CODE STATUS with patient's significant other patient currently full code Duragesic patch 25 g applied to shoulder Dietary consult for tube feeding A full code was run on the patient last night he became hypoxic the tumor mass is encroaching on his airway he is not intubated and sedated We will consult Dr. Desiree isidro/onc Time with Patient: Greater than 30
[2018-06-25] MEDS: LEVOFLOXACIN 750MG-D5W PMX 750 MG in DEXTROSE/WATER 1 150ML.BAG IVPB SCH (17:01)
[2018-06-25 18:15] LABS: Glucose,Whole Blood 107 mg/dL (75-99)
[2018-06-25 19:18] LABS: Potassium 3.3 mmol/L (3.5-5.1)
[2018-06-25 19:20] LABS: Anisocytosis Slight; HCT 21.4 % (39.0-53.0); Hypochromasia Marked; MCHC 31.3 g/dL (31.0-37.0); Mean Platelet Volume 6.1; Platelet Count 243 k/uL (150-450); RBC 2.57 m/uL (4.30-5.90); RDW 18.8 % (11.5-15.5); WBC 13.5 k/uL (3.8-10.6)
[2018-06-25 19:26] LABS: HGB 6.7 gm/dL (13.0-17.5)
[2018-06-25] MEDS: POTASSIUM BICARBONATE/CIT AC 20 MEQ TABLET.EFF NG-TUBE SCH ×2 (20:11→22:35)
--- NOTE | 2018-06-25 22:11 | P.CONS ---
History of Present Illness - Reason for Consult Consult date: 06/25/18 Metastatic Cancer Requesting physician: Gus Herrera Jr - Chief Complaint Shortness of Breath - History of Present Illness Mr Avila is a pleasant white male, initially seen in consult at [facility] on 03/01/18. The patient had not had regular follow-up for a fairly prolonged period of time before his presentation. According to his significant other, he had noted a toothache and some swelling of the left side of his jaw in the or 12/31. He was seen by a dentist in 01/30 and was initially felt to have possible dental abscess. He was started on antibiotics. However this mass continued to grow fairly quickly. In addition he developed additional nodules in the left anterior chin area was subsequently ulcerated. He therefore came into the emergency room for further evaluation. He was found to have a large left sided lower oral cavity mass involving the left mandible extending into the parietal region and lower down into the neck. On exam he also had enlarged lymph nodes just posterior to this mass in the cervical chain with another lymph node palpable in the right submandibular area. The patient was seen by oral surgery are noted to have a mass in the left floor of the mouth, invading the mandible as well as the buccal mucosa with involvement of several teeth as well as necrotic , likely infected changes. The CT of the chest abdomen and pelvis on 03/02/18 showed no evidence of metastatic disease. Bone scan showed uptake only in the left mandible and maxilla. CT of the soft tissue of the neck showed a large mass in the region of the left parotid gland extending into the submandibular fossa which was not distinguishable from the parotid gland. This had a PICC line with low attenuating center with effacement of the parapharyngeal and oropharyngeal soft tissues on the left. Bilateral deep cervical adenopathy, bone destruction of the left mandible, and apical rule out abscess involving the third more on the right were also noted. The patient underwent debridement, extraction of infected teeth, and biopsy of the mass by oral surgery on 03/01/18. He also had FNA of the left neck mass. The anterior mandible bone biopsy was positive for moderately differentiated squamous carcinoma, well FNA of the neck mass showed severely atypical squamous cells suspicious for malignancy. He was originally set up to begin one cycle of chemotherapy to debulk the tumor while awaiting for teeth to be pulled, he follow-up for chemo education class with significant other, although he did not show up for his scheduled treatment or his post treatment follow-up in office. His adherence to recommendations and understanding by his girlfriend and himself is questionable, continued remediation and importance of adherence discussed numerous times with both. Recent PET scan in May revealed metastatic disease new in lungs, with a new pulmonary cavitary lesion as well as nodules, and metastatic osseous mets through T3,T9,T10,T11 and pathological fracture from extensive tumor destruction in the mandible. He progressed on council based chemotherapy and refused further radiation therapy. Because of the progression on treatment new therapy was discussed with diana, immune therapy. Next gene testing was ordered and he was refered to [facility] for additional options/opinion related to eligibilty for clinical trial. His last chemotherapy was 05/12/18. He also chose to stop radiation at this time. In May of this year he presented to emergency with concerns of worsening dehydration. He was apparently been refusing feedings via peg at home for 2 days when he was brought in, during this past visit he was proovided re-hydration, replacement of electrolytes and stabilized. This admission he was brought to emergency with decreased level of consciousness. Mr. Avila is a poor historian as well as his mother, his girlfriend was not present during time of interview this am, although in the past she has provided much of the history. His disease status has shown to be rather aggressive despite refusing further radiation his disease aggressively metastaized on last diagnostic imaging in May, new metastatic disease to bilateral lungs. The plan was to potentially initiate immune therapy or assess candidacy for clinical trial although with his rapidly declining status and recurrent recent hospitlizations it is uncertain if this would be benficial. During interview patient is intubated despite recent conversations expressing his overall poor prognosis and recommendation to evaluate our goals of care. Realistic expectations of his situation do not appear to be understood despite remediation with patients mother and girlfriend. Apparently patient became hypoxic as tumor was obstructing airway yesterday evening, subsequently he is now intubated, sedated and on ventilator support. Review of Systems ROS unobtainable: due to endotracheal tube, due to mental status Past Medical History Past Medical History: Cancer Additional Past Medical History / Comment(s): Cancer: PV of the jaw, History of Any Multi-Drug Resistant Organisms: None Reported Additional Past Surgical History / Comment(s): Left eye removed at age 6, left sided jaw biopsy, Past Anesthesia/Blood Transfusion Reactions: No Reported Reaction Past Psychological History: No Psychological Hx Reported Additional Psychological History / Comment(s): Pt. lives alone but brayan states she has been making him stay with her lately due to his health. (Looking to get but patient's brayan's son has cancer and has been dealing with that). Somewhat a poor historian - mildly forgetful. He has difficulty completing complex thoughts. Smoking Status: Current every day smoker Past Alcohol Use History: None Reported Additional Past Alcohol Use History / Comment(s): Pt. has history of heavy etoh use - reports drinking occassionally now. Pt. is a smoker - 1.5 PPD. Sometimes more is been smoking since his early teenage years. No experience. No extensive travel. His exposure to one dog, 4 cats and 2 birds, his fiance's caring for them while he is hospitalized Past Drug Use History: None Reported - Past Family History Father Family Medical History: Cancer Additional Family Medical History / Comment(s): Lung cancer - . Mother Family Medical History: No Reported History Additional Family Medical History / Comment(s): Mother is still living and doesn 't have many issues. Medications and Allergies Home Medications Medication Instructions Recorded Confirmed Type Sertraline HCl [Zoloft] 50 mg PO DAILY #30 tablet 06/12/18 06/23/18 Rx Amoxicillin 875 mg PO BID 06/23/18 06/23/18 History Potassium Chloride [Klor-Con 20 20 meq PO DAILY 06/23/18 06/23/18 History Packets] Allergies Allergy/AdvReac Type Severity Reaction Status Date / Time No Known Allergies Allergy Verified 06/23/18 14:35 Physical Exam Vitals: Vital Signs Temp Pulse Pulse Resp BP BP Pulse Ox 06/25/18 20:35 98.4 F 65 16 75/47 92 L 06/25/18 20:25 97.9 F 59 L 29 H 88/45 93 L 06/25/18 20:04 61 06/25/18 19:54 64 06/25/18 19:00 65 20 79/48 97 06/25/18 18:30 67 23 80/48 99 06/25/18 18:00 64 24 76/48 99 06/25/18 17:30 65 23 78/44 97 06/25/18 17:05 98.5 F 68 24 78/44 97 06/25/18 17:00 66 25 H 75/48 98 06/25/18 16:30 67 24 74/47 98 06/25/18 16:00 98.5 F 69 25 H 83/47 98 06/25/18 15:34 71 06/25/18 15:30 68 26 H 70/46 98 06/25/18 15:25 64 06/25/18 15:00 72 24 76/47 97 06/25/18 14:30 68 25 H 76/46 98 06/25/18 14:00 67 26 H 84/52 95 06/25/18 13:56 98.5 F 67 24 76/46 97 06/25/18 13:30 66 25 H 90/54 96 06/25/18 13:26 98.6 F 67 20 84/52 95 06/25/18 13:16 98.4 F 62 24 90/54 96 06/25/18 13:00 65 25 H 87/47 97 06/25/18 12:30 76 24 87/51 98 06/25/18 12:00 97.9 F 73 24 90/48 99 06/25/18 11:37 76 06/25/18 11:30 71 20 86/47 99 06/25/18 11:18 84 06/25/18 11:00 73 27 H 78/45 97 06/25/18 10:30 85 15 80/43 97 06/25/18 10:00 79 27 H 82/49 95 06/25/18 09:30 74 27 H 86/54 93 L 06/25/18 09:00 79 29 H 82/50 93 L 06/25/18 08:30 76 26 H 79/50 95 06/25/18 08:00 98.9 F 74 25 H 79/49 96 06/25/18 07:57 75 06/25/18 07:43 73 06/25/18 07:30 77 25 H 85/53 96 06/25/18 07:00 73 24 90/51 97 06/25/18 06:30 74 24 82/50 98 06/25/18 06:00 77 26 H 82/50 96 06/25/18 05:30 74 27 H 95/52 92 L 06/25/18 05:00 76 28 H 101/72 92 L 06/25/18 04:30 89 11 L 102/56 96 06/25/18 04:00 91 21 112/65 97 06/25/18 03:30 87 20 91/56 96 06/25/18 03:01 98.7 F 93 13 88/54 94 L 06/25/18 02:53 113 H 46 H 89/67 75 L 06/25/18 02:30 80 L 06/25/18 02:00 81 L 06/25/18 00:48 92 L 06/25/18 00:25 98.8 F 117 H 32 H 117/55 92 L Intake and Output 06/25/18 06/25/18 06/25/18 06:59 14:59 22:59 Intake Total 3607.757 5480.088 1403.480 Output Total 475 450 235 Balance 3132.757 5030.088 1168.480 Intake: IV 5450 1000 Levofloxacin 750Mg-D5w 150 Pmx 750 mg In Dextrose/ Water 1 150ml.bag @ 100 mls/hr IVPB Q24H [facility] Rx#: [id number] Magnesium Sulfate-D5w Pmx 300 1 gm In Dextrose/Water 1 100ml.bag @ 100 mls/hr IVPB Q1H [facility] Rx#: [id number] Piperacillin-Tazobactam 3 100 100 .375 gm In Sodium Chloride 0.9% 100 ml @ 25 mls/hr IVPB Q8HR [facility] Rx# :[id number] Potassium Chloride 10 meq 500 100 In Water For Injection 1 100ml.bag @ 100 mls/hr IVPB Q1HR [facility] Rx#: [id number] Potassium Phosphate 10 250 mmol In Sodium Chloride 0 .9% 250 ml @ 125 mls/hr IV ONCE [facility] Rx#:[id number] Sodium Chloride 0.9% 1, 300 650 000 ml @ 150 mls/hr IV . Q6H40M [facility] Rx#:[id number] Sodium Chloride 0.9% 1, 1000 000 ml @ 999 mls/hr IV . Q1H1M [facility] Rx#:[id number] Sodium Chloride 0.9% 2, 3000 000 ml @ 999 mls/hr IV . Q2H1M [facility] Rx#:[id number] Intake, IV Titration 3607.757 30.088 48.480 Amount Piperacillin-Tazobactam 3 25 .375 gm In Sodium Chloride 0.9% 100 ml @ 25 mls/hr IVPB Q8HR [facility] Rx# :[id number] Potassium Phosphate 10 125 mmol In Sodium Chloride 0 .9% 250 ml @ 125 mls/hr IV ONCE ONE Rx#:[id number] Propofol 1,000 mg In 7.757 30.088 48.480 Empty Bag 1 bag @ Titrate IV .Q0M [facility] Rx#: [id number] Sodium Chloride 0.9% 1, 450 000 ml @ 150 mls/hr IV . Q6H40M [facility] Rx#:[id number] Sodium Chloride 0.9% 2, 3000 000 ml @ 999 mls/hr IV . Q2H1M [facility] Rx#:[id number] Tube Feeding 45 Blood Product 0 310 Rc As-1 Unit 0 310 [id number] Rc As-1 Unit 0 [id number] Output: Urine 475 450 235 Other: Voiding Method Indwelling Catheter Indwelling Catheter Indwelling Catheter # Voids 1 Weight 60.6 kg Intubated Appears chronically ill, no acute distress Adenopathy and presence of odoress mass neck Lungs: DImished throughout and ventilator supported Heart Reg 60s Abdomen with Peg tube inserted and serous drainage surrounding Ext: no edema Results CBC & Chem 7: 06/25/18 18:28 06/25/18 18:28 Labs: Abnormal Lab Results - Last 24 Hours (Table) 06/25/18 06/25/18 06/25/18 Range/Units 01:54 02:26 04:12 WBC (3.8-10.6) k/uL RBC (4.30-5.90) m/uL Hgb (13.0-17.5) gm/dL Hct (39.0-53.0) % MCHC (31.0-37.0) g/dL RDW (11.5-15.5) % Neutrophils # (Manual) (1.3-7.7) k/uL Lymphocytes # (Manual) (1.0-4.8) k/uL ABG pCO2 55 H 52 H (35-45) mmHg ABG pO2 60 L 170 H (83-108) mmHg ABG HCO3 33 H 30 H (21-25) mmol/L ABG Total CO2 34 H 32 H (19-24) mmol/L ABG O2 Saturation 88.6 L 99.5 H (94-97) % Potassium (3.5-5.1) mmol/L Chloride (98-107) mmol/L Carbon Dioxide (22-30) mmol/L Creatinine (0.66-1.25) mg/dL POC Glucose (mg/dL) 139 H (75-99) mg/dL Calcium (8.4-10.2) mg/dL Phosphorus (2.5-4.5) mg/dL Magnesium (1.6-2.3) mg/dL Crossmatch 06/25/18 06/25/18 06/25/18 Range/Units 04:18 06:25 10:32 WBC 11.4 H (3.8-10.6) k/uL RBC 2.29 L (4.30-5.90) m/uL Hgb 5.9 L* (13.0-17.5) gm/dL Hct 19.5 L* (39.0-53.0) % MCHC 30.2 L (31.0-37.0) g/dL RDW 18.9 H (11.5-15.5) % Neutrophils # (Manual) 10.60 H (1.3-7.7) k/uL Lymphocytes # (Manual) 0.46 L (1.0-4.8) k/uL ABG pCO2 (35-45) mmHg ABG pO2 (83-108) mmHg ABG HCO3 (21-25) mmol/L ABG Total CO2 (19-24) mmol/L ABG O2 Saturation (94-97) % Potassium 2.2 L* (3.5-5.1) mmol/L Chloride 119 H (98-107) mmol/L Carbon Dioxide 20 L (22-30) mmol/L Creatinine 0.64 L (0.66-1.25) mg/dL POC Glucose (mg/dL) (75-99) mg/dL Calcium 6.8 L (8.4-10.2) mg/dL Phosphorus 2.4 L (2.5-4.5) mg/dL Magnesium 1.2 L (1.6-2.3) mg/dL Crossmatch See Detail 06/25/18 06/25/18 06/25/18 Range/Units 11:57 18:04 18:28 WBC 13.5 H (3.8-10.6) k/uL RBC 2.57 L (4.30-5.90) m/uL Hgb 6.7 L* (13.0-17.5) gm/dL Hct 21.4 L (39.0-53.0) % MCHC (31.0-37.0) g/dL RDW 18.8 H (11.5-15.5) % Neutrophils # (Manual) (1.3-7.7) k/uL Lymphocytes # (Manual) (1.0-4.8) k/uL ABG pCO2 (35-45) mmHg ABG pO2 (83-108) mmHg ABG HCO3 (21-25) mmol/L ABG Total CO2 (19-24) mmol/L ABG O2 Saturation (94-97) % Potassium (3.5-5.1) mmol/L Chloride (98-107) mmol/L Carbon Dioxide (22-30) mmol/L Creatinine (0.66-1.25) mg/dL POC Glucose (mg/dL) 135 H 107 H (75-99) mg/dL Calcium (8.4-10.2) mg/dL Phosphorus (2.5-4.5) mg/dL Magnesium (1.6-2.3) mg/dL Crossmatch 06/25/18 Range/Units 18:28 WBC (3.8-10.6) k/uL RBC (4.30-5.90) m/uL Hgb (13.0-17.5) gm/dL Hct (39.0-53.0) % MCHC (31.0-37.0) g/dL RDW (11.5-15.5) % Neutrophils # (Manual) (1.3-7.7) k/uL Lymphocytes # (Manual) (1.0-4.8) k/uL ABG pCO2 (35-45) mmHg ABG pO2 (83-108) mmHg ABG HCO3 (21-25) mmol/L ABG Total CO2 (19-24) mmol/L ABG O2 Saturation (94-97) % Potassium 3.3 L (3.5-5.1) mmol/L Chloride (98-107) mmol/L Carbon Dioxide (22-30) mmol/L Creatinine (0.66-1.25) mg/dL POC Glucose (mg/dL) (75-99) mg/dL Calcium (8.4-10.2) mg/dL Phosphorus (2.5-4.5) mg/dL Magnesium (1.6-2.3) mg/dL Crossmatch Microbiology - Last 24 Hours (Table) 06/23/18 13:07 Blood Culture - Preliminary Blood No Growth after 48 hours 06/25/18 03:05 Gram Stain - Preliminary Sputum Sputum Culture - Preliminary Assessment and Plan Plan: Assessment and Recommendations: Squamous cell carcinoma of head and neck, moderately differentiated: New extensive metastatic Osseous and Pulmonary Disease on PET from 05/31/18 - Status POst Justin based chemotherapy regimen with concurrent radiation, last chemo on 05/13/18. Patient only completed partial recommendations of radiation as he refused further treatment - Recent PET scan on 05/31/18 revealed new metastatic disease, the treatment intent has now changed to palliative, not curable and Dr. Brooks did discuss in detail with him and girlfriend at last follow-up. - Plan to begin immune therapy as outpatient, obtain Next Gene Sequencing, and undergo evaluation at [facility] for opinion and options for clinical trials. - Patient has not yet bagan immune therapy as he had recurrent admissions for dehydration and now vent dependant respiratory failure Acute Respiratory Failure Requiring Mechanical Ventilator Support: - Per Pulmonary and ICU Care Normocytic Normochromic Anemia: - Likely component of Blood Loss anemia and Malignancy - Hemoglobin 5.9 today, transfusion 2 unit PRBC given, hemoglobin increased 6.7 - No active bleeding noted - Daily CBC monitoring Failure to thrive, Decreased PO intake, and increasing weakness: - Difficulty with adherence - Dieticien as well Leukocytsis: Reactive to Persistent malignancy related infection - Blood cultures negative at 48 hours Severe Hypokalemia - Potassium 2.2, Hypomagnesia: - Mg 1.4 Supps per medicine - Monitor Daily Moderate protein calorie malnutrition: - Feedings via peg tube although recent admission for non-adherence to recommended feedings resulting in profound dehydration Overall Prognosis is poor, patient disease is aggressive as it progressive rapidly and diffusely through treatment with chemotherapy and radiation, this has been discussed with patient , MOther, and girlfriend on numerous occasions although at this time they would like to continue full supportive care. Physician Attest: I have discussed the above history and physical and developed the complete impression and plan, agree with dictation, dictated as a scribe.
[2018-06-25] MEDS: HYDROmorphone 1 MG/ML 1 ML SYRINGE IVP PRN (22:36)
[2018-06-26 00:03] LABS: Glucose,Whole Blood 103 mg/dL (75-99)
[2018-06-26 00:40] LABS: Anisocytosis Slight; HCT 25.5 % (39.0-53.0); Hypochromasia Marked; MCH 26.4 pg (25.0-35.0); MCHC 31.5 g/dL (31.0-37.0); MCV 83.7 fL (80.0-100.0); Mean Platelet Volume 6.5; Platelet Count 247 k/uL (150-450); Poikilocytosis Slight; RBC 3.05 m/uL (4.30-5.90); RDW 18.4 % (11.5-15.5); WBC 15.2 k/uL (3.8-10.6)
[2018-06-26] MEDS ORDERED: Potassium Replacement Protocol 1 EACH MISC MISCELLANE PRN (00:52)
[2018-06-26] MEDS: SODIUM CHLORIDE 0.9% 1,000 ML IV SCH ×4 (00:55→20:12)
[2018-06-26] MEDS ORDERED: POTASSIUM BICARBONATE/CIT AC 20 MEQ TABLET.EFF NG-TUBE SCH (01:00)
[2018-06-26] MEDS: PIPERACILLIN-TAZOBACTAM 3.375 GM in SODIUM CHLORIDE 0.9% 100 ML IVPB SCH ×4 (01:13→23:06)
[2018-06-26 01:32] LABS: Band Neutrophils % 21 %; Eosinophils # (M) 0.15 k/uL (0-0.7); Lymphocytes # (M) 0.76 k/uL (1.0-4.8); Metamyelocytes % 2 %; Neutrophils % (M) 71 %; Nucleated Red Blood Cells 0 /100 WBC (0-0); Total Cells Counted 100
[2018-06-26 01:33] LABS: Polychromasia Present
[2018-06-26] MEDS: IPRATROPIUM-ALBUTEROL 3 ML NEB INHALATION SCH ×6 (03:37→23:31)
[2018-06-26] MEDS: HYDROmorphone 1 MG/ML 1 ML SYRINGE IVP PRN ×4 (05:40→22:42)
[2018-06-26] MEDS: PROPOFOL 1,000 MG in EMPTY BAG 1 BAG IV SCH ×2 (05:41→20:12)
[2018-06-26 05:56] LABS: Anisocytosis Slight; Basophils # (A) 0.1 k/uL (0-0.2); Basophils % (A) 0 %; Eosinophils # (A) 0.2 k/uL (0-0.7); Eosinophils % (A) 1 %; HCT 27.7 % (39.0-53.0); HGB 8.2 gm/dL (13.0-17.5); Hypochromasia Marked; Lymphocytes # (A) 0.7 k/uL (1.0-4.8); Lymphocytes % (A) 4 %; MCH 24.2 pg (25.0-35.0); MCHC 29.4 g/dL (31.0-37.0); MCV 82.5 fL (80.0-100.0); Mean Platelet Volume 7.7; Microcytosis Slight; Monocytes # (A) 0.3 k/uL (0-1.0); Monocytes % (A) 2 %; Neutrophils # (A) 15.8 k/uL (1.3-7.7); Neutrophils % (A) 93 %; Platelet Count 235 k/uL (150-450); Poikilocytosis Slight; RBC 3.36 m/uL (4.30-5.90); RDW 18.7 % (11.5-15.5)
[2018-06-26 06:04] LABS: Glucose,Whole Blood 117 mg/dL (75-99)
[2018-06-26 06:05] LABS: Appearance,Urine Clear (Clear); Bilirubin,Urine Negative (Negative); Blood,Urine Negative (Negative); Color,Urine Yellow; Glucose,Urine (UA) Negative (Negative); Ketones,Urine Negative (Negative); Leukocyte Esterase,Urine Negative (Negative); Nitrite,Urine Negative (Negative); PH, Urine 5.5 (5.0-8.0); Protein,Urine Trace (Negative); Specific Gravity,Urine 1.019 (1.001-1.035); Urobilinogen,Urine <2.0 mg/dL (<2.0)
[2018-06-26 06:09] LABS: Anion Gap 0 mmol/L; Blood Urea Nitrogen 18 mg/dL (9-20); Calcium 10.2 mg/dL (8.4-10.2); Carbon Dioxide 26 mmol/L (22-30); Chloride 114 mmol/L (98-107); Glucose 104 mg/dL (74-99); Magnesium 1.9 mg/dL (1.6-2.3); Phosphorus 2.2 mg/dL (2.5-4.5); Potassium 3.7 mmol/L (3.5-5.1); Sodium 140 mmol/L (137-145)
[2018-06-26 06:11] LABS: ABG Base Excess 0.4 mmol/L; ABG HCO3 26 mmol/L (21-25); ABG Oxygen Saturation 84.4 % (94-97); ABG PCO2 43 mmHg (35-45); ABG PH 7.38 (7.35-7.45); ABG TCO2 27 mmol/L (19-24)
[2018-06-26 06:14] LABS: ABG PO2 50 mmHg (83-108)
--- NOTE | 2018-06-26 08:15 | XR ---
EXAMINATION TYPE: XR chest 1V portable DATE OF EXAM: 06/26/2018 COMPARISON: Prior chest x-ray 06/25/2018 HISTORY: Intubated TECHNIQUE: Single frontal view of the chest is obtained. FINDINGS: Endotracheal tube is overlying the tracheal air column. Port-A-Cath is stable. There are o verlying cardiac leads. No evident pneumothorax. Pleural parenchymal changes are similar, there is pe rhaps worsening airspace disease. IMPRESSION: Suspect worsening airspace disease in the right lung.
[2018-06-26] MEDS: PANTOPRAZOLE 40 MG/10 ML VIAL IV SCH (08:30)
[2018-06-26] MEDS: POTASSIUM CHLORIDE 10 MEQ in WATER FOR INJECTION 1 100ML.BAG IVPB SCH ×4 (08:30→20:11)
[2018-06-26] MEDS: SERTRALINE 50 MG TAB PO SCH (08:30)
[2018-06-26] MEDS: CHLORHEXIDINE GLUCONATE 15 ML CUP MUCOUS MEM SCH ×2 (08:30→20:12)
[2018-06-26] MEDS: MAGNESIUM SULFATE-D5W PMX 1 GM in DEXTROSE/WATER 1 100ML.BAG IVPB SCH ×2 (08:30→10:33)
[2018-06-26] MEDS: POTASSIUM CHLORIDE ER 20 MEQ TAB.ER PO SCH (08:31)
--- NOTE | 2018-06-26 08:38 | CDI ---
Documentation Clarification Form Date: 06/26/2018 8:18:23 AM From: Shelley Syed RN CCDS Admit Date: 06/23/2018 5:54:00 PM Patient Name: Nikhil Avila Visit Number: [id number] Discharge Date: ATTENTION: The Clinical Documentation Specialists (CDI) and [facility] Coding Staff appreciate your assistance in clarifying documentation. Please respond to the clarification below the line at the bottom and electronically sign. The CDI & [facility] Coding staff will review the response and follow-up if needed. Please note: Queries are made part of the Legal Health Record. If you have any questions, please contact the author of this message via ITS. Dr. Gus Herrera The Pneumonia has been documented in ED Report. Possibility of right basilar pneumonia related to aspiration is documented in Pulmonary consult History/Risk Factors: 67 year old male presents to the ED with altered mental status. 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 Tumor destruction in the mandible. Clinical Indicators: Treatment: Levaquin ivpb, Zosyn Ivpb. Nasal Canula, Non Rebreather to Intubation Definition of Present on Admission (POA): A diagnosis present at the time the order for admission to inpatient status was written. For each diagnosis, documentation must be clear to determine if the condition was present at the time of the patients inpatient admission or developed during the hospital stay. Please clarify if Aspiration Pneumonia was POA: ____Y = Yes, the Aspiration Pneumonia was present at the time of the order for inpatient admission. ____N = No, the Aspiration Pneumonia was not present at the time of the order for inpatient admission. ____W = Clinically undetermined if Aspiration Pneumonia was present at the time of the order for inpatient admission. (Last Revision: Mar 2018) MTDD
[2018-06-26] MEDS ORDERED: POTASSIUM PHOSPHATE 10 MMOL in SODIUM CHLORIDE 0.9% 250 ML IV ONE (10:00)
--- NOTE | 2018-06-26 10:25 | P.PN ---
Subjective Progress Note Date: 06/26/18 Principal diagnosis: Hypoxemic respiratory failure secondary to right basilar pneumonia, aspiration pneumonia This is a 67-year-old white male patient of Dr. 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 Sánchez, Most recent PET scan on 06/04/2018 showed new metastatic disease in the lungs, with a new pulmonary cavitary lesion as well as nodules, metastatic osseous metastases in the thoracic spine through T3, T9, T10 and T11, pathological fracture from extensive tumor destruction in the mandible. Patient has received radiation treatments, he refused further radiation treatments, he was considering immunotherapy with Opdivo. He has a PEG tube in place, for feedings. He resides with his fiance, he continues to smoke, he does have a history of heavy EtOH use, drinking only occasionally now. Patient came into the hospital EMS on 06/23/2018 for decreased level of consciousness. Patient is a poor historian, his family denied any recent history of fever, chills or sweats. He was recently treated for dehydration. Chest x-ray on admission showed persistent thick-walled cavitary right upper lobe mass unchanged from previous exams. Showed a new left basilar acute infiltrate and/or atelectasis, and probable small left pleural effusion. EKG showed normal sinus rhythm with evidence of a septal infarct, undetermined age. Follow-up chest x-ray on 06/24/2018 showed metastatic disease, diffuse nodularity within the lungs, increased interstitium, Nader a lesion in the right upper lobe. Was initially admitted to the stepdown floor, but apparently last night rapid response team was called, for deteriorating mental status and level of consciousness, and hypoxemic respiratory failure, patient was placed on the 100% nonrebreather, she was moved to the intensive care unit, blood gas showed a pO2 of 60, pCO2 55, and pH of 7.38, this was done on the 100% FiO2, patient was placed on the interval, however that did not seem to help, and patient subsequently was intubated and placed on a mechanical ventilator. This morning he seen in the intensive care unit, intubated, sedated, current vent settings are assist-control mode with a rate of 20, tidal volume of 450, FiO2 of 60% and PEEP of 5, this morning's blood gases showed pO2 of 170, pCO2 of 52, and pH of 7.38, this was done on 100% FiO2 and subsequently FiO2 was dropped down to 60%. Initial blood work showed leukocytosis, with white blood cell count of 17.4, hemoglobin is 7.3, sodium is 134, potassium is 3.4, chloride is 96, CO2 is 34, B1 is 27, creatinine 0.71, plasma lactic acid is 1.4, ammonia level was less than 9, alkaline phosphatase was 222, AST was 47, ALT 62, troponin was negative at 0.033, urine. Urine drug screen was negative, influenza was not detected, urinalysis was negative for glucose, nitrates, showed rare bacteria, urine white blood cell count was only 3. No significant evidence of infection. His blood work today has been reviewed, showed white blood cell count of 11.4, hemoglobin is 5.9, no obvious source of bleeding. Current diabetes appointment normal saline at a rate of 150 ML per hour, Diprivan is at 15 mics per kilo per minute, patient has left abdominal PEG tube with signs of ulceration around the insertion site, we'll hold the PEG tube feedings right now, we're told that there has been leaking around the tube feedings around the insertion site. No fever, patient is hypotensive, we'll continue with IV fluids, and patient will receive a unit of packed red blood cells this morning. On 06/26/2017 patient seen in follow-up in the intensive care unit, he still intubated and sedated, on mechanical ventilator, current vent settings are assist-control mode with a rate of 20, multivitamins 450, FiO2 0%, and PEEP of 5, this morning his blood gases showed pO2 50, pCO2 43, pH of 7.38, this was done and FiO2 of 50%, since then, the FiO2 had been increased to 100% and is being gradually weaned down. These 0.9 normal saline at a rate of 150 ML per hour, Diprivan is a 25 mics per kilo per minute, patient is seen to feedings through the PEG tube, Vital AF a rate of 40, with a goal of 46. She was seen by GI service, and the flange on the PEG tube was tightened up. Today's chest x-ray shows worsening airspace disease in the right lung. Today's labs have been reviewed, showed a white blood cell count is 17.0, hemoglobin is 8.2, sodium is 140, potassium is 3.7, chloride is 114, BUN is 18 creatinine 0.72. ABGs were drawn, and show pO2 of 50, pCO2 43, pH is 7.38. Blood and sputum cultures are pending, but according the form of Levaquin and Wendin. Afebrile. Yesterday we had a lengthy conversation with the patient's brother, and her friend, and they don't seem to accept the poor prognosis, they state patient has been given an option of immunotherapy at [facility]. However in view of his current health condition, he would probably be a poor candidate for treatment. Medical oncology following, have also discussed with the patient and the family the fact that patient has failed both chemo and radiation, and his cancer is progressing, and that patient should not be aggressively resuscitated. Despite all those conversations patient remains a full code. Objective - Vital Signs Vital signs: Vital Signs Temp 98.3 F 06/26/18 08:00 Pulse 77 06/26/18 09:00 Resp 20 06/26/18 09:00 BP 86/51 06/26/18 09:00 Pulse Ox 96 06/26/18 09:00 Intake & Output 06/25/18 06/26/18 06/26/18 18:59 06:59 18:59 Intake Total 6708.568 5139.425 620 Output Total 640 490 225 Balance 6068.568 4649.425 395 Weight 60.6 kg 74.3 kg Intake: IV 6300 3900 500 Levofloxacin 750Mg-D5w 150 Pmx 750 mg In Dextrose/ Water 1 150ml.bag @ 100 mls/hr IVPB Q24H [facility] Rx#: [id number] Magnesium Sulfate-D5w Pmx 300 1 gm In Dextrose/Water 1 100ml.bag @ 100 mls/hr IVPB Q1H [facility] Rx#: [id number] Magnesium Sulfate-D5w Pmx 100 1 gm In Dextrose/Water 1 100ml.bag @ 100 mls/hr IVPB Q1H [facility] Rx#: [id number] Piperacillin-Tazobactam 3 200 100 .375 gm In Sodium Chloride 0.9% 100 ml @ 25 mls/hr IVPB Q8HR [facility] Rx# :[id number] Potassium Chloride 10 meq 100 In Water For Injection 1 100ml.bag @ 100 mls/hr IVPB Q1H [facility] Rx#: [id number] Potassium Chloride 10 meq 600 In Water For Injection 1 100ml.bag @ 100 mls/hr IVPB Q1HR [facility] Rx#: [id number] Potassium Phosphate 10 250 mmol In Sodium Chloride 0 .9% 250 ml @ 125 mls/hr IV ONCE [facility] Rx#:[id number] Sodium Chloride 0.9% 1, 800 1800 300 000 ml @ 150 mls/hr IV . Q6H40M [facility] Rx#:[id number] Sodium Chloride 0.9% 1, 1000 000 ml @ 999 mls/hr IV . Q1H1M [facility] Rx#:[id number] Sodium Chloride 0.9% 1, 2000 000 ml @ 999 mls/hr IV . Q1H1M [facility] Rx#:[id number] Sodium Chloride 0.9% 2, 3000 000 ml @ 999 mls/hr IV . Q2H1M [facility] Rx#:[id number] Intake, IV Titration 78.568 94.425 Amount Propofol 1,000 mg In 78.568 94.425 Empty Bag 1 bag @ Titrate IV .Q0M [facility] Rx#: [id number] Tube Feeding 20 315 60 Blood Product 310 620 Rc As-1 Unit 310 [id number] Rc As-1 Unit 310 [id number] Other 210 60 Output: Urine 640 490 225 Other: Voiding Method Indwelling Catheter Indwelling Catheter Indwelling Catheter - Exam GENERAL EXAM: 67-year-old cachectic white male, chronically ill-looking, intubated on mechanical ventilator, comfortable in no apparent distress. HEAD: Normocephalic/atraumatic. large ulcerated wound on the left submental area, with purulent drainage, surrounding redness and some swelling EYES: Normal reaction of pupils, equal size. Conjunctiva pink, sclera white. NOSE: Clear with pink turbinates. THROAT: No erythema or exudates. NECK: No masses, no JVD, no thyroid enlargement, no adenopathy. CHEST: No chest wall deformity. Symmetrical expansion. LUNGS: Equal air entry with no crackles, wheeze, rhonchi or dullness. CVS: Regular rate and rhythm, normal S1 and S2, no gallops, no murmurs, no rubs ABDOMEN: Soft, nontender. No hepatosplenomegaly, normal bowel sounds, no guarding or rigidity. Patient has a left abdominal PEG tube in place, the mile pearce has been tightened, there has been no further draining of the tube feedings around the insertion site EXTREMITIES: No clubbing, no edema, no cyanosis, 2+ pulses and upper and lower extremities. MUSCULOSKELETAL: Muscle strength and tone weak, patient has signs of wasting and cachexia SPINE: No scoliosis or deformity SKIN: No rashes CENTRAL NERVOUS SYSTEM: Sedated No focal deficits, tone is normal in all 4 extremities. - Labs CBC & Chem 7: 06/26/18 05:30 06/26/18 05:30 Labs: Abnormal Lab Results - Last 24 Hours (Table) 06/25/18 06/25/18 06/25/18 Range/Units 10:32 11:57 18:04 WBC (3.8-10.6) k/uL RBC (4.30-5.90) m/uL Hgb (13.0-17.5) gm/dL Hct (39.0-53.0) % MCH (25.0-35.0) pg MCHC (31.0-37.0) g/dL RDW (11.5-15.5) % Neutrophils # (1.3-7.7) k/uL Neutrophils # (Manual) (1.3-7.7) k/uL Lymphocytes # (1.0-4.8) k/uL Lymphocytes # (Manual) (1.0-4.8) k/uL Metamyelocytes # (Man) (0) k/uL ABG pO2 (83-108) mmHg ABG HCO3 (21-25) mmol/L ABG Total CO2 (19-24) mmol/L ABG O2 Saturation (94-97) % Potassium (3.5-5.1) mmol/L Chloride (98-107) mmol/L Glucose (74-99) mg/dL POC Glucose (mg/dL) 135 H 107 H (75-99) mg/dL Phosphorus (2.5-4.5) mg/dL Urine Protein (Negative) Crossmatch See Detail 06/25/18 06/25/18 06/25/18 Range/Units 18:28 18:28 23:51 WBC 13.5 H (3.8-10.6) k/uL RBC 2.57 L (4.30-5.90) m/uL Hgb 6.7 L* (13.0-17.5) gm/dL Hct 21.4 L (39.0-53.0) % MCH (25.0-35.0) pg MCHC (31.0-37.0) g/dL RDW 18.8 H (11.5-15.5) % Neutrophils # (1.3-7.7) k/uL Neutrophils # (Manual) (1.3-7.7) k/uL Lymphocytes # (1.0-4.8) k/uL Lymphocytes # (Manual) (1.0-4.8) k/uL Metamyelocytes # (Man) (0) k/uL ABG pO2 (83-108) mmHg ABG HCO3 (21-25) mmol/L ABG Total CO2 (19-24) mmol/L ABG O2 Saturation (94-97) % Potassium 3.3 L (3.5-5.1) mmol/L Chloride (98-107) mmol/L Glucose (74-99) mg/dL POC Glucose (mg/dL) 103 H (75-99) mg/dL Phosphorus (2.5-4.5) mg/dL Urine Protein (Negative) Crossmatch 06/26/18 06/26/18 06/26/18 Range/Units 00:01 05:30 05:30 WBC 15.2 H 17.0 H (3.8-10.6) k/uL RBC 3.05 L 3.36 L (4.30-5.90) m/uL Hgb 8.0 L 8.2 L (13.0-17.5) gm/dL Hct 25.5 L 27.7 L (39.0-53.0) % MCH 24.2 L (25.0-35.0) pg MCHC 29.4 L (31.0-37.0) g/dL RDW 18.4 H 18.7 H (11.5-15.5) % Neutrophils # 15.8 H (1.3-7.7) k/uL Neutrophils # (Manual) 13.90 H (1.3-7.7) k/uL Lymphocytes # 0.7 L (1.0-4.8) k/uL Lymphocytes # (Manual) 0.76 L (1.0-4.8) k/uL Metamyelocytes # (Man) 0.30 H (0) k/uL ABG pO2 (83-108) mmHg ABG HCO3 (21-25) mmol/L ABG Total CO2 (19-24) mmol/L ABG O2 Saturation (94-97) % Potassium (3.5-5.1) mmol/L Chloride 114 H (98-107) mmol/L Glucose 104 H (74-99) mg/dL POC Glucose (mg/dL) (75-99) mg/dL Phosphorus 2.2 L (2.5-4.5) mg/dL Urine Protein (Negative) Crossmatch 06/26/18 06/26/18 06/26/18 Range/Units 05:30 05:53 06:05 WBC (3.8-10.6) k/uL RBC (4.30-5.90) m/uL Hgb (13.0-17.5) gm/dL Hct (39.0-53.0) % MCH (25.0-35.0) pg MCHC (31.0-37.0) g/dL RDW (11.5-15.5) % Neutrophils # (1.3-7.7) k/uL Neutrophils # (Manual) (1.3-7.7) k/uL Lymphocytes # (1.0-4.8) k/uL Lymphocytes # (Manual) (1.0-4.8) k/uL Metamyelocytes # (Man) (0) k/uL ABG pO2 50 L* (83-108) mmHg ABG HCO3 26 H (21-25) mmol/L ABG Total CO2 27 H (19-24) mmol/L ABG O2 Saturation 84.4 L (94-97) % Potassium (3.5-5.1) mmol/L Chloride (98-107) mmol/L Glucose (74-99) mg/dL POC Glucose (mg/dL) 117 H (75-99) mg/dL Phosphorus (2.5-4.5) mg/dL Urine Protein Trace H (Negative) Crossmatch Microbiology - Last 24 Hours (Table) 06/23/18 13:07 Blood Culture - Preliminary Blood No Growth after 48 hours 06/25/18 03:05 Gram Stain - Preliminary Sputum Sputum Culture - Preliminary Assessment and Plan Plan: Assessment: #1. Acute hypoxemic respiratory failure secondary to altered mental status, and there is a possibility of right basilar pneumonia, related to aspiration. Chest x-ray to do a large right upper lobe cavitary lesion, and diffuse nodular infiltrates bilaterally, more so in the right lung, could be related to pneumonia, or lymphangitic infiltrates. #2. Acute on chronic anemia, with no clear evidence of bleeding, could be related to hemodilution, but in view of patient's retention will transfused with 1 unit of packed red blood cells #3. Metastatic squamous cell carcinoma of the head and neck, and most recent PET scan showed a new right upper lobe cavitary lesion, involvement of the thoracic spine, left mandible, maxilla. She is status post chemotherapy and radiation, and most recently considering immunotherapy, follows with Dr. Sánchez #4. PEG tube in place, nutritional support, and it has evidence of ulceration around the insertion site and we can of tube feedings #5. Protein calorie malnutrition #6. Current smoker, #7. History of EtOH use Plan: We'll continue with current vent settings, continue weaning FiO2 to keep O2 sat at 90-92 percent, and to continue current antibiotic coverage, will await the results the final cultures, afebrile, hemodynamically stable, tolerating tube feedings, there has been no further leaking around the tube feeding insertion site, overall prognosis is quite poor related to spread of his cancer by chemotherapy and radiation, doubt the patient will be candidate for immunotherapy. Medical oncology is following, and they agree with patient's poor prognosis, and agree that the patient should not be aggressively resuscitated. Patient's family, ole who is the power of prosecuting attorney seem to underestimate the patient's medical condition, aggressiveness of his cancer, and overall debilitated health. They would like to proceed with a full code right now. It is likely the patient have aspirated, he already has a PEG tube in place, we will request a consult with general surgery for placement of tracheostomy. Supportive treatment for now. I performed a history & physical examination of the patient and discussed their management with my nurse practitioner, Aida Montgomery. I reviewed the nurse practitioner's note and agree with the documented findings and plan of care. Lung sounds are positive for coarse lung sounds The findings and the impression was discussed with the patient. I attest to the documentation by the nurse practitioner. Time with Patient: Greater than 30
--- NOTE | 2018-06-26 10:44 | P.PN ---
Subjective Progress Note Date: 06/26/18 Principal diagnosis: peg tube leakage Minimal leakage from peg site. Intubated sedated. Objective - Vital Signs Vital signs: Vital Signs Temp 98.3 F 06/26/18 08:00 Pulse 79 06/26/18 10:30 Resp 24 06/26/18 10:30 BP 91/52 06/26/18 10:30 Pulse Ox 96 06/26/18 10:30 Intake & Output 06/25/18 06/26/18 06/26/18 18:59 06:59 18:59 Intake Total 6708.568 5139.425 970 Output Total 640 490 325 Balance 6068.568 4649.425 645 Weight 60.6 kg 74.3 kg Intake: IV 6300 3900 810 Levofloxacin 750Mg-D5w 150 Pmx 750 mg In Dextrose/ Water 1 150ml.bag @ 100 mls/hr IVPB Q24H [facility] Rx#: [id number] Magnesium Sulfate-D5w Pmx 300 1 gm In Dextrose/Water 1 100ml.bag @ 100 mls/hr IVPB Q1H [facility] Rx#: [id number] Magnesium Sulfate-D5w Pmx 200 1 gm In Dextrose/Water 1 100ml.bag @ 100 mls/hr IVPB Q1H [facility] Rx#: [id number] Piperacillin-Tazobactam 3 200 100 100 .375 gm In Sodium Chloride 0.9% 100 ml @ 25 mls/hr IVPB Q8HR [facility] Rx# :[id number] Potassium Chloride 10 meq 200 In Water For Injection 1 100ml.bag @ 100 mls/hr IVPB Q1H [facility] Rx#: [id number] Potassium Chloride 10 meq 600 In Water For Injection 1 100ml.bag @ 100 mls/hr IVPB Q1HR [facility] Rx#: [id number] Potassium Phosphate 10 250 mmol In Sodium Chloride 0 .9% 250 ml @ 125 mls/hr IV ONCE [facility] Rx#:[id number] Sodium Chloride 0.9% 1, 800 1800 310 000 ml @ 150 mls/hr IV . Q6H40M [facility] Rx#:[id number] Sodium Chloride 0.9% 1, 1000 000 ml @ 999 mls/hr IV . Q1H1M [facility] Rx#:[id number] Sodium Chloride 0.9% 1, 2000 000 ml @ 999 mls/hr IV . Q1H1M [facility] Rx#:[id number] Sodium Chloride 0.9% 2, 3000 000 ml @ 999 mls/hr IV . Q2H1M [facility] Rx#:[id number] Intake, IV Titration 78.568 94.425 Amount Propofol 1,000 mg In 78.568 94.425 Empty Bag 1 bag @ Titrate IV .Q0M [facility] Rx#: [id number] Tube Feeding 20 315 100 Blood Product 310 620 Rc As-1 Unit 310 [id number] Rc As-1 Unit 310 [id number] Other 210 60 Output: Urine 640 490 325 Other: Voiding Method Indwelling Catheter Indwelling Catheter Indwelling Catheter - Exam General appearance: The patient is intubated sedated. HET: Head is normocephalic and atraumatic. Pupils are equal and reactive. Obvious external head neck cancer with open wound to left-sided face. Neck: Supple without lymphadenopathy. Trachea midline. Heart: S1 S2. Regular rate and rhythm. Lungs: No crackles or wheezes are heard. Abdomen: Soft, PEG tube intact minimal drainage around site no bleeding or hematoma, excoriation around PEG site secondary to drainage, nondistended with bowel sounds. No peritoneal signs. No palpable organomegaly or masses. Extremities: Normal skin color and turgor. No cyanosis, rash, ulceration, clu bbing, or edema. Radial and pedal pulses are 2/4 bilaterally. Neurological: Unable to assess intubated sedated. - Labs CBC & Chem 7: 06/26/18 05:30 06/26/18 05:30 Labs: Abnormal Lab Results - Last 24 Hours (Table) 06/25/18 06/25/18 06/25/18 Range/Units 10:32 11:57 18:04 WBC (3.8-10.6) k/uL RBC (4.30-5.90) m/uL Hgb (13.0-17.5) gm/dL Hct (39.0-53.0) % MCH (25.0-35.0) pg MCHC (31.0-37.0) g/dL RDW (11.5-15.5) % Neutrophils # (1.3-7.7) k/uL Neutrophils # (Manual) (1.3-7.7) k/uL Lymphocytes # (1.0-4.8) k/uL Lymphocytes # (Manual) (1.0-4.8) k/uL Metamyelocytes # (Man) (0) k/uL ABG pO2 (83-108) mmHg ABG HCO3 (21-25) mmol/L ABG Total CO2 (19-24) mmol/L ABG O2 Saturation (94-97) % Potassium (3.5-5.1) mmol/L Chloride (98-107) mmol/L Glucose (74-99) mg/dL POC Glucose (mg/dL) 135 H 107 H (75-99) mg/dL Phosphorus (2.5-4.5) mg/dL Urine Protein (Negative) Crossmatch See Detail 06/25/18 06/25/18 06/25/18 Range/Units 18:28 18:28 23:51 WBC 13.5 H (3.8-10.6) k/uL RBC 2.57 L (4.30-5.90) m/uL Hgb 6.7 L* (13.0-17.5) gm/dL Hct 21.4 L (39.0-53.0) % MCH (25.0-35.0) pg MCHC (31.0-37.0) g/dL RDW 18.8 H (11.5-15.5) % Neutrophils # (1.3-7.7) k/uL Neutrophils # (Manual) (1.3-7.7) k/uL Lymphocytes # (1.0-4.8) k/uL Lymphocytes # (Manual) (1.0-4.8) k/uL Metamyelocytes # (Man) (0) k/uL ABG pO2 (83-108) mmHg ABG HCO3 (21-25) mmol/L ABG Total CO2 (19-24) mmol/L ABG O2 Saturation (94-97) % Potassium 3.3 L (3.5-5.1) mmol/L Chloride (98-107) mmol/L Glucose (74-99) mg/dL POC Glucose (mg/dL) 103 H (75-99) mg/dL Phosphorus (2.5-4.5) mg/dL Urine Protein (Negative) Crossmatch 06/26/18 06/26/18 06/26/18 Range/Units 00:01 05:30 05:30 WBC 15.2 H 17.0 H (3.8-10.6) k/uL RBC 3.05 L 3.36 L (4.30-5.90) m/uL Hgb 8.0 L 8.2 L (13.0-17.5) gm/dL Hct 25.5 L 27.7 L (39.0-53.0) % MCH 24.2 L (25.0-35.0) pg MCHC 29.4 L (31.0-37.0) g/dL RDW 18.4 H 18.7 H (11.5-15.5) % Neutrophils # 15.8 H (1.3-7.7) k/uL Neutrophils # (Manual) 13.90 H (1.3-7.7) k/uL Lymphocytes # 0.7 L (1.0-4.8) k/uL Lymphocytes # (Manual) 0.76 L (1.0-4.8) k/uL Metamyelocytes # (Man) 0.30 H (0) k/uL ABG pO2 (83-108) mmHg ABG HCO3 (21-25) mmol/L ABG Total CO2 (19-24) mmol/L ABG O2 Saturation (94-97) % Potassium (3.5-5.1) mmol/L Chloride 114 H (98-107) mmol/L Glucose 104 H (74-99) mg/dL POC Glucose (mg/dL) (75-99) mg/dL Phosphorus 2.2 L (2.5-4.5) mg/dL Urine Protein (Negative) Crossmatch 06/26/18 06/26/18 06/26/18 Range/Units 05:30 05:53 06:05 WBC (3.8-10.6) k/uL RBC (4.30-5.90) m/uL Hgb (13.0-17.5) gm/dL Hct (39.0-53.0) % MCH (25.0-35.0) pg MCHC (31.0-37.0) g/dL RDW (11.5-15.5) % Neutrophils # (1.3-7.7) k/uL Neutrophils # (Manual) (1.3-7.7) k/uL Lymphocytes # (1.0-4.8) k/uL Lymphocytes # (Manual) (1.0-4.8) k/uL Metamyelocytes # (Man) (0) k/uL ABG pO2 50 L* (83-108) mmHg ABG HCO3 26 H (21-25) mmol/L ABG Total CO2 27 H (19-24) mmol/L ABG O2 Saturation 84.4 L (94-97) % Potassium (3.5-5.1) mmol/L Chloride (98-107) mmol/L Glucose (74-99) mg/dL POC Glucose (mg/dL) 117 H (75-99) mg/dL Phosphorus (2.5-4.5) mg/dL Urine Protein Trace H (Negative) Crossmatch Microbiology - Last 24 Hours (Table) 06/23/18 13:07 Blood Culture - Preliminary Blood No Growth after 48 hours 06/25/18 03:05 Gram Stain - Preliminary Sputum Sputum Culture - Preliminary Assessment and Plan Assessment: Impression: 1. PEG tube drainage secondary to malposition; bumper on PEG tube was adjusted drainage has temporarily ceased. 2. Acute mental status changes with acute respiratory failure possible pneumonia possible aspiration. 3. Metastatic adenocarcinoma pulmonary osseous metastasis. 4. Severe protein calorie malnutrition prealbumin 06/09/18 less than 5. 5. Chronic anemia no active GI bleeding. Plan: 1. Continue present medical therapy. Continue with tube feeds as previously advised. Continue to use for medications as needed. We'll follow prn. Assessment and plan of care discussed with Dr. Avelar
[2018-06-26 12:12] LABS: Glucose,Whole Blood 151 mg/dL (75-99)
[2018-06-26] MEDS: LEVOFLOXACIN 750MG-D5W PMX 750 MG in DEXTROSE/WATER 1 150ML.BAG IVPB SCH (17:10)
--- NOTE | 2018-06-26 17:47 | P.PN ---
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 Heredia presented with mental status changes and decreased level of consciousness with an open necrotic lesion to the neck and metastatic disease to the lung. This patient is currently being fed via PEG tube has been admitted with dehydration, mental status change and decreased level of consciousness. Patient has failed chemotherapy field radiat ion therapy and was noted that at [facility] he was offered an opportunity to trial on medium biologic as a last effort. It was discussed with his loved ones that his prognosis is grave and that intubating placing patient on a vent in the not something that would be appropriate however this was insisted upon and patient is currently on ventilator 06/26/2018 Patient is in the intensive care unit intubated, patient has significant progressive of progressive head and neck carcinoma that has metastasized to bone and lung with a large cavitary lesion in the lung the tumor mass has impeded respiratory efforts and is encroaching on the airway requiring intubation and mechanical ventilation. This patient's Mother, his significant other girlfriend, and other family members are not understanding that this man has failed chemotherapy has basically failed radiation therapy has been noncompliant about following up with oncology the disease is basically gotten the best of this gentleman and his prognosis is poor he is still a full code, they keep asking regarding other therapies recommended at [facility] and they did not understand that while he is immune system is compromised with pneumonia and other infections and cavitary lesions in his lung he has become a poor c andidate for this type of therapy Dr. Diamond critical care has spoken to this patient's family at length, the oncologist has spoken to this family at length Matteo Herrera primary care doctor of record have spoken to the family at length, regarding the poor prognosis and continued failure of this patient to thrive have fallen on ears. Objective - Vital Signs Vital signs: Vital Signs Temp 98.7 F 06/26/18 16:00 Pulse 81 06/26/18 17:00 Resp 26 H 06/26/18 17:00 BP 84/50 06/26/18 17:00 Pulse Ox 96 06/26/18 17:00 Intake & Output 06/25/18 06/26/18 06/26/18 18:59 06:59 18:59 Intake Total 6708.568 5139.425 2540 Output Total 640 490 705 Balance 6068.568 4649.425 1835 Weight 60.6 kg 74.3 kg Intake: IV 6300 3900 2040 Levofloxacin 750Mg-D5w 150 Pmx 750 mg In Dextrose/ Water 1 150ml.bag @ 100 mls/hr IVPB Q24H [facility] Rx#: [id number] Magnesium Sulfate-D5w Pmx 300 1 gm In Dextrose/Water 1 100ml.bag @ 100 mls/hr IVPB Q1H [facility] Rx#: [id number] Magnesium Sulfate-D5w Pmx 200 1 gm In Dextrose/Water 1 100ml.bag @ 100 mls/hr IVPB Q1H [facility] Rx#: [id number] Piperacillin-Tazobactam 3 200 100 200 .375 gm In Sodium Chloride 0.9% 100 ml @ 25 mls/hr IVPB Q8HR [facility] Rx# :[id number] Potassium Chloride 10 meq 200 In Water For Injection 1 100ml.bag @ 100 mls/hr IVPB Q1H [facility] Rx#: [id number] Potassium Chloride 10 meq 600 In Water For Injection 1 100ml.bag @ 100 mls/hr IVPB Q1HR [facility] Rx#: [id number] Potassium Phosphate 10 250 mmol In Sodium Chloride 0 .9% 250 ml @ 125 mls/hr IV ONCE ONE Rx#:[id number] Potassium Phosphate 10 250 mmol In Sodium Chloride 0 .9% 250 ml @ 125 mls/hr IV ONCE ONE Rx#:[id number] Sodium Chloride 0.9% 1, 800 1800 1190 000 ml @ 150 mls/hr IV . Q6H40M [facility] Rx#:[id number] Sodium Chloride 0.9% 1, 1000 000 ml @ 999 mls/hr IV . Q1H1M [facility] Rx#:[id number] Sodium Chloride 0.9% 1, 2000 000 ml @ 999 mls/hr IV . Q1H1M [facility] Rx#:[id number] Sodium Chloride 0.9% 2, 3000 000 ml @ 999 mls/hr IV . Q2H1M [facility] Rx#:[id number] Intake, IV Titration 78.568 94.425 Amount Propofol 1,000 mg In 78.568 94.425 Empty Bag 1 bag @ Titrate IV .Q0M [facility] Rx#: [id number] Tube Feeding 20 315 380 Blood Product 310 620 Rc As-1 Unit 310 [id number] As-1 Unit 310 [id number] Other 210 120 Output: Urine 640 490 705 Other: Voiding Method Indwelling Catheter Indwelling Catheter Indwelling Catheter - Exam General: Patient is intubated, has a large necrotic lesion to the left side of his face and neck known metastatic disease to the lung HEENT: [PERRL. EOMI. No pharyngeal erythema or exudate.] Neck: [No adenopathy.] Cardiac: [Heart regular in rate and rhythm. No S3. No S4. No clicks, rubs. No murmur.] Lungs: [Clear to auscultation bilaterally.] Abdomen: [No mass. No organomegaly. Bowel sounds presnt and normoactive in all 4 quadrants.] PEG tube intact, clean and dry minimal drainage Extremes: [No edema no cyanosis no claudication normal pulses] : [] Musculoskeletal: [No joint erythema, edema or tenderness.] Skin: [No rash.] Neurologic: [No lateralizing deficits. CN II - XII grossly intact.] Lymphatic: [No adenopathy.] - Labs CBC & Chem 7: 06/26/18 05:30 06/26/18 05:30 Labs: Abnormal Lab Results - Last 24 Hours (Table) 06/25/18 06/25/18 06/25/18 Range/Units 10:32 18:04 18:28 WBC 13.5 H (3.8-10.6) k/uL RBC 2.57 L (4.30-5.90) m/uL Hgb 6.7 L* (13.0-17.5) gm/dL Hct 21.4 L (39.0-53.0) % MCH (25.0-35.0) pg MCHC (31.0-37.0) g/dL RDW 18.8 H (11.5-15.5) % Neutrophils # (1.3-7.7) k/uL Neutrophils # (Manual) (1.3-7.7) k/uL Lymphocytes # (1.0-4.8) k/uL Lymphocytes # (Manual) (1.0-4.8) k/uL Metamyelocytes # (Man) (0) k/uL ABG pO2 (83-108) mmHg ABG HCO3 (21-25) mmol/L ABG Total CO2 (19-24) mmol/L ABG O2 Saturation (94-97) % Potassium (3.5-5.1) mmol/L Chloride (98-107) mmol/L Glucose (74-99) mg/dL POC Glucose (mg/dL) 107 H (75-99) mg/dL Phosphorus (2.5-4.5) mg/dL Urine Protein (Negative) Crossmatch See Detail 06/25/18 06/25/18 06/26/18 Range/Units 18:28 23:51 00:01 WBC 15.2 H (3.8-10.6) k/uL RBC 3.05 L (4.30-5.90) m/uL Hgb 8.0 L (13.0-17.5) gm/dL Hct 25.5 L (39.0-53.0) % MCH (25.0-35.0) pg MCHC (31.0-37.0) g/dL RDW 18.4 H (11.5-15.5) % Neutrophils # (1.3-7.7) k/uL Neutrophils # (Manual) 13.90 H (1.3-7.7) k/uL Lymphocytes # (1.0-4.8) k/uL Lymphocytes # (Manual) 0.76 L (1.0-4.8) k/uL Metamyelocytes # (Man) 0.30 H (0) k/uL ABG pO2 (83-108) mmHg ABG HCO3 (21-25) mmol/L ABG Total CO2 (19-24) mmol/L ABG O2 Saturation (94-97) % Potassium 3.3 L (3.5-5.1) mmol/L Chloride (98-107) mmol/L Glucose (74-99) mg/dL POC Glucose (mg/dL) 103 H (75-99) mg/dL Phosphorus (2.5-4.5) mg/dL Urine Protein (Negative) Crossmatch 06/26/18 06/26/18 06/26/18 Range/Units 05:30 05:30 05:30 WBC 17.0 H (3.8-10.6) k/uL RBC 3.36 L (4.30-5.90) m/uL Hgb 8.2 L (13.0-17.5) gm/dL Hct 27.7 L (39.0-53.0) % MCH 24.2 L (25.0-35.0) pg MCHC 29.4 L (31.0-37.0) g/dL RDW 18.7 H (11.5-15.5) % Neutrophils # 15.8 H (1.3-7.7) k/uL Neutrophils # (Manual) (1.3-7.7) k/uL Lymphocytes # 0.7 L (1.0-4.8) k/uL Lymphocytes # (Manual) (1.0-4.8) k/uL Metamyelocytes # (Man) (0) k/uL ABG pO2 (83-108) mmHg ABG HCO3 (21-25) mmol/L ABG Total CO2 (19-24) mmol/L ABG O2 Saturation (94-97) % Potassium (3.5-5.1) mmol/L Chloride 114 H (98-107) mmol/L Glucose 104 H (74-99) mg/dL POC Glucose (mg/dL) (75-99) mg/dL Phosphorus 2.2 L (2.5-4.5) mg/dL Urine Protein Trace H (Negative) Crossmatch 06/26/18 06/26/18 06/26/18 Range/Units 05:53 06:05 12:00 WBC (3.8-10.6) k/uL RBC (4.30-5.90) m/uL Hgb (13.0-17.5) gm/dL Hct (39.0-53.0) % MCH (25.0-35.0) pg MCHC (31.0-37.0) g/dL RDW (11.5-15.5) % Neutrophils # (1.3-7.7) k/uL Neutrophils # (Manual) (1.3-7.7) k/uL Lymphocytes # (1.0-4.8) k/uL Lymphocytes # (Manual) (1.0-4.8) k/uL Metamyelocytes # (Man) (0) k/uL ABG pO2 50 L* (83-108) mmHg ABG HCO3 26 H (21-25) mmol/L ABG Total CO2 27 H (19-24) mmol/L ABG O2 Saturation 84.4 L (94-97) % Potassium (3.5-5.1) mmol/L Chloride (98-107) mmol/L Glucose (74-99) mg/dL POC Glucose (mg/dL) 117 H 151 H (75-99) mg/dL Phosphorus (2.5-4.5) mg/dL Urine Protein (Negative) Crossmatch Microbiology - Last 24 Hours (Table) 06/23/18 13:07 Blood Culture - Preliminary Blood No Growth after 72 hours 06/26/18 05:30 Wound Culture - Preliminary Face 06/26/18 05:30 Anaerobic Culture - Preliminary Face Assessment and Plan (1) Mass of mandible Current Visit: No Status: Acute Code(s): R22.0 - LOCALIZED SWELLING, MASS AND LUMP, HEAD SNOMED Code(s): 197900790 (2) Bone destruction Current Visit: No Status: Acute Code(s): M89.8X9 - OTHER SPECIFIED DISORDERS OF BONE, UNSPECIFIED SITE SNOMED Code(s): 50968887 (3) Oral cancer Current Visit: No Status: Acute Code(s): C06.9 - MALIGNANT NEOPLASM OF MOUTH, UNSPECIFIED SNOMED Code(s): 216819946 (4) Squamous cell carcinoma of head and neck Current Visit: No Status: Acute Priority: High Code(s): C76.0 - MALIGNANT NEOPLASM OF HEAD, FACE AND NECK SNOMED Code(s): 484036278 Plan: Discussed CODE STATUS with patient's significant other, patient currently full code Duragesic patch 25 g applied to shoulder Dietary consult for tube feeding A full code was run on the patient last night he became hypoxic the tumor mass is encroaching on his airway he is not intubated and sedated We will consult Dr. Desiree isidro/onc Time with Patient: Greater than 30
--- NOTE | 2018-06-26 18:32 | P.GSCN ---
History of Present Illness Consult date: 06/26/18 Reason for Consult: Tracheostomy placement History of present illness: We were consulted to see this patient for tracheostomy placement. Patient has an unfortunate recent history of oral cancer. Patient has a large ulcerated lesion involving the left mandibular region with extension deep into the subcutaneous tissues. The patient apparently recently had stopped his chemotherapy. He has evidence of metastatic disease. Patient came to the hospital with right-sided pneumonia and aspiration. Patient was placed on the ventilator. Apparently there is discussion regarding possible immune therapy at the nursing admission for the treatment of this advanced malignancy. Review of Systems ROS unobtainable: due to endotracheal tube Past Medical History Past Medical History: Cancer Additional Past Medical History / Comment(s): Cancer: PV of the jaw, History of Any Multi-Drug Resistant Organisms: None Reported Additional Past Surgical History / Comment(s): Left eye removed at age 6, left sided jaw biopsy, Past Anesthesia/Blood Transfusion Reactions: No Reported Reaction Past Psychological History: No Psychological Hx Reported Additional Psychological History / Comment(s): Pt. lives alone but brayan salazar ates she has been making him stay with her lately due to his health. (Looking to get but patient's brayan's son has cancer and has been dealing with that). Somewhat a poor historian - mildly forgetful. He has difficulty completing complex thoughts. Smoking Status: Current every day smoker Past Alcohol Use History: None Reported Additional Past Alcohol Use History / Comment(s): Pt. has history of heavy etoh use - reports drinking occassionally now. Pt. is a smoker - 1.5 PPD. Sometimes more is been smoking since his early teenage years. No experience. No extensive travel. His exposure to one dog, 4 cats and 2 birds, his fiance's caring for them while he is hospitalized Past Drug Use History: None Reported - Past Family History Father Family Medical History: Cancer Additional Family Medical History / Comment(s): Lung cancer - . Mother Family Medical History: No Reported History Additional Family Medical History / Comment(s): Mother is still living and doesn't have many issues. Medications and Allergies Home Medications Medication Instructions Recorded Confirmed Type Sertraline HCl [Zoloft] 50 mg PO DAILY #30 tablet 06/12/18 06/23/18 Rx Amoxicillin 875 mg PO BID 06/23/18 06/23/18 History Potassium Chloride [Klor-Con 20 20 meq PO DAILY 06/23/18 06/23/18 History Packets] Allergies Allergy/AdvReac Type Severity Reaction Status Date / Time No Known Allergies Allergy Verified 06/23/18 14:35 Surgical - Exam Vital Signs Temp Pulse Resp BP Pulse Ox 97.5 F L 84 18 133/64 87 L 06/23/18 12:53 06/23/18 12:53 06/23/18 12:53 06/23/18 12:53 06/23/18 12:53 Physical exam: General: Well-developed, malnourished HEENT: Normocephalic, sclerae nonicteric, large ulcerated wound involving the left mandibular/submental region with tenderness and erythema Abdomen: Nontender, nondistended, PEG tube noted Extremities: No edema Neuro: Intubated Results - Labs 06/26/18 05:30 06/26/18 17:15 Abnormal Lab Results - Last 24 Hours (Table) 06/25/18 06/25/18 06/25/18 Range/Units 10:32 18:28 18:28 WBC 13.5 H (3.8-10.6) k/uL RBC 2.57 L (4.30-5.90) m/uL Hgb 6.7 L* (13.0-17.5) gm/dL Hct 21.4 L (39.0-53.0) % MCH (25.0-35.0) pg MCHC (31.0-37.0) g/dL RDW 18.8 H (11.5-15.5) % Neutrophils # (1.3-7.7) k/uL Neutrophils # (Manual) (1.3-7.7) k/uL Lymphocytes # (1.0-4.8) k/uL Lymphocytes # (Manual) (1.0-4.8) k/uL Metamyelocytes # (Man) (0) k/uL ABG pO2 (83-108) mmHg ABG HCO3 (21-25) mmol/L ABG Total CO2 (19-24) mmol/L ABG O2 Saturation (94-97) % Potassium 3.3 L (3.5-5.1) mmol/L Chloride (98-107) mmol/L Glucose (74-99) mg/dL POC Glucose (mg/dL) (75-99) mg/dL Phosphorus (2.5-4.5) mg/dL Urine Protein (Negative) Crossmatch See Detail 06/25/18 06/26/18 06/26/18 Range/Units 23:51 00:01 05:30 WBC 15.2 H 17.0 H (3.8-10.6) k/uL RBC 3.05 L 3.36 L (4.30-5.90) m/uL Hgb 8.0 L 8.2 L (13.0-17.5) gm/dL Hct 25.5 L 27.7 L (39.0-53.0) % MCH 24.2 L (25.0-35.0) pg MCHC 29.4 L (31.0-37.0) g/dL RDW 18.4 H 18.7 H (11.5-15.5) % Neutrophils # 15.8 H (1.3-7.7) k/uL Neutrophils # (Manual) 13.90 H (1.3-7.7) k/uL Lymphocytes # 0.7 L (1.0-4.8) k/uL Lymphocytes # (Manual) 0.76 L (1.0-4.8) k/uL Metamyelocytes # (Man) 0.30 H (0) k/uL ABG pO2 (83-108) mmHg ABG HCO3 (21-25) mmol/L ABG Total CO2 (19-24) mmol/L ABG O2 Saturation (94-97) % Potassium (3.5-5.1) mmol/L Chloride (98-107) mmol/L Glucose (74-99) mg/dL POC Glucose (mg/dL) 103 H (75-99) mg/dL Phosphorus (2.5-4.5) mg/dL Urine Protein (Negative) Crossmatch 06/26/18 06/26/18 06/26/18 Range/Units 05:30 05:30 05:53 WBC (3.8-10.6) k/uL RBC (4.30-5.90) m/uL Hgb (13.0-17.5) gm/dL Hct (39.0-53.0) % MCH (25.0-35.0) pg MCHC (31.0-37.0) g/dL RDW (11.5-15.5) % Neutrophils # (1.3-7.7) k/uL Neutrophils # (Manual) (1.3-7.7) k/uL Lymphocytes # (1.0-4.8) k/uL Lymphocytes # (Manual) (1.0-4.8) k/uL Metamyelocytes # (Man) (0) k/uL ABG pO2 (83-108) mmHg ABG HCO3 (21-25) mmol/L ABG Total CO2 (19-24) mmol/L ABG O2 Saturation (94-97) % Potassium (3.5-5.1) mmol/L Chloride 114 H (98-107) mmol/L Glucose 104 H (74-99) mg/dL POC Glucose (mg/dL) 117 H (75-99) mg/dL Phosphorus 2.2 L (2.5-4.5) mg/dL Urine Protein Trace H (Negative) Crossmatch 06/26/18 06/26/18 Range/Units 06:05 12:00 WBC (3.8-10.6) k/uL RBC (4.30-5.90) m/uL Hgb (13.0-17.5) gm/dL Hct (39.0-53.0) % MCH (25.0-35.0) pg MCHC (31.0-37.0) g/dL RDW (11.5-15.5) % Neutrophils # (1.3-7.7) k/uL Neutrophils # (Manual) (1.3-7.7) k/uL Lymphocytes # (1.0-4.8) k/uL Lymphocytes # (Manual) (1.0-4.8) k/uL Metamyelocytes # (Man) (0) k/uL ABG pO2 50 L* (83-108) mmHg ABG HCO3 26 H (21-25) mmol/L ABG Total CO2 27 H (19-24) mmol/L ABG O2 Saturation 84.4 L (94-97) % Potassium (3.5-5.1) mmol/L Chloride (98-107) mmol/L Glucose (74-99) mg/dL POC Glucose (mg/dL) 151 H (75-99) mg/dL Phosphorus (2.5-4.5) mg/dL Urine Protein (Negative) Crossmatch Microbiology - Last 24 Hours (Table) 06/23/18 13:07 Blood Culture - Preliminary Blood No Growth after 72 hours 06/26/18 05:30 Wound Culture - Preliminary Face 06/26/18 05:30 Anaerobic Culture - Preliminary Face Diabetes panel 06/25/18 06/26/18 06/26/18 Range/Units 18:28 00:01 05:30 Sodium 140 (137-145) mmol/L Potassium 3.3 L 3.6 3.7 (3.5-5.1) mmol/L Chloride 114 H (98-107) mmol/L Carbon Dioxide 26 (22-30) mmol/L BUN 18 (9-20) mg/dL Creatinine 0.72 (0.66-1.25) mg/dL Glucose 104 H (74-99) mg/dL Calcium 10.2 (8.4-10.2) mg/dL 06/26/18 Range/Units 17:15 Sodium (137-145) mmol/L Potassium 3.8 (3.5-5.1) mmol/L Chloride (98-107) mmol/L Carbon Dioxide (22-30) mmol/L BUN (9-20) mg/dL Creatinine (0.66-1.25) mg/dL Glucose (74-99) mg/dL Calcium (8.4-10.2) mg/dL Calcium panel 06/26/18 Range/Units 05:30 Calcium 10.2 (8.4-10.2) mg/dL Phosphorus 2.2 L (2.5-4.5) mg/dL Pituitary panel 06/25/18 06/26/18 06/26/18 Range/Units 18:28 00:01 05:30 Sodium 140 (137-145) mmol/L Potassium 3.3 L 3.6 3.7 (3.5-5.1) mmol/L Chloride 114 H (98-107) mmol/L Carbon Dioxide 26 (22-30) mmol/L BUN 18 (9-20) mg/dL Creatinine 0.72 (0.66-1.25) mg/dL Glucose 104 H (74-99) mg/dL Calcium 10.2 (8.4-10.2) mg/dL 06/26/18 Range/Units 17:15 Sodium (137-145) mmol/L Potassium 3.8 (3.5-5.1) mmol/L Chloride (98-107) mmol/L Carbon Dioxide (22-30) mmol/L BUN (9-20) mg/dL Creatinine (0.66-1.25) mg/dL Glucose (74-99) mg/dL Calcium (8.4-10.2) mg/dL Adrenal panel 06/25/18 06/26/18 06/26/18 Range/Units 18:28 00:01 05:30 Sodium 140 (137-145) mmol/L Potassium 3.3 L 3.6 3.7 (3.5-5.1) mmol/L Chloride 114 H (98-107) mmol/L Carbon Dioxide 26 (22-30) mmol/L BUN 18 (9-20) mg/dL Creatinine 0.72 (0.66-1.25) mg/dL Glucose 104 H (74-99) mg/dL Calcium 10.2 (8.4-10.2) mg/dL 06/26/18 Range/Units 17:15 Sodium (137-145) mmol/L Potassium 3.8 (3.5-5.1) mmol/L Chloride (98-107) mmol/L Carbon Dioxide (22-30) mmol/L BUN (9-20) mg/dL Creatinine (0.66-1.25) mg/dL Glucose (74-99) mg/dL Calcium (8.4-10.2) mg/dL Assessment and Plan (1) Respiratory failure Narrative/Plan: We'll tentatively schedule tracheostomy tomorrow. Certainly the patient's prognosis is quite poor and meaningful recovery unlikely. We'll discuss with family tomorrow. Current Visit: Yes Status: Acute Code(s): J96.90 - RESPIRATORY FAILURE, UNSP, UNSP W HYPOXIA OR HYPERCAPNIA SNOMED Code(s): 640209035
[2018-06-26 18:36] LABS: Glucose,Whole Blood 130 mg/dL (75-99)
--- NOTE | 2018-06-26 22:59 | P.PN ---
Subjective Progress Note Date: 06/26/18 Principal diagnosis: Respiratory Failure Acute Hypoxic Respiratory failure worening, om ventilator Objective - Vital Signs Vital signs: Vital Signs Temp 98.3 F 06/26/18 08:00 Pulse 75 06/26/18 11:11 Resp 25 H 06/26/18 11:00 BP 91/50 06/26/18 11:00 Pulse Ox 96 06/26/18 11:00 Intake & Output 06/25/18 06/26/18 06/26/18 18:59 06:59 18:59 Intake Total 6708.568 5139.425 1160 Output Total 640 490 370 Balance 6068.568 4649.425 790 Weight 60.6 kg 74.3 kg Intake: IV 6300 3900 960 Levofloxacin 750Mg-D5w 150 Pmx 750 mg In Dextrose/ Water 1 150ml.bag @ 100 mls/hr IVPB Q24H [facility] Rx#: [id number] Magnesium Sulfate-D5w Pmx 300 1 gm In Dextrose/Water 1 100ml.bag @ 100 mls/hr IVPB Q1H [facility] Rx#: [id number] Magnesium Sulfate-D5w Pmx 200 1 gm In Dextrose/Water 1 100ml.bag @ 100 mls/hr IVPB Q1H [facility] Rx#: [id number] Piperacillin-Tazobactam 3 200 100 100 .375 gm In Sodium Chloride 0.9% 100 ml @ 25 mls/hr IVPB Q8HR [facility] Rx# :[id number] Potassium Chloride 10 meq 200 In Water For Injection 1 100ml.bag @ 100 mls/hr IVPB Q1H [facility] Rx#: [id number] Potassium Chloride 10 meq 600 In Water For Injection 1 100ml.bag @ 100 mls/hr IVPB Q1HR [facility] Rx#: [id number] Potassium Phosphate 10 250 mmol In Sodium Chloride 0 .9% 250 ml @ 125 mls/hr IV ONCE [facility] Rx#:[id number] Sodium Chloride 0.9% 1, 800 1800 460 000 ml @ 150 mls/hr IV . Q6H40M [facility] Rx#:[id number] Sodium Chloride 0.9% 1, 1000 000 ml @ 999 mls/hr IV . Q1H1M [facility] Rx#:[id number] Sodium Chloride 0.9% 1, 2000 000 ml @ 999 mls/hr IV . Q1H1M [facility] Rx#:[id number] Sodium Chloride 0.9% 2, 3000 000 ml @ 999 mls/hr IV . Q2H1M [facility] Rx#:[id number] Intake, IV Titration 78.568 94.425 Amount Propofol 1,000 mg In 78.568 94.425 Empty Bag 1 bag @ Titrate IV .Q0M [facility] Rx#: [id number] Tube Feeding 20 315 140 Blood Product 310 620 Rc As-1 Unit 310 [id number] Rc As-1 Unit 310 [id number] Other 210 60 Output: Urine 640 490 370 Other: Voiding Method Indwelling Catheter Indwelling Catheter Indwelling Catheter - Exam Intubated Appears chronically ill, no acute distress Adenopathy and presence of odoress mass neck Lungs: DImished throughout and ventilator supported Heart Reg 60s Abdomen with Peg tube inserted and serous drainage surrounding Ext: no edema - Labs CBC & Chem 7: 06/26/18 05:30 06/26/18 17:15 Labs: Abnormal Lab Results - Last 24 Hours (Table) 06/25/18 06/25/18 06/25/18 Range/Units 10:32 11:57 18:04 WBC (3.8-10.6) k/uL RBC (4.30-5.90) m/uL Hgb (13.0-17.5) gm/dL Hct (39.0-53.0) % MCH (25.0-35.0) pg MCHC (31.0-37.0) g/dL RDW (11.5-15.5) % Neutrophils # (1.3-7.7) k/uL Neutrophils # (Manual) (1.3-7.7) k/uL Lymphocytes # (1.0-4.8) k/uL Lymphocytes # (Manual) (1.0-4.8) k/uL Metamyelocytes # (Man) (0) k/uL ABG pO2 (83-108) mmHg ABG HCO3 (21-25) mmol/L ABG Total CO2 (19-24) mmol/L ABG O2 Saturation (94-97) % Potassium (3.5-5.1) mmol/L Chloride (98-107) mmol/L Glucose (74-99) mg/dL POC Glucose (mg/dL) 135 H 107 H (75-99) mg/dL Phosphorus (2.5-4.5) mg/dL Urine Protein (Negative) Crossmatch See Detail 06/25/18 06/25/18 06/25/18 Range/Units 18:28 18:28 23:51 WBC 13.5 H (3.8-10.6) k/uL RBC 2.57 L (4.30-5.90) m/uL Hgb 6.7 L* (13.0-17.5) gm/dL Hct 21.4 L (39.0-53.0) % MCH (25.0-35.0) pg MCHC (31.0-37.0) g/dL RDW 18.8 H (11.5-15.5) % Neutrophils # (1.3-7.7) k/uL Neutrophils # (Manual) (1.3-7.7) k/uL Lymphocytes # (1.0-4.8) k/uL Lymphocytes # (Manual) (1.0-4.8) k/uL Metamyelocytes # (Man) (0) k/uL ABG pO2 (83-108) mmHg ABG HCO3 (21-25) mmol/L ABG Total CO2 (19-24) mmol/L ABG O2 Saturation (94-97) % Potassium 3.3 L (3.5-5.1) mmol/L Chloride (98-107) mmol/L Glucose (74-99) mg/dL POC Glucose (mg/dL) 103 H (75-99) mg/dL Phosphorus (2.5-4.5) mg/dL Urine Protein (Negative) Crossmatch 06/26/18 06/26/18 06/26/18 Range/Units 00:01 05:30 05:30 WBC 15.2 H 17.0 H (3.8-10.6) k/uL RBC 3.05 L 3.36 L (4.30-5.90) m/uL Hgb 8.0 L 8.2 L (13.0-17.5) gm/dL Hct 25.5 L 27.7 L (39.0-53.0) % MCH 24.2 L (25.0-35.0) pg MCHC 29.4 L (31.0-37.0) g/dL RDW 18.4 H 18.7 H (11.5-15.5) % Neutrophils # 15.8 H (1.3-7.7) k/uL Neutrophils # (Manual) 13.90 H (1.3-7.7) k/uL Lymphocytes # 0.7 L (1.0-4.8) k/uL Lymphocytes # (Manual) 0.76 L (1.0-4.8) k/uL Metamyelocytes # (Man) 0.30 H (0) k/uL ABG pO2 (83-108) mmHg ABG HCO3 (21-25) mmol/L ABG Total CO2 (19-24) mmol/L ABG O2 Saturation (94-97) % Potassium (3.5-5.1) mmol/L Chloride 114 H (98-107) mmol/L Glucose 104 H (74-99) mg/dL POC Glucose (mg/dL) (75-99) mg/dL Phosphorus 2.2 L (2.5-4.5) mg/dL Urine Protein (Negative) Crossmatch 06/26/18 06/26/18 06/26/18 Range/Units 05:30 05:53 06:05 WBC (3.8-10.6) k/uL RBC (4.30-5.90) m/uL Hgb (13.0-17.5) gm/dL Hct (39.0-53.0) % MCH (25.0-35.0) pg MCHC (31.0-37.0) g/dL RDW (11.5-15.5) % Neutrophils # (1.3-7.7) k/uL Neutrophils # (Manual) (1.3-7.7) k/uL Lymphocytes # (1.0-4.8) k/uL Lymphocytes # (Manual) (1.0-4.8) k/uL Metamyelocytes # (Man) (0) k/uL ABG pO2 50 L* (83-108) mmHg ABG HCO3 26 H (21-25) mmol/L ABG Total CO2 27 H (19-24) mmol/L ABG O2 Saturation 84.4 L (94-97) % Potassium (3.5-5.1) mmol/L Chloride (98-107) mmol/L Glucose (74-99) mg/dL POC Glucose (mg/dL) 117 H (75-99) mg/dL Phosphorus (2.5-4.5) mg/dL Urine Protein Trace H (Negative) Crossmatch Microbiology - Last 24 Hours (Table) 06/26/18 05:30 Wound Culture - Preliminary Face 06/26/18 05:30 Anaerobic Culture - Preliminary Face 06/23/18 13:07 Blood Culture - Preliminary Blood No Growth after 48 hours 06/25/18 03:05 Gram Stain - Preliminary Sputum Sputum Culture - Preliminary Assessment and Plan Plan: Assessment and Recommendations: Squamous cell carcinoma of head and neck, 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 Patient only completed partial recommendations of radiation as he refused further treatment - Recent PET scan on 05/31/18 revealed new metastatic disease, the treatment intent has now changed to palliative, not curable and Dr. Brooks did discuss in detail with him and girlfriend at last follow-up. - Plan to begin immune therapy as outpatient, obtain Next Gene Sequencing, and undergo evaluation at [facility] for opinion and options for clinical trials. - Patient has not yet bagan immune therapy as he had recurrent admissions for dehydration and now vent dependant respiratory failure Acute Respiratory Failure Requiring Mechanical Ventilator Support: - Per Pulmonary and ICU Care Normocytic Normochromic Anemia: - Likely component of Blood Loss anemia and Malignancy - Hemoglobin 5.9 today, transfusion 2 unit PRBC given, hemoglobin increased 6.7 - No active bleeding noted - Daily CBC monitoring Failure to thrive, Decreased PO intake, and increasing weakness: - Difficulty with adherence - Dieticien as well Leukocytsis: Reactive to Persistent malignancy related infection - Blood cultures negative at 48 hours Severe Hypokalemia - Potassium 2.2, Hypomagnesia: - Mg 1.4 Supps per medicine - Monitor Daily Moderate protein calorie malnutrition: - Feedings via peg tube although recent admission for non-adherence to recommended feedings resulting in profound dehydration Overall Prognosis is poor, patient disease is aggressive as it progressive rapidly and diffusely through treatment with chemotherapy and radiation, this has been discussed with patient , MOther, and girlfriend on numerous occasions although at this time they would like to continue full supportive care. Physician Attest: I have discussed the above history and physical and developed the complete impression and plan, agree with dictation, dictated as a scribe.
[2018-06-26 23:19] LABS: Glucose,Whole Blood 118 mg/dL (75-99)
[2018-06-27] MEDS: SODIUM CHLORIDE 0.9% 1,000 ML IV SCH ×4 (01:59→21:21)
[2018-06-27] MEDS: HYDROmorphone 1 MG/ML 1 ML SYRINGE IVP PRN ×4 (04:00→21:34)
[2018-06-27] MEDS: IPRATROPIUM-ALBUTEROL 3 ML NEB INHALATION SCH ×6 (04:03→23:55)
[2018-06-27 05:21] LABS: ABG Base Excess 1.1 mmol/L; ABG HCO3 26 mmol/L (21-25); ABG PCO2 42 mmHg (35-45); ABG PO2 63 mmHg (83-108); ABG TCO2 27 mmol/L (19-24)
[2018-06-27 05:31] LABS: Anisocytosis Slight; Basophils # (A) 0.1 k/uL (0-0.2); Basophils % (A) 0 %; Eosinophils # (A) 0.1 k/uL (0-0.7); Eosinophils % (A) 1 %; HCT 28.8 % (39.0-53.0); HGB 8.2 gm/dL (13.0-17.5); Hypochromasia Marked; Lymphocytes # (A) 0.7 k/uL (1.0-4.8); Lymphocytes % (A) 4 %; MCH 24.4 pg (25.0-35.0); MCHC 28.6 g/dL (31.0-37.0); MCV 85.4 fL (80.0-100.0); Mean Platelet Volume 7.1; Monocytes # (A) 0.4 k/uL (0-1.0); Monocytes % (A) 2 %; Neutrophils # (A) 15.4 k/uL (1.3-7.7); Neutrophils % (A) 92 %; Platelet Count 192 k/uL (150-450); Poikilocytosis Slight; RBC 3.37 m/uL (4.30-5.90); RDW 18.6 % (11.5-15.5); WBC 16.8 k/uL (3.8-10.6)
[2018-06-27 05:41] LABS: Anion Gap 0 mmol/L; Blood Urea Nitrogen 16 mg/dL (9-20); Calcium 10.5 mg/dL (8.4-10.2); Carbon Dioxide 24 mmol/L (22-30); Chloride 117 mmol/L (98-107); Glucose 109 mg/dL (74-99); Magnesium 1.9 mg/dL (1.6-2.3); Phosphorus 2.2 mg/dL (2.5-4.5); Potassium 3.9 mmol/L (3.5-5.1); Sodium 141 mmol/L (137-145)
[2018-06-27 05:43] LABS: Glucose,Whole Blood 126 mg/dL (75-99)
[2018-06-27] MEDS: PROPOFOL 1,000 MG in EMPTY BAG 1 BAG IV SCH ×2 (06:18→16:57)
[2018-06-27] MEDS: MAGNESIUM SULFATE-D5W PMX 1 GM in DEXTROSE/WATER 1 100ML.BAG IVPB SCH ×2 (06:19→08:14)
[2018-06-27] MEDS: POTASSIUM CHLORIDE 10 MEQ in WATER FOR INJECTION 1 100ML.BAG IVPB SCH ×2 (06:20→08:14)
[2018-06-27] MEDS: SODIUM PHOSPHATE 10 MMOL in SODIUM CHLORIDE 0.9% 100 ML IVPB SCH ×2 (08:14→10:23)
[2018-06-27] MEDS: PANTOPRAZOLE 40 MG/10 ML VIAL IV SCH (08:15)
[2018-06-27] MEDS: PIPERACILLIN-TAZOBACTAM 3.375 GM in SODIUM CHLORIDE 0.9% 100 ML IVPB SCH ×3 (08:15→23:50)
[2018-06-27] MEDS: SERTRALINE 50 MG TAB PO SCH (08:15)
[2018-06-27] MEDS: CHLORHEXIDINE GLUCONATE 15 ML CUP MUCOUS MEM SCH ×2 (08:15→21:21)
[2018-06-27] MEDS: POTASSIUM CHLORIDE ER 20 MEQ TAB.ER PO SCH (08:15)
--- NOTE | 2018-06-27 08:26 | XR ---
EXAMINATION TYPE: XR chest 1V portable DATE OF EXAM: 06/27/2018 COMPARISON: 06/26/2017 HISTORY: Shortness of breath TECHNIQUE: Single frontal view of the chest is obtained. FINDINGS: Bilateral consolidation and pleural effusion noted. Mediport catheter noted. More lucent c hanges involving the right apex may been the basis of COPD although cavitary change in the differenti al diagnosis. Findings are stable from previous exam. ET tube and central line stable. IMPRESSION: Diffuse lung disease with suggestion of cavitary changes involving the right upper lobe are stable with bilateral pleural effusion. Pneumonia in the differential diagnosis consider ARDS or diffuse pulmonary edema also under consideration.
--- NOTE | 2018-06-27 09:37 | P.PN ---
Subjective Progress Note Date: 06/27/18 Principal diagnosis: Hypoxemic respiratory failure secondary to right basilar pneumonia, aspiration pneumonia This is a 67-year-old white male patient of Dr. 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 Sánchez, Most recent PET scan on 06/04/2018 showed new metastatic disease in the lungs, with a new pulmonary cavitary lesion as well as nodules, metastatic osseous metastases in the thoracic spine through T3, T9, T10 and T11, pathological fracture from extensive tumor destruction in the mandible. Patient has received radiation treatments, he refused further radiation treatments, he was considering immunotherapy with Opdivo. He has a PEG tube in place, for feedings. He resides with his fiance, he continues to smoke, he does have a history of heavy EtOH use, drinking only occasionally now. Patient came into the hospital EMS on 06/23/2018 for decreased level of consciousness. Patient is a poor historian, his family denied any recent history of fever, chills or sweats. He was recently treated for dehydration. Chest x-ray on admission showed persistent thick-walled cavitary right upper lobe mass unchanged from previous exams. Showed a new left basilar acute infiltrate and/or atelectasis, and probable small left pleural effusion. EKG showed normal sinus rhythm with evidence of a septal infarct, undetermined age. Follow-up chest x-ray on 06/24/2018 showed metastatic disease, diffuse nodularity within the lungs, increased interstitium, Nader a lesion in the right upper lobe. Was initially admitted to the stepdown floor, but apparently last night rapid response team was called, for deteriorating mental status and level of consciousness, and hypoxemic respiratory failure, patient was placed on the 100% nonrebreather, she was moved to the intensive care unit, blood gas showed a pO2 of 60, pCO2 55, and pH of 7.38, this was done on the 100% FiO2, patient was placed on the interval, however that did not seem to help, and patient subsequently was intubated and placed on a mechanical ventilator. This morning he seen in the intensive care unit, intubated, sedated, current vent settings are assist-control mode with a rate of 20, tidal volume of 450, FiO2 of 60% and PEEP of 5, this morning's blood gases showed pO2 of 170, pCO2 of 52, and pH of 7.38, this was done on 100% FiO2 and subsequently FiO2 was dropped down to 60%. Initial blood work showed leukocytosis, with white blood cell count of 17.4, hemoglobin is 7.3, sodium is 134, potassium is 3.4, chloride is 96, CO2 is 34, B1 is 27, creatinine 0.71, plasma lactic acid is 1.4, ammonia level was less than 9, alkaline phosphatase was 222, AST was 47, ALT 62, troponin was negative at 0.033, urine. Urine drug screen was negative, influenza was not detected, urinalysis was negative for glucose, nitrates, showed rare bacteria, urine white blood cell count was only 3. No significant evidence of infection. His blood work today has been reviewed, showed white blood cell count of 11.4, hemoglobin is 5.9, no obvious source of bleeding. Current diabetes appointment normal saline at a rate of 150 ML per hour, Diprivan is at 15 mics per kilo per minute, patient has left abdominal PEG tube with signs of ulceration around the insertion site, we'll hold the PEG tube feedings right now, we're told that there has been leaking around the tube feedings around the insertion site. No fever, patient is hypotensive, we'll continue with IV fluids, and patient will receive a unit of packed red blood cells this morning. On 06/26/2017 patient seen in follow-up in the intensive care unit, he still intubated and sedated, on mechanical ventilator, current vent settings are assist-control mode with a rate of 20, multivitamins 450, FiO2 0%, and PEEP of 5, this morning his blood gases showed pO2 50, pCO2 43, pH of 7.38, this was done and FiO2 of 50%, since then, the FiO2 had been increased to 100% and is being gradually weaned down. These 0.9 normal saline at a rate of 150 ML per hour, Diprivan is a 25 mics per kilo per minute, patient is seen to feedings through the PEG tube, Vital AF a rate of 40, with a goal of 46. She was seen by GI service, and the flange on the PEG tube was tightened up. Today's chest x-ray shows worsening airspace disease in the right lung. Today's labs have been reviewed, showed a white blood cell count is 17.0, hemoglobin is 8.2, sodium is 140, potassium is 3.7, chloride is 114, BUN is 18 creatinine 0.72. ABGs were drawn, and show pO2 of 50, pCO2 43, pH is 7.38. Blood and sputum cultures are pending, but according the form of Levaquin and Zosyn. Afebrile. Yesterday we had a lengthy conversation with the patient's brother, and her friend, and they don't seem to accept the poor prognosis, they state patient has been given an option of immunotherapy at [facility]. However in view of his current health condition, he would probably be a poor candidate for treatment. Medical oncology following, have also discussed with the patient and the family the fact that patient has failed both chemo and radiation, and his cancer is progressing, and that patient should not be aggressively resuscitated. Despite all those conversations patient remains a full code. On 06/27/2018 patient seen in follow-up in the intensive care unit, he is remains sedated and intubated on mechanical ventilation, current vent settings are assist-control mode rate of 20, tidal vital 450, FiO2 50%, and PEEP of 5, blood gas showed pO2 of 63, pCO2 42, and pH of 7.40, IV fluids 0.9 normal saline at a rate of 150 ML per hour, Diprivan is at 25 mics per kilo per minute, vital AF 1.2 to feedings are currently on hold, patient is scheduled for tracheostomy placement today with Dr. Aviles. Microbiology data is negative, patient is afebrile. Hemodynamic with a stable, today's lab work shows a white blood cell count of 16.8, hemoglobin is 8.2, sodium is 141, potassium is 3.9, chloride is 117, CO2 is 24, BUN 16 and creatinine 0.64, antibiotic coverage includes Levaquin and Zosyn, patient is on breathing treatments. He was tolerating tube feedings, large ulcerated area on his left submental area is draining some purulent drainage, so far the Gram stain of the wound cultures showed a few gram-positive cocci and few gram-positive bacilli, final culture is pending. Patient remains a full code despite his poor prognosis, yesterday Dr. Pan from the ethics committee had contacted Dr. Ludwig to discuss patient's condition. For now patient is a full code, per family's request. We'll continue with supportive care. Objective - Vital Signs Vital signs: Vital Signs Temp 98.9 F 06/27/18 04:00 Pulse 85 06/27/18 07:37 Resp 20 06/27/18 07:00 BP 91/54 06/27/18 07:00 Pulse Ox 96 06/27/18 07:00 Intake & Output 06/26/18 06/27/18 06/27/18 18:59 06:59 18:59 Intake Total 2966 2462.000 383.806 Output Total 755 705 100 Balance 2211 1757.000 283.806 Weight 78 kg Intake: IV 2320 1980 350 Levofloxacin 750Mg-D5w 150 Pmx 750 mg In Dextrose/ Water 1 150ml.bag @ 100 mls/hr IVPB Q24H [facility] Rx#: [id number] Magnesium Sulfate-D5w Pmx 200 100 1 gm In Dextrose/Water 1 100ml.bag @ 100 mls/hr IVPB Q1H [facility] Rx#: [id number] Piperacillin-Tazobactam 3 200 100 .375 gm In Sodium Chloride 0.9% 100 ml @ 25 mls/hr IVPB Q8HR [facility] Rx# :[id number] Potassium Chloride 10 meq 200 In Water For Injection 1 100ml.bag @ 100 mls/hr IVPB Q1H [facility] Rx#: [id number] Potassium Chloride 10 meq 200 100 In Water For Injection 1 100ml.bag @ 100 mls/hr IVPB Q1H [facility] Rx#: [id number] Potassium Phosphate 10 250 mmol In Sodium Chloride 0 .9% 250 ml @ 125 mls/hr IV ONCE [facility] Rx#:[id number] Sodium Chloride 0.9% 1, 1320 1680 150 000 ml @ 150 mls/hr IV . Q6H40M [facility] Rx#:[id number] Intake, IV Titration 100 100.000 33.806 Amount Propofol 1,000 mg In 100 100.000 33.806 Empty Bag 1 bag @ Titrate IV .Q0M [facility] Rx#: [id number] Tube Feeding 426 322 Other 120 60 Output: Urine 755 705 100 Other: Voiding Method Indwelling Catheter Indwelling Catheter - Exam GENERAL EXAM: 67-year-old cachectic white male, chronically ill-looking, intubated on mechanical ventilator, comfortable in no apparent distress. HEAD: Normocephalic/atraumatic. large ulcerated wound on the left submental area, with purulent drainage, surrounding redness and some swelling EYES: Normal reaction of pupils, equal size. Conjunctiva pink, sclera white. NOSE: Clear with pink turbinates. THROAT: No erythema or exudates. NECK: No masses, no JVD, no thyroid enlargement, no adenopathy. CHEST: No chest wall deformity. Symmetrical expansion. LUNGS: Equal air entry with no crackles, wheeze, rhonchi or dullness. CVS: Regular rate and rhythm, normal S1 and S2, no gallops, no murmurs, no rubs ABDOMEN: Soft, nontender. No hepatosplenomegaly, normal bowel sounds, no guarding or rigidity. Patient has a left abdominal PEG tube in place, the flange has been tightened, there has been no further draining of the tube feedings around the insertion site EXTREMITIES: No clubbing, no edema, no cyanosis, 2+ pulses and upper and lower extremities. MUSCULOSKELETAL: Muscle strength and tone weak, patient has signs of wasting and cachexia SPINE: No scoliosis or deformity SKIN: No rashes CENTRAL NERVOUS SYSTEM: Sedated No focal deficits, tone is normal in all 4 extremities. - Labs CBC & Chem 7: 06/27/18 05:09 06/27/18 05:09 Labs: Abnormal Lab Results - Last 24 Hours (Table) 06/26/18 06/26/18 06/26/18 Range/Units 12:00 18:24 23:08 WBC (3.8-10.6) k/uL RBC (4.30-5.90) m/uL Hgb (13.0-17.5) gm/dL Hct (39.0-53.0) % MCH (25.0-35.0) pg MCHC (31.0-37.0) g/dL RDW (11.5-15.5) % Neutrophils # (1.3-7.7) k/uL Lymphocytes # (1.0-4.8) k/uL ABG pO2 (83-108) mmHg ABG HCO3 (21-25) mmol/L ABG Total CO2 (19-24) mmol/L ABG O2 Saturation (94-97) % Chloride (98-107) mmol/L Creatinine (0.66-1.25) mg/dL Glucose (74-99) mg/dL POC Glucose (mg/dL) 151 H 130 H 118 H (75-99) mg/dL Calcium (8.4-10.2) mg/dL Phosphorus (2.5-4.5) mg/dL 06/27/18 06/27/18 06/27/18 Range/Units 05:09 05:09 05:18 WBC 16.8 H (3.8-10.6) k/uL RBC 3.37 L (4.30-5.90) m/uL Hgb 8.2 L (13.0-17.5) gm/dL Hct 28.8 L (39.0-53.0) % MCH 24.4 L (25.0-35.0) pg MCHC 28.6 L (31.0-37.0) g/dL RDW 18.6 H (11.5-15.5) % Neutrophils # 15.4 H (1.3-7.7) k/uL Lymphocytes # 0.7 L (1.0-4.8) k/uL ABG pO2 63 L (83-108) mmHg ABG HCO3 26 H (21-25) mmol/L ABG Total CO2 27 H (19-24) mmol/L ABG O2 Saturation 93.0 L (94-97) % Chloride 117 H (98-107) mmol/L Creatinine 0.64 L (0.66-1.25) mg/dL Glucose 109 H (74-99) mg/dL POC Glucose (mg/dL) (75-99) mg/dL Calcium 10.5 H (8.4-10.2) mg/dL Phosphorus 2.2 L (2.5-4.5) mg/dL 06/27/18 Range/Units 05:31 WBC (3.8-10.6) k/uL RBC (4.30-5.90) m/uL Hgb (13.0-17.5) gm/dL Hct (39.0-53.0) % MCH (25.0-35.0) pg MCHC (31.0-37.0) g/dL RDW (11.5-15.5) % Neutrophils # (1.3-7.7) k/uL Lymphocytes # (1.0-4.8) k/uL ABG pO2 (83-108) mmHg ABG HCO3 (21-25) mmol/L ABG Total CO2 (19-24) mmol/L ABG O2 Saturation (94-97) % Chloride (98-107) mmol/L Creatinine (0.66-1.25) mg/dL Glucose (74-99) mg/dL POC Glucose (mg/dL) 126 H (75-99) mg/dL Calcium (8.4-10.2) mg/dL Phosphorus (2.5-4.5) mg/dL Microbiology - Last 24 Hours (Table) 06/26/18 05:30 Gram Stain - Preliminary Face Wound Culture - Preliminary 06/23/18 13:07 Blood Culture - Preliminary Blood No Growth after 72 hours 06/26/18 05:30 Anaerobic Culture - Preliminary Face Assessment and Plan Plan: Assessment: #1. Acute hypoxemic respiratory failure secondary to altered mental status, and there is a possibility of right basilar pneumonia, related to aspiration. Chest x-ray to do a large right upper lobe cavitary lesion, and diffuse nodular infiltrates bilaterally, more so in the right lung, could be related to pneumo monico, or lymphangitic infiltrates. #2. Acute on chronic anemia, with no clear evidence of bleeding, could be related to hemodilution, but in view of patient's hypotention will transfused with 1 unit of packed red blood cells #3. Metastatic squamous cell carcinoma of the head and neck, and most recent PET scan showed a new right upper lobe cavitary lesion, involvement of the thoracic spine, left mandible, maxilla. She is status post chemotherapy and radiation, and most recently considering immunotherapy, follows with Dr. Sánchez #4. PEG tube in place, nutritional support, and it has evidence of ulceration around the insertion site and we can of tube feedings #5. Protein calorie malnutrition #6. Current smoker, #7. History of EtOH use Plan: Continue supportive care, patient is scheduled for tracheostomy placement today, feedings on hold, today's chest x-ray has been reviewed with Dr. Diamond, remains largely unchanged, with diffuse lung disease, cavitary lesion in the right upper lobe, bilateral pleural effusions. We'll continue current antibiotic coverage, will await results of the final cultures, hemodynamically patient is stable, multiple conditions were had with the patient's fianc and the family, regarding patient's condition, and poor prognosis, they insist on full code right now. I performed a history & physical examination of the patient and discussed their management with my nurse practitioner, Aida Montgomery. I reviewed the nurse practitioner's note and agree with the documented findings and plan of care. Lung sounds are positive for coarse lung sounds The findings and the impression was discussed with the patient. I attest to the documentation by the nurse practitioner. Time with Patient: Greater than 30
--- NOTE | 2018-06-27 12:02 | P.PN ---
Progress Note - Text Progress Note Date: 06/27/18 Spoke with the patient's power of senior trial attorney today. Also discussed the case today with oncology. From a palliative standpoint proceeding with tracheostomy is felt to be a reasonable option. The risks of the procedure were reviewed with the patient's girlfriend in detail. She is agreeable to us proceeding. Risks of bleeding, infection, respiratory failure and reviewed. I will contact the patient's girlfriend once the procedure is complete.
[2018-06-27 12:07] LABS: Glucose,Whole Blood 132 mg/dL (75-99)
[2018-06-27] MEDS ORDERED: ROCURONIUM BROMIDE 10 MG/ML 10 ML VIAL IV ONE (12:15)
[2018-06-27] MEDS ORDERED: LACTATED RINGERS 1,000 ML IV ONE (12:15)
[2018-06-27] MEDS ORDERED: fentaNYL (PF) 50 MCG/ML 2 ML AMP ONE (12:15)
[2018-06-27] MEDS ORDERED: MIDAZOLAM 2 MG/2 ML VIAL ONE (12:15)
--- NOTE | 2018-06-27 13:45 | P.OP ---
Date of Procedure: 06/27/18 Procedure(s) Performed: PREOPERATIVE DIAGNOSIS: Respiratory failure POSTOPERATIVE DIAGNOSIS: Same PROCEDURE: Tracheostomy SURGEON: Yolis EBL: Minimal ANESTHESIA: General COMPLICATIONS: None OPERATIVE PROCEDURE: Patient was placed in the operative table in the supine position. A shoulder roll was utilized. The neck was prepped and draped in usual sterile fashion. The skin was infiltrated with local anesthesia. A small cervical incision was created using the scalpel. Dissection through the subcutaneous fat and platysma layer took place using electrocautery. The underlying strap muscles were divided in the midline. The thyroid isthmus was divided using electrocautery as well. No bleeding was seen. The trachea was easily identified at this time. The endotracheal tube was advanced and the balloon was reinflated. The patient was preoxygenated with 100% FiO2. The FiO2 was then brought down to room air. Once the end title oxygen level was less than 35 a vertical tracheostomy was created using the electrocautery. This went through the second and third tracheal ring. The patient was again preoxygenated with 100% FiO2. The spreader box operator was utilized. Carefully the endotracheal tube was withdrawn just proximal to our tracheostomy. The 8-[place] fenestrated tracheostomy catheter was advanced under direct visualization into the trachea. The obturator was inserted. This was then connected to the ventilator. Positive end tidal CO2 was confirmed. The tracheal ties were utilized. The trach was sutured to the skin superiorly using 2 separate 0 silk sutures. The skin was closed using 3-0 Vicryl sutures. A dressing was applied. At that point we noticed some bleeding once we took our dressings off from the cancerous wound along the left chin margin this was fairly brisk skin at the lower aspect. May have been related to the sticky drapes that were in that region. The area was cauterized with improvement in that losing however all of the tissues were so friable that just suctioning and manipulating that tissue was leading to further oozing. A small amount of Kerlix roll was packed in to the wound itself to help collect any residual blood. A sterile dressing was applied. DISPOSITION: Stable to recovery room
--- NOTE | 2018-06-27 16:30 | P.PN ---
Subjective Progress Note Date: 06/27/18 Principal diagnosis: Respiratory Failure Plan for trach today, Dr. Lagos discussed with Dr. Brooks. patient's family still adament about full code status despite overall prognostic factors and patients prior expressions related to not remaining adherent to original treatment plan o f chemo and radiation and refusing further treatment. Family and girlfriend require remediation as to immune therapy and its evidence of fullfilling the goals and outcomes of their expectations. His disease is quite aggressive despite his non-compliance as even with treatment he metastatized quickly and diffusely. Objective - Vital Signs Vital signs: Vital Signs Temp 99.0 F 06/27/18 12:00 Pulse 84 06/27/18 12:00 Resp 22 06/27/18 12:00 BP 94/53 06/27/18 12:00 Pulse Ox 94 L 06/27/18 12:00 Intake & Output 06/26/18 06/27/18 06/27/18 18:59 06:59 18:59 Intake Total 2966 2462.000 1426.692 Output Total 755 705 610 Balance 2211 1757.000 816.692 Weight 78 kg 78 kg Intake: IV 2320 1980 1390 Levofloxacin 750Mg-D5w 150 Pmx 750 mg In Dextrose/ Water 1 150ml.bag @ 100 mls/hr IVPB Q24H [facility] Rx#: [id number] Magnesium Sulfate-D5w Pmx 200 100 1 gm In Dextrose/Water 1 100ml.bag @ 100 mls/hr IVPB Q1H [facility] Rx#: [id number] Magnesium Sulfate-D5w Pmx 200 1 gm In Dextrose/Water 1 100ml.bag @ 100 mls/hr IVPB Q1H [facility] Rx#: [id number] Piperacillin-Tazobactam 3 200 100 100 .375 gm In Sodium Chloride 0.9% 100 ml @ 25 mls/hr IVPB Q8HR [facility] Rx# :[id number] Potassium Chloride 10 meq 200 In Water For Injection 1 100ml.bag @ 100 mls/hr IVPB Q1H [facility] Rx#: [id number] Potassium Chloride 10 meq 200 200 In Water For Injection 1 100ml.bag @ 100 mls/hr IVPB Q1H [facility] Rx#: [id number] Potassium Phosphate 10 250 mmol In Sodium Chloride 0 .9% 250 ml @ 125 mls/hr IV ONCE ONE Rx#:[id number] Sodium Chloride 0.9% 1, 1320 1680 590 000 ml @ 150 mls/hr IV . Q6H40M [facility] Rx#:[id number] Sodium Phosphate 10 mmol 200 In Sodium Chloride 0.9% 100 ml @ 50 mls/hr IVPB Q2H [facility] Rx#:[id number] Intake, IV Titration 100 100.000 36.692 Amount Propofol 1,000 mg In 100 100.000 36.692 Empty Bag 1 bag @ Titrate IV .Q0M [facility] Rx#: [id number] Tube Feeding 426 322 Other 120 60 Output: Urine 755 705 610 Other: Voiding Method Indwelling Catheter Indwelling Catheter Indwelling Catheter - Exam Intubated, Sedated Appears chronically ill, no acute distress Adenopathy and presence of odoress mass neck, submental puruluent drainage Lungs: DImished throughout and ventilator supported Heart Reg 60s Abdomen with Peg tube inserted and serous drainage surrounding Ext: no edema - Labs CBC & Chem 7: 06/27/18 05:09 06/27/18 05:09 Labs: Abnormal Lab Results - Last 24 Hours (Table) 06/26/18 06/26/18 06/27/18 Range/Units 18:24 23:08 05:09 WBC 16.8 H (3.8-10.6) k/uL RBC 3.37 L (4.30-5.90) m/uL Hgb 8.2 L (13.0-17.5) gm/dL Hct 28.8 L (39.0-53.0) % MCH 24.4 L (25.0-35.0) pg MCHC 28.6 L (31.0-37.0) g/dL RDW 18.6 H (11.5-15.5) % Neutrophils # 15.4 H (1.3-7.7) k/uL Lymphocytes # 0.7 L (1.0-4.8) k/uL ABG pO2 (83-108) mmHg ABG HCO3 (21-25) mmol/L ABG Total CO2 (19-24) mmol/L ABG O2 Saturation (94-97) % Chloride (98-107) mmol/L Creatinine (0.66-1.25) mg/dL Glucose (74-99) mg/dL POC Glucose (mg/dL) 130 H 118 H (75-99) mg/dL Calcium (8.4-10.2) mg/dL Phosphorus (2.5-4.5) mg/dL 06/27/18 06/27/18 06/27/18 Range/Units 05:09 05:18 05:31 WBC (3.8-10.6) k/uL RBC (4.30-5.90) m/uL Hgb (13.0-17.5) gm/dL Hct (39.0-53.0) % MCH (25.0-35.0) pg MCHC (31.0-37.0) g/dL RDW (11.5-15.5) % Neutrophils # (1.3-7.7) k/uL Lymphocytes # (1.0-4.8) k/uL ABG pO2 63 L (83-108) mmHg ABG HCO3 26 H (21-25) mmol/L ABG Total CO2 27 H (19-24) mmol/L ABG O2 Saturation 93.0 L (94-97) % Chloride 117 H (98-107) mmol/L Creatinine 0.64 L (0.66-1.25) mg/dL Glucose 109 H (74-99) mg/dL POC Glucose (mg/dL) 126 H (75-99) mg/dL Calcium 10.5 H (8.4-10.2) mg/dL Phosphorus 2.2 L (2.5-4.5) mg/dL 06/27/18 Range/Units 11:55 WBC (3.8-10.6) k/uL RBC (4.30-5.90) m/uL Hgb (13.0-17.5) gm/dL Hct (39.0-53.0) % MCH (25.0-35.0) pg MCHC (31.0-37.0) g/dL RDW (11.5-15.5) % Neutrophils # (1.3-7.7) k/uL Lymphocytes # (1.0-4.8) k/uL ABG pO2 (83-108) mmHg ABG HCO3 (21-25) mmol/L ABG Total CO2 (19-24) mmol/L ABG O2 Saturation (94-97) % Chloride (98-107) mmol/L Creatinine (0.66-1.25) mg/dL Glucose (74-99) mg/dL POC Glucose (mg/dL) 132 H (75-99) mg/dL Calcium (8.4-10.2) mg/dL Phosphorus (2.5-4.5) mg/dL Microbiology - Last 24 Hours (Table) 06/25/18 03:05 Gram Stain - Final Sputum Sputum Culture - Final 06/26/18 05:30 Gram Stain - Preliminary Face Wound Culture - Preliminary 06/23/18 13:07 Blood Culture - Preliminary Blood No Growth after 72 hours 06/26/18 05:30 Anaerobic Culture - Preliminary Face Assessment and Plan Plan: Assessment and Recommendations: Squamous cell carcinoma of head and neck, moderately differentiated: New extensive metastatic Osseous and Pulmonary Disease on PET from 05/31/18 - Status POst [place] based chemotherapy regimen with concurrent radiation, last chemo on 05/13/18. Patient only completed partial recommendations of radiation as he refused further treatment - Recent PET scan on 05/31/18 revealed new metastatic disease, the treatment intent has now changed to palliative, not curable and Dr. Brooks did discuss in detail with him and girlfriend at last follow-up. - Plan to begin immune therapy as outpatient, obtain Next Gene Sequencing, and undergo evaluation at [facility] for opinion and options for clinical trials. - Patient has not yet bagan immune therapy as he had recurrent admissions for dehydration and now vent dependant respiratory failure Acute Respiratory Failure Requiring Mechanical Ventilator Support: - Per Pulmonary and ICU Care Normocytic Normochromic Anemia: - Likely component of Blood Loss anemia and Malignancy - No active bleeding noted - Daily CBC monitoring Failure to thrive, Decreased PO intake, and increasing weakness: - Difficulty with adherence - Dieticien as well Leukocytsis: Reactive to Persistent malignancy related infection - Blood cultures negative at 48 hours Hypokalemia - improved Hypomagnesia: Supps per medicine - Monitor Daily Moderate protein calorie malnutrition: - Feedings via peg tube although recent admission for non-adherence to recommended feedings resulting in profound dehydration Overall Prognosis is poor, patient disease is aggressive as it progressive rapidly and diffusely through treatment with chemotherapy and radiation, this has been discussed with patient , MOther, and girlfriend on numerous occasions although at this time they would like to continue full supportive care. - Will move forward with trach as the trach could potentially assist in palliative measures as the tumor will continue to grow cutting off airway. - Girlfriend and Mother not at bedside today, attempted to meetr them three times today as well as Dr. Brooks attempted to meet Girlfriend as it was told to her we would see her at 3pm today. - Discussed in detail with nursing Physician Attest: I have discussed the above history and physical and developed the complete impression and plan, agree with dictation, dictated as a scribe.
--- NOTE | 2018-06-27 16:35 | P.PN ---
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 Heredia presented with mental status changes and decreased level of consciousness with an open necrotic lesion to the neck and metastatic disease to the lung. This patient is currently being fed via PEG tube has been admitted with dehydration, mental status change and decreased level of consciousness. Patient has failed chemotherapy field radiat ion therapy and was noted that at [facility] he was offered an opportunity to trial on medium biologic as a last effort. It was discussed with his loved ones that his prognosis is grave and that intubating placing patient on a vent in the not something that would be appropriate however this was insisted upon and patient is currently on ventilator 06/26/2018 Patient is in the intensive care unit intubated, patient has significant progressive of progressive head and neck carcinoma that has metastasized to bone and lung with a large cavitary lesion in the lung the tumor mass has impeded respiratory efforts and is encroaching on the airway requiring intubation and mechanical ventilation. This patient's Mother, his significant other girlfriend, and other family members are not understanding that this man has failed chemotherapy has basically failed radiation therapy has been noncompliant about following up with oncology the disease is basically gotten the best of this gentleman and his prognosis is poor he is still a full code, they keep asking regarding other therapies recommended at [facility] and they did not understand that while he is immune system is compromised with pneumonia and other infections and cavitary lesions in his lung he has become a poor c andidate for this type of therapy Dr. Diamond critical care has spoken to this patient's family at length, the oncologist has spoken to this family at length Matteo Herrera primary care doctor of record have spoken to the family at length, regarding the poor prognosis and continued failure of this patient to thrive have fallen on ears. 06/27/2018 Patient underwent tracheostomy per Dr. Fab Lagos patient is on vent; history of aggressive and neck carcinoma that has subsequently metastasized to the bone and lung. Patient has been noncompliant, has not followed up with oncology has not followed up with radiation oncology underwent one radiation therapy and decided to stop it decided he did not want to proceed forward with chemo prior to this admission had continued smoking and drinking and patient has continued to remain a full code His legal guardian wants everything done at this point in time Objective - Vital Signs Vital signs: Vital Signs Temp 99.0 F 06/27/18 12:00 Pulse 92 06/27/18 15:54 Resp 21 06/27/18 15:00 BP 82/49 06/27/18 15:00 Pulse Ox 97 06/27/18 15:00 Intake & Output 06/26/18 06/27/18 06/27/18 18:59 06:59 18:59 Intake Total 2966 2462.000 2182.692 Output Total 755 705 945 Balance 2211 0341.577 9523.692 Weight 78 kg 78 kg Intake: IV 2319 1979 2099 Levofloxacin 750Mg-D5w 150 Pmx 750 mg In Dextrose/ Water 1 150ml.bag @ 100 mls/hr IVPB Q24H [facility] Rx#: [id number] Magnesium Sulfate-D5w Pmx 200 100 1 gm In Dextrose/Water 1 100ml.bag @ 100 mls/hr IVPB Q1H [facility] Rx#: [id number] Magnesium Sulfate-D5w Pmx 200 1 gm In Dextrose/Water 1 100ml.bag @ 100 mls/hr IVPB Q1H [facility] Rx#: [id number] Piperacillin-Tazobactam 3 200 100 100 .375 gm In Sodium Chloride 0.9% 100 ml @ 25 mls/hr IVPB Q8HR COUNTS INCLUDE 234 BEDS AT [facility] Rx# :[id number] Potassium Chloride 10 meq 200 In Water For Injection 1 100ml.bag @ 100 mls/hr IVPB Q1H [facility] Rx#: [id number] Potassium Chloride 10 meq 200 200 In Water For Injection 1 100ml.bag @ 100 mls/hr IVPB Q1H [facility] Rx#: [id number] Potassium Phosphate 10 250 mmol In Sodium Chloride 0 .9% 250 ml @ 125 mls/hr IV ONCE ONE Rx#:[id number] Sodium Chloride 0.9% 1, 1320 1680 700 000 ml @ 150 mls/hr IV . Q6H40M [facility] Rx#:[id number] Sodium Phosphate 10 mmol 200 In Sodium Chloride 0.9% 100 ml @ 50 mls/hr IVPB Q2H [facility] Rx#:[id number] Intake, IV Titration 100 100.000 36.692 Amount Propofol 1,000 mg In 100 100.000 36.692 Empty Bag 1 bag @ Titrate IV .Q0M [facility] 234 BEDS AT [facility] Rx#: [id number] Tube Feeding 426 322 46 Other 120 60 Output: Urine 755 705 940 Estimated Blood Loss 5 Other: Voiding Method Indwelling Catheter Indwelling Catheter Indwelling Catheter - Exam General: Patient is intubated, has a large necrotic lesion to the left side of his face and neck known metastatic disease to the lung Tracheostomy in place HEENT: [PERRL. EOMI. No pharyngeal erythema or exudate.] Neck: [No adenopathy.] Cardiac: [Heart regular in rate and rhythm. No S3. No S4. No clicks, rubs. No murmur.] Lungs: [Clear to auscultation bilaterally.] Abdomen: [No mass. No organomegaly. Bowel sounds presnt and normoactive in all 4 quadrants.] PEG tube intact, clean and dry minimal drainage Extremes: [No edema no cyanosis no claudication normal pulses] : [] Musculoskeletal: [No joint erythema, edema or tenderness.] Skin: [No rash.] Neurologic: [No lateralizing deficits. CN II - XII grossly intact.] Lymphatic: [No adenopathy.] - Labs CBC & Chem 7: 06/27/18 05:09 06/27/18 05:09 Labs: Abnormal Lab Results - Last 24 Hours (Table) 06/26/18 06/26/18 06/27/18 Range/Units 18:24 23:08 05:09 WBC 16.8 H (3.8-10.6) k/uL RBC 3.37 L (4.30-5.90) m/uL Hgb 8.2 L (13.0-17.5) gm/dL Hct 28.8 L (39.0-53.0) % MCH 24.4 L (25.0-35.0) pg MCHC 28.6 L (31.0-37.0) g/dL RDW 18.6 H (11.5-15.5) % Neutrophils # 15.4 H (1.3-7.7) k/uL Lymphocytes # 0.7 L (1.0-4.8) k/uL ABG pO2 (83-108) mmHg ABG HCO3 (21-25) mmol/L ABG Total CO2 (19-24) mmol/L ABG O2 Saturation (94-97) % Chloride (98-107) mmol/L Creatinine (0.66-1.25) mg/dL Glucose (74-99) mg/dL POC Glucose (mg/dL) 130 H 118 H (75-99) mg/dL Calcium (8.4-10.2) mg/dL Phosphorus (2.5-4.5) mg/dL 06/27/18 06/27/18 06/27/18 Range/Units 05:09 05:18 05:31 WBC (3.8-10.6) k/uL RBC (4.30-5.90) m/uL Hgb (13.0-17.5) gm/dL Hct (39.0-53.0) % MCH (25.0-35.0) pg MCHC (31.0-37.0) g/dL RDW (11.5-15.5) % Neutrophils # (1.3-7.7) k/uL Lymphocytes # (1.0-4.8) k/uL ABG pO2 63 L (83-108) mmHg ABG HCO3 26 H (21-25) mmol/L ABG Total CO2 27 H (19-24) mmol/L ABG O2 Saturation 93.0 L (94-97) % Chloride 117 H (98-107) mmol/L Creatinine 0.64 L (0.66-1.25) mg/dL Glucose 109 H (74-99) mg/dL POC Glucose (mg/dL) 126 H (75-99) mg/dL Calcium 10.5 H (8.4-10.2) mg/dL Phosphorus 2.2 L (2.5-4.5) mg/dL 06/27/18 Range/Units 11:55 WBC (3.8-10.6) k/uL RBC (4.30-5.90) m/uL Hgb (13.0-17.5) gm/dL Hct (39.0-53.0) % MCH (25.0-35.0) pg MCHC (31.0-37.0) g/dL RDW (11.5-15.5) % Neutrophils # (1.3-7.7) k/uL Lymphocytes # (1.0-4.8) k/uL ABG pO2 (83-108) mmHg ABG HCO3 (21-25) mmol/L ABG Total CO2 (19-24) mmol/L ABG O2 Saturation (94-97) % Chloride (98-107) mmol/L Creatinine (0.66-1.25) mg/dL Glucose (74-99) mg/dL POC Glucose (mg/dL) 132 H (75-99) mg/dL Calcium (8.4-10.2) mg/dL Phosphorus (2.5-4.5) mg/dL Microbiology - Last 24 Hours (Table) 06/23/18 13:07 Blood Culture - Preliminary Blood No Growth after 96 hours 06/25/18 03:05 Gram Stain - Final Sputum Sputum Culture - Final 06/26/18 05:30 Gram Stain - Preliminary Face Wound Culture - Preliminary Assessment and Plan (1) Mass of mandible Current Visit: No Status: Acute Code(s): R22.0 - LOCALIZED SWELLING, MASS AND LUMP, HEAD SNOMED Code(s): 574757800 (2) Bone destruction Current Visit: No Status: Acute Code(s): M89.8X9 - OTHER SPECIFIED DISORDERS OF BONE, UNSPECIFIED SITE SNOMED Code(s): 68894920 (3) Oral cancer Current Visit: No Status: Acute Code(s): C06.9 - MALIGNANT NEOPLASM OF MOUTH, UNSPECIFIED SNOMED Code(s): 352054830 (4) Squamous cell carcinoma of head and neck Current Visit: No Status: Acute Priority: High Code(s): C76.0 - MALIGNANT NEOPLASM OF HEAD, FACE AND NECK SNOMED Code(s): 193021281 Plan: Discussed CODE STATUS with patient's significant other, patient currently full code Duragesic patch 25 g applied to shoulder Dietary consult for tube feeding A full code was run on the patient last night he became hypoxic the tumor mass is encroaching on his airway, underwent tracheotomy today , still ventilated We will consult Dr. Desiree isidro/onc Time with Patient: Greater than 30
[2018-06-27] MEDS: LEVOFLOXACIN 750MG-D5W PMX 750 MG in DEXTROSE/WATER 1 150ML.BAG IVPB SCH (17:00)
[2018-06-27 18:21] LABS: Glucose,Whole Blood 130 mg/dL (75-99)
[2018-06-27 23:57] LABS: Glucose,Whole Blood 118 mg/dL (75-99)
[2018-06-28 00:16] LABS: Magnesium 1.8 mg/dL (1.6-2.3); Potassium 3.4 mmol/L (3.5-5.1)
[2018-06-28] MEDS: MAGNESIUM SULFATE-D5W PMX 1 GM in DEXTROSE/WATER 1 100ML.BAG IVPB SCH ×4 (00:37→22:32)
[2018-06-28] MEDS: POTASSIUM CHLORIDE 10 MEQ in WATER FOR INJECTION 1 100ML.BAG IVPB SCH ×4 (00:38→04:11)
[2018-06-28] MEDS: HYDROmorphone 1 MG/ML 1 ML SYRINGE IVP PRN ×5 (03:03→23:57)
[2018-06-28] MEDS: PROPOFOL 1,000 MG in EMPTY BAG 1 BAG IV SCH (03:10)
[2018-06-28] MEDS: IPRATROPIUM-ALBUTEROL 3 ML NEB INHALATION SCH ×5 (03:18→20:56)
[2018-06-28 04:41] LABS: ABG Base Excess 1.1 mmol/L; ABG HCO3 27 mmol/L (21-25); ABG Oxygen Saturation 96.5 % (94-97); ABG PCO2 51 mmHg (35-45); ABG PH 7.34 (7.35-7.45); ABG PO2 83 mmHg (83-108); ABG TCO2 29 mmol/L (19-24)
[2018-06-28 05:58] LABS: Glucose,Whole Blood 145 mg/dL (75-99)
[2018-06-28 06:13] LABS: Anisocytosis Slight; Basophils % (A) 0 %; Eosinophils # (A) 0.1 k/uL (0-0.7); Eosinophils % (A) 1 %; HCT 25.8 % (39.0-53.0); HGB 8.2 gm/dL (13.0-17.5); Hypochromasia Marked; Lymphocytes # (A) 0.8 k/uL (1.0-4.8); Lymphocytes % (A) 7 %; MCH 26.9 pg (25.0-35.0); MCHC 31.8 g/dL (31.0-37.0); MCV 84.6 fL (80.0-100.0); Mean Platelet Volume 6.9; Monocytes # (A) 0.3 k/uL (0-1.0); Monocytes % (A) 3 %; Neutrophils # (A) 9.9 k/uL (1.3-7.7); Neutrophils % (A) 88 %; Platelet Count 129 k/uL (150-450); Poikilocytosis Slight; RBC 3.05 m/uL (4.30-5.90); RDW 18.4 % (11.5-15.5); WBC 11.2 k/uL (3.8-10.6)
[2018-06-28] MEDS: SODIUM CHLORIDE 0.9% 1,000 ML IV SCH ×3 (06:13→18:30)
[2018-06-28 06:29] LABS: Anion Gap 0 mmol/L; Blood Urea Nitrogen 14 mg/dL (9-20); Calcium 10.1 mg/dL (8.4-10.2); Carbon Dioxide 26 mmol/L (22-30); Chloride 115 mmol/L (98-107); Glucose 122 mg/dL (74-99); Magnesium 2.1 mg/dL (1.6-2.3); Phosphorus 2.6 mg/dL (2.5-4.5); Potassium 3.9 mmol/L (3.5-5.1); Sodium 141 mmol/L (137-145)
--- NOTE | 2018-06-28 06:38 | XR ---
EXAMINATION TYPE: XR chest 1V portable DATE OF EXAM: 06/28/2018 HISTORY: Tube placement. REFERENCE: Previous study dated 06/27/2018. FINDINGS: A tracheostomy tube is in place. Its tip overlies the tracheal air column in this single fr ontal projection. A MediPort is in place on the right via a right internal jugular approach. Its tip is in the superior vena cava. There is right-sided airspace disease. There may be cavitation in the right upper lobe. Heart size is obscured. There is increased opacity over the left lung base and this may represent layering effusio n. IMPRESSION: NO SIGNIFICANT INTERVAL CHANGE IN THE APPEARANCE OF THE CHEST.
[2018-06-28] MEDS: PANTOPRAZOLE 40 MG/10 ML VIAL IV SCH (09:15)
[2018-06-28] MEDS: PIPERACILLIN-TAZOBACTAM 3.375 GM in SODIUM CHLORIDE 0.9% 100 ML IVPB SCH ×3 (09:17→23:54)
[2018-06-28] MEDS: POTASSIUM CHLORIDE ER 20 MEQ TAB.ER PO SCH (09:17)
[2018-06-28] MEDS: SERTRALINE 50 MG TAB PO SCH (09:17)
[2018-06-28] MEDS: CHLORHEXIDINE GLUCONATE 15 ML CUP MUCOUS MEM SCH ×2 (09:17→20:05)
--- NOTE | 2018-06-28 09:54 | P.PN ---
Progress Note - Text Progress Note Date: 06/28/18 The patient underwent tracheostomy yesterday. He is currently on the ventilator. There is been no significant bleeding from his facial tumor. The patient will continue to be observed.
--- NOTE | 2018-06-28 11:29 | PN ---
PROGRESS NOTE DATE OF SERVICE: 06/28/2018 This is a 67-year-old male with a history of acute hypoxemic respiratory failure secondary to aspiration pneumonia. In addition, he has a large cavitary lesion in the right upper lung representing his metastatic head and neck cancer. The patient had a tracheostomy performed yesterday. He is postop day #1. In addition, he has a history of acute on chronic anemia, metastatic squamous cell carcinoma of the head and neck with most recent PET scan showing involvement of the right upper lobe, thoracic spine, left mandible and maxillary areas. In addition, he is status post PEG tube placement for nutrition and has a history of protein calorie malnutrition, general medical debility and he is a current ongoing tobacco user and alcohol abuser. Attempts that were made to talk to the family about code status but they were not willing to change code status at this time. Tracheostomy was performed yesterday by Dr. Lagos. The plan is to try to get him home on a portable ventilator or eventually wean him to trach collar and get him home or if that is not possible, send him to a long-term acute care facility on the ventilator. Currently, his vent settings include the volume assist-control mode rate of 20, tidal volume 450, FiO2 of 70% dropped to 60%, PEEP of 5. Blood gases show PO2 of 83, pCO2 of 51, and pH of 7.34. The FiO2 was dropped from 70 to 60%because the saturations were 100%. He is on a saline IV at 150 an hour, Vital AF at 1.2 with a goal of 46, currently running at 46. All his microbiologic studies thus far have been negative. Current vital signs are reviewed. His temperature is 98.5, heart rate 78, respiratory rate 20, blood pressure 94/52, mean 66, and saturations are 100%. Appears in no acute distress. Currently sedated. HEENT examination is grossly unremarkable. He has got a midline tracheostomy. He has got bandages over the left side of the neck and facial area where his cancer is. Neck is supple otherwise. No adenopathy. Cardiovascular examination reveals regular rhythm and rate. Heart rate 70 to 80 beats per minute. S1, S2 normal. Heart sounds are distant. No murmur. Lungs reveal coarse inspiratory and expiratory rhonchi and wheezes. Breath sounds are diminished. Abdomen is soft. PEG tube noted. Extremities are intact. No cyanosis, clubbing, or edema. Skin without rash. Neurologic examination is difficult to assess because he is currently on propofol. The patient will get a daily interruption of sedation, though. Microbiologic studies are negative. Chest x-ray continues to show diffuse bilateral infiltrates with a large cavitary lesion in the right upper lung. LAB DATA: Reviewed. White count 11.2, hemoglobin 8.2, hematocrit 25.8, platelet count 129,000, sodium 141, potassium 3.9, chloride 115, CO2 is 26, BUN and creatinine were 14 and 0.59. MEDICATIONS: Reviewed. Currently, he is on Peridex, Dilaudid, insulin, updrafts with albuterol and Atrovent, Levaquin, Narcan, Protonix, phosphorus and potassium replacement protocols, Zosyn, Zoloft, and his IV fluids. ASSESSMENT: 1. Acute hypoxemic respiratory failure, likely secondary to metastatic disease to lungs, possible lymphangitic carcinomatosis and likely aspiration pneumonia. 2. Postoperative day #1 status post tracheostomy. 3. Ventilator-dependent respiratory failure. 4. Metastatic squamous cell carcinoma of the head and neck with lesions involving the head and neck area, facial area, maxilla, mandible, thoracic spine and right upper lobe. 5. Status post PEG tube placement for nutrition. 6. Protein calorie malnutrition. 7. General medical debility. 8. Ongoing tobacco use. 9. History of ongoing alcohol use/abuse. PLAN: The patient's overall prognosis remains very poor. I did speak to Dr. Pan, who is in charge of the ethics committee. The patient is still a FULL CODE. The plan is to try to get the patient off to a long-term acute care facility or if we can get the patient weaned to trach collar, he might be able to go home. Alternatively, going home with a portable ventilator is another option. I did discuss this with the case management associate/regional planner, Edgar. In addition, the patient will be maintained on the ventilator at this time. We did drop the FiO2 done 60%. Will remain on his tube feeds. He remains on antibiotics. Microbiologic studies are negative. Prognosis is very poor Critical care time is 37 minutes. MMODL / IJN: [id number] /
--- NOTE | 2018-06-28 11:34 | P.PN ---
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 Heredia presented with mental status changes and decreased level of consciousness with an open necrotic lesion to the neck and metastatic disease to the lung. This patient is currently being fed via PEG tube has been admitted with dehydration, mental status change and decreased level of consciousness. Patient has failed chemotherapy field radiat ion therapy and was noted that at [facility] he was offered an opportunity to trial on medium biologic as a last effort. It was discussed with his loved ones that his prognosis is grave and that intubating placing patient on a vent in the not something that would be appropriate however this was insisted upon and patient is currently on ventilator 06/26/2018 Patient is in the intensive care unit intubated, patient has significant progressive of progressive head and neck carcinoma that has metastasized to bone and lung with a large cavitary lesion in the lung the tumor mass has impeded respiratory efforts and is encroaching on the airway requiring intubation and mechanical ventilation. This patient's Mother, his significant other girlfriend, and other family members are not understanding that this man has failed chemotherapy has basically failed radiation therapy has been noncompliant about following up with oncology the disease is basically gotten the best of this gentleman and his prognosis is poor he is still a full code, they keep asking regarding other therapies recommended at [facility] and they did not understand that while he is immune system is compromised with pneumonia and other infections and cavitary lesions in his lung he has become a poor c andidate for this type of therapy Dr. Diamond critical care has spoken to this patient's family at length, the oncologist has spoken to this family at length Matteo Herrera primary care doctor of record have spoken to the family at length, regarding the poor prognosis and continued failure of this patient to thrive have fallen on ears. 06/27/2018 Patient underwent tracheostomy per Dr. Fab Lagos patient is on vent; history of aggressive and neck carcinoma that has subsequently metastasized to the bone and lung. Patient has been noncompliant, has not followed up with oncology has not followed up with radiation oncology underwent one radiation therapy and decided to stop it decided he did not want to proceed forward with chemo prior to this admission had continued smoking and drinking and patient has continued to remain a full code His legal guardian wants everything done at this point in time 06/28/2018 This patient is trached and is currently ventilator dependent. This individual has an aggressive, progressive squamous cell carcinoma of the head and neck with lung and bone metastasis, a large cavitary lesion in the lung a large necrotic open wound to the left jaw. This patient has been noncompliant with therapies both chemo and radiation therapy. He had continued to smoke, drink alcohol daily right up until this last admission. Wound culture should demonstrated a few gram-positive cocci and grew a few gram positive bacilli, microbiology data is negative waiting on final blood culture results patient is currently being covered with Levaquin and Zosyn. Prognosis is poor at best, patient is full code per family request Objective - Vital Signs Vital signs: Vital Signs Temp 98.5 F 06/28/18 08:00 Pulse 78 06/28/18 10:00 Resp 20 06/28/18 10:00 BP 94/52 06/28/18 10:00 Pulse Ox 100 06/28/18 10:00 Intake & Output 06/27/18 06/28/18 06/28/18 18:59 06:59 18:59 Intake Total 3074.000 2688 831.553 Output Total 1205 1000 335 Balance 8666.056 1414 496.553 Weight 78 kg 80.7 kg Intake: IV 2760 1900 700 Levofloxacin 750Mg-D5w 150 Pmx 750 mg In Dextrose/ Water 1 150ml.bag @ 100 mls/hr IVPB Q24H [facility] Rx#: [id number] Magnesium Sulfate-D5w Pmx 200 1 gm In Dextrose/Water 1 100ml.bag @ 100 mls/hr IVPB Q1H [facility] Rx#: [id number] Magnesium Sulfate-D5w Pmx 100 1 gm In Dextrose/Water 1 100ml.bag @ 100 mls/hr IVPB Q1H [facility] Rx#: [id number] Magnesium Sulfate-D5w Pmx 200 1 gm In Dextrose/Water 1 100ml.bag @ 100 mls/hr IVPB Q1H [facility] Rx#: [id number] Piperacillin-Tazobactam 3 200 100 .375 gm In Sodium Chloride 0.9% 100 ml @ 25 mls/hr IVPB Q8HR [facility] Rx# :[id number] Potassium Chloride 10 meq 200 In Water For Injection 1 100ml.bag @ 100 mls/hr IVPB Q1H [facility] Rx#: [id number] Potassium Chloride 10 meq 200 In Water For Injection 1 100ml.bag @ 100 mls/hr IVPB Q1HR [facility] Rx#: [id number] Sodium Chloride 0.9% 1, 1110 1500 600 000 ml @ 150 mls/hr IV . Q6H40M [facility] Rx#:[id number] Sodium Phosphate 10 mmol 200 In Sodium Chloride 0.9% 100 ml @ 50 mls/hr IVPB Q2H [facility] Rx#:[id number] Intake, IV Titration 100.000 100 86.553 Amount Propofol 1,000 mg In 100.000 100 86.553 Empty Bag 1 bag @ Titrate IV .Q0M [facility] Rx#: [id number] Tube Feeding 184 598 45 Other 30 90 Output: Urine 1200 1000 335 Estimated Blood Loss 5 Other: Voiding Method Indwelling Catheter Indwelling Catheter - Exam General: Patient is intubated, has a large necrotic lesion to the left side of his face and neck known metastatic disease to the lung Tracheostomy in place, on vent HEENT: [PERRL. EOMI. No pharyngeal erythema or exudate.] Neck: [No adenopathy.] Cardiac: [Heart regular in rate and rhythm. No S3. No S4. No clicks, rubs. No murmur.] Lungs: [Clear to auscultation bilaterally.] Abdomen: [No mass. No organomegaly. Bowel sounds presnt and normoactive in all 4 quadrants.] PEG tube intact, clean and dry minimal drainage Extremes: [No edema no cyanosis no claudication normal pulses] : [] Musculoskeletal: [No joint erythema, edema or tenderness.] Skin: [No rash.] Neurologic: [No lateralizing deficits. CN II - XII grossly intact.] Lymphatic: [No adenopathy.] - Labs CBC & Chem 7: 06/28/18 05:55 06/28/18 05:55 Labs: Abnormal Lab Results - Last 24 Hours (Table) 06/27/18 06/27/18 06/27/18 Range/Units 11:55 18:10 23:45 WBC (3.8-10.6) k/uL RBC (4.30-5.90) m/uL Hgb (13.0-17.5) gm/dL Hct (39.0-53.0) % RDW (11.5-15.5) % Plt Count (150-450) k/uL Neutrophils # (1.3-7.7) k/uL Lymphocytes # (1.0-4.8) k/uL ABG pH (7.35-7.45) ABG pCO2 (35-45) mmHg ABG HCO3 (21-25) mmol/L ABG Total CO2 (19-24) mmol/L Potassium (3.5-5.1) mmol/L Chloride (98-107) mmol/L Creatinine (0.66-1.25) mg/dL Glucose (74-99) mg/dL POC Glucose (mg/dL) 132 H 130 H 118 H (75-99) mg/dL 06/27/18 06/28/18 06/28/18 Range/Units 23:55 04:40 05:46 WBC (3.8-10.6) k/uL RBC (4.30-5.90) m/uL Hgb (13.0-17.5) gm/dL Hct (39.0-53.0) % RDW (11.5-15.5) % Plt Count (150-450) k/uL Neutrophils # (1.3-7.7) k/uL Lymphocytes # (1.0-4.8) k/uL ABG pH 7.34 L (7.35-7.45) ABG pCO2 51 H (35-45) mmHg ABG HCO3 27 H (21-25) mmol/L ABG Total CO2 29 H (19-24) mmol/L Potassium 3.4 L (3.5-5.1) mmol/L Chloride (98-107) mmol/L Creatinine (0.66-1.25) mg/dL Glucose (74-99) mg/dL POC Glucose (mg/dL) 145 H (75-99) mg/dL 06/28/18 06/28/18 Range/Units 05:55 05:55 WBC 11.2 H (3.8-10.6) k/uL RBC 3.05 L (4.30-5.90) m/uL Hgb 8.2 L (13.0-17.5) gm/dL Hct 25.8 L (39.0-53.0) % RDW 18.4 H (11.5-15.5) % Plt Count 129 L (150-450) k/uL Neutrophils # 9.9 H (1.3-7.7) k/uL Lymphocytes # 0.8 L (1.0-4.8) k/uL ABG pH (7.35-7.45) ABG pCO2 (35-45) mmHg ABG HCO3 (21-25) mmol/L ABG Total CO2 (19-24) mmol/L Potassium (3.5-5.1) mmol/L Chloride 115 H (98-107) mmol/L Creatinine 0.59 L (0.66-1.25) mg/dL Glucose 122 H (74-99) mg/dL POC Glucose (mg/dL) (75-99) mg/dL Microbiology - Last 24 Hours (Table) 06/26/18 05:30 Gram Stain - Final Face Wound Culture - Final 06/23/18 13:07 Blood Culture - Preliminary Blood No Growth after 96 hours 06/25/18 03:05 Gram Stain - Final Sputum Sputum Culture - Final Assessment and Plan (1) Mass of mandible Current Visit: No Status: Acute Code(s): R22.0 - LOCALIZED SWELLING, MASS AND LUMP, HEAD SNOMED Code(s): 294208403 (2) Bone destruction Current Visit: No Status: Acute Code(s): M89.8X9 - OTHER SPECIFIED DISORDERS OF BONE, UNSPECIFIED SITE SNOMED Code(s): 23445355 (3) Oral cancer Current Visit: No Status: Acute Code(s): C06.9 - MALIGNANT NEOPLASM OF MOUTH, UNSPECIFIED SNOMED Code(s): 154359961 (4) Squamous cell carcinoma of head and neck Current Visit: No Status: Acute Priority: High Code(s): C76.0 - MALIGNANT NEOPLASM OF HEAD, FACE AND NECK SNOMED Code(s): 419555798 Plan: Discussed CODE STATUS with patient's significant other, patient currently full code Tracheostomy performed yesterday, area clean and dry Currently on Diprivan and 25 mics per kilo per minute, vent settings assist control rate of 20 TV equals 450 FiO2 50% , PEEP of 5, awaiting blood gas Dietary consult for tube feeding Pt continues to be full code, family and loved ones have unrealistic expectations Time with Patient: Greater than 30
[2018-06-28] MEDS ORDERED: LORazepam 2 MG/ML INJ IV PRN ×2 (12:36)
[2018-06-28] MEDS: LORazepam 2 MG/ML INJ IV PRN (12:49)
[2018-06-28] MEDS: INSULIN ASPART (NovoLOG) 100 UNIT/ML VIAL SQ SCH ×2 (12:51→18:29)
[2018-06-28 12:54] LABS: Glucose,Whole Blood 130 mg/dL (75-99)
[2018-06-28] MEDS: LEVOFLOXACIN 750MG-D5W PMX 750 MG in DEXTROSE/WATER 1 150ML.BAG IVPB SCH (18:31)
[2018-06-28 18:41] LABS: Glucose,Whole Blood 117 mg/dL (75-99)
[2018-06-28 21:16] LABS: Magnesium 1.7 mg/dL (1.6-2.3); Potassium 3.2 mmol/L (3.5-5.1)
[2018-06-28] MEDS: POTASSIUM BICARBONATE/CIT AC 20 MEQ TABLET.EFF NG-TUBE SCH ×2 (21:30→23:03)
[2018-06-29] MEDS: INSULIN ASPART (NovoLOG) 100 UNIT/ML VIAL SQ SCH ×5 (00:03→23:56)
[2018-06-29 00:13] LABS: Glucose,Whole Blood 124 mg/dL (75-99)
[2018-06-29] MEDS: IPRATROPIUM-ALBUTEROL 3 ML NEB INHALATION SCH ×6 (00:54→20:15)
[2018-06-29] MEDS: POTASSIUM PHOSPHATE 10 MMOL in SODIUM CHLORIDE 0.9% 250 ML IV SCH ×2 (01:04→03:40)
[2018-06-29] MEDS: SODIUM CHLORIDE 0.9% 1,000 ML IV SCH ×4 (02:09→20:08)
[2018-06-29] MEDS: LORazepam 2 MG/ML INJ IV PRN (02:09)
[2018-06-29] MEDS: HYDROmorphone 1 MG/ML 1 ML SYRINGE IVP PRN ×5 (05:26→22:43)
[2018-06-29 05:30] LABS: Anisocytosis Slight; Basophils % (A) 0 %; Eosinophils # (A) 0.1 k/uL (0-0.7); Eosinophils % (A) 1 %; HCT 25.6 % (39.0-53.0); HGB 8.1 gm/dL (13.0-17.5); Hypochromasia Marked; Lymphocytes % (A) 9 %; MCH 26.4 pg (25.0-35.0); MCHC 31.6 g/dL (31.0-37.0); MCV 83.6 fL (80.0-100.0); Mean Platelet Volume 7.2; Monocytes # (A) 0.4 k/uL (0-1.0); Monocytes % (A) 4 %; Neutrophils # (A) 9.5 k/uL (1.3-7.7); Neutrophils % (A) 85 %; Poikilocytosis Slight; RBC 3.06 m/uL (4.30-5.90); RDW 18.5 % (11.5-15.5); WBC 11.1 k/uL (3.8-10.6)
[2018-06-29 05:39] LABS: Anion Gap 1 mmol/L; Blood Urea Nitrogen 14 mg/dL (9-20); Calcium 10.2 mg/dL (8.4-10.2); Carbon Dioxide 27 mmol/L (22-30); Chloride 113 mmol/L (98-107); Glucose 113 mg/dL (74-99); Magnesium 1.9 mg/dL (1.6-2.3); Phosphorus 2.7 mg/dL (2.5-4.5); Potassium 3.7 mmol/L (3.5-5.1); Sodium 141 mmol/L (137-145)
[2018-06-29 05:44] LABS: Glucose,Whole Blood 126 mg/dL (75-99)
[2018-06-29 05:52] LABS: ABG Base Excess 4.8 mmol/L; ABG HCO3 30 mmol/L (21-25); ABG Oxygen Saturation 90.4 % (94-97); ABG PCO2 47 mmHg (35-45); ABG PH 7.41 (7.35-7.45); ABG TCO2 31 mmol/L (19-24)
[2018-06-29 05:54] LABS: ABG PO2 56 mmHg (83-108)
[2018-06-29 06:02] LABS: Platelet Count 95 k/uL (150-450)
[2018-06-29 06:47] LABS: Magnesium 1.8 mg/dL (1.6-2.3); Potassium 3.5 mmol/L (3.5-5.1)
--- NOTE | 2018-06-29 07:56 | XR ---
EXAMINATION TYPE: XR chest 1V portable DATE OF EXAM: 06/29/2018 COMPARISON: Prior chest x-ray 06/28/2018 HISTORY: Abnormal chest x-ray, tracheostomy tube TECHNIQUE: frontal view of the chest is obtained on 2 images. FINDINGS: Tracheostomy tube is overlying appropriate position. Pleural parenchymal changes are simil ar to prior exam. Port-A-Cath and heart size are stable. The patient is rotated IMPRESSION: Essentially stable exam
[2018-06-29] MEDS ORDERED: POTASSIUM BICARBONATE/CIT AC 20 MEQ TABLET.EFF NG-TUBE SCH ×2 (08:00→14:00)
[2018-06-29] MEDS: MAGNESIUM SULFATE-D5W PMX 1 GM in DEXTROSE/WATER 1 100ML.BAG IVPB SCH ×2 (09:17→10:24)
[2018-06-29] MEDS: PIPERACILLIN-TAZOBACTAM 3.375 GM in SODIUM CHLORIDE 0.9% 100 ML IVPB SCH ×2 (09:17→15:11)
[2018-06-29] MEDS: CHLORHEXIDINE GLUCONATE 15 ML CUP MUCOUS MEM SCH ×2 (09:18→20:04)
[2018-06-29] MEDS: PANTOPRAZOLE 40 MG/10 ML VIAL IV SCH (09:18)
[2018-06-29] MEDS: SERTRALINE 50 MG TAB PO SCH (09:18)
--- NOTE | 2018-06-29 10:05 | P.PN ---
Subjective Progress Note Date: 06/29/18 Principal diagnosis: Hypoxemic respiratory failure secondary to right basilar pneumonia, aspiration pneumonia This is a 67-year-old white male patient of Dr. 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 Sánchez, Most recent PET scan on 06/04/2018 showed new metastatic disease in the lungs, with a new pulmonary cavitary lesion as well as nodules, metastatic osseous metastases in the thoracic spine through T3, T9, T10 and T11, pathological fracture from extensive tumor destruction in the mandible. Patient has received radiation treatments, he refused further radiation treatments, he was considering immunotherapy with Opdivo. He has a PEG tube in place, for feedings. He resides with his fiance, he continues to smoke, he does have a history of heavy EtOH use, drinking only occasionally now. Patient came into the hospital EMS on 06/23/2018 for decreased level of consciousness. Patient is a poor historian, his family denied any recent history of fever, chills or sweats. He was recently treated for dehydration. Chest x-ray on admission showed persistent thick-walled cavitary right upper lobe mass unchanged from previous exams. Showed a new left basilar acute infiltrate and/or atelectasis, and probable small left pleural effusion. EKG showed normal sinus rhythm with evidence of a septal infarct, undetermined age. Follow-up chest x-ray on 06/24/2018 showed metastatic disease, diffuse nodularity within the lungs, increased interstitium, Nader a lesion in the right upper lobe. Was initially admitted to the stepdown floor, but apparently last night rapid response team was called, for deteriorating mental status and level of consciousness, and hypoxemic respiratory failure, patient was placed on the 100% nonrebreather, she was moved to the intensive care unit, blood gas showed a pO2 of 60, pCO2 55, and pH of 7.38, this was done on the 100% FiO2, patient was placed on the interval, however that did not seem to help, and patient subsequently was intubated and placed on a mechanical ventilator. This morning he seen in the intensive care unit, intubated, sedated, current vent settings are assist-control mode with a rate of 20, tidal volume of 450, FiO2 of 60% and PEEP of 5, this morning's blood gases showed pO2 of 170, pCO2 of 52, and pH of 7.38, this was done on 100% FiO2 and subsequently FiO2 was dropped down to 60%. Initial blood work showed leukocytosis, with white blood cell count of 17.4, hemoglobin is 7.3, sodium is 134, potassium is 3.4, chloride is 96, CO2 is 34, B1 is 27, creatinine 0.71, plasma lactic acid is 1.4, ammonia level was less than 9, alkaline phosphatase was 222, AST was 47, ALT 62, troponin was negative at 0.033, urine. Urine drug screen was negative, influenza was not detected, urinalysis was negative for glucose, nitrates, showed rare bacteria, urine white blood cell count was only 3. No significant evidence of infection. His blood work today has been reviewed, showed white blood cell count of 11.4, hemoglobin is 5.9, no obvious source of bleeding. Current diabetes appointment normal saline at a rate of 150 ML per hour, Diprivan is at 15 mics per kilo per minute, patient has left abdominal PEG tube with signs of ulceration around the insertion site, we'll hold the PEG tube feedings right now, we're told that there has been leaking around the tube feedings around the insertion site. No fever, patient is hypotensive, we'll continue with IV fluids, and patient will receive a unit of packed red blood cells this morning. On 06/26/2017 patient seen in follow-up in the intensive care unit, he still intubated and sedated, on mechanical ventilator, current vent settings are assist-control mode with a rate of 20, multivitamins 450, FiO2 0%, and PEEP of 5, this morning his blood gases showed pO2 50, pCO2 43, pH of 7.38, this was done and FiO2 of 50%, since then, the FiO2 had been increased to 100% and is being gradually weaned down. These 0.9 normal saline at a rate of 150 ML per hour, Diprivan is a 25 mics per kilo per minute, patient is seen to feedings through the PEG tube, Vital AF a rate of 40, with a goal of 46. She was seen by GI service, and the flange on the PEG tube was tightened up. Today's chest x-ray shows worsening airspace disease in the right lung. Today's labs have been reviewed, showed a white blood cell count is 17.0, hemoglobin is 8.2, sodium is 140, potassium is 3.7, chloride is 114, BUN is 18 creatinine 0.72. ABGs were drawn, and show pO2 of 50, pCO2 43, pH is 7.38. Blood and sputum cultures are pending, but according the form of Levaquin and Zosyn. Afebrile. Yesterday we had a lengthy conversation with the patient's brother, and her friend, and they don't seem to accept the poor prognosis, they state patient has been given an option of immunotherapy at [facility]. However in view of his current health condition, he would probably be a poor candidate for treatment. Medical oncology following, have also discussed with the patient and the family the fact that patient has failed both chemo and radiation, and his cancer is progressing, and that patient should not be aggressively resuscitated. Despite all those conversations patient remains a full code. On 06/27/2018 patient seen in follow-up in the intensive care unit, he is remains sedated and intubated on mechanical ventilation, current vent settings are assist-control mode rate of 20, tidal vital 450, FiO2 50%, and PEEP of 5, blood gas showed pO2 of 63, pCO2 42, and pH of 7.40, IV fluids 0.9 normal saline at a rate of 150 ML per hour, Diprivan is at 25 mics per kilo per minute, vital AF 1.2 to feedings are currently on hold, patient is scheduled for tracheostomy placement today with Dr. Aviles. Microbiology data is negative, patient is afebrile. Hemodynamic with a stable, today's lab work shows a white blood cell count of 16.8, hemoglobin is 8.2, sodium is 141, potassium is 3.9, chloride is 117, CO2 is 24, BUN 16 and creatinine 0.64, antibiotic coverage includes Levaquin and Zosyn, patient is on breathing treatments. He was tolerating tube feedings, large ulcerated area on his left submental area is draining some purulent drainage, so far the Gram stain of the wound cultures showed a few gram-positive cocci and few gram-positive bacilli, final culture is pending. Patient remains a full code despite his poor prognosis, yesterday Dr. Pan from the ethics committee had contacted Dr. Ludwig to discuss patient's condition. For now patient is a full code, per family's request. We'll continue with supportive care. On 06/29/2018 patient seen in follow-up in the intensive care unit, he remains sedated, he's trached to the vent, current vent settings are assist-control mode with a rate of 20, tidal volume 450, FiO2 50% and PEEP of 5, this morning his blood gases showed pO2 of 56, pCO2 47, and pH of 7.41, this was done on FiO2 of 45% which was creased to 50%. Current IV fluids. A normal saline at a rate of 150 ML per hour, no other drips, tube feedings infusing through the PEG tube vital AF, rate of 46, with a goal of 46, instead of water flushes, culture data showed no growth, today's chest x-ray has been reviewed with Dr. Diamond and showed essentially stable exam, with a cavitary lesion in the right upper lobe, opacity over the left lung base, right-sided airspace disease. Low-grade fever this morning, with a temp of 99.8F, otherwise patient had been afebrile, sinus mechanism on a monitor with a rate of 101 to 1:15 BPM, hemodynamically patient is stable, his labs have been reviewed, and showed white blood cell count of 11.1, hemoglobin of 8.1, platelet count of 95, serum sodium is 141, potassium is 3.7, chloride is 113, BUN is 14 and creatinine 0.56. Lung sounds reveal scattered crackles. Patient is making adequate urine output, antibiotic coverage in the form of Zosyn and Levaquin. Objective - Vital Signs Vital signs: Vital Signs Temp 99.8 F H 06/29/18 08:00 Pulse 115 H 06/29/18 09:30 Resp 31 H 06/29/18 09:30 BP 128/71 06/29/18 09:30 Pulse Ox 92 L 06/29/18 09:30 Intake & Output 06/28/18 06/29/18 06/29/18 18:59 06:59 18:59 Intake Total 2199.553 2487 664 Output Total 1235 1560 535 Balance 964.553 927 129 Weight 83.8 kg Intake: IV 1900 1875 450 Magnesium Sulfate-D5w Pmx 200 1 gm In Dextrose/Water 1 100ml.bag @ 100 mls/hr IVPB Q1H [facility] Rx#: [id number] Piperacillin-Tazobactam 3 100 100 .375 gm In Sodium Chloride 0.9% 100 ml @ 25 mls/hr IVPB Q8HR [facility] Rx# :[id number] Potassium Phosphate 10 375 mmol In Sodium Chloride 0 .9% 250 ml @ 125 mls/hr IV ONCE ONE Rx#:[id number] Potassium Phosphate 10 250 mmol In Sodium Chloride 0 .9% 250 ml @ 125 mls/hr IV ONCE ONE Rx#:[id number] Sodium Chloride 0.9% 1, 1800 950 450 000 ml @ 150 mls/hr IV . Q6H40M [facility] Rx#:[id number] Intake, IV Titration 86.553 Amount Propofol 1,000 mg In 86.553 Empty Bag 1 bag @ Titrate IV .Q0M [facility] Rx#: [id number] Tube Feeding 183 552 184 Other 30 60 30 Output: Urine 1235 1560 535 Other: Voiding Method Indwelling Catheter Indwelling Catheter Indwelling Catheter - Exam GENERAL EXAM: 67-year-old cachectic white male, chronically ill-looking, trached to mechanical ventilator, comfortable in no apparent distress. HEAD: Normocephalic/atraumatic. large ulcerated wound on the left submental area, with purulent drainage, surrounding redness and some swelling EYES: Normal reaction of pupils, equal size. Conjunctiva pink, sclera white. NOSE: Clear with pink turbinates. THROAT: No erythema or exudates. NECK: No masses, no JVD, no thyroid enlargement, no adenopathy. Midline trach eostomy CHEST: No chest wall deformity. Symmetrical expansion. LUNGS: Equal air entry with no crackles, wheeze, rhonchi or dullness. CVS: Regular rate and rhythm, normal S1 and S2, no gallops, no murmurs, no rubs ABDOMEN: Soft, nontender. No hepatosplenomegaly, normal bowel sounds, no guarding or rigidity. Patient has a left abdominal PEG tube in place, the flange has been tightened, there has been no further draining of the tube feedings around the insertion site EXTREMITIES: No clubbing, no edema, no cyanosis, 2+ pulses and upper and lower extremities. MUSCULOSKELETAL: Muscle strength and tone weak, patient has signs of wasting and cachexia SPINE: No scoliosis or deformity SKIN: No rashes CENTRAL NERVOUS SYSTEM: Sedated No focal deficits, tone is normal in all 4 extremities. - Labs CBC & Chem 7: 06/29/18 05:14 06/29/18 06:15 Labs: Abnormal Lab Results - Last 24 Hours (Table) 06/28/18 06/28/18 06/28/18 Range/Units 12:42 18:19 20:50 WBC (3.8-10.6) k/uL RBC (4.30-5.90) m/uL Hgb (13.0-17.5) gm/dL Hct (39.0-53.0) % RDW (11.5-15.5) % Plt Count (150-450) k/uL Neutrophils # (1.3-7.7) k/uL ABG pCO2 (35-45) mmHg ABG pO2 (83-108) mmHg ABG HCO3 (21-25) mmol/L ABG Total CO2 (19-24) mmol/L ABG O2 Saturation (94-97) % Potassium 3.2 L (3.5-5.1) mmol/L Chloride (98-107) mmol/L Creatinine (0.66-1.25) mg/dL Glucose (74-99) mg/dL POC Glucose (mg/dL) 130 H 117 H (75-99) mg/dL Phosphorus 2.0 L (2.5-4.5) mg/dL 06/29/18 06/29/18 06/29/18 Range/Units 00:02 05:14 05:14 WBC 11.1 H (3.8-10.6) k/uL RBC 3.06 L (4.30-5.90) m/uL Hgb 8.1 L (13.0-17.5) gm/dL Hct 25.6 L (39.0-53.0) % RDW 18.5 H (11.5-15.5) % Plt Count 95 L (150-450) k/uL Neutrophils # 9.5 H (1.3-7.7) k/uL ABG pCO2 (35-45) mmHg ABG pO2 (83-108) mmHg ABG HCO3 (21-25) mmol/L ABG Total CO2 (19-24) mmol/L ABG O2 Saturation (94-97) % Potassium (3.5-5.1) mmol/L Chloride 113 H (98-107) mmol/L Creatinine 0.56 L (0.66-1.25) mg/dL Glucose 113 H (74-99) mg/dL POC Glucose (mg/dL) 124 H (75-99) mg/dL Phosphorus (2.5-4.5) mg/dL 06/29/18 06/29/18 Range/Units 05:33 05:47 WBC (3.8-10.6) k/uL RBC (4.30-5.90) m/uL Hgb (13.0-17.5) gm/dL Hct (39.0-53.0) % RDW (11.5-15.5) % Plt Count (150-450) k/uL Neutrophils # (1.3-7.7) k/uL ABG pCO2 47 H (35-45) mmHg ABG pO2 56 L* (83-108) mmHg ABG HCO3 30 H (21-25) mmol/L ABG Total CO2 31 H (19-24) mmol/L ABG O2 Saturation 90.4 L (94-97) % Potassium (3.5-5.1) mmol/L Chloride (98-107) mmol/L Creatinine (0.66-1.25) mg/dL Glucose (74-99) mg/dL POC Glucose (mg/dL) 126 H (75-99) mg/dL Phosphorus (2.5-4.5) mg/dL Microbiology - Last 24 Hours (Table) 06/23/18 13:07 Blood Culture - Preliminary Blood No Growth after 120 hours 06/26/18 05:30 Anaerobic Culture - Preliminary Face 06/26/18 05:30 Gram Stain - Final Face Wound Culture - Final Assessment and Plan Plan: Assessment: #1. Acute hypoxemic respiratory failure secondary to altered mental status, and there is a possibility of right basilar pneumonia, related to aspiration. Chest x-ray to do a large right upper lobe cavitary lesion, and diffuse nodular infiltrates bilaterally, more so in the right lung, could be related to pneumonia, or lymphangitic infiltrates. #2. Acute on chronic anemia, with no clear evidence of bleeding, could be related to hemodilution, but in view of patient's hypotention will transfused with 1 unit of packed red blood cells #3. Metastatic squamous cell carcinoma of the head and neck, and most recent PET scan showed a new right upper lobe cavitary lesion, involvement of the thoracic spine, left mandible, maxilla. She is status post chemotherapy and radiation, and most recently considering immunotherapy, follows with Dr. Sánchez #4. PEG tube in place, nutritional support, and it has evidence of ulceration around the insertion site and we can of tube feedings #5. Protein calorie malnutrition #6. Current smoker, #7. History of EtOH use Plan: Continue current antibiotic coverage, treatments. We will give the patient daily traction of sedation today, to assess neurological status, the patient is awake and alert, and not agitated may proceed with the spontaneous breathing trials, that his chest x-ray has been reviewed with Dr. Diamond, and it showed essentially stable findings with the right-sided airspace disease, large right upper lobe cavitary lesion and left pleural effusion, hemodynamically patient is stable, culture data remains negative thus far, T nutritional support. His lab data has been reviewed, unremarkable. Will continue supportive treatment, [facility] referral was requested, we'll continue to follow, I performed a history & physical examination of the patient and discussed their management with my nurse practitioner, Aida Montgomery. I reviewed the nurse practitioner's note and agree with the documented findings and plan of care. Lung sounds are positive for coarse lung sounds The findings and the impression was discussed with the patient. I attest to the documentation by the nurse practitioner. Time with Patient: Greater than 30
[2018-06-29] MEDS: POTASSIUM CHLORIDE ER 20 MEQ TAB.ER PO SCH (10:24)
[2018-06-29 11:23] LABS: Glucose,Whole Blood 154 mg/dL (75-99)
[2018-06-29 17:12] LABS: Glucose,Whole Blood 126 mg/dL (75-99)
[2018-06-29] MEDS: LEVOFLOXACIN 750MG-D5W PMX 750 MG in DEXTROSE/WATER 1 150ML.BAG IVPB SCH (17:13)
[2018-06-29] MEDS: POTASSIUM BICARBONATE/CIT AC 20 MEQ TABLET.EFF NG-TUBE SCH ×2 (18:31→20:07)
[2018-06-30] MEDS: IPRATROPIUM-ALBUTEROL 3 ML NEB INHALATION SCH ×6 (00:03→20:10)
[2018-06-30 00:07] LABS: Glucose,Whole Blood 123 mg/dL (75-99)
[2018-06-30] MEDS: PIPERACILLIN-TAZOBACTAM 3.375 GM in SODIUM CHLORIDE 0.9% 100 ML IVPB SCH ×3 (00:18→15:42)
[2018-06-30] MEDS ORDERED: Potassium Replacement Protocol 1 EACH MISC MISCELLANE PRN (01:03)
[2018-06-30] MEDS: POTASSIUM CHLORIDE 10 MEQ in WATER FOR INJECTION 1 100ML.BAG IVPB SCH ×2 (02:16→03:21)
[2018-06-30] MEDS: HYDROmorphone 1 MG/ML 1 ML SYRINGE IVP PRN ×4 (03:26→19:36)
[2018-06-30] MEDS: SODIUM CHLORIDE 0.9% 1,000 ML IV SCH ×4 (03:36→23:20)
[2018-06-30 05:13] LABS: Anisocytosis Slight; Basophils % (A) 0 %; Eosinophils # (A) 0.1 k/uL (0-0.7); Eosinophils % (A) 1 %; HCT 25.1 % (39.0-53.0); HGB 7.7 gm/dL (13.0-17.5); Hypochromasia Marked; Lymphocytes # (A) 0.8 k/uL (1.0-4.8); Lymphocytes % (A) 7 %; MCH 25.6 pg (25.0-35.0); MCHC 30.7 g/dL (31.0-37.0); MCV 83.2 fL (80.0-100.0); Mean Platelet Volume 8.7; Microcytosis Slight; Monocytes # (A) 0.4 k/uL (0-1.0); Monocytes % (A) 3 %; Neutrophils # (A) 10.2 k/uL (1.3-7.7); Neutrophils % (A) 88 %; Poikilocytosis Slight; RBC 3.02 m/uL (4.30-5.90); RDW 18.7 % (11.5-15.5); WBC 11.6 k/uL (3.8-10.6)
[2018-06-30 05:17] LABS: Platelet Count 78 k/uL (150-450)
[2018-06-30 05:21] LABS: ABG Base Excess 8.3 mmol/L; ABG HCO3 33 mmol/L (21-25); ABG Oxygen Saturation 91.9 % (94-97); ABG PCO2 52 mmHg (35-45); ABG PH 7.41 (7.35-7.45); ABG PO2 61 mmHg (83-108); ABG TCO2 35 mmol/L (19-24)
[2018-06-30 05:22] LABS: Anion Gap -1 mmol/L; Blood Urea Nitrogen 15 mg/dL (9-20); Calcium 9.9 mg/dL (8.4-10.2); Carbon Dioxide 32 mmol/L (22-30); Chloride 111 mmol/L (98-107); Glucose 115 mg/dL (74-99); Magnesium 1.8 mg/dL (1.6-2.3); Phosphorus 1.8 mg/dL (2.5-4.5); Potassium 4.1 mmol/L (3.5-5.1); Sodium 142 mmol/L (137-145)
[2018-06-30] MEDS ORDERED: Magnesium Replacement Protocol 1 EACH MISC MISCELLANE PRN (06:01)
[2018-06-30] MEDS ORDERED: Phosphorus Replacement Protoco 1 EACH MISC MISCELLANE PRN (06:02)
[2018-06-30] MEDS: INSULIN ASPART (NovoLOG) 100 UNIT/ML VIAL SQ SCH ×3 (06:04→20:05)
[2018-06-30 06:09] LABS: Glucose,Whole Blood 129 mg/dL (75-99)
[2018-06-30] MEDS: MAGNESIUM SULFATE-D5W PMX 1 GM in DEXTROSE/WATER 1 100ML.BAG IVPB SCH ×2 (06:16→07:23)
[2018-06-30] MEDS: POTASSIUM PHOSPHATE 10 MMOL in SODIUM CHLORIDE 0.9% 250 ML IV SCH ×2 (06:28→08:10)
[2018-06-30] MEDS: CHLORHEXIDINE GLUCONATE 15 ML CUP MUCOUS MEM SCH ×2 (08:09→20:00)
[2018-06-30] MEDS: PANTOPRAZOLE 40 MG/10 ML VIAL IV SCH (08:09)
[2018-06-30] MEDS: SERTRALINE 50 MG TAB PO SCH (08:10)
[2018-06-30] MEDS: POTASSIUM CHLORIDE ER 20 MEQ TAB.ER PO SCH (08:10)
--- NOTE | 2018-06-30 09:12 | CDI ---
Documentation Clarification Form Date: 06/25/2018 1:34:00 PM From: Shelley Syed Admit Date: 06/23/2018 5:54:00 PM Patient Name: Nikhil Avila Visit Number: [id number] Discharge Date: ATTENTION: The Clinical Documentation Specialists (CDI) and [facility] Coding Staff appreciate your assistance in clarifying documentation. Please respond to the clarification below the line at the bottom and electronically sign. The CDI & [facility] Coding staff will review the response and follow-up if needed. Please note: Queries are made part of the Legal Health Record. If you have any questions, please contact the author of this message via ITS. Dr. Heredia Decreased Level of Consciousness was documented in the H & P History/Risk Factors: 67 y/o male presents to the ED via EMS for Altered Mental Status Clinical Indicators: Medical history Metastatic Oral Cancer with Peg Tube, Labs: Wbc 17.4, Hgb 7.3, Neutrophils 16.50; Na 134, K 3.4, chl 96, Carbon dioxide 34, bun 27, calcium 11.2, alk phos 222, cr kinase 25, trop 0.033, total protein 5.1 Albumin 2.1 ; CXR : Persistent thick-walled cavitary right upper lobe mass not significantly changed from prior.New left basilar acute infiltrate and/or atelectasis and probable small left pleural effusion. Consults GI, Oncology, Pulmonology, ICU MGT; Treatment: Albuterol; Levaquin IVPB; Zosyn Ivpb, Intubated in ICU In your professional opinion, please clarify the etiology of the Decreased Level of Consciousness, if known. * Metabolic Encephalopathy specify cause if known * ------------------->>Other condition (please specify) respiratory failure/ hypercapnia * Unable to determine (Last Revision: July 2017) MTDD
--- NOTE | 2018-06-30 09:15 | CDI ---
Documentation Clarification Form Date: 06/26/2018 8:18:00 AM From: Shelley Syed Admit Date: 06/23/2018 5:54:00 PM Patient Name: Nikhil Avila Visit Number: [id number] Discharge Date: ATTENTION: The Clinical Documentation Specialists (CDI) and [facility] Coding Staff appreciate your assistance in clarifying documentation. Please respond to the clarification below the line at the bottom and electronically sign. The CDI & [facility] Coding staff will review the response and follow-up if needed. Please note: Queries are made part of the Legal Health Record. If you have any questions, please contact the author of this message via ITS. Dr. Heredia The Pneumonia has been documented in ED Report. Possibility of right basilar pneumonia related to aspiration is documented in Pulmonary consult History/Risk Factors: 67 year old male presents to the ED with altered mental status. 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 Tumor destruction in the mandible. Clinical Indicators: Treatment: Levaquin ivpb, Zosyn Ivpb. Nasal Canula, Non Rebreather to Intubation Definition of Present on Admission (POA): A diagnosis present at the time the order for admission to inpatient status was written. For each diagnosis, documentation must be clear to determine if the condition was present at the time of the patients inpatient admission or developed during the hospital stay. Please clarify if Aspiration Pneumonia was POA: ____Y = Yes, the Aspiration Pneumonia was present at the time of the order for inpatient admission. ____N = No, the Aspiration Pneumonia was not present at the time of the order for inpatient admission. __XXX__W = Clinically undetermined if Aspiration Pneumonia was present at the time of the order for inpatient admission. (Last Revision: Mar 2018) MTDD
--- NOTE | 2018-06-30 09:30 | XR ---
EXAMINATION TYPE: XR chest 1V portable DATE OF EXAM: 06/30/2018 COMPARISON: Prior chest 06/29/2018 HISTORY: Abnormal chest x-ray, tracheostomy tube TECHNIQUE: Single frontal view of the chest is obtained. FINDINGS: Findings are similar to prior exam. Tracheostomy tube is overlying appropriate position. B ilateral airspace disease is extensive. No evident pneumothorax. Difficult to exclude effusion. Heart size is likely stable. Central venous catheter is unchanged. IMPRESSION: Extensive bilateral airspace disease, underlying cavitary lesion, metastasis
--- NOTE | 2018-06-30 10:27 | CDI ---
Documentation Clarification Form Date: 06/30/2018 9:48:54 AM From: Shelley Syed RN CCDS Admit Date: 06/23/2018 5:54:00 PM Patient Name: Nikhil Avila Visit Number: [id number] Discharge Date: ATTENTION: The Clinical Documentation Specialists (CDI) and [facility] Coding Staff appreciate your assistance in clarifying documentation. Please respond to the clarification below the line at the bottom and electronically sign. The CDI & [facility] Coding staff will review the response and follow-up if needed. Please note: Queries are made part of the Legal Health Record. If you have any questions, please contact the author of this message via ITS. Dr. Heredia Conflicting documentation has been found in the medical record: GI Progress Note 06/26/2018 Severe Protein Calorie Malnutrition Oncology Progress Note 06/27/2018 Moderate Protein Calorie Malnutrition Nutrition Consult 06/29/2018 Malnutrition Chronic, Severe History/Risk Factors: 67 year old male presents to the ED via EMS for Altered Mental status. Medical history Metastatic Oral Cancer w/ Peg Tube. Clinical Indicators: Total protein 5.1; Albumin 2.1 Treatment: Daily Chemistry Labs; Dietitian consult, Enteral Tube Feeding In your opinion, what is the most clinically appropriate diagnosis for this patient? * Severe Malnutrition * -------------------->>Moderate Protein Calorie Malnutrition * Severe Protein Calorie Malnutrition * Other explanation of clinical findings * Unable to determine (no explanation for clinical findings) (Last Revision: July 2017) MTDD
--- NOTE | 2018-06-30 10:56 | CDI ---
Documentation Clarification Form Date: 06/30/2018 From: Shelley Syed RN CCDS Admit Date: 06/23/2018 5:54:00 PM Patient Name: Nikhil Avila Visit Number: [id number] Discharge Date: ATTENTION: The Clinical Documentation Specialists (CDI) and [facility] Coding Staff appreciate your assistance in clarifying documentation. Please respond to the clarification below the line at the bottom and electronically sign. The CDI & [facility] Coding staff will review the response and follow-up if needed. Please note: Queries are made part of the Legal Health Record. If you have any questions, please contact the author of this message via ITS. Dr. Heredia A Right Heel pressure ulcer was documented in the Nursing Wound Care Assessment . History/Risk Factors: 67 year old male presents to ED via EMS for Altered Mental Status. Medical History of Metastatic Oral Cancer with Peg Tube and Enteral Feedings. Clinical Indicators: Location: Right Heel Wound description: Staging - Deep tissue, Jocelyn Wound moisture - Dry/Scaly, Jocelyn, Wound Color - Ecchymosis Erythema , Drainage dry and intact. Treatment: Dressing Foam with Border. Consults: Wound Care. Elements for accurate and compliant documentation of an ulcer: *The location/laterality of the ulcer *Etiology (decubitus/pressure, diabetic, PVD) *Stage I-IV, Unstageable, Suspected Deep Tissue Injury (To the deepest stage) *If the ulcer was present at admission (POA) or occurred after admission In your professional opinion, can you please clarify the diagnosis, location, laterality and whether present on admission (POA): * Stage 1 Pressure/Decubitus Ulcer (intact skin, non-blanching redness of local area) * Stage 2 Pressure/Decubitus Ulcer (Partial thickness, loss of dermis, pink wound bed) * Stage 3 Pressure/Decubitus Ulcer (Full thickness tissue loss) * Stage 4 Pressure/Decubitus Ulcer (Full thickness tissue loss with exposed bone, tendon, or muscle. May have slough or eschar present) * ------------> Unstageable * Other condition, please specify * Unable to determine Please indicate etiology of pressure ulcer (if known). (Last Revision: January 2017) KEILYD
--- NOTE | 2018-06-30 11:04 | CDI ---
Documentation Clarification Form Date: 06/30/2018 From: Shelley Syed Admit Date: 06/23/2018 5:54:00 PM Patient Name: Nikhil Avila Visit Number: [id number] Discharge Date: ATTENTION: The Clinical Documentation Specialists (CDI) and [facility] Coding Staff appreciate your assistance in clarifying documentation. Please respond to the clarification below the line at the bottom and electronically sign. The CDI & [facility] Coding staff will review the response and follow-up if needed. Please note: Queries are made part of the Legal Health Record. If you have any questions, please contact the author of this message via ITS. Dr. Gus Herrera A Medial Sacrum pressure ulcer was documented in the Nursing Wound Care Assessment . History/Risk Factors: 67 year old male presents to ED via EMS for Altered Mental Status. Medical History of Metastatic Oral Cancer with Peg Tube and Enteral Feedings. Clinical Indicators: Location: Medial Sacrum Wound description: Pressure Inury; Unstagable; Granulation 51-75% pink; Jocelyn wound moisture Moist. Jocelyn wound color Erythema; Drainage Serosanguiness, Drainage Scant Treatment: Dressing Gel fiber Opticel Consults: Wound Care. Elements for accurate and compliant documentation of an ulcer: *The location/laterality of the ulcer *Etiology (decubitus/pressure, diabetic, PVD) *Stage I-IV, Unstageable, Suspected Deep Tissue Injury (To the deepest stage) *If the ulcer was present at admission (POA) or occurred after admission In your professional opinion, can you please clarify the diagnosis, location, laterality and whether present on admission (POA): * Stage 1 Pressure/Decubitus Ulcer (intact skin, non-blanching redness of local area) * Stage 2 Pressure/Decubitus Ulcer (Partial thickness, loss of dermis, pink wound bed) * Stage 3 Pressure/Decubitus Ulcer (Full thickness tissue loss) * Stage 4 Pressure/Decubitus Ulcer (Full thickness tissue loss with exposed bone, tendon, or muscle. May have slough or eschar present) * Unstageable * Other condition, please specify * Unable to determine Please indicate etiology of pressure ulcer (if known). (Last Revision: January 2017) SIXTO
--- NOTE | 2018-06-30 11:14 | CDI ---
Documentation Clarification Form Date: 06/30/2018 11:07:37 AM From: Shelley Syed Admit Date: 06/23/2018 5:54:00 PM Patient Name: Nikhil Avila Visit Number: [id number] Discharge Date: ATTENTION: The Clinical Documentation Specialists (CDI) and [facility] Coding Staff appreciate your assistance in clarifying documentation. Please respond to the clarification below the line at the bottom and electronically sign. The CDI & [facility] Coding staff will review the response and follow-up if needed. Please note: Queries are made part of the Legal Health Record. If you have any questions, please contact the author of this message via ITS. Dr. Heredia A Left hip pressure ulcer was documented in the Nursing Wound Care Assessment . History/Risk Factors: 67 year old male presents to ED via EMS for Altered Mental Status. Medical History of Metastatic Oral Cancer with Peg Tube and Enteral Feedings. Clinical Indicators: Location: Left Hip Wound description: Pressure Injury Stage 2 . Length 4cm width 2cm; Granulation pink; Drainage Description Serous; Drainage Amount Scant; Treatment: Dressing Gel fiber Opticel Consults: Wound Care. Elements for accurate and compliant documentation of an ulcer: *The location/laterality of the ulcer *Etiology (decubitus/pressure, diabetic, PVD) *Stage I-IV, Unstageable, Suspected Deep Tissue Injury (To the deepest stage) *If the ulcer was present at admission (POA) or occurred after admission In your professional opinion, can you please clarify the diagnosis, location, laterality and whether present on admission (POA): * Stage 2 Pressure/Decubitus Ulcer (Partial thickness, loss of dermis, pink wound bed) * Other condition, please specify * Unable to determine Please indicate etiology of pressure ulcer (if known). (Last Revision: January 2017) MTDD
--- NOTE | 2018-06-30 12:20 | P.PN ---
<Sarah Gutierrez Sharon - Last Filed: 06/30/18 12:19> Subjective Progress Note Date: 06/30/18 CHIEF COMPLAINT: tracheostomy placement HISTORY OF PRESENT ILLNESS: Patient examined at the bedside. He remains in the ICU. No family present. Trach site without drainage or bleeding. PHYSICAL EXAM: VITAL SIGNS: Reviewed. GENERAL: Well-developed in no acute distress. HEENT: No sclera icterus. Trach intact with no bleeding or drainage noted. Large wound to left mandible . Packing intact. Gauze dressing with serosanguineo us drainage noted. ABDOMEN: Soft. Nondistended. Nontender. PEG tube intact. ASSESSMENT: 1. Acute hypoxic respiratory failure, status post tracheostomy PLAN: 1. Ventilator management per Dr. Ivey 2. May remove packing to left jaw. Moisten area with saline before removing. Pack with Aquacel Q72 hours Nurse practitioner note has been reviewed by physician. Signing provider agrees with the documented findings, assessment, and plan of care. Objective - Vital Signs Vital signs: Vital Signs Temp 99.2 F 06/30/18 08:00 Pulse 88 06/30/18 11:30 Resp 20 06/30/18 11:30 BP 89/48 06/30/18 11:30 Pulse Ox 97 06/30/18 11:30 Intake & Output 06/29/18 06/30/18 06/30/18 18:59 06:59 18:59 Intake Total 2895 3079 950 Output Total 1999 1625 500 Balance 895 1454 450 Weight 83.8 kg 84.1 kg Intake: IV 1845 2405 950 Levofloxacin 750Mg-D5w 150 Pmx 750 mg In Dextrose/ Water 1 150ml.bag @ 100 mls/hr IVPB Q24H [facility] Rx#: [id number] Magnesium Sulfate-D5w Pmx 200 1 gm In Dextrose/Water 1 100ml.bag @ 100 mls/hr IVPB Q1H [facility] Rx#: [id number] Magnesium Sulfate-D5w Pmx 100 100 1 gm In Dextrose/Water 1 100ml.bag @ 100 mls/hr IVPB Q1H [facility] Rx#: [id number] Piperacillin-Tazobactam 3 175 125 .375 gm In Sodium Chloride 0.9% 100 ml @ 25 mls/hr IVPB Q8HR [facility] Rx# :[id number] Potassium Chloride 10 meq 200 In Water For Injection 1 100ml.bag @ 100 mls/hr IVPB Q1H [facility] Rx#: [id number] Potassium Phosphate 10 250 250 mmol In Sodium Chloride 0 .9% 250 ml @ 125 mls/hr IV Q2H [facility] Rx#:[id number] Sodium Chloride 0.9% 1, 1320 1720 600 000 ml @ 150 mls/hr IV . Q6H40M [facility] Rx#:[id number] Tube Feeding 760 504 Other 290 180 Output: Urine 2000 1625 500 Other: Voiding Method Indwelling Catheter Indwelling Catheter Indwelling Catheter - Labs CBC & Chem 7: 06/30/18 05:00 06/30/18 05:00 Labs: Abnormal Lab Results - Last 24 Hours (Table) 06/29/18 06/29/18 06/30/18 Range/Units 17:01 23:56 05:00 WBC 11.6 H (3.8-10.6) k/uL RBC 3.02 L (4.30-5.90) m/uL Hgb 7.7 L (13.0-17.5) gm/dL Hct 25.1 L (39.0-53.0) % MCHC 30.7 L (31.0-37.0) g/dL RDW 18.7 H (11.5-15.5) % Plt Count 78 L (150-450) k/uL Neutrophils # 10.2 H (1.3-7.7) k/uL Lymphocytes # 0.8 L (1.0-4.8) k/uL ABG pCO2 (35-45) mmHg ABG pO2 (83-108) mmHg ABG HCO3 (21-25) mmol/L ABG Total CO2 (19-24) mmol/L ABG O2 Saturation (94-97) % Chloride (98-107) mmol/L Carbon Dioxide (22-30) mmol/L Creatinine (0.66-1.25) mg/dL Glucose (74-99) mg/dL POC Glucose (mg/dL) 126 H 123 H (75-99) mg/dL Phosphorus (2.5-4.5) mg/dL 06/30/18 06/30/18 06/30/18 Range/Units 05:00 05:19 05:56 WBC (3.8-10.6) k/uL RBC (4.30-5.90) m/uL Hgb (13.0-17.5) gm/dL Hct (39.0-53.0) % MCHC (31.0-37.0) g/dL RDW (11.5-15.5) % Plt Count (150-450) k/uL Neutrophils # (1.3-7.7) k/uL Lymphocytes # (1.0-4.8) k/uL ABG pCO2 52 H (35-45) mmHg ABG pO2 61 L (83-108) mmHg ABG HCO3 33 H (21-25) mmol/L ABG Total CO2 35 H (19-24) mmol/L ABG O2 Saturation 91.9 L (94-97) % Chloride 111 H (98-107) mmol/L Carbon Dioxide 32 H (22-30) mmol/L Creatinine 0.48 L (0.66-1.25) mg/dL Glucose 115 H (74-99) mg/dL POC Glucose (mg/dL) 129 H (75-99) mg/dL Phosphorus 1.8 L (2.5-4.5) mg/dL Microbiology - Last 24 Hours (Table) 06/26/18 05:30 Anaerobic Culture - Final Face Anaerobic Gm Negative Bacilli 06/23/18 13:07 Blood Culture - Final Blood No Growth after 144 hours <Fab Lagos - Last Filed: 06/30/18 15:39> Subjective As above. Patient's tracheostomy functioning well. Continue ventilatory weaning per pulmonary. We'll follow periodically. Call if needed. Objective - Vital Signs Vital signs: Vital Signs Temp 99.2 F 06/30/18 12:00 Pulse 99 06/30/18 14:30 Resp 26 H 06/30/18 14:30 BP 124/61 06/30/18 14:30 Pulse Ox 92 L 06/30/18 14:30 Intake & Output 06/29/18 06/30/18 06/30/18 18:59 06:59 18:59 Intake Total 2895 3079 1650 Output Total 1999 1625 1080 Balance 896 1712 570 Weight 83.8 kg 84.1 kg Intake: IV 7845 2585 1650 Levofloxacin 750Mg-D5w 150 Pmx 750 mg In Dextrose/ Water 1 150ml.bag @ 100 mls/hr IVPB Q24H [facility] Rx#: [id number] Magnesium Sulfate-D5w Pmx 200 1 gm In Dextrose/Water 1 100ml.bag @ 100 mls/hr IVPB Q1H [facility] Rx#: [id number] Magnesium Sulfate-D5w Pmx 100 100 1 gm In Dextrose/Water 1 100ml.bag @ 100 mls/hr IVPB Q1H [facility] Rx#: [id number] Piperacillin-Tazobactam 3 175 125 100 .375 gm In Sodium Chloride 0.9% 100 ml @ 25 mls/hr IVPB Q8HR [facility] Rx# :[id number] Potassium Chloride 10 meq 200 In Water For Injection 1 100ml.bag @ 100 mls/hr IVPB Q1H [facility] Rx#: [id number] Potassium Phosphate 10 250 250 mmol In Sodium Chloride 0 .9% 250 ml @ 125 mls/hr IV Q2H [facility] Rx#:[id number] Sodium Chloride 0.9% 1, 1320 1720 1200 000 ml @ 150 mls/hr IV . Q6H40M [facility] Rx#:[id number] Tube Feeding 760 504 0 Other 290 180 Output: Urine 2000 1625 1080 Other: Voiding Method Indwelling Catheter Indwelling Catheter Indwelling Catheter - Labs CBC & Chem 7: 06/30/18 05:00 06/30/18 05:00 Labs: Abnormal Lab Results - Last 24 Hours (Table) 06/29/18 06/29/18 06/30/18 Range/Units 17:01 23:56 05:00 WBC 11.6 H (3.8-10.6) k/uL RBC 3.02 L (4.30-5.90) m/uL Hgb 7.7 L (13.0-17.5) gm/dL Hct 25.1 L (39.0-53.0) % MCHC 30.7 L (31.0-37.0) g/dL RDW 18.7 H (11.5-15.5) % Plt Count 78 L (150-450) k/uL Neutrophils # 10.2 H (1.3-7.7) k/uL Lymphocytes # 0.8 L (1.0-4.8) k/uL ABG pCO2 (35-45) mmHg ABG pO2 (83-108) mmHg ABG HCO3 (21-25) mmol/L ABG Total CO2 (19-24) mmol/L ABG O2 Saturation (94-97) % Chloride (98-107) mmol/L Carbon Dioxide (22-30) mmol/L Creatinine (0.66-1.25) mg/dL Glucose (74-99) mg/dL POC Glucose (mg/dL) 126 H 123 H (75-99) mg/dL Phosphorus (2.5-4.5) mg/dL 06/30/18 06/30/18 06/30/18 Range/Units 05:00 05:19 05:56 WBC (3.8-10.6) k/uL RBC (4.30-5.90) m/uL Hgb (13.0-17.5) gm/dL Hct (39.0-53.0) % MCHC (31.0-37.0) g/dL RDW (11.5-15.5) % Plt Count (150-450) k/uL Neutrophils # (1.3-7.7) k/uL Lymphocytes # (1.0-4.8) k/uL ABG pCO2 52 H (35-45) mmHg ABG pO2 61 L (83-108) mmHg ABG HCO3 33 H (21-25) mmol/L ABG Total CO2 35 H (19-24) mmol/L ABG O2 Saturation 91.9 L (94-97) % Chloride 111 H (98-107) mmol/L Carbon Dioxide 32 H (22-30) mmol/L Creatinine 0.48 L (0.66-1.25) mg/dL Glucose 115 H (74-99) mg/dL POC Glucose (mg/dL) 129 H (75-99) mg/dL Phosphorus 1.8 L (2.5-4.5) mg/dL Microbiology - Last 24 Hours (Table) 06/26/18 05:30 Anaerobic Culture - Final Face Anaerobic Gm Negative Bacilli 06/23/18 13:07 Blood Culture - Final Blood No Growth after 144 hours Assessment and Plan (1) Respiratory failure Current Visit: Yes Status: Acute Code(s): J96.90 - RESPIRATORY FAILURE, UNSP, UNSP W HYPOXIA OR HYPERCAPNIA SNOMED Code(s): 028299025
--- NOTE | 2018-06-30 13:30 | P.PN ---
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 Heredia presented with mental status c hanges and decreased level of consciousness with an open necrotic lesion to the neck and metastatic disease to the lung. This patient is currently being fed via PEG tube has been admitted with dehydration, mental status change and decreased level of consciousness. Patient has failed chemotherapy field radiation therapy and was noted that at [facility] he was offered an opportunity to trial on medium biologic as a last effort. It was discussed with his loved ones that his prognosis is grave and that intubating placing patient on a vent in the not something that would be appropriate however this was insisted upon and patient is currently on ventilator 06/26/2018 Patient is in the intensive care unit intubated, patient has significant progressive of progressive head and neck carcinoma that has metastasized to bone and lung with a large cavitary lesion in the lung the tumor mass has impeded respiratory efforts and is encroaching on the airway requiring intubation and mechanical ventilation. This patient's Mother, his significant other girlfriend, and other family members are not understanding that this man has failed chemotherapy has basically failed radiation therapy has been noncompliant about following up with oncology the disease is basically gotten the best of t his gentleman and his prognosis is poor he is still a full code, they keep asking regarding other therapies recommended at [facility] and they did not understand that while he is immune system is compromised with pneumonia and other infections and cavitary lesions in his lung he has become a poor candidate for this type of therapy Dr. Diamond critical care has spoken to this patient's family at length, the oncologist has spoken to this family at length Matteo Herrera primary care doct or of record have spoken to the family at length, regarding the poor prognosis and continued failure of this patient to thrive have fallen on ears. 06/27/2018 Patient underwent tracheostomy per Dr. Fab Lagos patient is on vent; history of aggressive and neck carcinoma that has subsequently metastasized to the bone and lung. Patient has been noncompliant, has not followed up with oncology has not followed up with radiation oncology underwent one radiation therapy and decided to stop it decided he did not want to proceed forward with chemo prior to this admission had continued smoking and drinking and patient has continued to remain a full code His legal guardian wants everything done at this point in time 06/28/2018 This patient is trached and is currently ventilator dependent. This individual has an aggressive, progressive squamous cell carcinoma of the head and neck with lung and bone metastasis, a large cavitary lesion in the lung a large necrotic open wound to the left jaw. This patient has been noncompliant with therapies both chemo and radiation therapy. He had continued to smoke, drink alcohol daily right up until this last admission. Wound culture should demonstrated a few gram-positive cocci and grew a few gram positive bacilli, microbiology data is negative waiting on final blood culture results patient is currently being covered with Levaquin and Zosyn. Prognosis is poor at best, patient is full code per family request Above notes for Dr. Weber ventura Tejeda is a 67 y/o white male new to my practice. He was seen one time 04/18/2018. He was admitted for mental status changes. He has metastatic squamous cell carcinoma in the neck. The metastases to the bone and his lungs. He is failing to thrive. He remains intubated, but only sedated with occasional Dilaudid. Staff report is minimally arousable. He does not follow commands. No family is at bedside at this point. Attempts to make this patient hospice as last admission was refused. Patient was noncompliant with his treatment at [facility] and with oncology. Nursing report his girlfriend is his legal guardian. I was made aware an ethics committee referral has been initiated. Blood culture data showed no growth, chest x-ray showed essentially stable exam, with a cavitary lesion in the right upper lobe, opacity over the left lung base, right-sided airspace disease, antibiotic coverage in the form of Zosyn and Levaquin. Objective - Vital Signs Vital signs: Vital Signs Temp 99.2 F 06/30/18 12:00 Pulse 79 06/30/18 12:30 Resp 21 06/30/18 12:30 BP 102/51 06/30/18 12:30 Pulse Ox 93 L 06/30/18 12:30 Intake & Output 06/29/18 06/30/18 06/30/18 18:59 06:59 18:59 Intake Total 2895 3079 1350 Output Total 2000 1625 780 Balance 895 1454 570 Weight 83.8 kg 84.1 kg Intake: IV 1845 2395 1350 Levofloxacin 750Mg-D5w 150 Pmx 750 mg In Dextrose/ Water 1 150ml.bag @ 100 mls/hr IVPB Q24H [facility] Rx#: [id number] Magnesium Sulfate-D5w Pmx 200 1 gm In Dextrose/Water 1 100ml.bag @ 100 mls/hr IVPB Q1H [facility] Rx#: [id number] Magnesium Sulfate-D5w Pmx 100 100 1 gm In Dextrose/Water 1 100ml.bag @ 100 mls/hr IVPB Q1H [facility] Rx#: [id number] Piperacillin-Tazobactam 3 175 125 100 .375 gm In Sodium Chloride 0.9% 100 ml @ 25 mls/hr IVPB Q8HR [facility] Rx# :[id number] Potassium Chloride 10 meq 200 In Water For Injection 1 100ml.bag @ 100 mls/hr IVPB Q1H [facility] Rx#: [id number] Potassium Phosphate 10 250 250 mmol In Sodium Chloride 0 .9% 250 ml @ 125 mls/hr IV Q2H [facility] Rx#:[id number] Sodium Chloride 0.9% 1, 1320 1720 900 000 ml @ 150 mls/hr IV . Q6H40M [facility] Rx#:[id number] Tube Feeding 760 504 0 Other 290 180 Output: Urine 1999 1625 780 Other: Voiding Method Indwelling Catheter Indwelling Catheter Indwelling Catheter - Exam General: The patient is Intubated and sedated with a large mass to his left jaw and neck. He is unable to close his mouth completely. He constantly has oral discharge from his mouth. Neck: Tracheostomy tube is in place. Cardiovascular: S1S2 is normal, There is a regular rate and rhythm. No murmur, rub or gallop is appreciated. Respiratory: Lungs are Course with poor exchange. There mechanically ventilated. Gastrointestinal: Soft, non-distended, non-tender abdomen without masses or organomegaly noted. Neurological: Patient is trached, he withdraws from pain. No further testing was done on my part at this time. Skin: Skin is warm and dry and no rashes or lesions are noted. He has offloading boots. - Labs CBC & Chem 7: 06/30/18 05:00 06/30/18 05:00 Labs: Abnormal Lab Results - Last 24 Hours (Table) 06/29/18 06/29/18 06/30/18 Range/Units 17:01 23:56 05:00 WBC 11.6 H (3.8-10.6) k/uL RBC 3.02 L (4.30-5.90) m/uL Hgb 7.7 L (13.0-17.5) gm/dL Hct 25.1 L (39.0-53.0) % MCHC 30.7 L (31.0-37.0) g/dL RDW 18.7 H (11.5-15.5) % Plt Count 78 L (150-450) k/uL Neutrophils # 10.2 H (1.3-7.7) k/uL Lymphocytes # 0.8 L (1.0-4.8) k/uL ABG pCO2 (35-45) mmHg ABG pO2 (83-108) mmHg ABG HCO3 (21-25) mmol/L ABG Total CO2 (19-24) mmol/L ABG O2 Saturation (94-97) % Chloride (98-107) mmol/L Carbon Dioxide (22-30) mmol/L Creatinine (0.66-1.25) mg/dL Glucose (74-99) mg/dL POC Glucose (mg/dL) 126 H 123 H (75-99) mg/dL Phosphorus (2.5-4.5) mg/dL 06/30/18 06/30/18 06/30/18 Range/Units 05:00 05:19 05:56 WBC (3.8-10.6) k/uL RBC (4.30-5.90) m/uL Hgb (13.0-17.5) gm/dL Hct (39.0-53.0) % MCHC (31.0-37.0) g/dL RDW (11.5-15.5) % Plt Count (150-450) k/uL Neutrophils # (1.3-7.7) k/uL Lymphocytes # (1.0-4.8) k/uL ABG pCO2 52 H (35-45) mmHg ABG pO2 61 L (83-108) mmHg ABG HCO3 33 H (21-25) mmol/L ABG Total CO2 35 H (19-24) mmol/L ABG O2 Saturation 91.9 L (94-97) % Chloride 111 H (98-107) mmol/L Carbon Dioxide 32 H (22-30) mmol/L Creatinine 0.48 L (0.66-1.25) mg/dL Glucose 115 H (74-99) mg/dL POC Glucose (mg/dL) 129 H (75-99) mg/dL Phosphorus 1.8 L (2.5-4.5) mg/dL Microbiology - Last 24 Hours (Table) 06/26/18 05:30 Anaerobic Culture - Final Face Anaerobic Gm Negative Bacilli 06/23/18 13:07 Blood Culture - Final Blood No Growth after 144 hours - Imaging and Cardiology Chest x-ray: report reviewed Assessment and Plan (1) Acute respiratory failure Current Visit: Yes Status: Acute Code(s): J96.00 - ACUTE RESPIRATORY FAILURE , UNSP W HYPOXIA OR HYPERCAPNIA SNOMED Code(s): 28087930 (2) Bone metastases Current Visit: Yes Status: Acute Code(s): C79.51 - SECONDARY MALIGNANT NEOPLASM OF BONE SNOMED Code(s): 65981846 (3) Lung metastases Current Visit: No Status: Acute Code(s): C78.00 - SECONDARY MALIGNANT NEOPLASM OF UNSPECIFIED LUNG SNOMED Code(s): 52281565 (4) Squamous cell carcinoma of head and neck Current Visit: No Status: Acute Priority: High Code(s): C76.0 - MALIGNANT NEOPLASM OF HEAD, FACE AND NECK SNOMED Code(s): 131473701 (5) Severe malnutrition Current Visit: No Status: Acute Code(s): E43 - UNSPECIFIED SEVERE PROTEIN- CALORIE MALNUTRITION SNOMED Code(s): 71103704 (6) Tobacco abuse Current Visit: Yes Status: Acute Code(s): Z72.0 - TOBACCO USE SNOMED Code(s): 857267918 (7) ETOH abuse Current Visit: Yes Status: Acute Code(s): F10.10 - ALCOHOL ABUSE, UNCOMPLICATED SNOMED Code(s): 78496982 Plan: We'll await further recommendations from the ethics committee, and pulmonology/critical care He currently has no tube feedings, just saline flushes. He'll remain on the antibiotics and pain medications as needed. We'll reevaluate him in the next 24 hours. He is terminal and most likely won't survive Admission due to his extensive cancer burden.
[2018-06-30] MEDS: LORazepam 2 MG/ML INJ IV PRN (18:16)
[2018-06-30] MEDS: LEVOFLOXACIN 750MG-D5W PMX 750 MG in DEXTROSE/WATER 1 150ML.BAG IVPB SCH (18:17)
--- NOTE | 2018-06-30 19:58 | P.PN ---
Subjective Progress Note Date: 06/30/18 Principal diagnosis: Hypoxemic respiratory failure secondary to right basilar pneumonia, aspiration pneumonia This is a 67-year-old white male patient of Dr. 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 Sánchez, Most recent PET scan on 06/04/2018 showed new metastatic disease in the lungs, with a new pulmonary cavitary lesion as well as nodules, metastatic osseous metastases in the thoracic spine through T3, T9, T10 and T11, pathological fracture from extensive tumor destruction in the mandible. Patient has received radiation treatments, he refused further radiation treatments, he was considering immunotherapy with Opdivo. He has a PEG tube in place, for feedings. He resides with his fiance, he continues to smoke, he does have a history of heavy EtOH use, drinking only occasionally now. Patient came into the hospital EMS on 06/23/2018 for decreased level of consciousness. Patient is a poor historian, his family denied any recent history of fever, chills or sweats. He was recently treated for dehydration. Chest x-ray on admission showed persistent thick-walled cavitary right upper lobe mass unchanged from previous exams. Showed a new left basilar acute infiltrate and/or atelectasis, and probable small left pleural effusion. EKG showed normal sinus rhythm with evidence of a septal infarct, undetermined age. Follow-up chest x-ray on 06/24/2018 showed metastatic disease, diffuse nodularity within the lungs, increased interstitium, Nader a lesion in the right upper lobe. Was initially admitted to the stepdown floor, but apparently last night rapid response team was called, for deteriorating mental status and level of consciousness, and hypoxemic respiratory failure, patient was placed on the 100% nonrebreather, she was moved to the intensive care unit, blood gas showed a pO2 of 60, pCO2 55, and pH of 7.38, this was done on the 100% FiO2, patient was placed on the interval, however that did not seem to help, and patient subsequently was intubated and placed on a mechanical ventilator. This morning he seen in the intensive care unit, intubated, sedated, current vent settings are assist-control mode with a rate of 20, tidal volume of 450, FiO2 of 60% and PEEP of 5, this morning's blood gases showed pO2 of 170, pCO2 of 52, and pH of 7.38, this was done on 100% FiO2 and subsequently FiO2 was dropped down to 60%. Initial blood work showed leukocytosis, with white blood cell count of 17.4, hemoglobin is 7.3, sodium is 134, potassium is 3.4, chloride is 96, CO2 is 34, B1 is 27, creatinine 0.71, plasma lactic acid is 1.4, ammonia level was less than 9, alkaline phosphatase was 222, AST was 47, ALT 62, troponin was negative at 0.033, urine. Urine drug screen was negative, influenza was not detected, urinalysis was negative for glucose, nitrates, showed rare bacteria, urine white blood cell count was only 3. No significant evidence of infection. His blood work today has been reviewed, showed white blood cell count of 11.4, hemoglobin is 5.9, no obvious source of bleeding. Current diabetes appointment normal saline at a rate of 150 ML per hour, Diprivan is at 15 mics per kilo per minute, patient has left abdominal PEG tube with signs of ulceration around the insertion site, we'll hold the PEG tube feedings right now, we're told that there has been leaking around the tube feedings around the insertion site. No fever, patient is hypotensive, we'll continue with IV fluids, and patient will receive a unit of packed red blood cells this morning. On 06/26/2017 patient seen in follow-up in the intensive care unit, he still intubated and sedated, on mechanical ventilator, current vent settings are assist-control mode with a rate of 20, multivitamins 450, FiO2 0%, and PEEP of 5, this morning his blood gases showed pO2 50, pCO2 43, pH of 7.38, this was done and FiO2 of 50%, since then, the FiO2 had been increased to 100% and is being gradually weaned down. These 0.9 normal saline at a rate of 150 ML per hour, Diprivan is a 25 mics per kilo per minute, patient is seen to feedings through the PEG tube, Vital AF a rate of 40, with a goal of 46. She was seen by GI service, and the flange on the PEG tube was tightened up. Today's chest x-ray shows worsening airspace disease in the right lung. Today's labs have been reviewed, showed a white blood cell count is 17.0, hemoglobin is 8.2, sodium is 140, potassium is 3.7, chloride is 114, BUN is 18 creatinine 0.72. ABGs were drawn, and show pO2 of 50, pCO2 43, pH is 7.38. Blood and sputum cultures are pending, but according the form of Levaquin and Zosyn. Afebrile. Yesterday we had a lengthy conversation with the patient's brother, and her friend, and they don't seem to accept the poor prognosis, they state patient has been given an option of immunotherapy at [facility]. However in view of his current health condition, he would probably be a poor candidate for treatment. Medical oncology following, have also discussed with the patient and the family the fact that patient has failed both chemo and radiation, and his cancer is progressing, and that patient should not be aggressively resuscitated. Despite all those conversations patient remains a full code. On 06/27/2018 patient seen in follow-up in the intensive care unit, he is remains sedated and intubated on mechanical ventilation, current vent settings are assist-control mode rate of 20, tidal vital 450, FiO2 50%, and PEEP of 5, blood gas showed pO2 of 63, pCO2 42, and pH of 7.40, IV fluids 0.9 normal saline at a rate of 150 ML per hour, Diprivan is at 25 mics per kilo per minute, vital AF 1.2 to feedings are currently on hold, patient is scheduled for tracheostomy placement today with Dr. Aviles. Microbiology data is negative, patient is afebrile. Hemodynamic with a stable, today's lab work shows a white blood cell count of 16.8, hemoglobin is 8.2, sodium is 141, potassium is 3.9, chloride is 117, CO2 is 24, BUN 16 and creatinine 0.64, antibiotic coverage includes Levaquin and Zosyn, patient is on breathing treatments. He was tolerating tube feedings, large ulcerated area on his left submental area is draining some purulent drainage, so far the Gram stain of the wound cultures showed a few gram-positive cocci and few gram-positive bacilli, final culture is pending. Patient remains a full code despite his poor prognosis, yesterday Dr. Pan from the ethics committee had contacted Dr. Ludwig to discuss patient's condition. For now patient is a full code, per family's request. We'll continue with supportive care. On 06/29/2018 patient seen in follow-up in the intensive care unit, he remains sedated, he's trached to the vent, current vent settings are assist-control mode with a rate of 20, tidal volume 450, FiO2 50% and PEEP of 5, this morning his blood gases showed pO2 of 56, pCO2 47, and pH of 7.41, this was done on FiO2 of 45% which was creased to 50%. Current IV fluids. A normal saline at a rate of 150 ML per hour, no other drips, tube feedings infusing through the PEG tube vital AF, rate of 46, with a goal of 46, instead of water flushes, culture data showed no growth, today's chest x-ray has been reviewed with Dr. Diamond and showed essentially stable exam, with a cavitary lesion in the right upper lobe, opacity over the left lung base, right-sided airspace disease. Low-grade fever this morning, with a temp of 99.8F, otherwise patient had been afebrile, sinus mechanism on a monitor with a rate of 101 to 1:15 BPM, hemodynamically patient is stable, his labs have been reviewed, and showed white blood cell count of 11.1, hemoglobin of 8.1, platelet count of 95, serum sodium is 141, potassium is 3.7, chloride is 113, BUN is 14 and creatinine 0.56. Lung sounds reveal scattered crackles. Patient is making adequate urine output, antibiotic coverage in the form of Zosyn and Levaquin. On 06/30/2018 patient seen again in follow-up in the intensive care unit, he remains sedated, his sedation has been on hold since yesterday, and patient remains premature unresponsive even to painful stimuli. Assist-control mode of ventilation, patient is trached to the vent, current vent settings assist control mode of with a rate of 20, tidal volume of 450, FiO2 of 50%, and PEEP of 5. His blood gases showed pO2 of 61, pCO2 of 52, and pH of 7.41, and this was done on 60% FiO2. Hemodynamic patient remains stable, current IV 9 normal salin e at a rate of 150 ML per hour, and they prevent has been on hold for last 24 hours. Antibiotic coverage in the form of Zosyn and Levaquin. Blood, sputum cultures showed no growth, fascial wound culture under the left mandible showed anaerobic gram-negative bacilli, final cultures pending. His blood work has been reviewed, showed white blood cell count of 11.6, hemoglobin of 7.7, with a conus 78, sodium is 142, potassium is 4.1, chloride is 111, carbon dioxide is 32, BUN is 15 and creatinine 0.48. Patient has tube feedings infusing, he is tolerating them well, tidal AF at a rate of 46, with a goal of 46. Lung sounds reveal scattered crackles throughout. No family at the bedside this morning. Objective - Vital Signs Vital signs: Vital Signs Temp 99.6 F 06/30/18 16:00 Pulse 128 H 06/30/18 19:00 Resp 30 H 06/30/18 19:00 BP 98/60 06/30/18 19:00 Pulse Ox 94 L 06/30/18 19:00 Intake & Output 06/30/18 06/30/18 07/01/18 06:59 18:59 06:59 Intake Total 3079 2402 176 Output Total 1625 1655 150 Balance 1454 747 26 Weight 84.1 kg Intake: IV 2395 2350 Magnesium Sulfate-D5w Pmx 100 100 1 gm In Dextrose/Water 1 100ml.bag @ 100 mls/hr IVPB Q1H [facility] Rx#: [id number] Piperacillin-Tazobactam 3 125 200 .375 gm In Sodium Chloride 0.9% 100 ml @ 25 mls/hr IVPB Q8HR [facility]EN Rx# :[id number] Potassium Chloride 10 meq 200 In Water For Injection 1 100ml.bag @ 100 mls/hr IVPB Q1H [facility]EN Rx#: [id number] Potassium Phosphate 10 250 250 mmol In Sodium Chloride 0 .9% 250 ml @ 125 mls/hr IV Q2H [facility]EN Rx#:[id number] Sodium Chloride 0.9% 1, 1720 1800 000 ml @ 150 mls/hr IV . Q6H40M [facility]EN Rx#:[id number] Intake, IV Titration 150 Amount Levofloxacin 750Mg-D5w 150 Pmx 750 mg In Dextrose/ Water 1 150ml.bag @ 100 mls/hr IVPB Q24H [facility]EN Rx#: [id number] Tube Feeding 504 52 26 Other 180 Output: Urine 1625 1655 150 Other: Voiding Method Indwelling Catheter Indwelling Catheter - Exam GENERAL EXAM: 67-year-old cachectic white male, chronically ill-looking, trached to mechanical ventilator, comfortable in no apparent distress. Patient has been off sedation over the last 24 hours, and he is unresponsive HEAD: Normocephalic/atraumatic. large ulcerated wound on the left submental area, with purulent drainage, surrounding redness and some swelling EYES: Normal reaction of pupils, equal size. Conjunctiva pink, sclera white. NOSE: Clear with pink turbinates. THROAT: No erythema or exudates. NECK: No masses, no JVD, no thyroid enlargement, no adenopathy. Midline tracheostomy CHEST: No chest wall deformity. Symmetrical expansion. LUNGS: Equal air entry with no crackles, wheeze, rhonchi or dullness. CVS: Regular rate and rhythm, normal S1 and S2, no gallops, no murmurs, no rubs ABDOMEN: Soft, nontender. No hepatosplenomegaly, normal bowel sounds, no guarding or rigidity. Patient has a left abdominal PEG tube in place, the flange has been tightened, there has been no further draining of the tube feedings around the insertion site EXTREMITIES: No clubbing, no edema, no cyanosis, 2+ pulses and upper and lower extremities. MUSCULOSKELETAL: Muscle strength and tone weak, patient has signs of wasting and cachexia SPINE: No scoliosis or deformity SKIN: No rashes CENTRAL NERVOUS SYSTEM: Sedated No focal deficits, tone is normal in all 4 extremities. - Labs CBC & Chem 7: 06/30/18 05:00 06/30/18 05:00 Labs: Abnormal Lab Results - Last 24 Hours (Table) 06/29/18 06/30/18 06/30/18 Range/Units 23:56 05:00 05:00 WBC 11.6 H (3.8-10.6) k/uL RBC 3.02 L (4.30-5.90) m/uL Hgb 7.7 L (13.0-17.5) gm/dL Hct 25.1 L (39.0-53.0) % MCHC 30.7 L (31.0-37.0) g/dL RDW 18.7 H (11.5-15.5) % Plt Count 78 L (150-450) k/uL Neutrophils # 10.2 H (1.3-7.7) k/uL Lymphocytes # 0.8 L (1.0-4.8) k/uL ABG pCO2 (35-45) mmHg ABG pO2 (83-108) mmHg ABG HCO3 (21-25) mmol/L ABG Total CO2 (19-24) mmol/L ABG O2 Saturation (94-97) % Chloride 111 H (98-107) mmol/L Carbon Dioxide 32 H (22-30) mmol/L Creatinine 0.48 L (0.66-1.25) mg/dL Glucose 115 H (74-99) mg/dL POC Glucose (mg/dL) 123 H (75-99) mg/dL Phosphorus 1.8 L (2.5-4.5) mg/dL 06/30/18 06/30/18 Range/Units 05:19 05:56 WBC (3.8-10.6) k/uL RBC (4.30-5.90) m/uL Hgb (13.0-17.5) gm/dL Hct (39.0-53.0) % MCHC (31.0-37.0) g/dL RDW (11.5-15.5) % Plt Count (150-450) k/uL Neutrophils # (1.3-7.7) k/uL Lymphocytes # (1.0-4.8) k/uL ABG pCO2 52 H (35-45) mmHg ABG pO2 61 L (83-108) mmHg ABG HCO3 33 H (21-25) mmol/L ABG Total CO2 35 H (19-24) mmol/L ABG O2 Saturation 91.9 L (94-97) % Chloride (98-107) mmol/L Carbon Dioxide (22-30) mmol/L Creatinine (0.66-1.25) mg/dL Glucose (74-99) mg/dL POC Glucose (mg/dL) 129 H (75-99) mg/dL Phosphorus (2.5-4.5) mg/dL Microbiology - Last 24 Hours (Table) 06/30/18 04:25 Wound Culture - Preliminary Abdomen 06/26/18 05:30 Anaerobic Culture - Final Face Anaerobic Gm Negative Bacilli Assessment and Plan Plan: Assessment: #1. Acute hypoxemic respiratory failure secondary to right basilar pneumonia, related to aspiration. Chest x-ray to do a large right upper lobe cavitary lesion, and diffuse nodular infiltrates bilaterally, more so in the right lung, could be related to pneumonia, or lymphangitic infiltrates. #2. Acute on chronic anemia, with no clear evidence of bleeding, could be related to hemodilution, but in view of patient's hypotention will transfused with 1 unit of packed red blood cells #3. Metastatic squamous cell carcinoma of the head and neck, and most recent PET scan showed a new right upper lobe cavitary lesion, involvement of the thoracic spine, left mandible, maxilla. She is status post chemotherapy and radiation, and most recently considering immunotherapy, follows with Dr. Sánchez #4. PEG tube in place, nutritional support, and it has evidence of ulceration around the insertion site and we can of tube feedings #5. Protein calorie malnutrition #6. Current smoker, #7. History of EtOH use Plan: Continue current antibiotic coverage, no fever or chills, continue holding sedation, and patient remains unresponsive. Will continue with assist control mode of ventilation, today's chest x-ray has been reviewed with Dr. Ivey, and shows extensive bilateral airspace disease, underlying cavitary lesion in the right upper lobe. Continue nutritional support, patient is tolerating tube feedings, we'll decrease the IV fluids to 75 ML per hour. GI and DVT prophylaxis. We will discuss patient's prognosis, and current condition with patient's family when they're available. Repeat chest x-ray in the morning. Continue supportive treatment. I performed a history & physical examination of the patient and discussed their management with my nurse practitioner, Aida Montgomery. I reviewed the nurse practitioner's note and agree with the documented findings and plan of care. Lung sounds are positive for coarse lung sounds The findings and the impression was discussed with the patient. I attest to the documentation by the nurse practitioner. Time with Patient: Greater than 30
[2018-06-30 20:16] LABS: Glucose,Whole Blood 108 mg/dL (75-99)
--- NOTE | 2018-06-30 22:39 | P.PN ---
Subjective Progress Note Date: 06/30/18 Principal diagnosis: Respiratory Failure Vent support, Trach, no family at bedside during interaction. Objective - Vital Signs Vital signs: Vital Signs Temp 99.8 F H 06/30/18 20:00 Pulse 97 06/30/18 22:00 Resp 23 06/30/18 22:00 BP 127/70 06/30/18 22:00 Pulse Ox 96 06/30/18 22:00 Intake & Output 06/30/18 06/30/18 07/01/18 06:59 18:59 06:59 Intake Total 3079 2402 734 Output Total 1625 1655 550 Balance 1454 747 184 Weight 84.1 kg Intake: IV 2395 2350 450 Magnesium Sulfate-D5w Pmx 100 100 1 gm In Dextrose/Water 1 100ml.bag @ 100 mls/hr IVPB Q1H [facility] Rx#: [id number] Piperacillin-Tazobactam 3 125 200 .375 gm In Sodium Chloride 0.9% 100 ml @ 25 mls/hr IVPB Q8HR [facility] Rx# :[id number] Potassium Chloride 10 meq 200 In Water For Injection 1 100ml.bag @ 100 mls/hr IVPB Q1H [facility] Rx#: [id number] Potassium Phosphate 10 250 250 mmol In Sodium Chloride 0 .9% 250 ml @ 125 mls/hr IV Q2H [facility] Rx#:[id number] Sodium Chloride 0.9% 1, 1720 1800 450 000 ml @ 75 mls/hr IV . [id number] [facility] Rx#:[id number] Intake, IV Titration 150 Amount Levofloxacin 750Mg-D5w 150 Pmx 750 mg In Dextrose/ Water 1 150ml.bag @ 100 mls/hr IVPB Q24H [facility] Rx#: [id number] Tube Feeding 504 52 104 Other 180 30 Output: Urine 1625 1655 550 Other: Voiding Method Indwelling Catheter Indwelling Catheter Indwelling Catheter - Exam Intubated, Sedated Appears chronically ill, no acute distress Adenopathy and presence of odoress mass neck, submental puruluent drainage Lungs: DImished throughout and ventilator supported Heart Reg 60s Abdomen with Peg tube inserted and serous drainage surrounding Ext: no edema - Labs CBC & Chem 7: 07/01/18 05:25 07/01/18 05:25 Labs: Abnormal Lab Results - Last 24 Hours (Table) 06/29/18 06/30/18 06/30/18 Range/Units 23:56 05:00 05:00 WBC 11.6 H (3.8-10.6) k/uL RBC 3.02 L (4.30-5.90) m/uL Hgb 7.7 L (13.0-17.5) gm/dL Hct 25.1 L (39.0-53.0) % MCHC 30.7 L (31.0-37.0) g/dL RDW 18.7 H (11.5-15.5) % Plt Count 78 L (150-450) k/uL Neutrophils # 10.2 H (1.3-7.7) k/uL Lymphocytes # 0.8 L (1.0-4.8) k/uL ABG pCO2 (35-45) mmHg ABG pO2 (83-108) mmHg ABG HCO3 (21-25) mmol/L ABG Total CO2 (19-24) mmol/L ABG O2 Saturation (94-97) % Chloride 111 H (98-107) mmol/L Carbon Dioxide 32 H (22-30) mmol/L Creatinine 0.48 L (0.66-1.25) mg/dL Glucose 115 H (74-99) mg/dL POC Glucose (mg/dL) 123 H (75-99) mg/dL Phosphorus 1.8 L (2.5-4.5) mg/dL 06/30/18 06/30/18 06/30/18 Range/Units 05:19 05:56 20:04 WBC (3.8-10.6) k/uL RBC (4.30-5.90) m/uL Hgb (13.0-17.5) gm/dL Hct (39.0-53.0) % MCHC (31.0-37.0) g/dL RDW (11.5-15.5) % Plt Count (150-450) k/uL Neutrophils # (1.3-7.7) k/uL Lymphocytes # (1.0-4.8) k/uL ABG pCO2 52 H (35-45) mmHg ABG pO2 61 L (83-108) mmHg ABG HCO3 33 H (21-25) mmol/L ABG Total CO2 35 H (19-24) mmol/L ABG O2 Saturation 91.9 L (94-97) % Chloride (98-107) mmol/L Carbon Dioxide (22-30) mmol/L Creatinine (0.66-1.25) mg/dL Glucose (74-99) mg/dL POC Glucose (mg/dL) 129 H 108 H (75-99) mg/dL Phosphorus (2.5-4.5) mg/dL Microbiology - Last 24 Hours (Table) 06/30/18 04:25 Wound Culture - Preliminary Abdomen 06/26/18 05:30 Anaerobic Culture - Final Face Anaerobic Gm Negative Bacilli Assessment and Plan Plan: Assessment and Recommendations: Squamous cell carcinoma of head and neck, moderately differentiated: New e xtensive metastatic Osseous and Pulmonary Disease on PET from 05/31/18 - Status POst [place] based chemotherapy regimen with concurrent radiation, last chemo on 05/13/18. Patient only completed partial recommendations of radiation as he refused further treatment - Recent PET scan on 05/31/18 revealed new metastatic disease, the treatment intent has now changed to palliative, not curable and Dr. Brooks did discuss in detail with him and girlfriend at last follow-up. - Plan to begin immune therapy as outpatient, obtain Next Gene Sequencing, and undergo evaluation at [facility] for opinion and options for clinical trials. - Patient has not yet begun immune therapy as he had recurrent admissions for dehydration and now vent dependant respiratory failure - Not a candidate for systemic treatment at this time due to current performance status Acute Respiratory Failure Requiring Mechanical Ventilator Support: - Per Pulmonary and ICU Care - Trach and Vent supported Normocytic Normochromic Anemia: - Likely component of Blood Loss anemia and Malignancy - No active bleeding noted - Daily CBC monitoring Failure to thrive, Decreased PO intake, and increasing weakness: - Difficulty with adherence - Dieticien as well Leukocytsis: Reactive to Persistent malignancy related infection - Blood cultures negative Hypokalemia - improved Hypomagnesia: Supps per medicine - Monitor Daily Moderate protein calorie malnutrition: - Feedings via peg tube although recent admission for non-adherence to recommended feedings resulting in profound dehydration Overall Prognosis is poor, patient disease is aggressive as it progressive rapidly and diffusely through treatment with chemotherapy and radiation, this has been discussed with patient , MOther, and girlfriend on numerous occasions although at this time they would like to continue full supportive care. Physician Attest: I have discussed the above history and physical and developed the complete impression and plan, agree with dictation, dictated as a scribe.
[2018-06-30] MEDS: SODIUM HYPOCHLORITE 0.25% 480 ML BOT MISCELLANE SCH (23:19)
[2018-07-01 00:04] LABS: Glucose,Whole Blood 104 mg/dL (75-99)
[2018-07-01] MEDS: INSULIN ASPART (NovoLOG) 100 UNIT/ML VIAL SQ SCH ×5 (00:08→23:38)
[2018-07-01] MEDS: PIPERACILLIN-TAZOBACTAM 3.375 GM in SODIUM CHLORIDE 0.9% 100 ML IVPB SCH ×4 (00:08→23:39)
[2018-07-01] MEDS: IPRATROPIUM-ALBUTEROL 3 ML NEB INHALATION SCH ×7 (00:10→23:48)
[2018-07-01] MEDS: HYDROmorphone 1 MG/ML 1 ML SYRINGE IVP PRN ×4 (02:14→21:38)
[2018-07-01 05:36] LABS: Anisocytosis Slight; Basophils % (A) 0 %; Eosinophils # (A) 0.1 k/uL (0-0.7); Eosinophils % (A) 1 %; HCT 24.2 % (39.0-53.0); HGB 7.5 gm/dL (13.0-17.5); Hypochromasia Marked; Lymphocytes # (A) 0.9 k/uL (1.0-4.8); Lymphocytes % (A) 8 %; MCH 26.1 pg (25.0-35.0); MCHC 30.9 g/dL (31.0-37.0); MCV 84.4 fL (80.0-100.0); Mean Platelet Volume 7.9; Monocytes # (A) 0.4 k/uL (0-1.0); Monocytes % (A) 4 %; Neutrophils # (A) 10.1 k/uL (1.3-7.7); Neutrophils % (A) 86 %; Poikilocytosis Slight; RBC 2.86 m/uL (4.30-5.90); RDW 18.7 % (11.5-15.5); WBC 11.7 k/uL (3.8-10.6)
[2018-07-01 05:37] LABS: Platelet Count 92 k/uL (150-450)
[2018-07-01 05:44] LABS: ABG Base Excess 8.4 mmol/L; ABG HCO3 33 mmol/L (21-25); ABG Oxygen Saturation 83.9 % (94-97); ABG PCO2 50 mmHg (35-45); ABG PH 7.42 (7.35-7.45); ABG TCO2 34 mmol/L (19-24)
[2018-07-01 05:49] LABS: ABG PO2 47 mmHg (83-108)
[2018-07-01 05:50] LABS: Anion Gap -1 mmol/L; Blood Urea Nitrogen 16 mg/dL (9-20); Calcium 10.4 mg/dL (8.4-10.2); Carbon Dioxide 32 mmol/L (22-30); Chloride 110 mmol/L (98-107); Glucose 93 mg/dL (74-99); Magnesium 1.7 mg/dL (1.6-2.3); Potassium 3.7 mmol/L (3.5-5.1); Sodium 141 mmol/L (137-145)
[2018-07-01] MEDS ORDERED: Potassium Replacement Protocol 1 EACH MISC MISCELLANE PRN (06:22)
[2018-07-01] MEDS ORDERED: Magnesium Replacement Protocol 1 EACH MISC MISCELLANE PRN (06:23)
[2018-07-01 06:28] LABS: Glucose,Whole Blood 122 mg/dL (75-99)
[2018-07-01] MEDS: MAGNESIUM SULFATE-D5W PMX 1 GM in DEXTROSE/WATER 1 100ML.BAG IVPB SCH ×2 (06:45→08:13)
[2018-07-01 06:46] LABS: Glucose,Whole Blood 115 mg/dL (75-99)
[2018-07-01] MEDS: POTASSIUM CHLORIDE 10 MEQ in WATER FOR INJECTION 1 100ML.BAG IVPB SCH ×2 (06:46→08:13)
--- NOTE | 2018-07-01 08:20 | XR ---
EXAMINATION TYPE: XR chest 1V portable DATE OF EXAM: 07/01/2018 COMPARISON: Prior chest x-ray 06/30/2018 HISTORY: Shortness of breath TECHNIQUE: frontal view of the chest is obtained on 2 images. FINDINGS: Pleural parenchymal changes are similar to prior exam. IMPRESSION: Correlate for pneumonia, edema, ARDS. Cavitary lesion again noted. Tracheostomy tube and central venous catheter are stable. Pleural effusion not excluded.
[2018-07-01] MEDS: CHLORHEXIDINE GLUCONATE 15 ML CUP MUCOUS MEM SCH ×2 (08:30→21:44)
[2018-07-01] MEDS: SERTRALINE 50 MG TAB PO SCH (08:30)
[2018-07-01] MEDS: POTASSIUM CHLORIDE ER 20 MEQ TAB.ER PO SCH (08:30)
[2018-07-01] MEDS: PANTOPRAZOLE 40 MG/10 ML VIAL IV SCH (08:42)
[2018-07-01] MEDS: SODIUM CHLORIDE 0.9% 1,000 ML IV SCH (11:46)
[2018-07-01] MEDS: SODIUM HYPOCHLORITE 0.25% 480 ML BOT MISCELLANE SCH (11:47)
[2018-07-01 11:58] LABS: Glucose,Whole Blood 113 mg/dL (75-99)
--- NOTE | 2018-07-01 12:10 | P.PN ---
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 Heredia presented with mental status c hanges and decreased level of consciousness with an open necrotic lesion to the neck and metastatic disease to the lung. This patient is currently being fed via PEG tube has been admitted with dehydration, mental status change and decreased level of consciousness. Patient has failed chemotherapy field radiation therapy and was noted that at [facility] he was offered an opportunity to trial on medium biologic as a last effort. It was discussed with his loved ones that his prognosis is grave and that intubating placing patient on a vent in the not something that would be appropriate however this was insisted upon and patient is currently on ventilator 06/26/2018 Patient is in the intensive care unit intubated, patient has significant progressive of progressive head and neck carcinoma that has metastasized to bone and lung with a large cavitary lesion in the lung the tumor mass has impeded respiratory efforts and is encroaching on the airway requiring intubation and mechanical ventilation. This patient's Mother, his significant other girlfriend, and other family members are not understanding that this man has failed chemotherapy has basically failed radiation therapy has been noncompliant about following up with oncology the disease is basically gotten the best of t his gentleman and his prognosis is poor he is still a full code, they keep asking regarding other therapies recommended at [facility] and they did not understand that while he is immune system is compromised with pneumonia and other infections and cavitary lesions in his lung he has become a poor candidate for this type of therapy Dr. Diamond critical care has spoken to this patient's family at length, the oncologist has spoken to this family at length Matteo Herrera primary care doct or of record have spoken to the family at length, regarding the poor prognosis and continued failure of this patient to thrive have fallen on ears. 06/27/2018 Patient underwent tracheostomy per Dr. Fab Lagos patient is on vent; history of aggressive and neck carcinoma that has subsequently metastasized to the bone and lung. Patient has been noncompliant, has not followed up with oncology has not followed up with radiation oncology underwent one radiation therapy and decided to stop it decided he did not want to proceed forward with chemo prior to this admission had continued smoking and drinking and patient has continued to remain a full code His legal guardian wants everything done at this point in time 06/28/2018 This patient is trached and is currently ventilator dependent. This individual has an aggressive, progressive squamous cell carcinoma of the head and neck with lung and bone metastasis, a large cavitary lesion in the lung a large necrotic open wound to the left jaw. This patient has been noncompliant with therapies both chemo and radiation therapy. He had continued to smoke, drink alcohol daily right up until this last admission. Wound culture should demonstrated a few gram-positive cocci and grew a few gram positive bacilli, microbiology data is negative waiting on final blood culture results patient is currently being covered with Levaquin and Zosyn. Prognosis is poor at best, patient is full code per family request Above notes for Dr. Weber currently 06/30/2018 Nikhil is a 67 y/o white male new to my practice. He was seen one time 04/18/2018. He was admitted for mental status changes. He has metastatic squamous cell carcinoma in the neck. The metastases to the bone and his lungs. He is failing to thrive. He remains intubated, but only sedated with occasional Dilaudid. Staff report is minimally arousable. He does not follow commands. No family is at bedside at this point. Attempts to make this patient hospice as last admission was refused. Patient was noncompliant with his treatment at [facility] and with oncology. Nursing report his girlfriend is his legal guardian. I was made aware an ethics committee referral has been initiated. Blood culture data showed no growth, chest x-ray showed essentially stable e xam, with a cavitary lesion in the right upper lobe, opacity over the left lung base, right-sided airspace disease, antibiotic coverage in the form of Zosyn and Levaquin. 07/01/2018: The patient remains intubated but he is not sedated. He has pain medications ordered. He was arousable for me today opening his eye looking at me and shake his head now little bit. Difficult to know if he understands me whatsoever. He has a trach in place. His girlfriend came late last night. Dr. Ivey is t rying to meet with her regarding his CODE STATUS. He remains on Zosyn and Levaquin for antibiotic coverage. Objective - Vital Signs Vital signs: Vital Signs Temp 99.2 F 07/01/18 08:00 Pulse 98 07/01/18 11:00 Resp 20 07/01/18 11:00 BP 95/52 07/01/18 11:00 Pulse Ox 94 L 07/01/18 11:00 Intake & Output 06/30/18 07/01/18 07/01/18 18:59 06:59 18:59 Intake Total 2402 2322 1026 Output Total 1655 1375 820 Balance 747 947 206 Weight 84.5 kg Intake: IV 2350 1750 550 Magnesium Sulfate-D5w Pmx 100 1 gm In Dextrose/Water 1 100ml.bag @ 100 mls/hr IVPB Q1H [facility] Rx#: [id number] Piperacillin-Tazobactam 3 200 100 100 .375 gm In Sodium Chloride 0.9% 100 ml @ 25 mls/hr IVPB Q8HR [facility] Rx# :[id number] Potassium Phosphate 10 250 mmol In Sodium Chloride 0 .9% 250 ml @ 125 mls/hr IV Q2H [facility] Rx#:[id number] Sodium Chloride 0.9% 1, 1800 1650 450 000 ml @ 75 mls/hr IV . [id number] [facility] Rx#:[id number] Intake, IV Titration 150 200 Amount Levofloxacin 750Mg-D5w 150 Pmx 750 mg In Dextrose/ Water 1 150ml.bag @ 100 mls/hr IVPB Q24H [facility] Rx#: [id number] Magnesium Sulfate-D5w Pmx 100 1 gm In Dextrose/Water 1 100ml.bag @ 100 mls/hr IVPB Q1H [facility] Rx#: [id number] Potassium Chloride 10 meq 100 In Water For Injection 1 100ml.bag @ 100 mls/hr IVPB Q1H [facility] Rx#: [id number] Tube Feeding 52 332 216 Other 90 60 Output: Urine 1655 1375 820 Other: Voiding Method Indwelling Catheter Indwelling Catheter Indwelling Catheter - Exam General: The patient is Intubated and sedated with a large mass to his left jaw and neck. He is unable to close his mouth completely. He constantly has oral discharge from his mouth. Neck: Tracheostomy tube is in place. Cardiovascular: S1S2 is normal, There is a regular rate and rhythm. No murmur, rub or gallop is appreciated. Respiratory: Lungs are Course with poor exchange. There mechanically ventilated. Gastrointestinal: Soft, non-distended, non-tender abdomen without masses or organomegaly noted. Neurological: Patient is trached, he withdraws from pain. He open his right eye to look at me today. He nodded his head slightly. Skin: Skin is warm and dry and no rashes or lesions are noted. He has offloading boots. - Labs CBC & Chem 7: 07/01/18 05:25 07/01/18 05:25 Labs: Abnormal Lab Results - Last 24 Hours (Table) 06/30/18 06/30/18 07/01/18 Range/Units 20:04 23:53 05:25 WBC 11.7 H (3.8-10.6) k/uL RBC 2.86 L (4.30-5.90) m/uL Hgb 7.5 L (13.0-17.5) gm/dL Hct 24.2 L (39.0-53.0) % MCHC 30.9 L (31.0-37.0) g/dL RDW 18.7 H (11.5-15.5) % Plt Count 92 L (150-450) k/uL Neutrophils # 10.1 H (1.3-7.7) k/uL Lymphocytes # 0.9 L (1.0-4.8) k/uL ABG pCO2 (35-45) mmHg ABG pO2 (83-108) mmHg ABG HCO3 (21-25) mmol/L ABG Total CO2 (19-24) mmol/L ABG O2 Saturation (94-97) % Chloride (98-107) mmol/L Carbon Dioxide (22-30) mmol/L Creatinine (0.66-1.25) mg/dL POC Glucose (mg/dL) 108 H 104 H (75-99) mg/dL Calcium (8.4-10.2) mg/dL 07/01/18 07/01/18 07/01/18 Range/Units 05:25 05:42 06:16 WBC (3.8-10.6) k/uL RBC (4.30-5.90) m/uL Hgb (13.0-17.5) gm/dL Hct (39.0-53.0) % MCHC (31.0-37.0) g/dL RDW (11.5-15.5) % Plt Count (150-450) k/uL Neutrophils # (1.3-7.7) k/uL Lymphocytes # (1.0-4.8) k/uL ABG pCO2 50 H (35-45) mmHg ABG pO2 47 L* (83-108) mmHg ABG HCO3 33 H (21-25) mmol/L ABG Total CO2 34 H (19-24) mmol/L ABG O2 Saturation 83.9 L (94-97) % Chloride 110 H (98-107) mmol/L Carbon Dioxide 32 H (22-30) mmol/L Creatinine 0.51 L (0.66-1.25) mg/dL POC Glucose (mg/dL) 122 H (75-99) mg/dL Calcium 10.4 H (8.4-10.2) mg/dL 07/01/18 07/01/18 Range/Units 06:45 11:44 WBC (3.8-10.6) k/uL RBC (4.30-5.90) m/uL Hgb (13.0-17.5) gm/dL Hct (39.0-53.0) % MCHC (31.0-37.0) g/dL RDW (11.5-15.5) % Plt Count (150-450) k/uL Neutrophils # (1.3-7.7) k/uL Lymphocytes # (1.0-4.8) k/uL ABG pCO2 (35-45) mmHg ABG pO2 (83-108) mmHg ABG HCO3 (21-25) mmol/L ABG Total CO2 (19-24) mmol/L ABG O2 Saturation (94-97) % Chloride (98-107) mmol/L Carbon Dioxide (22-30) mmol/L Creatinine (0.66-1.25) mg/dL POC Glucose (mg/dL) 115 H 113 H (75-99) mg/dL Calcium (8.4-10.2) mg/dL Microbiology - Last 24 Hours (Table) 06/30/18 04:25 Gram Stain - Preliminary Abdomen Wound Culture - Preliminary Yeast species 06/30/18 16:00 Anaerobic Culture - Preliminary Abdomen 06/26/18 05:30 Anaerobic Culture - Final Face Anaerobic Gm Negative Bacilli Assessment and Plan (1) Acute respiratory failure Current Visit: Yes Status: Acute Code(s): J96.00 - ACUTE RESPIRATORY FAILURE, UNSP W HYPOXIA OR HYPERCAPNIA SNOMED Code(s): 26002078 (2) Bone metastases Current Visit: Yes Status: Acute Code(s): C79.51 - SECONDARY MALIGNANT NEOPLASM OF BONE SNOMED Code(s): 66511214 (3) Lung metastases Current Visit: No Status: Acute Code(s): C78.00 - SECONDARY MALIGNANT NEOPLASM OF UNSPECIFIED LUNG SNOMED Code(s): 62829287 (4) Squamous cell carcinoma of head and neck Current Visit: No Status: Acute Priority: High Code(s): C76.0 - MALIGNANT NEOPLASM OF HEAD, FACE AND NECK SNOMED Code(s): 582182714 (5) Severe malnutrition Current Visit: No Status: Acute Code(s): E43 - UNSPECIFIED SEVERE PROTEIN- CALORIE MALNUTRITION SNOMED Code(s): 36572799 (6) Tobacco abuse Current Visit: Yes Status: Acute Code(s): Z72.0 - TOBACCO USE SNOMED Code(s): 270698444 (7) ETOH abuse Current Visit: Yes Status: Acute Code(s): F10.10 - ALCOHOL ABUSE, UNCOMPLICATED SNOMED Code(s): 01520371 (8) Ventilator dependent Current Visit: Yes Status: Acute Code(s): Z99.11 - DEPENDENCE ON RESPIRATOR [VENTILATOR] STATUS SNOMED Code(s): 111176213 Plan: We'll await further recommendations from the ethics committee, and pulmonology/critical care He currently has no tube feedings, just saline flushes. He'll remain on the antibiotics and pain medications as needed. We'll reevaluate him in the next 24 hours. We will await on the upcoming meeting with Dr. Ivey and his power of recovery engineer. He is terminal and most likely won't survive Admission due to his extensive cancer burden.
--- NOTE | 2018-07-01 13:09 | P.PN ---
Subjective Progress Note Date: 07/01/18 Principal diagnosis: Respiratory Failure Vent support, Trach, no family at bedside during interaction. Attempted multiple times to meet with family face to face Objective - Vital Signs Vital signs: Vital Signs Temp 99.5 F 07/01/18 12:00 Pulse 90 07/01/18 12:25 Resp 21 07/01/18 12:00 BP 87/50 07/01/18 12:00 Pulse Ox 95 07/01/18 12:00 Intake & Output 06/30/18 07/01/18 07/01/18 18:59 06:59 18:59 Intake Total 2402 2322 1026 Output Total 1655 1375 820 Balance 747 947 206 Weight 84.5 kg Intake: IV 2350 1750 550 Magnesium Sulfate-D5w Pmx 100 1 gm In Dextrose/Water 1 100ml.bag @ 100 mls/hr IVPB Q1H [facility] Rx#: [id number] Piperacillin-Tazobactam 3 200 100 100 .375 gm In Sodium Chloride 0.9% 100 ml @ 25 mls/hr IVPB Q8HR [facility] Rx# :[id number] Potassium Phosphate 10 250 mmol In Sodium Chloride 0 .9% 250 ml @ 125 mls/hr IV Q2H [facility] Rx#:[id number] Sodium Chloride 0.9% 1, 1800 1650 450 000 ml @ 75 mls/hr IV . [id number] [facility] Rx#:[id number] Intake, IV Titration 150 200 Amount Levofloxacin 750Mg-D5w 150 Pmx 750 mg In Dextrose/ Water 1 150ml.bag @ 100 mls/hr IVPB Q24H [facility] Rx#: [id number] Magnesium Sulfate-D5w Pmx 100 1 gm In Dextrose/Water 1 100ml.bag @ 100 mls/hr IVPB Q1H [facility] Rx#: [id number] Potassium Chloride 10 meq 100 In Water For Injection 1 100ml.bag @ 100 mls/hr IVPB Q1H [facility] Rx#: [id number] Tube Feeding 52 332 216 Other 90 60 Output: Urine 1655 1375 820 Other: Voiding Method Indwelling Catheter Indwelling Catheter Indwelling Catheter - Exam Intubated, Sedated Appears chronically ill, no acute distress Adenopathy and presence of odoress mass neck, submental puruluent drainage Lungs: DImished throughout and ventilator supported Heart Reg 60s Abdomen with Peg tube inserted and serous drainage surrounding Ext: no edema - Labs CBC & Chem 7: 07/01/18 05:25 07/01/18 05:25 Labs: Abnormal Lab Results - Last 24 Hours (Table) 06/30/18 06/30/18 07/01/18 Range/Units 20:04 23:53 05:25 WBC 11.7 H (3.8-10.6) k/uL RBC 2.86 L (4.30-5.90) m/uL Hgb 7.5 L (13.0-17.5) gm/dL Hct 24.2 L (39.0-53.0) % MCHC 30.9 L (31.0-37.0) g/dL RDW 18.7 H (11.5-15.5) % Plt Count 92 L (150-450) k/uL Neutrophils # 10.1 H (1.3-7.7) k/uL Lymphocytes # 0.9 L (1.0-4.8) k/uL ABG pCO2 (35-45) mmHg ABG pO2 (83-108) mmHg ABG HCO3 (21-25) mmol/L ABG Total CO2 (19-24) mmol/L ABG O2 Saturation (94-97) % Chloride (98-107) mmol/L Carbon Dioxide (22-30) mmol/L Creatinine (0.66-1.25) mg/dL POC Glucose (mg/dL) 108 H 104 H (75-99) mg/dL Calcium (8.4-10.2) mg/dL 07/01/18 07/01/18 07/01/18 Range/Units 05:25 05:42 06:16 WBC (3.8-10.6) k/uL RBC (4.30-5.90) m/uL Hgb (13.0-17.5) gm/dL Hct (39.0-53.0) % MCHC (31.0-37.0) g/dL RDW (11.5-15.5) % Plt Count (150-450) k/uL Neutrophils # (1.3-7.7) k/uL Lymphocytes # (1.0-4.8) k/uL ABG pCO2 50 H (35-45) mmHg ABG pO2 47 L* (83-108) mmHg ABG HCO3 33 H (21-25) mmol/L ABG Total CO2 34 H (19-24) mmol/L ABG O2 Saturation 83.9 L (94-97) % Chloride 110 H (98-107) mmol/L Carbon Dioxide 32 H (22-30) mmol/L Creatinine 0.51 L (0.66-1.25) mg/dL POC Glucose (mg/dL) 122 H (75-99) mg/dL Calcium 10.4 H (8.4-10.2) mg/dL 07/01/18 07/01/18 Range/Units 06:45 11:44 WBC (3.8-10.6) k/uL RBC (4.30-5.90) m/uL Hgb (13.0-17.5) gm/dL Hct (39.0-53.0) % MCHC (31.0-37.0) g/dL RDW (11.5-15.5) % Plt Count (150-450) k/uL Neutrophils # (1.3-7.7) k/uL Lymphocytes # (1.0-4.8) k/uL ABG pCO2 (35-45) mmHg ABG pO2 (83-108) mmHg ABG HCO3 (21-25) mmol/L ABG Total CO2 (19-24) mmol/L ABG O2 Saturation (94-97) % Chloride (98-107) mmol/L Carbon Dioxide (22-30) mmol/L Creatinine (0.66-1.25) mg/dL POC Glucose (mg/dL) 115 H 113 H (75-99) mg/dL Calcium (8.4-10.2) mg/dL Microbiology - Last 24 Hours (Table) 06/30/18 04:25 Gram Stain - Preliminary Abdomen Wound Culture - Preliminary [place] albicans 06/30/18 16:00 Anaerobic Culture - Preliminary Abdomen 06/26/18 05:30 Anaerobic Culture - Final Face Anaerobic Gm Negative Bacilli Assessment and Plan Plan: Assessment and Recommendations: Squamous cell carcinoma of head and neck, moderately differentiated: New extensive metastatic Osseous and Pulmonary Disease on PET from 05/31/18 - Status POst [place] based chemotherapy regimen with concurrent radiation, last chemo on 05/13/18. Patient only completed partial recommendations of radiation as he refused further treatment - Recent PET scan on 05/31/18 revealed new metastatic disease, the treatment intent has now changed to palliative, not curable and Dr. Brooks did discuss in detail with him and girlfriend at last follow-up. - Plan to begin immune therapy as outpatient, obtain Next Gene Sequencing, and undergo evaluation at [facility] for opinion and options for clinical trials. - Patient has not yet begun immune therapy as he had recurrent admissions for dehydration and now vent dependant respiratory failure - Not a candidate for systemic treatment at this time due to current performance status Acute Respiratory Failure Requiring Mechanical Ventilator Support: - Per Pulmonary and ICU Care - Trach and Vent supported Normocytic Normochromic Anemia: - Likely component of Blood Loss anemia and Malignancy - No active bleeding noted - Daily CBC monitoring Failure to thrive, Decreased PO intake, and increasing weakness: - Difficulty with adherence - Dieticien as well Leukocytsis: Reactive to Persistent malignancy related infection - Blood cultures negative Hypokalemia - improved Hypomagnesia: Supps per medicine - Monitor Daily Moderate protein calorie malnutrition: - Feedings via peg tube although recent admission for non-adherence to recommended feedings resulting in profound dehydration Patients Girlfriend was present today and I was able to have a long discussion with her related to expectations, goals of care and plan. She has expectations that patient will return to normal without deficits. I discussed the critical progression of his disease and rapid spread which has resulted in the need of ventilator life support and tracheostomy. Opdivo is not an option at this time due to its benefits are unlikely with the rate of progression and expectations of curable disease are unfortunetly not realistic. She stated she is having a difficult time making the decision to provide comfort care as when he was alert he would give her a thumbs up. We discussed realistic expectations, we discussed the need of correction care facility at the positive endpoint. She stated she will meet with ICU physicians and determine if he has made any improvements. Remediation and re-education do not appear to be understood, I feel her exp ectations are unfortunetly unrealistic as she clearly states she expects him to be able to walk and talk as he used to. Greater than 40 minutes spent face to face and greater than 75% of that time was counseling and coordinating care today. Physician Attest: I have discussed the above history and physical and developed the complete impression and plan, agree with dictation, dictated as a scribe. Time with Patient: Greater than 30
[2018-07-01] MEDS: LEVOFLOXACIN 750MG-D5W PMX 750 MG in DEXTROSE/WATER 1 150ML.BAG IVPB SCH (17:31)
--- NOTE | 2018-07-01 17:46 | P.PN ---
Subjective Progress Note Date: 07/01/18 Principal diagnosis: Hypoxemic respiratory failure secondary to right basilar pneumonia, aspiration pneumonia This is a 67-year-old white male patient of Dr. 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 Sánchez, Most recent PET scan on 06/04/2018 showed new metastatic disease in the lungs, with a new pulmonary cavitary lesion as well as nodules, metastatic osseous metastases in the thoracic spine through T3, T9, T10 and T11, pathological fracture from extensive tumor destruction in the mandible. Patient has received radiation treatments, he refused further radiation treatments, he was considering immunotherapy with Opdivo. He has a PEG tube in place, for feedings. He resides with his fiance, he continues to smoke, he does have a history of heavy EtOH use, drinking only occasionally now. Patient came into the hospital EMS on 06/23/2018 for decreased level of consciousness. Patient is a poor historian, his family denied any recent history of fever, chills or sweats. He was recently treated for dehydration. Chest x-ray on admission showed persistent thick-walled cavitary right upper lobe mass unchanged from previous exams. Showed a new left basilar acute infiltrate and/or atelectasis, and probable small left pleural effusion. EKG showed normal sinus rhythm with evidence of a septal infarct, undetermined age. Follow-up chest x-ray on 06/24/2018 showed metastatic disease, diffuse nodularity within the lungs, increased interstitium, Nader a lesion in the right upper lobe. Was initially admitted to the stepdown floor, but apparently last night rapid response team was called, for deteriorating mental status and level of consciousness, and hypoxemic respiratory failure, patient was placed on the 100% nonrebreather, she was moved to the intensive care unit, blood gas showed a pO2 of 60, pCO2 55, and pH of 7.38, this was done on the 100% FiO2, patient was placed on the interval, however that did not seem to help, and patient subsequently was intubated and placed on a mechanical ventilator. This morning he seen in the intensive care unit, intubated, sedated, current vent settings are assist-control mode with a rate of 20, tidal volume of 450, FiO2 of 60% and PEEP of 5, this morning's blood gases showed pO2 of 170, pCO2 of 52, and pH of 7.38, this was done on 100% FiO2 and subsequently FiO2 was dropped down to 60%. Initial blood work showed leukocytosis, with white blood cell count of 17.4, hemoglobin is 7.3, sodium is 134, potassium is 3.4, chloride is 96, CO2 is 34, B1 is 27, creatinine 0.71, plasma lactic acid is 1.4, ammonia level was less than 9, alkaline phosphatase was 222, AST was 47, ALT 62, troponin was negative at 0.033, urine. Urine drug screen was negative, influenza was not detected, urinalysis was negative for glucose, nitrates, showed rare bacteria, urine white blood cell count was only 3. No significant evidence of infection. His blood work today has been reviewed, showed white blood cell count of 11.4, hemoglobin is 5.9, no obvious source of bleeding. Current diabetes appointment normal saline at a rate of 150 ML per hour, Diprivan is at 15 mics per kilo per minute, patient has left abdominal PEG tube with signs of ulceration around the insertion site, we'll hold the PEG tube feedings right now, we're told that there has been leaking around the tube feedings around the insertion site. No fever, patient is hypotensive, we'll continue with IV fluids, and patient will receive a unit of packed red blood cells this morning. On 06/26/2017 patient seen in follow-up in the intensive care unit, he still intubated and sedated, on mechanical ventilator, current vent settings are assist-control mode with a rate of 20, multivitamins 450, FiO2 0%, and PEEP of 5, this morning his blood gases showed pO2 50, pCO2 43, pH of 7.38, this was done and FiO2 of 50%, since then, the FiO2 had been increased to 100% and is being gradually weaned down. These 0.9 normal saline at a rate of 150 ML per hour, Diprivan is a 25 mics per kilo per minute, patient is seen to feedings through the PEG tube, Vital AF a rate of 40, with a goal of 46. She was seen by GI service, and the flange on the PEG tube was tightened up. Today's chest x-ray shows worsening airspace disease in the right lung. Today's labs have been reviewed, showed a white blood cell count is 17.0, hemoglobin is 8.2, sodium is 140, potassium is 3.7, chloride is 114, BUN is 18 creatinine 0.72. ABGs were drawn, and show pO2 of 50, pCO2 43, pH is 7.38. Blood and sputum cultures are pending, but according the form of Levaquin and Zosyn. Afebrile. Yesterday we had a lengthy conversation with the patient's brother, and her friend, and they don't seem to accept the poor prognosis, they state patient has been given an option of immunotherapy at [facility]. However in view of his current health condition, he would probably be a poor candidate for treatment. Medical oncology following, have also discussed with the patient and the family the fact that patient has failed both chemo and radiation, and his cancer is progressing, and that patient should not be aggressively resuscitated. Despite all those conversations patient remains a full code. On 06/27/2018 patient seen in follow-up in the intensive care unit, he is remains sedated and intubated on mechanical ventilation, current vent settings are assist-control mode rate of 20, tidal vital 450, FiO2 50%, and PEEP of 5, blood gas showed pO2 of 63, pCO2 42, and pH of 7.40, IV fluids 0.9 normal saline at a rate of 150 ML per hour, Diprivan is at 25 mics per kilo per minute, vital AF 1.2 to feedings are currently on hold, patient is scheduled for tracheostomy placement today with Dr. Aviles. Microbiology data is negative, patient is afebrile. Hemodynamic with a stable, today's lab work shows a white blood cell count of 16.8, hemoglobin is 8.2, sodium is 141, potassium is 3.9, chloride is 117, CO2 is 24, BUN 16 and creatinine 0.64, antibiotic coverage includes Levaquin and Zosyn, patient is on breathing treatments. He was tolerating tube feedings, large ulcerated area on his left submental area is draining some purulent drainage, so far the Gram stain of the wound cultures showed a few gram-positive cocci and few gram-positive bacilli, final culture is pending. Patient remains a full code despite his poor prognosis, yesterday Dr. Pan from the ethics committee had contacted Dr. Ludwig to discuss patient's condition. For now patient is a full code, per family's request. We'll continue with supportive care. On 06/29/2018 patient seen in follow-up in the intensive care unit, he remains sedated, he's trached to the vent, current vent settings are assist-control mode with a rate of 20, tidal volume 450, FiO2 50% and PEEP of 5, this morning his blood gases showed pO2 of 56, pCO2 47, and pH of 7.41, this was done on FiO2 of 45% which was creased to 50%. Current IV fluids. A normal saline at a rate of 150 ML per hour, no other drips, tube feedings infusing through the PEG tube vital AF, rate of 46, with a goal of 46, instead of water flushes, culture data showed no growth, today's chest x-ray has been reviewed with Dr. Diamond and showed essentially stable exam, with a cavitary lesion in the right upper lobe, opacity over the left lung base, right-sided airspace disease. Low-grade fever this morning, with a temp of 99.8F, otherwise patient had been afebrile, sinus mechanism on a monitor with a rate of 101 to 1:15 BPM, hemodynamically patient is stable, his labs have been reviewed, and showed white blood cell count of 11.1, hemoglobin of 8.1, platelet count of 95, serum sodium is 141, potassium is 3.7, chloride is 113, BUN is 14 and creatinine 0.56. Lung sounds reveal scattered crackles. Patient is making adequate urine output, antibiotic coverage in the form of Zosyn and Levaquin. On 06/30/2018 patient seen again in follow-up in the intensive care unit, he remains sedated, his sedation has been on hold since yesterday, and patient remains premature unresponsive even to painful stimuli. Assist-control mode of ventilation, patient is trached to the vent, current vent settings assist control mode of with a rate of 20, tidal volume of 450, FiO2 of 50%, and PEEP of 5. His blood gases showed pO2 of 61, pCO2 of 52, and pH of 7.41, and this was done on 60% FiO2. Hemodynamic patient remains stable, current IV 9 normal salin e at a rate of 150 ML per hour, and they prevent has been on hold for last 24 hours. Antibiotic coverage in the form of Zosyn and Levaquin. Blood, sputum cultures showed no growth, fascial wound culture under the left mandible showed anaerobic gram-negative bacilli, final cultures pending. His blood work has been reviewed, showed white blood cell count of 11.6, hemoglobin of 7.7, with a conus 78, sodium is 142, potassium is 4.1, chloride is 111, carbon dioxide is 32, BUN is 15 and creatinine 0.48. Patient has tube feedings infusing, he is tolerating them well, tidal AF at a rate of 46, with a goal of 46. Lung sounds reveal scattered crackles throughout. No family at the bedside this morning. The patient is seen today 07/01/2018 in follow-up in the intensive care unit. He remains unresponsive. He is currently off propofol. He remains on the mechanical ventilator status post tracheostomy placement. Current settings 24 respiratory rate assist-control mode of 20, tidal volume 450, FiO2 65% and a PEEP of 5. Morning blood gases reveal a pO2 of 47, pCO2 50, pH 7.42. White count 11.7. Hemoglobin 7.5. Creatinine 0.51. asked x-ray continues to show evidence of pneumonia, edema, ARDS. Cavitary lesion again noted. Tracheostomy tube and central venous catheters are stable. Pleural effusion is not excluded. He remains on Levaquin and Zosyn. Remains on tube feedings at vital AF at a rate of 46 with a goal of 46. Blood, sputum cultures showed no growth, fascial wound culture under the left mandible showed anaerobic gram-negative bacilli, final cultures pending. Objective - Vital Signs Vital signs: Vital Signs Temp 99.5 F 07/01/18 16:00 Pulse 112 H 07/01/18 17:04 Resp 22 07/01/18 16:00 BP 91/53 07/01/18 16:00 Pulse Ox 95 07/01/18 16:00 Intake & Output 06/30/18 07/01/18 07/01/18 18:59 06:59 18:59 Intake Total 2402 2322 1761 Output Total 1655 1375 1590 Balance 747 947 171 Weight 84.5 kg Intake: IV 2350 1750 1025 Magnesium Sulfate-D5w Pmx 100 1 gm In Dextrose/Water 1 100ml.bag @ 100 mls/hr IVPB Q1H [facility] Rx#: [id number] Piperacillin-Tazobactam 3 200 100 200 .375 gm In Sodium Chloride 0.9% 100 ml @ 25 mls/hr IVPB Q8HR [facility] Rx# :[id number] Potassium Phosphate 10 250 mmol In Sodium Chloride 0 .9% 250 ml @ 125 mls/hr IV Q2H [facility] Rx#:[id number] Sodium Chloride 0.9% 1, 1800 1650 825 000 ml @ 75 mls/hr IV . [id number] [facility] Rx#:[id number] Intake, IV Titration 150 200 Amount Levofloxacin 750Mg-D5w 150 Pmx 750 mg In Dextrose/ Water 1 150ml.bag @ 100 mls/hr IVPB Q24H [facility] Rx#: [id number] Magnesium Sulfate-D5w Pmx 100 1 gm In Dextrose/Water 1 100ml.bag @ 100 mls/hr IVPB Q1H [facility] Rx#: [id number] Potassium Chloride 10 meq 100 In Water For Injection 1 100ml.bag @ 100 mls/hr IVPB Q1H [facility] Rx#: [id number] Tube Feeding 52 332 446 Other 90 90 Output: Urine 1655 1375 1590 Other: Voiding Method Indwelling Catheter Indwelling Catheter Indwelling Catheter - Exam GENERAL EXAM: 67-year-old cachectic male, chronically ill-looking, trached and remains on the mechanical ventilator, comfortable in no apparent distress. Patient has been off sedation over the last 48 hours, and he is unresponsive HEAD: Normocephalic/atraumatic. large ulcerated wound on the left submental area, with purulent drainage, surrounding redness and some swelling EYES: Normal reaction of pupils, equal size. Conjunctiva pink, sclera white. NOSE: Clear with pink turbinates. THROAT: No erythema or exudates. NECK: No masses, no JVD, no thyroid enlargement, no adenopathy. Midline tracheostomy CHEST: No chest wall deformity. Symmetrical expansion. LUNGS: Equal air entry with no crackles, wheeze, rhonchi or dullness. CVS: Regular rate and rhythm, normal S1 and S2, no gallops, no murmurs, no rubs ABDOMEN: Soft, nontender. No hepatosplenomegaly, normal bowel sounds, no g uarding or rigidity. Patient has a left abdominal PEG tube in place, the flange has been tightened, there has been no further draining of the tube feedings around the insertion site EXTREMITIES: No clubbing, no edema, no cyanosis, 2+ pulses and upper and lower extremities. MUSCULOSKELETAL: Muscle strength and tone weak, patient has signs of wasting and cachexia SPINE: No scoliosis or deformity SKIN: No rashes CENTRAL NERVOUS SYSTEM: Sedated No focal deficits, tone is normal in all 4 extremities. - Labs CBC & Chem 7: 07/01/18 05:25 07/01/18 05:25 Labs: Abnormal Lab Results - Last 24 Hours (Table) 06/30/18 06/30/18 07/01/18 Range/Units 20:04 23:53 05:25 WBC 11.7 H (3.8-10.6) k/uL RBC 2.86 L (4.30-5.90) m/uL Hgb 7.5 L (13.0-17.5) gm/dL Hct 24.2 L (39.0-53.0) % MCHC 30.9 L (31.0-37.0) g/dL RDW 18.7 H (11.5-15.5) % Plt Count 92 L (150-450) k/uL Neutrophils # 10.1 H (1.3-7.7) k/uL Lymphocytes # 0.9 L (1.0-4.8) k/uL ABG pCO2 (35-45) mmHg ABG pO2 (83-108) mmHg ABG HCO3 (21-25) mmol/L ABG Total CO2 (19-24) mmol/L ABG O2 Saturation (94-97) % Chloride (98-107) mmol/L Carbon Dioxide (22-30) mmol/L Creatinine (0.66-1.25) mg/dL POC Glucose (mg/dL) 108 H 104 H (75-99) mg/dL Calcium (8.4-10.2) mg/dL 07/01/18 07/01/18 07/01/18 Range/Units 05:25 05:42 06:16 WBC (3.8-10.6) k/uL RBC (4.30-5.90) m/uL Hgb (13.0-17.5) gm/dL Hct (39.0-53.0) % MCHC (31.0-37.0) g/dL RDW (11.5-15.5) % Plt Count (150-450) k/uL Neutrophils # (1.3-7.7) k/uL Lymphocytes # (1.0-4.8) k/uL ABG pCO2 50 H (35-45) mmHg ABG pO2 47 L* (83-108) mmHg ABG HCO3 33 H (21-25) mmol/L ABG Total CO2 34 H (19-24) mmol/L ABG O2 Saturation 83.9 L (94-97) % Chloride 110 H (98-107) mmol/L Carbon Dioxide 32 H (22-30) mmol/L Creatinine 0.51 L (0.66-1.25) mg/dL POC Glucose (mg/dL) 122 H (75-99) mg/dL Calcium 10.4 H (8.4-10.2) mg/dL 07/01/18 07/01/18 Range/Units 06:45 11:44 WBC (3.8-10.6) k/uL RBC (4.30-5.90) m/uL Hgb (13.0-17.5) gm/dL Hct (39.0-53.0) % MCHC (31.0-37.0) g/dL RDW (11.5-15.5) % Plt Count (150-450) k/uL Neutrophils # (1.3-7.7) k/uL Lymphocytes # (1.0-4.8) k/uL ABG pCO2 (35-45) mmHg ABG pO2 (83-108) mmHg ABG HCO3 (21-25) mmol/L ABG Total CO2 (19-24) mmol/L ABG O2 Saturation (94-97) % Chloride (98-107) mmol/L Carbon Dioxide (22-30) mmol/L Creatinine (0.66-1.25) mg/dL POC Glucose (mg/dL) 115 H 113 H (75-99) mg/dL Calcium (8.4-10.2) mg/dL Microbiology - Last 24 Hours (Table) 06/30/18 04:25 Gram Stain - Preliminary Abdomen Wound Culture - Preliminary Corinna albicans 06/30/18 16:00 Anaerobic Culture - Preliminary Abdomen Assessment and Plan Assessment: Assessment: #1. Acute hypoxemic respiratory failure secondary to right basilar pneumonia, related to aspiration. Chest x-ray continues to show large right upper lobe cavitary lesion, and diffuse nodular infiltrates bilaterally, more so in the right lung, could be related to pneumonia, or lymphangitic infiltrates. #2. Acute on chronic anemia, with no clear evidence of bleeding, could be related to hemodilution, but in view of patient's hypotention will transfused with 1 unit of packed red blood cells #3. Metastatic squamous cell carcinoma of the head and neck, and most recent PET scan showed a new right upper lobe cavitary lesion, involvement of the thoracic spine, left mandible, maxilla. She is status post chemotherapy and radiation, and most recently considering immunotherapy, follows with Dr. Sánchez #4. PEG tube in place, nutritional support, and it has evidence of ulceration around the insertion site and we can of tube feedings #5. Protein calorie malnutrition #6. Current smoker, #7. History of EtOH use Plan: The patient was seen and evaluated by Dr. Ivey. Chest x-ray and labs were reviewed. The patient does remain unresponsive. Remains off sedation. The chest x-ray showing no real improvement. We'll continue with current medications and antibiotics. His overall prognosis remains quite poor and guarded. we are waiting further guidance from the family members. In the interim we'll continue with full supportive care. We'll continue to follow make further recommendations based on his clinical status. Critical care time 38 minutes. I, the cosigning physician, performed a history & physical examination of the patient. Lungs sounds diffuse scattered rhonchi, crackles Maintaining good O2 saturations in the 90s on 65% FiO2. I discussed the assessment and plan of care with my nurse practitioner, Nasima Kinsey. I attest to the above note as dictated by her. Time with Patient: Greater than 30
[2018-07-01 17:56] LABS: Glucose,Whole Blood 119 mg/dL (75-99)
[2018-07-01 23:41] LABS: Glucose,Whole Blood 134 mg/dL (75-99)
[2018-07-02] MEDS: HYDROmorphone 1 MG/ML 1 ML SYRINGE IVP PRN ×6 (01:26→17:46)
[2018-07-02] MEDS: SODIUM CHLORIDE 0.9% 1,000 ML IV SCH ×2 (02:04→15:59)
[2018-07-02] MEDS: IPRATROPIUM-ALBUTEROL 3 ML NEB INHALATION SCH ×4 (03:35→15:28)
[2018-07-02 05:08] LABS: Anisocytosis Slight; HGB 7.2 gm/dL (13.0-17.5); Hypochromasia Marked; MCH 25.4 pg (25.0-35.0); MCV 84.9 fL (80.0-100.0); Mean Platelet Volume 7.9; RBC 2.83 m/uL (4.30-5.90); RDW 18.3 % (11.5-15.5); WBC 12.9 k/uL (3.8-10.6)
[2018-07-02 05:12] LABS: ABG Base Excess 10.4 mmol/L; ABG HCO3 34 mmol/L (21-25); ABG Oxygen Saturation 95.6 % (94-97); ABG PCO2 47 mmHg (35-45); ABG PH 7.47 (7.35-7.45); ABG PO2 69 mmHg (83-108); ABG TCO2 36 mmol/L (19-24)
[2018-07-02 05:25] LABS: Platelet Count 86 k/uL (150-450)
[2018-07-02 05:32] LABS: Anion Gap 2 mmol/L; Blood Urea Nitrogen 19 mg/dL (9-20); Calcium 10.7 mg/dL (8.4-10.2); Carbon Dioxide 32 mmol/L (22-30); Chloride 109 mmol/L (98-107); Glucose 129 mg/dL (74-99); Magnesium 1.6 mg/dL (1.6-2.3); Phosphorus 2.3 mg/dL (2.5-4.5); Potassium 3.3 mmol/L (3.5-5.1); Sodium 143 mmol/L (137-145)
[2018-07-02 05:53] LABS: Glucose,Whole Blood 140 mg/dL (75-99)
[2018-07-02] MEDS: INSULIN ASPART (NovoLOG) 100 UNIT/ML VIAL SQ SCH ×3 (06:20→17:33)
[2018-07-02] MEDS ORDERED: SODIUM PHOSPHATE 10 MMOL in SODIUM CHLORIDE 0.9% 250 ML IVPB ONE (07:15)
[2018-07-02] MEDS ORDERED: SODIUM PHOSPHATE 10 MMOL in SODIUM CHLORIDE 0.9% 250 ML IVPB SCH (08:00)
[2018-07-02] MEDS: PIPERACILLIN-TAZOBACTAM 3.375 GM in SODIUM CHLORIDE 0.9% 100 ML IVPB SCH ×2 (08:17→15:18)
[2018-07-02] MEDS: POTASSIUM BICARBONATE/CIT AC 20 MEQ TABLET.EFF PO SCH ×2 (08:18→09:09)
[2018-07-02] MEDS: MAGNESIUM SULFATE-D5W PMX 1 GM in DEXTROSE/WATER 1 100ML.BAG IVPB SCH ×2 (08:31→09:45)
[2018-07-02] MEDS: CHLORHEXIDINE GLUCONATE 15 ML CUP MUCOUS MEM SCH (08:49)
[2018-07-02] MEDS: POTASSIUM CHLORIDE ER 20 MEQ TAB.ER PO SCH (08:50)
[2018-07-02] MEDS: PANTOPRAZOLE 40 MG/10 ML VIAL IV SCH (08:50)
[2018-07-02] MEDS: SERTRALINE 50 MG TAB PO SCH (08:50)
[2018-07-02] MEDS: SODIUM HYPOCHLORITE 0.25% 480 ML BOT MISCELLANE SCH (09:15)
[2018-07-02] MEDS ORDERED: RX INFO: IV CONTRAST WAS GIVEN 1 EACH MISC MISCELLANE PRN (10:16)
[2018-07-02] MEDS ORDERED: IOPAMIDOL-300 CONTRAST 30 ML VIAL (ORAL USE) PO PRN (10:16)
[2018-07-02 11:07] VITALS: BMI 28.6
[2018-07-02] MEDS: FUROSEMIDE 10 MG/ML 4 ML VIAL IV SCH ×2 (11:41→16:00)
[2018-07-02 11:47] LABS: ABG Base Excess 10.3 mmol/L; ABG HCO3 35 mmol/L (21-25); ABG Oxygen Saturation 96.2 % (94-97); ABG PCO2 57 mmHg (35-45); ABG PO2 79 mmHg (83-108); ABG TCO2 37 mmol/L (19-24)
[2018-07-02 11:58] LABS: Glucose,Whole Blood 121 mg/dL (75-99)
[2018-07-02] MEDS ORDERED: POTASSIUM BICARBONATE/CIT AC 20 MEQ TABLET.EFF NG-TUBE SCH (13:00)
--- NOTE | 2018-07-02 13:13 | P.PN ---
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 Heredia presented with mental status c hanges and decreased level of consciousness with an open necrotic lesion to the neck and metastatic disease to the lung. This patient is currently being fed via PEG tube has been admitted with dehydration, mental status change and decreased level of consciousness. Patient has failed chemotherapy field radiation therapy and was noted that at [facility] he was offered an opportunity to trial on medium biologic as a last effort. It was discussed with his loved ones that his prognosis is grave and that intubating placing patient on a vent in the not something that would be appropriate however this was insisted upon and patient is currently on ventilator 06/26/2018 Patient is in the intensive care unit intubated, patient has significant progressive of progressive head and neck carcinoma that has metastasized to bone and lung with a large cavitary lesion in the lung the tumor mass has impeded respiratory efforts and is encroaching on the airway requiring intubation and mechanical ventilation. This patient's Mother, his significant other girlfriend, and other family members are not understanding that this man has failed chemotherapy has basically failed radiation therapy has been noncompliant about following up with oncology the disease is basically gotten the best of t his gentleman and his prognosis is poor he is still a full code, they keep asking regarding other therapies recommended at [facility] and they did not understand that while he is immune system is compromised with pneumonia and other infections and cavitary lesions in his lung he has become a poor candidate for this type of therapy Dr. Diamond critical care has spoken to this patient's family at length, the oncologist has spoken to this family at length Matteo Herrera primary care doct or of record have spoken to the family at length, regarding the poor prognosis and continued failure of this patient to thrive have fallen on ears. 06/27/2018 Patient underwent tracheostomy per Dr. Fab Lagos patient is on vent; history of aggressive and neck carcinoma that has subsequently metastasized to the bone and lung. Patient has been noncompliant, has not followed up with oncology has not followed up with radiation oncology underwent one radiation therapy and decided to stop it decided he did not want to proceed forward with chemo prior to this admission had continued smoking and drinking and patient has continued to remain a full code His legal guardian wants everything done at this point in time 06/28/2018 This patient is trached and is currently ventilator dependent. This individual has an aggressive, progressive squamous cell carcinoma of the head and neck with lung and bone metastasis, a large cavitary lesion in the lung a large necrotic open wound to the left jaw. This patient has been noncompliant with therapies both chemo and radiation therapy. He had continued to smoke, drink alcohol daily right up until this last admission. Wound culture should demonstrated a few gram-positive cocci and grew a few gram positive bacilli, microbiology data is negative waiting on final blood culture results patient is currently being covered with Levaquin and Zosyn. Prognosis is poor at best, patient is full code per family request Above notes for Dr. Weber currently 06/30/2018 Nikhil is a 67 y/o white male new to my practice. He was seen one time 04/18/2018. He was admitted for mental status changes. He has metastatic squamous cell carcinoma in the neck. The metastases to the bone and his lungs. He is failing to thrive. He remains intubated, but only sedated with occasional Dilaudid. Staff report is minimally arousable. He does not follow commands. No family is at bedside at this point. Attempts to make this patient hospice as last admission was refused. Patient was noncompliant with his treatment at [facility] and with oncology. Nursing report his girlfriend is his legal guardian. I was made aware an ethics committee referral has been initiated. Blood culture data showed no growth, chest x-ray showed essentially stable e xam, with a cavitary lesion in the right upper lobe, opacity over the left lung base, right-sided airspace disease, antibiotic coverage in the form of Zosyn and Levaquin. 07/01/2018: The patient remains intubated but he is not sedated. He has pain medications ordered. He was arousable for me today opening his eye looking at me and shake his head now little bit. Difficult to know if he understands me whatsoever. He has a trach in place. His girlfriend came late last night. Dr. Ivey is t rying to meet with her regarding his CODE STATUS. He remains on Zosyn and Levaquin for antibiotic coverage. 07/02/2018: The patient remains intubated but he is not sedated. He has pain medications ordered. He was arousable for me today opening his eye looking at me. He is unable to follow any commands. He has a trach in place. there is no information regarding his CODE STATUS. He remains on Zosyn and Levaquin for antibiotic coverage. Objective - Vital Signs Vital signs: Vital Signs Temp 101.4 F H 07/02/18 12:00 Pulse 112 H 07/02/18 12:03 Resp 19 07/02/18 12:00 BP 97/55 07/02/18 12:00 Pulse Ox 95 07/02/18 12:00 Intake & Output 07/01/18 07/02/18 07/02/18 18:59 06:59 18:59 Intake Total 1982 4 1358 Output Total 1815 1830 955 Balance 167 214 403 Weight 85.4 kg 85.4 kg Intake: IV 1200 1000 450 Levofloxacin 750Mg-D5w 100 Pmx 750 mg In Dextrose/ Water 1 150ml.bag @ 100 mls/hr IVPB Q24H [facility] Rx#: [id number] Piperacillin-Tazobactam 3 200 100 .375 gm In Sodium Chloride 0.9% 100 ml @ 25 mls/hr IVPB Q8HR [facility] Rx# :[id number] Sodium Chloride 0.9% 1, 900 900 450 000 ml @ 75 mls/hr IV . [id number] [facility] Rx#:[id number] Intake, IV Titration 200 550 Amount Magnesium Sulfate-D5w Pmx 100 1 gm In Dextrose/Water 1 100ml.bag @ 100 mls/hr IVPB Q1H [facility] Rx#: [id number] Magnesium Sulfate-D5w Pmx 200 1 gm In Dextrose/Water 1 100ml.bag @ 100 mls/hr IVPB Q1H [facility] Rx#: [id number] Piperacillin-Tazobactam 3 100 .375 gm In Sodium Chloride 0.9% 100 ml @ 25 mls/hr IVPB Q8HR [facility] Rx# :[id number] Potassium Chloride 10 meq 100 In Water For Injection 1 100ml.bag @ 100 mls/hr IVPB Q1H [facility] Rx#: [id number] Sodium Phosphate 10 mmol 250 In Sodium Chloride 0.9% 250 ml @ 125 mls/hr IVPB ONCE ONE Rx#:[id number] Tube Feeding 492 328 233 Other 90 60 90 Output: Urine 1815 1830 955 Other: Voiding Method Indwelling Catheter Indwelling Catheter Indwelling Catheter - Exam General: The patient is Intubated and sedated with a large mass to his left jaw and neck. He is unable to close his mouth completely. He constantly has oral discharge from his mouth. Neck: Tracheostomy tube is in place. Cardiovascular: S1S2 is normal, There is a regular rate and rhythm. No murmur, rub or gallop is appreciated. Respiratory: Lungs are Course with poor exchange. There mechanically ventilated. Gastrointestinal: Soft, non-distended, non-tender abdomen without masses or organomegaly noted. Neurological: Patient is trached, he withdraws from pain. He open his right eye to look at me today. He nodded his head slightly. Skin: Skin is warm and dry and no rashes or lesions are noted. He has offloading boots. - Labs CBC & Chem 7: 07/02/18 04:35 07/02/18 11:15 Labs: Abnormal Lab Results - Last 24 Hours (Table) 07/01/18 07/01/18 07/02/18 Range/Units 17:44 23:29 04:35 WBC (3.8-10.6) k/uL RBC (4.30-5.90) m/uL Hgb (13.0-17.5) gm/dL Hct (39.0-53.0) % MCHC (31.0-37.0) g/dL RDW (11.5-15.5) % Plt Count (150-450) k/uL ABG pH (7.35-7.45) ABG pCO2 (35-45) mmHg ABG pO2 (83-108) mmHg ABG HCO3 (21-25) mmol/L ABG Total CO2 (19-24) mmol/L Potassium 3.3 L (3.5-5.1) mmol/L Chloride 109 H (98-107) mmol/L Carbon Dioxide 32 H (22-30) mmol/L Creatinine 0.55 L (0.66-1.25) mg/dL Glucose 129 H (74-99) mg/dL POC Glucose (mg/dL) 119 H 134 H (75-99) mg/dL Calcium 10.7 H (8.4-10.2) mg/dL Phosphorus 2.3 L (2.5-4.5) mg/dL 07/02/18 07/02/18 07/02/18 Range/Units 04:35 05:08 05:42 WBC 12.9 H (3.8-10.6) k/uL RBC 2.83 L (4.30-5.90) m/uL Hgb 7.2 L (13.0-17.5) gm/dL Hct 24.0 L (39.0-53.0) % MCHC 30.0 L (31.0-37.0) g/dL RDW 18.3 H (11.5-15.5) % Plt Count 86 L (150-450) k/uL ABG pH 7.47 H (7.35-7.45) ABG pCO2 47 H (35-45) mmHg ABG pO2 69 L (83-108) mmHg ABG HCO3 34 H (21-25) mmol/L ABG Total CO2 36 H (19-24) mmol/L Potassium (3.5-5.1) mmol/L Chloride (98-107) mmol/L Carbon Dioxide (22-30) mmol/L Creatinine (0.66-1.25) mg/dL Glucose (74-99) mg/dL POC Glucose (mg/dL) 140 H (75-99) mg/dL Calcium (8.4-10.2) mg/dL Phosphorus (2.5-4.5) mg/dL 07/02/18 07/02/18 Range/Units 11:45 11:46 WBC (3.8-10.6) k/uL RBC (4.30-5.90) m/uL Hgb (13.0-17.5) gm/dL Hct (39.0-53.0) % MCHC (31.0-37.0) g/dL RDW (11.5-15.5) % Plt Count (150-450) k/uL ABG pH (7.35-7.45) ABG pCO2 57 H (35-45) mmHg ABG pO2 79 L (83-108) mmHg ABG HCO3 35 H (21-25) mmol/L ABG Total CO2 37 H (19-24) mmol/L Potassium (3.5-5.1) mmol/L Chloride (98-107) mmol/L Carbon Dioxide (22-30) mmol/L Creatinine (0.66-1.25) mg/dL Glucose (74-99) mg/dL POC Glucose (mg/dL) 121 H (75-99) mg/dL Calcium (8.4-10.2) mg/dL Phosphorus (2.5-4.5) mg/dL Microbiology - Last 24 Hours (Table) 06/30/18 04:25 Gram Stain - Final Abdomen Wound Culture - Final Corinna albicans Assessment and Plan (1) Acute respiratory failure Current Visit: Yes Status: Acute Code(s): J96.00 - ACUTE RESPIRATORY FAILURE, UNSP W HYPOXIA OR HYPERCAPNIA SNOMED Code(s): 06999032 (2) Bone metastases Current Visit: Yes Status: Acute Code(s): C79.51 - SECONDARY MALIGNANT NEOPLASM OF BONE SNOMED Code(s): 67576359 (3) Lung metastases Current Visit: No Status: Acute Code(s): C78.00 - SECONDARY MALIGNANT NEOPLASM OF UNSPECIFIED LUNG SNOMED Code(s): 10385512 (4) Squamous cell carcinoma of head and neck Current Visit: No Status: Acute Priority: High Code(s): C76.0 - MALIGNANT NEOPLASM OF HEAD, FACE AND NECK SNOMED Code(s): 839043416 (5) Severe malnutrition Current Visit: No Status: Acute Code(s): E43 - UNSPECIFIED SEVERE PROTEIN- CALORIE MALNUTRITION SNOMED Code(s): 93542752 (6) Tobacco abuse Current Visit: Yes Status: Acute Code(s): Z72.0 - TOBACCO USE SNOMED Code(s): 168607015 (7) ETOH abuse Current Visit: Yes Status: Acute Code(s): F10.10 - ALCOHOL ABUSE, UNCOM PLICATED SNOMED Code(s): 02040737 (8) Ventilator dependent Current Visit: Yes Status: Acute Code(s): Z99.11 - DEPENDENCE ON RESPIRATOR [VENTILATOR] STATUS SNOMED Code(s): 544679442 Plan: We'll await further recommendations from the ethics committee, and pulmonology/critical care He currently has no tube feedings, just saline flushes. He'll remain on the antibiotics and pain medications as needed. We'll reevaluate him in the next 24 hours. We will await on the upcoming meeting with Dr. Ivey and his power of att orney. He is terminal and most likely won't survive Admission due to his extensive cancer burden. The POA's lack of interaction with the critical care team is an issue
--- NOTE | 2018-07-02 15:21 | P.DS ---
Providers Date of admission: 06/23/18 17:54 Expected date of discharge: 07/02/18 Attending physician: Gus Herrera Consults: 06/24/18 18:38 Consult Physician Routine Consulting Provider: Alonso Brooks Consult Reason/Comments: Carcinoma Do you want consulting provider notified?: Yes 06/25/18 03:05 Consult Physician Stat Consulting Provider: Gus Herrera Jr Consult Reason/Comments: decreased O2 sats Do you want consulting provider notified?: Already Contacted 06/25/18 07:50 Consult Physician Urgent Consulting Provider: Casimiro Diamond Consult Reason/Comments: icu management Do you want consulting provider notified?: Already Contacted 06/26/18 10:25 Consult Physician Routine Consulting Provider: Fab Lagos Consult Reason/Comments: Tracheostomy placement Do you want consulting provider notified?: Yes Primary care physician: Tolu Heredia - Discharge Diagnosis(es) (1) Acute respiratory failure Current Visit: Yes Status: Acute (2) Bone metastases Current Visit: Yes Status: Acute (3) Lung metastases Current Visit: No Status: Acute (4) Squamous cell carcinoma of head and neck Current Visit: No Status: Acute Priority: High (5) Severe malnutrition Current Visit: No Status: Acute (6) Tobacco abuse Current Visit: Yes Status: Acute (7) ETOH abuse Current Visit: Yes Status: Acute (8) Ventilator dependent Current Visit: Yes Status: Acute Hospital Course: Squamous cell carcinoma head/ neck, 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 Heredia presented with mental status changes and decreased level of consciousness with an open necrotic lesion to the neck and metastatic disease to the lung. This patient is currently being fed via PEG tube has been admitted with dehydration, mental status change and decreased level of consciousness. Patient has failed chemotherapy field radiation therapy and was noted that at [facility] he was offered an opportunity to trial on medium biologic as a last effort. It was discussed with his loved ones that his prognosis is grave and that intubating placing patient on a vent in the not something that would be appropriate however this was insisted upon and patient is currently on ventilator 06/26/2018 Patient is in the intensive care unit intubated, patient has significant progressive of progressive head and neck carcinoma that has metastasized to bone and lung with a large cavitary lesion in the lung the tumor mass has impeded respiratory efforts and is encroaching on the airway requiring intubation and mechanical ventilation. This patient's Mother, his significant other girlfriend, and other family members are not understanding that this man has failed chemotherapy has basically failed radiation therapy has been noncompliant about following up with oncology the disease is basically gotten the best of this gentleman and his prognosis is poor he is still a full code, they keep asking regarding other therapies recommended at [facility] and they did not understand that while he is immune system is compromised with pneumonia and other infections and cavitary lesions in his lung he has become a poor candidate for this type of therapy Dr. Diamond critical care has spoken to this patient's family at length, the oncologist has spoken to this family at length Matteo Herrera primary care doctor of record have spoken to the family at length, regarding the poor prognosis and continued failure of this patient to thrive have fallen on ears. 06/27/2018 Patient underwent tracheostomy per Dr. Fab Lagos patient is on vent; history of aggressive and neck carcinoma that has subsequently metastasized to the bone and lung. Patient has been noncompliant, has not followed up with oncology has not followed up with radiation oncology underwent one radiation therapy and decided to stop it decided he did not want to proceed forward with chemo prior to this admission had continued smoking and drinking and patient has continued to remain a full code His legal guardian wants everything done at this point in time 06/28/2018 This patient is trached and is currently ventilator dependent. This individual has an aggressive, progressive squamous cell carcinoma of the head and neck with lung and bone metastasis, a large cavitary lesion in the lung a large necrotic open wound to the left jaw. This patient has been noncompliant with therapies both chemo and radiation therapy. He had continued to smoke, drink alcohol daily right up until this last admission. Wound culture should demonstrated a few gram-positive cocci and grew a few gram positive bacilli, microbiology data is negative waiting on final blood culture results patient is currently being covered with Levaquin and Zosyn. Prognosis is poor at best, patient is full code per family request Above notes for Dr. Weber currently 06/30/2018 Nikhil is a 67 y/o white male new to my practice. He was seen one time 04/18/2018. He was admitted for mental status changes. He has metastatic squamous cell carcinoma in the neck. The metastases to the bone and his lungs. He is failing to thrive. He remains intubated, but only sedated with occasional Dilaudid. Staff report is minimally arousable. He does not follow commands. No family is at bedside at this point. Attempts to make this patient hospice as last admission was refused. Patient was noncompliant with his treatment at [facility] and with oncology. Nursing report his girlfriend is his legal guardian. I was made aware an ethics committee referral has been initiated. Blood culture data showed no growth, chest x-ray showed essentially stable exam, with a cavitary lesion in the right upper lobe, opacity over the left lung base, right-sided airspace disease, antibiotic coverage in the form of Zosyn and Levaquin. 07/01/2018: The patient remains intubated but he is not sedated. He has pain medications ordered. He was arousable for me today opening his eye looking at me and shake his head now little bit. Difficult to know if he understands me whatsoever. He has a trach in place. His girlfriend came late last night. Dr. Ivey is trying to meet with her regarding his CODE STATUS. He remains on Zosyn and Levaquin for antibiotic coverage. 07/02/2018: The patient remains intubated but he is not sedated. He has pain medications ordered. He was arousable for me today opening his eye looking at me. He is unable to follow any commands. He has a trach in place. there is no information regarding his CODE STATUS. He remains on Zosyn and Levaquin for antibiotic coverage. 07/02/2018 addendum: he has been accepted at skilled nursing care Facility. He will be transferred there today. F/u with HE[facility]/Onc at [facility] and [facility] as scheduled once strong enough. If he fails to progress, other options need to be sought out. Patient Condition at Discharge: Serious Plan - Discharge Summary Discharge Rx Participant: No New Discharge Prescriptions: New LORazepam ORAL CONC [Ativan Intensol] 2 mg PO Q4HR #30 ml Ipratropium-Albuterol Nebulize [Duoneb 0.5 mg-3 mg/3 ml Soln] 3 ml INHALATION RT-Q4H ampul.neb INSULIN ASPART (NovoLOG) [NovoLOG (formulary)] See Protocol SQ Q6H vial Famotidine [Pepcid] 20 mg PO BID #60 tablet Piperacillin-Tazobactam [Zosyn] 3.375 gm IVPB Q8HR 2 Days vial Continue Sertraline HCl [Zoloft] 50 mg PO DAILY #30 tablet Amoxicillin 875 mg PO BID Potassium Chloride [Klor-Con 20 Packets] 20 meq PO DAILY Discharge Medication List Sertraline HCl [Zoloft] 50 mg PO DAILY #30 tablet 06/12/18 [Rx] Amoxicillin 875 mg PO BID 06/23/18 [History] Potassium Chloride [Klor-Con 20 Packets] 20 meq PO DAILY 06/23/18 [History] Famotidine [Pepcid] 20 mg PO BID #60 tablet 07/02/18 [Rx] INSULIN ASPART (NovoLOG) [NovoLOG (formulary)] See Protocol SQ Q6H vial 07/02/18 [Rx] Ipratropium-Albuterol Nebulize [Duoneb 0.5 mg-3 mg/3 ml Soln] 3 ml INHALATION RT-Q4H ampul.neb 07/02/18 [Rx] LORazepam ORAL CONC [Ativan Intensol] 2 mg PO Q4HR #30 ml 07/02/18 [Rx] Piperacillin-Tazobactam [Zosyn] 3.375 gm IVPB Q8HR 2 Days vial 07/02/18 [Rx] Follow up Appointment(s)/Referral(s): Tolu Heredia MD [Primary Care Provider] - 1-2 days Discharge Disposition: [facility]
[2018-07-02 16:08] VITALS: RESP 20; TEMP 100.2
--- NOTE | 2018-07-02 16:12 | P.PN ---
Subjective Progress Note Date: 07/02/18 Principal diagnosis: Respiratory Failure Vent support, Trach, he is off sedation, does not follow commands but opens eyes. Objective - Vital Signs Vital signs: Vital Signs Temp 101.4 F H 07/02/18 12:00 Pulse 94 07/02/18 15:52 Resp 14 07/02/18 15:00 BP 87/52 07/02/18 15:00 Pulse Ox 94 L 07/02/18 16:00 Intake & Output 07/01/18 07/02/18 07/02/18 18:59 06:59 18:59 Intake Total 1981 2043 164 Output Total 181 1830 1705 Balance 167 214 -62 Weight 85.4 kg 85.4 kg Intake: IV 1200 1000 675 Levofloxacin 750Mg-D5w 100 Pmx 750 mg In Dextrose/ Water 1 150ml.bag @ 100 mls/hr IVPB Q24H [facility] Rx#: [id number] Piperacillin-Tazobactam 3 200 100 .375 gm In Sodium Chloride 0.9% 100 ml @ 25 mls/hr IVPB Q8HR [facility] Rx# :[id number] Sodium Chloride 0.9% 1, 900 900 675 000 ml @ 75 mls/hr IV . [id number] [facility] Rx#:[id number] Intake, IV Titration 200 550 Amount Magnesium Sulfate-D5w Pmx 100 1 gm In Dextrose/Water 1 100ml.bag @ 100 mls/hr IVPB Q1H [facility] Rx#: [id number] Magnesium Sulfate-D5w Pmx 200 1 gm In Dextrose/Water 1 100ml.bag @ 100 mls/hr IVPB Q1H [facility] Rx#: [id number] Piperacillin-Tazobactam 3 100 .375 gm In Sodium Chloride 0.9% 100 ml @ 25 mls/hr IVPB Q8HR [facility] Rx# :[id number] Potassium Chloride 10 meq 100 In Water For Injection 1 100ml.bag @ 100 mls/hr IVPB Q1H [facility] Rx#: [id number] Sodium Phosphate 10 mmol 250 In Sodium Chloride 0.9% 250 ml @ 125 mls/hr IVPB ONCE ONE Rx#:[id number] Oral 60 Tube Feeding 492 989 034 Other 90 60 90 Output: Urine 1815 1830 1705 Other: Voiding Method Indwelling Catheter Indwelling Catheter Indwelling Catheter - Exam Intubated,off sedation Appears chronically ill, no acute distress Adenopathy and presence of odoress mass neck, submental puruluent drainage Lungs: DImished throughout and ventilator supported Heart Reg 60s Abdomen with Peg tube inserted and serous drainage surrounding Ext: no edema - Labs CBC & Chem 7: 07/02/18 04:35 07/02/18 11:15 Labs: Abnormal Lab Results - Last 24 Hours (Table) 07/01/18 07/01/18 07/02/18 Range/Units 17:44 23:29 04:35 WBC (3.8-10.6) k/uL RBC (4.30-5.90) m/uL Hgb (13.0-17.5) gm/dL Hct (39.0-53.0) % MCHC (31.0-37.0) g/dL RDW (11.5-15.5) % Plt Count (150-450) k/uL ABG pH (7.35-7.45) ABG pCO2 (35-45) mmHg ABG pO2 (83-108) mmHg ABG HCO3 (21-25) mmol/L ABG Total CO2 (19-24) mmol/L Potassium 3.3 L (3.5-5.1) mmol/L Chloride 109 H (98-107) mmol/L Carbon Dioxide 32 H (22-30) mmol/L Creatinine 0.55 L (0.66-1.25) mg/dL Glucose 129 H (74-99) mg/dL POC Glucose (mg/dL) 119 H 134 H (75-99) mg/dL Calcium 10.7 H (8.4-10.2) mg/dL Phosphorus 2.3 L (2.5-4.5) mg/dL 07/02/18 07/02/18 07/02/18 Range/Units 04:35 05:08 05:42 WBC 12.9 H (3.8-10.6) k/uL RBC 2.83 L (4.30-5.90) m/uL Hgb 7.2 L (13.0-17.5) gm/dL Hct 24.0 L (39.0-53.0) % MCHC 30.0 L (31.0-37.0) g/dL RDW 18.3 H (11.5-15.5) % Plt Count 86 L (150-450) k/uL ABG pH 7.47 H (7.35-7.45) ABG pCO2 47 H (35-45) mmHg ABG pO2 69 L (83-108) mmHg ABG HCO3 34 H (21-25) mmol/L ABG Total CO2 36 H (19-24) mmol/L Potassium (3.5-5.1) mmol/L Chloride (98-107) mmol/L Carbon Dioxide (22-30) mmol/L Creatinine (0.66-1.25) mg/dL Glucose (74-99) mg/dL POC Glucose (mg/dL) 140 H (75-99) mg/dL Calcium (8.4-10.2) mg/dL Phosphorus (2.5-4.5) mg/dL 07/02/18 07/02/18 Range/Units 11:45 11:46 WBC (3.8-10.6) k/uL RBC (4.30-5.90) m/uL Hgb (13.0-17.5) gm/dL Hct (39.0-53.0) % MCHC (31.0-37.0) g/dL RDW (11.5-15.5) % Plt Count (150-450) k/uL ABG pH (7.35-7.45) ABG pCO2 57 H (35-45) mmHg ABG pO2 79 L (83-108) mmHg ABG HCO3 35 H (21-25) mmol/L ABG Total CO2 37 H (19-24) mmol/L Potassium (3.5-5.1) mmol/L Chloride (98-107) mmol/L Carbon Dioxide (22-30) mmol/L Creatinine (0.66-1.25) mg/dL Glucose (74-99) mg/dL POC Glucose (mg/dL) 121 H (75-99) mg/dL Calcium (8.4-10.2) mg/dL Phosphorus (2.5-4.5) mg/dL Microbiology - Last 24 Hours (Table) 07/02/18 10:30 Urine Culture - Preliminary Urine,Catheterized 06/30/18 04:25 Gram Stain - Final Abdomen Wound Culture - Final Corinna albicans Assessment and Plan Plan: Assessment and Recommendations: Squamous cell carcinoma of head and neck, moderately differentiated: New extensive metastatic Osseous and Pulmonary Disease on PET from 05/31/18 - Status POst [place] based chemotherapy regimen with concurrent radiation, last chemo on 05/13/18. Patient only completed partial recommendations of radiation as he refused further treatment - Recent PET scan on 05/31/18 revealed new metastatic disease, the treatment intent has now changed to palliative, not curable and Dr. Brooks did discuss in detail with him and girlfriend at last follow-up. - Plan to begin immune therapy as outpatient, obtain Next Gene Sequencing, and undergo evaluation at [facility] for opinion and options for clinical trials. - Patient has not yet begun immune therapy as he had recurrent admissions for dehydration and now vent dependant respiratory failure - Not a candidate for systemic treatment at this time due to current performance status Acute Respiratory Failure Requiring Mechanical Ventilator Support: - Per Pulmonary and ICU Care - Trach and Vent supported - Off Sedation Normocytic Normochromic Anemia: - Likely component of Blood Loss anemia and Malignancy - No active bleeding noted - Daily CBC monitoring Failure to thrive, Decreased PO intake, and increasing weakness: - Difficulty with adherence - Dieticien as well Leukocytsis: Reactive to Persistent malignancy related infection - Blood cultures negative Hypokalemia - improved Hypomagnesia: Supps per medicine - Monitor Daily Moderate protein calorie malnutrition: - Feedings via peg tube although recent admission for non-adherence to recommended feedings resulting in profound dehydration Discussion with family on 07/01/18 - Patients Girlfriend was present today and I was able to have a long discussion with her related to expectations, goals of care and plan. She has expectations that patient will return to normal without deficits. I discussed the critical progression of his disease and rapid spread which has resulted in the need of ventilator life support and tracheostomy. Opdivo is not an option at this time due to its benefits are unlikely with the rate of progression and expectations of curable disease are unfortunetly not realistic. She stated she is having a difficult time making the decision to provide comfort care as when he was alert he would give her a thumbs up. We discussed realistic expectations, we discussed the need of termite treater helper care facility at the positive endpoint. She stated she will meet with ICU physicians and determine if he has made any improvements. Remediation and re-education do not appear to be understood, I feel her expectations are unfortunately u nrealistic as she clearly states she expects him to be able to walk and talk as he used to. Greater than 40 minutes spent face to face and greater than 75% of that time was counseling and coordinating care today. 07/02/18 - Opdivo at this time is not option given the patients current vent dependent status. Plan is to transfer to termite treater helper care facility. Agree with transfer. Physician Attest: I have discussed the above history and physical and developed the complete impression and plan, agree with dictation, dictated as a scribe.
[2018-07-02] MEDS: LEVOFLOXACIN 750MG-D5W PMX 750 MG in DEXTROSE/WATER 1 150ML.BAG IVPB SCH (17:06)
--- NOTE | 2018-07-02 17:22 | P.PN ---
Subjective Progress Note Date: 07/02/18 Principal diagnosis: Hypoxemic respiratory failure secondary to right basilar pneumonia, aspiration pneumonia This is a 67-year-old white male patient of Dr. 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 Sánchez, Most recent PET scan on 06/04/2018 showed new metastatic disease in the lungs, with a new pulmonary cavitary lesion as well as nodules, metastatic osseous metastases in the thoracic spine through T3, T9, T10 and T11, pathological fracture from extensive tumor destruction in the mandible. Patient has received radiation treatments, he refused further radiation treatments, he was considering immunotherapy with Opdivo. He has a PEG tube in place, for feedings. He resides with his fiance, he continues to smoke, he does have a history of heavy EtOH use, drinking only occasionally now. Patient came into the hospital EMS on 06/23/2018 for decreased level of consciousness. Patient is a poor historian, his family denied any recent history of fever, chills or sweats. He was recently treated for dehydration. Chest x-ray on admission showed persistent thick-walled cavitary right upper lobe mass unchanged from previous exams. Showed a new left basilar acute infiltrate and/or atelectasis, and probable small left pleural effusion. EKG showed normal sinus rhythm with evidence of a septal infarct, undetermined age. Follow-up chest x-ray on 06/24/2018 showed metastatic disease, diffuse nodularity within the lungs, increased interstitium, Nader a lesion in the right upper lobe. Was initially admitted to the stepdown floor, but apparently last night rapid response team was called, for deteriorating mental status and level of consciousness, and hypoxemic respiratory failure, patient was placed on the 100% nonrebreather, she was moved to the intensive care unit, blood gas showed a pO2 of 60, pCO2 55, and pH of 7.38, this was done on the 100% FiO2, patient was placed on the interval, however that did not seem to help, and patient subsequently was intubated and placed on a mechanical ventilator. This morning he seen in the intensive care unit, intubated, sedated, current vent settings are assist-control mode with a rate of 20, tidal volume of 450, FiO2 of 60% and PEEP of 5, this morning's blood gases showed pO2 of 170, pCO2 of 52, and pH of 7.38, this was done on 100% FiO2 and subsequently FiO2 was dropped down to 60%. Initial blood work showed leukocytosis, with white blood cell count of 17.4, hemoglobin is 7.3, sodium is 134, potassium is 3.4, chloride is 96, CO2 is 34, B1 is 27, creatinine 0.71, plasma lactic acid is 1.4, ammonia level was less than 9, alkaline phosphatase was 222, AST was 47, ALT 62, troponin was negative at 0.033, urine. Urine drug screen was negative, influenza was not detected, urinalysis was negative for glucose, nitrates, showed rare bacteria, urine white blood cell count was only 3. No significant evidence of infection. His blood work today has been reviewed, showed white blood cell count of 11.4, hemoglobin is 5.9, no obvious source of bleeding. Current diabetes appointment normal saline at a rate of 150 ML per hour, Diprivan is at 15 mics per kilo per minute, patient has left abdominal PEG tube with signs of ulceration around the insertion site, we'll hold the PEG tube feedings right now, we're told that there has been leaking around the tube feedings around the insertion site. No fever, patient is hypotensive, we'll continue with IV fluids, and patient will receive a unit of packed red blood cells this morning. On 06/26/2017 patient seen in follow-up in the intensive care unit, he still intubated and sedated, on mechanical ventilator, current vent settings are assist-control mode with a rate of 20, multivitamins 450, FiO2 0%, and PEEP of 5, this morning his blood gases showed pO2 50, pCO2 43, pH of 7.38, this was done and FiO2 of 50%, since then, the FiO2 had been increased to 100% and is being gradually weaned down. These 0.9 normal saline at a rate of 150 ML per hour, Diprivan is a 25 mics per kilo per minute, patient is seen to feedings through the PEG tube, Vital AF a rate of 40, with a goal of 46. She was seen by GI service, and the flange on the PEG tube was tightened up. Today's chest x-ray shows worsening airspace disease in the right lung. Today's labs have been reviewed, showed a white blood cell count is 17.0, hemoglobin is 8.2, sodium is 140, potassium is 3.7, chloride is 114, BUN is 18 creatinine 0.72. ABGs were drawn, and show pO2 of 50, pCO2 43, pH is 7.38. Blood and sputum cultures are pending, but according the form of Levaquin and Zosyn. Afebrile. Yesterday we had a lengthy conversation with the patient's brother, and her friend, and they don't seem to accept the poor prognosis, they state patient has been given an option of immunotherapy at [facility]. However in view of his current health condition, he would probably be a poor candidate for treatment. Medical oncology following, have also discussed with the patient and the family the fact that patient has failed both chemo and radiation, and his cancer is progressing, and that patient should not be aggressively resuscitated. Despite all those conversations patient remains a full code. On 06/27/2018 patient seen in follow-up in the intensive care unit, he is remains sedated and intubated on mechanical ventilation, current vent settings are assist-control mode rate of 20, tidal vital 450, FiO2 50%, and PEEP of 5, blood gas showed pO2 of 63, pCO2 42, and pH of 7.40, IV fluids 0.9 normal saline at a rate of 150 ML per hour, Diprivan is at 25 mics per kilo per minute, vital AF 1.2 to feedings are currently on hold, patient is scheduled for tracheostomy placement today with Dr. Aviles. Microbiology data is negative, patient is afebrile. Hemodynamic with a stable, today's lab work shows a white blood cell count of 16.8, hemoglobin is 8.2, sodium is 141, potassium is 3.9, chloride is 117, CO2 is 24, BUN 16 and creatinine 0.64, antibiotic coverage includes Levaquin and Zosyn, patient is on breathing treatments. He was tolerating tube feedings, large ulcerated area on his left submental area is draining some purulent drainage, so far the Gram stain of the wound cultures showed a few gram-positive cocci and few gram-positive bacilli, final culture is pending. Patient remains a full code despite his poor prognosis, yesterday Dr. Pan from the ethics committee had contacted Dr. Ludwig to discuss patient's condition. For now patient is a full code, per family's request. We'll continue with supportive care. On 06/29/2018 patient seen in follow-up in the intensive care unit, he remains sedated, he's trached to the vent, current vent settings are assist-control mode with a rate of 20, tidal volume 450, FiO2 50% and PEEP of 5, this morning his blood gases showed pO2 of 56, pCO2 47, and pH of 7.41, this was done on FiO2 of 45% which was creased to 50%. Current IV fluids. A normal saline at a rate of 150 ML per hour, no other drips, tube feedings infusing through the PEG tube vital AF, rate of 46, with a goal of 46, instead of water flushes, culture data showed no growth, today's chest x-ray has been reviewed with Dr. Diamond and showed essentially stable exam, with a cavitary lesion in the right upper lobe, opacity over the left lung base, right-sided airspace disease. Low-grade fever this morning, with a temp of 99.8F, otherwise patient had been afebrile, sinus mechanism on a monitor with a rate of 101 to 1:15 BPM, hemodynamically patient is stable, his labs have been reviewed, and showed white blood cell count of 11.1, hemoglobin of 8.1, platelet count of 95, serum sodium is 141, potassium is 3.7, chloride is 113, BUN is 14 and creatinine 0.56. Lung sounds reveal scattered crackles. Patient is making adequate urine output, antibiotic coverage in the form of Zosyn and Levaquin. On 06/30/2018 patient seen again in follow-up in the intensive care unit, he remains sedated, his sedation has been on hold since yesterday, and patient remains premature unresponsive even to painful stimuli. Assist-control mode of ventilation, patient is trached to the vent, current vent settings assist control mode of with a rate of 20, tidal volume of 450, FiO2 of 50%, and PEEP of 5. His blood gases showed pO2 of 61, pCO2 of 52, and pH of 7.41, and this was done on 60% FiO2. Hemodynamic patient remains stable, current IV 9 normal salin e at a rate of 150 ML per hour, and they prevent has been on hold for last 24 hours. Antibiotic coverage in the form of Zosyn and Levaquin. Blood, sputum cultures showed no growth, fascial wound culture under the left mandible showed anaerobic gram-negative bacilli, final cultures pending. His blood work has been reviewed, showed white blood cell count of 11.6, hemoglobin of 7.7, with a conus 78, sodium is 142, potassium is 4.1, chloride is 111, carbon dioxide is 32, BUN is 15 and creatinine 0.48. Patient has tube feedings infusing, he is tolerating them well, tidal AF at a rate of 46, with a goal of 46. Lung sounds reveal scattered crackles throughout. No family at the bedside this morning. On 07/02/2017 patient seen and again in follow-up in the intensive care unit, he remains trached to the ventilator, current vent settings are assist-control mode with a rate of 20, tidal volume of 450, FiO2 of 65, and PEEP of 5. This morning his blood gases showed pH of 7.40, pCO2 57, pO2 of 79 and FiO2 of 65%, yesterday chest x-ray was reviewed with Dr. Ivey, and showed stable right upper lobe cavitary lesion, interstitial edema, arms, pleural effusion not excluded. We'll give the patient a dose of IV Lasix, patient has been off sedation for the last 72 hours, he is starting to respond to little bit more to tactile and verbal stimulation, he is following simple commands. Today's labs have been reviewed, showed white blood cell count of 12.9, hemoglobin of 7.2, sodium is 143, potassium is 3.3, B1 is 19 and creatinine 0.55. Abiotic coverage in the form of Levaquin and Zosyn. Wound culture from the left mandibular wound showed anaerobic gram-negative bacilli, final cultures pending, patient has been afebrile, all of the cultures are negative. Objective - Vital Signs Vital signs: Vital Signs Temp 100.2 F H 07/02/18 16:00 Pulse 106 H 07/02/18 17:00 Resp 20 07/02/18 17:00 BP 110/62 07/02/18 17:00 Pulse Ox 96 07/02/18 17:00 Intake & Output 07/01/18 07/02/18 07/02/18 18:59 06:59 18:59 Intake Total 1981 2043 1992 Output Total 1814 1829 1944 Balance 167 214 48 Weight 85.4 kg 85.4 kg Intake: IV 1200 1000 1025 Levofloxacin 750Mg-D5w 100 100 Pmx 750 mg In Dextrose/ Water 1 150ml.bag @ 100 mls/hr IVPB Q24H [facility] Rx#: [id number] Piperacillin-Tazobactam 3 200 100 100 .375 gm In Sodium Chloride 0.9% 100 ml @ 25 mls/hr IVPB Q8HR [facility] Rx# :[id number] Sodium Chloride 0.9% 1, 900 900 825 000 ml @ 75 mls/hr IV . [id number] [facility] Rx#:[id number] Intake, IV Titration 200 550 Amount Magnesium Sulfate-D5w Pmx 100 1 gm In Dextrose/Water 1 100ml.bag @ 100 mls/hr IVPB Q1H [facility] Rx#: [id number] Magnesium Sulfate-D5w Pmx 200 1 gm In Dextrose/Water 1 100ml.bag @ 100 mls/hr IVPB Q1H [facility] Rx#: [id number] Piperacillin-Tazobactam 3 100 .375 gm In Sodium Chloride 0.9% 100 ml @ 25 mls/hr IVPB Q8HR [facility] Rx# :[id number] Potassium Chloride 10 meq 100 In Water For Injection 1 100ml.bag @ 100 mls/hr IVPB Q1H [facility] Rx#: [id number] Sodium Phosphate 10 mmol 250 In Sodium Chloride 0.9% 250 ml @ 125 mls/hr IVPB ONCE ONE Rx#:[id number] Oral 60 Tube Feeding 492 717 268 Other 90 60 90 Output: Urine 1815 1830 1945 Other: Voiding Method Indwelling Catheter Indwelling Catheter Indwelling Catheter - Exam GENERAL EXAM: 67-year-old cachectic white male, chronically ill-looking, trached to mechanical ventilator, comfortable in no apparent distress. He has been off her last 72 hours, and patient is starting to respond to verbal and tactile stimulation HEAD: Normocephalic/atraumatic. large ulcerated wound on the left submental a migdalia, with purulent drainage, surrounding redness and some swelling EYES: Normal reaction of pupils, equal size. Conjunctiva pink, sclera white. NOSE: Clear with pink turbinates. THROAT: No erythema or exudates. NECK: No masses, no JVD, no thyroid enlargement, no adenopathy. Midline tracheostomy CHEST: No chest wall deformity. Symmetrical expansion. LUNGS: Equal air entry with no crackles, wheeze, rhonchi or dullness. CVS: Regular rate and rhythm, normal S1 and S2, no gallops, no murmurs, no rubs ABDOMEN: Soft, nontender. No hepatosplenomegaly, normal bowel sounds, no guarding or rigidity. Patient has a left abdominal PEG tube in place, the flange has been tightened, there has been no further draining of the tube feedings around the insertion site EXTREMITIES: No clubbing, no edema, no cyanosis, 2+ pulses and upper and lower extremities. MUSCULOSKELETAL: Muscle strength and tone weak, patient has signs of wasting and cachexia SPINE: No scoliosis or deformity SKIN: No rashes CENTRAL NERVOUS SYSTEM: Sedated No focal deficits, tone is normal in all 4 extremities. - Labs CBC & Chem 7: 07/02/18 04:35 07/02/18 11:15 Labs: Abnormal Lab Results - Last 24 Hours (Table) 07/01/18 07/01/18 07/02/18 Range/Units 17:44 23:29 04:35 WBC (3.8-10.6) k/uL RBC (4.30-5.90) m/uL Hgb (13.0-17.5) gm/dL Hct (39.0-53.0) % MCHC (31.0-37.0) g/dL RDW (11.5-15.5) % Plt Count (150-450) k/uL ABG pH (7.35-7.45) ABG pCO2 (35-45) mmHg ABG pO2 (83-108) mmHg ABG HCO3 (21-25) mmol/L ABG Total CO2 (19-24) mmol/L Potassium 3.3 L (3.5-5.1) mmol/L Chloride 109 H (98-107) mmol/L Carbon Dioxide 32 H (22-30) mmol/L Creatinine 0.55 L (0.66-1.25) mg/dL Glucose 129 H (74-99) mg/dL POC Glucose (mg/dL) 119 H 134 H (75-99) mg/dL Calcium 10.7 H (8.4-10.2) mg/dL Phosphorus 2.3 L (2.5-4.5) mg/dL 07/02/18 07/02/18 07/02/18 Range/Units 04:35 05:08 05:42 WBC 12.9 H (3.8-10.6) k/uL RBC 2.83 L (4.30-5.90) m/uL Hgb 7.2 L (13.0-17.5) gm/dL Hct 24.0 L (39.0-53.0) % MCHC 30.0 L (31.0-37.0) g/dL RDW 18.3 H (11.5-15.5) % Plt Count 86 L (150-450) k/uL ABG pH 7.47 H (7.35-7.45) ABG pCO2 47 H (35-45) mmHg ABG pO2 69 L (83-108) mmHg ABG HCO3 34 H (21-25) mmol/L ABG Total CO2 36 H (19-24) mmol/L Potassium (3.5-5.1) mmol/L Chloride (98-107) mmol/L Carbon Dioxide (22-30) mmol/L Creatinine (0.66-1.25) mg/dL Glucose (74-99) mg/dL POC Glucose (mg/dL) 140 H (75-99) mg/dL Calcium (8.4-10.2) mg/dL Phosphorus (2.5-4.5) mg/dL 07/02/18 07/02/18 Range/Units 11:45 11:46 WBC (3.8-10.6) k/uL RBC (4.30-5.90) m/uL Hgb (13.0-17.5) gm/dL Hct (39.0-53.0) % MCHC (31.0-37.0) g/dL RDW (11.5-15.5) % Plt Count (150-450) k/uL ABG pH (7.35-7.45) ABG pCO2 57 H (35-45) mmHg ABG pO2 79 L (83-108) mmHg ABG HCO3 35 H (21-25) mmol/L ABG Total CO2 37 H (19-24) mmol/L Potassium (3.5-5.1) mmol/L Chloride (98-107) mmol/L Carbon Dioxide (22-30) mmol/L Creatinine (0.66-1.25) mg/dL Glucose (74-99) mg/dL POC Glucose (mg/dL) 121 H (75-99) mg/dL Calcium (8.4-10.2) mg/dL Phosphorus (2.5-4.5) mg/dL Microbiology - Last 24 Hours (Table) 07/02/18 10:30 Urine Culture - Preliminary Urine,Catheterized 06/30/18 04:25 Gram Stain - Final Abdomen Wound Culture - Final Corinna albicans Assessment and Plan Plan: Assessment: #1. Acute hypoxemic respiratory failure secondary to right basilar pneumonia, related to aspiration. Chest x-ray to do a large right upper lobe cavitary lesion, and diffuse nodular infiltrates bilaterally, more so in the right lung, could be related to pneumonia, or lymphangitic infiltrates. #2. Acute on chronic anemia, with no clear evidence of bleeding, could be related to hemodilution, but in view of patient's hypotention will transfused with 1 unit of packed red blood cells #3. Metastatic squamous cell carcinoma of the head and neck, and most recent PET scan showed a new right upper lobe cavitary lesion, involvement of the t horacic spine, left mandible, maxilla. he is status post chemotherapy and radiation, and most recently considering immunotherapy, follows with Dr. Sánchez #4. PEG tube in place, nutritional support, and it has evidence of ulceration around the insertion site and we can of tube feedings #5. Protein calorie malnutrition #6. Current smoker, #7. History of EtOH use Plan: Continue current antibiotic coverage, no fever or chills, vital signs are stable, hemodynamically patient is stable, we'll give the patient dose of IV Lasix, and to diurese quite well, he is starting to respond to simple commands, we placed him on CPAP mode of ventilation, and patient is actually tolerating it quite well, and repeat blood gases were drawn after a few hours a CPAP, and they are satisfactory, actually improved, with pH of 7.40, pCO2 57, and pO2 of 79 on 65% FiO2. Patient is tolerating tube feedings. We will plan on repeating the CT of the chest, abdomen and pelvis today, however the family wants to wait with that. Patient is stable for transfer to LTAC facility today and there is a bed available there, and the family is in agreement with transfer today. The patient is stable for transfer. I performed a history & physical examination of the patient and discussed their management with my nurse practitioner, Aida Montgomery. I reviewed the nurse practitioner's note and agree with the documented findings and plan of care. Lung sounds are positive for coarse lung sounds The findings and the impression was discussed with the patient. I attest to the documentation by the nurse practitioner. Time with Patient: Greater than 30
[2018-07-02 17:44] LABS: Glucose,Whole Blood 113 mg/dL (75-99)
[2018-07-02 19:16] VITALS: BP 112/59; PULSE 112
--- NOTE | 2018-07-04 09:12 | CDI ---
Documentation Clarification Form Date: 06/30/2018 11:05:00 AM From: Shelley Syed RN, CCDS Admit Date: 06/23/2018 5:54:00 PM Patient Name: Nikhil Avila Visit Number: [id number] Discharge Date: 07/02/2018 7:21:00 PM ATTENTION: The Clinical Documentation Specialists (CDI) and [facility] Coding Staff appreciate your assistance in clarifying documentation. Please respond to the clarification below the line at the bottom and electronically sign. The CDI & [facility] Coding staff will review the response and follow-up if needed. Please note: Queries are made part of the Legal Health Record. If you have any questions, please contact the author of this message via ITS. Dr. Tolu Heredia: A Medial Sacrum pressure ulcer was documented in the Nursing Wound Care Assessment . History/Risk Factors: 67 year old male presents to ED via EMS for Altered Mental Status. Medical History of Metastatic Oral Cancer with Peg Tube and Enteral Feedings. Clinical Indicators: Location: Medial Sacrum Wound description: Pressure Inury; Unstageable; Granulation 51-75% pink; Jocelyn wound moisture Moist. Jocelyn wound color Erythema; Drainage Serosanguiness, Drainage Scant Treatment: Dressing Gel fiber Opticel Consults: Wound Care. Elements for accurate and compliant documentation of an ulcer: *Etiology (decubitus/pressure, diabetic, PVD) *Stage I-IV, Unstageable, Suspected Deep Tissue Injury (To the deepest stage) *If the ulcer was present at admission (POA) or occurred after admission In your professional opinion, can you please clarify the diagnosis, location, laterality and whether present on admission (POA): Stage 1 Pressure/Decubitus Ulcer (intact skin, non-blanching redness of local area) ----> Stage 2 Pressure/Decubitus Ulcer (Partial thickness, loss of dermis, pink wound bed) Stage 3 Pressure/Decubitus Ulcer (Full thickness tissue loss) Stage 4 Pressure/Decubitus Ulcer (Full thickness tissue loss with exposed bone, tendon, or muscle.) (May have slough or eschar present) Unstageable Other condition, please specify Unable to determine Please indicate etiology of pressure ulcer (if known).----------------------->immobility MTDD
--- NOTE | 2018-07-04 09:15 | CDI ---
Documentation Clarification Form Date: 06/30/2018 11:07:00 AM From: Shelley Syed RN, CCDS Admit Date: 06/23/2018 5:54:00 PM Patient Name: Nikhil Avila Visit Number: [id number] Discharge Date: 07/02/2018 7:21:00 PM ATTENTION: The Clinical Documentation Specialists (CDI) and [facility] Coding Staff appreciate your assistance in clarifying documentation. Please respond to the clarification below the line at the bottom and electronically sign. The CDI & [facility] Coding staff will review the response and follow-up if needed. Please note: Queries are made part of the Legal Health Record. If you have any questions, please contact the author of this message via ITS. Dr. Tolu Heredia: A Left Hip pressure ulcer was documented in the Nursing Wound Care Assessment . History/Risk Factors: 67 year old male presents to ED via EMS for Altered Mental Status. Medical History of Metastatic Oral Cancer with Peg Tube and Enteral Feedings. Clinical Indicators: Location: Left Hip Wound description: Pressure Injury Stage 2 . Length 4cm width 2cm; Granulation pink; Drainage Description Serous; Drainage Amount Scant; Treatment: Dressing Gel fiber Opticel Consults: Wound Care. Elements for accurate and compliant documentation of an ulcer: *Etiology (decubitus/pressure, diabetic, PVD) *Stage I-IV, Unstageable, Suspected Deep Tissue Injury (To the deepest stage) *If the ulcer was present at admission (POA) or occurred after admission In your professional opinion, can you please clarify the diagnosis, location, laterality and whether present on admission (POA): -------------->> Stage 2 Pressure/Decubitus Ulcer (Partial thickness, loss of dermis, pink wound bed) Other condition, please specify Unable to determine Please indicate etiology of pressure ulcer (if known).-------------------->immobility (Last Revision: January 2017) MTDD
== END 2018-07-02 19:21 | DRG 4 ==
LOC: EC 12:45 → 4SSUR 17:54 → 2SICU 06-25 02:52
PROVIDERS: ADMIT Family Medicine; ATTEND Family Medicine
PROC: 5A1955Z Respiratory Ventilation, Greater than 96 Consecutive Hours (ICD-10-PCS; 2018-06-25)
PROC: 0BH17EZ Insertion of Endotracheal Airway into Trachea, Via Natural or Artificial Opening (ICD-10-PCS; 2018-06-25)
PROC: 0D9670Z Drainage of Stomach with Drainage Device, Via Natural or Artificial Opening (ICD-10-PCS; 2018-06-25)
PROC: 30233N1 Transfusion of Nonautologous Red Blood Cells into Peripheral Vein, Percutaneous Approach (ICD-10-PCS; 2018-06-25)
PROC: 0B110F4 Bypass Trachea to Cutaneous with Tracheostomy Device, Open Approach (ICD-10-PCS; principal; 2018-06-27 12:30)
DX: C06.9 Malignant neoplasm of mouth, unspecified (principal); J96.01 Acute respiratory failure with hypoxia; J69.0 Pneumonitis due to inhalation of food and vomit; G93.41 Metabolic encephalopathy; R64 Cachexia; C78.01 Secondary malignant neoplasm of right lung; Z99.11 Dependence on respirator [ventilator] status; C79.51 Secondary malignant neoplasm of bone; C79.89 Secondary malignant neoplasm of other specified sites; E44.0 Moderate protein-calorie malnutrition; K94.23 Gastrostomy malfunction; F05 Delirium due to known physiological condition; M84.58XA Pathological fracture in neoplastic disease, other specified site, initial encounter for fracture; L89.222 Pressure ulcer of left hip, stage 2; L89.152 Pressure ulcer of sacral region, stage 2; E83.42 Hypomagnesemia; E86.0 Dehydration; L89.610 Pressure ulcer of right heel, unstageable; E87.6 Hypokalemia; R62.7 Adult failure to thrive; L98.499 Non-pressure chronic ulcer of skin of other sites with unspecified severity; F10.10 Alcohol abuse, uncomplicated; D64.9 Anemia, unspecified; F17.210 Nicotine dependence, cigarettes, uncomplicated; Z68.28 Body mass index [BMI] 28.0-28.9, adult; Z79.899 Other long term (current) drug therapy; Z92.21 Personal history of antineoplastic chemotherapy; Z92.3 Personal history of irradiation; Z90.01 Acquired absence of eye; Z80.1 Family history of malignant neoplasm of trachea, bronchus and lung; Z91.19 Patient's noncompliance with other medical treatment and regimen
CPT/HCPCS: 36415; 36600; 71045; 71046; 80048; 80053; 80306; 81001; 81003; 82140; 82533; 82550; 82805; 83605; 83735; 84100; 84132; 84484; 85025; 85027; 85610; 85730; 86850; 86900; 86901; 86920; 87040; 87070; 87075; 87086; 87205; 87502; 93005; 94002; 94003; 94640; 94760; 96361; 96365; 96366; 99285